=== PATIENT | male | born 1945 | race Caucasian/White ===

== ENCOUNTER → 2024-01-18 08:36 | Outpatient (REF) | payer OTHER, SELFPAY ==
[2024-01-18 09:13] LABS: % Immature Granulocytes 0.4 % (0-0.5); % Lymphocytes 36.2 % (20.5-51.1); % Neutrophils 43.4 % (42.2-75.2); Absolute Lymphocytes 1.6 10^3/uL (1.2-3.4); Absolute Monocytes 0.9 10^3/uL (0.1-0.6); Absolute Neutrophils 1.9 10^3/uL (1.4-6.5); Hematocrit 37.5 % (39.0-52.0); Hemoglobin 12.6 g/dL (13.0-18.0); Mean Corp Hgb Conc. 33.6 g/dL (33.0-37.0); Mean Corpuscular Hgb 32.1 pg (27.0-31.0); Mean Corpuscular Volume 95.7 fL (80.0-94.0); Mean Platelet Volume 8.3 fL (7.4-10.4); Nucleated Red Blood Cells % 0 % (-); Platelet Count 214 10^3/uL (130-400); Red Blood Cell Count 3.92 10^6/uL (4.70-6.10); Red Cell Dist. Width 13.4 % (11.5-14.5); White Blood Cell Count 4.5 10^3/uL (4.8-10.8)
[2024-01-18 10:50] LABS: ALT (SGPT) 17 U/L (0-50); AST (SGOT) 23 U/L (17-59); Albumin 4.3 g/dl (3.5-5.0); Alkaline Phosphatase 85 U/L (38-126); Blood Urea Nitrogen 30 mg/dl (9-20); Calcium 8.9 mg/dl (8.4-10.2); Carbon Dioxide 28 mmol/L (22-30); Chloride 102 mmol/L (98-107); Glucose 97 mg/dl (70-99); HDL Cholesterol 42 mg/dl; LDL Cholesterol, Calculated 56 mg/dl; Phosphorus 3.4 mg/dl (2.5-4.5); Potassium 5.1 mmol/L (3.5-5.1); Sodium 135 mmol/L (135-145); Total Bilirubin 0.6 mg/dl (0.2-1.3); Total Cholesterol 135 mg/dl (50-199); Total Protein 7.1 g/dl (6.3-8.2); Triglyceride 187 mg/dl (10-149); Very Low Density Lipoprotein 37 mg/dl (0-30); eGFR 44.38
== END ==
LOC: REG 08:36
PROVIDERS: ATTENDING PHYSICIAN Internal Medicine; REFERRING PHYSICIAN Specialist
DX: I35.0 Nonrheumatic aortic (valve) stenosis (principal); J44.9 Chronic obstructive pulmonary disease, unspecified; I25.10 Atherosclerotic heart disease of native coronary artery without angina pectoris; Z95.5 Presence of coronary angioplasty implant and graft; C64.2 Malignant neoplasm of left kidney, except renal pelvis; N28.9 Disorder of kidney and ureter, unspecified; E78.2 Mixed hyperlipidemia
CPT/HCPCS: 36415; 80053; 80061; 84100; 85025

== ENCOUNTER → 2024-01-23 14:46 | Outpatient (REF) | payer OTHER, SELFPAY | LOC: RAD 14:46 | PROVIDERS: ATTENDING PHYSICIAN Specialist; FAMILY PHYSICIAN Internal Medicine | DX: C64.2 Malignant neoplasm of left kidney, except renal pelvis (principal) | CPT/HCPCS: 74160; Q9967 ==

== ENCOUNTER → 2024-06-29 10:40 | Outpatient (REF) | payer OTHER, SELFPAY ==
[2024-06-29 11:27] LABS: % Immature Granulocytes 1.1 % (0-0.5); % Monocytes 19.5 % (1.7-9.3); % Neutrophils 51.4 % (42.2-75.2); Absolute Immature Granulocytes 0.1 10^3/uL (0-0.05); Absolute Lymphocytes 1.2 10^3/uL (1.2-3.4); Absolute Monocytes 0.9 10^3/uL (0.1-0.6); Absolute Neutrophils 2.2 10^3/uL (1.4-6.5); Hematocrit 39.7 % (39.0-52.0); Hemoglobin 13.5 g/dL (13.0-18.0); Mean Corpuscular Hgb 31.8 pg (27.0-31.0); Mean Corpuscular Volume 93.4 fL (80.0-94.0); Mean Platelet Volume 8.3 fL (7.4-10.4); Nucleated Red Blood Cells % 0 % (-); Platelet Count 210 10^3/uL (130-400); Red Blood Cell Count 4.25 10^6/uL (4.70-6.10); Red Cell Dist. Width 13.3 % (11.5-14.5); Reticulocyte Count 2.6 % (0.4-2.8); White Blood Cell Count 4.4 10^3/uL (4.8-10.8)
[2024-06-29 12:04] LABS: Albumin 4.5 g/dl (3.5-5.0); Blood Urea Nitrogen 26 mg/dl (9-20); Calcium 9.4 mg/dl (8.4-10.2); Carbon Dioxide 28 mmol/L (22-30); Chloride 102 mmol/L (98-107); Glucose 82 mg/dl (70-99); Iron 131 ug/dl (49-181); Phosphorus 3.2 mg/dl (2.5-4.5); Potassium 4.7 mmol/L (3.5-5.1); Sodium 139 mmol/L (135-145); eGFR 56.93
[2024-06-29 12:36] LABS: Ferritin 82.3 ng/ml (17.9-464.0)
== END ==
LOC: REG 10:40
PROVIDERS: ATTENDING PHYSICIAN Internal Medicine
DX: I25.10 Atherosclerotic heart disease of native coronary artery without angina pectoris (principal)
CPT/HCPCS: 36415; 80069; 82728; 83540; 85025; 85045

== ENCOUNTER → 2024-09-25 15:02 | Outpatient (REF) | payer OTHER, SELFPAY | LOC: RCS 15:02 | PROVIDERS: ATTENDING PHYSICIAN Nurse Practitioner; FAMILY PHYSICIAN Internal Medicine | DX: I35.0 Nonrheumatic aortic (valve) stenosis (principal) | CPT/HCPCS: 93306 ==

== ENCOUNTER → 2024-10-03 09:03 | Outpatient (REF) | payer OTHER, SELFPAY ==
[2024-10-03 10:24] LABS: Hematocrit 40.9 % (39.0-52.0); Hemoglobin 13.2 g/dL (13.0-18.0); Mean Corp Hgb Conc. 32.3 g/dL (33.0-37.0); Mean Corpuscular Hgb 31.2 pg (27.0-31.0); Mean Corpuscular Volume 96.7 fL (80.0-94.0); Mean Platelet Volume 8.5 fL (7.4-10.4); Platelet Count 205 10^3/uL (130-400); Red Blood Cell Count 4.23 10^6/uL (4.70-6.10); Red Cell Dist. Width 13.7 % (11.5-14.5); White Blood Cell Count 4.9 10^3/uL (4.8-10.8)
[2024-10-03 10:25] LABS: ALT (SGPT) 20 U/L (0-50); AST (SGOT) 30 U/L (17-59); Albumin 4.5 g/dl (3.5-5.0); Alkaline Phosphatase 79 U/L (38-126); Blood Urea Nitrogen 30 mg/dl (9-20); Calcium 8.7 mg/dl (8.4-10.2); Carbon Dioxide 27 mmol/L (22-30); Chloride 103 mmol/L (98-107); Glucose 88 mg/dl (70-99); Potassium 4.9 mmol/L (3.5-5.1); Sodium 142 mmol/L (135-145); Total Bilirubin 0.5 mg/dl (0.2-1.3); Total Protein 7.4 g/dl (6.3-8.2); eGFR 56.58
[2024-10-03 10:46] LABS: Absolute Neutrophils -Man Diff 2.6 10^3/uL (1.4-6.5); Band Neutrophils 0 % (0-3); Lymphocytes 34 % (20-51); Monocytes 11 % (2-9); Normal RBC Morphology Yes; Platelets Checked Yes; Segmented Neutrophils 55 % (42-75); Total Cells Counted 100
== END ==
LOC: REG 09:03
PROVIDERS: ATTENDING PHYSICIAN Internal Medicine; FAMILY PHYSICIAN Internal Medicine
DX: I35.0 Nonrheumatic aortic (valve) stenosis (principal)
CPT/HCPCS: 36415; 80053; 85025

== ENCOUNTER 2024-10-04 07:13 | Day surgery (SDC) | payer OTHER, SELFPAY ==
[2024-10-04] VITALS (10 sets, daily range): BP systolic 140–153; BP diastolic 66–82; BMI 35.0
[2024-10-04 10:02] LABS: ACT-LR - POC 205 Seconds (116-155)
--- NOTE | 2024-10-04 10:24 | ITS.CL.CATH ---
Tourist Information Assistant - Catheterization
Cardiac Catheterization
Procedure Report:
CARDIAC CATHETERIZATION REPORT
Date of Procedure: 10/04/2024
Referring: Cam العراقي MD
Indication: Symptomatic severe aortic stenosis
�
HEMODYNAMIC DATA
AO: 121/64
LV: Not done
�
LEFT VENTRICULOGRAPHY: Not done
�
CORONARY ANGIOGRAPHY
Dominance: Right
Left Main: Normal
LAD: 60% proximal to mid LAD stenosis with otherwise mild luminal irregularities in the LAD system
Circumflex: There is a long stented segment from the proximal circumflex extending into the large OM 2. The stented segment is patent with mild restenosis to 20-30% in the proximal stented segment. The stent placed in 2018 in OM 2 has no restenosis
RCA: The RCA has 80% mid stenosis and remains chronically occluded in the midportion. The relatively small PDA and medium size posterolateral fill via [id number] collaterals
FloWire assessment: The functional significance of the LAD disease was evaluated with FloWire. Heparin was used for anticoagulation. A 6 [place] EBU 4.0 guide was used. A [place] Omni wire was advanced into the large D3. iFR measurements were
0.91, 0.90, 0.90. These are consistent with nonflow-limiting disease.
�
Closure Device: None-the procedure was performed via the right radial artery. The Nam's test was normal prior to the procedure.
�
Radiation (mGy): 628
DAP (cm2.Gy): 45.4
Fluoroscopy time: 7.9-minute
�
CONCLUSIONS
1:�Multivessel CAD as described-the LAD disease is nonflow limiting by iFR criteria and the RCA has had YARD PERSON for many years.
2:�Known severe with moderate AI not invasively evaluated
3. Recommend CTA chest, abdomen and pelvis (TAVR protocol). Then CTS consultation. Favor TAVR if ascending aortic dilatation does not require repair
�
�
Copy to: Cam العراقي MD, Kraig Lacey MD
�
Rojelio Ortega MD, LOCATED WITHIN [facility], [facility]
--- NOTE | 2024-10-04 10:46 | CONSULT.STRU ---
Consultation
-
Date/Time Consultation Requested: 10/04/2024
Date/Time Consultation Performed: 10/04/2024
Requesting Provider: Roejlio Ortega MD
Performing Provider: KALEN Klein
Reason for Consultation: /TAVR
Patient History
Physicians
Family Physician: Nazario Lacey MD
Outpatient Cigarette Lighter Repairer: Cam العراقي MD
Primary Cigarette Lighter Repairer: Cam العراقي MD
History of Present Illness
Mr. Rutledge is a very pleasant 79 yom that presents with severe symptomatic aortic stenosis associated with BREWER, Fatigue, and intermittent chest pain. His echocardiogram from 09/25/2024 is notable for EF 55-60%, AV P/M 74/42, CALEB 1.3, DI 0.2, pk sree
4.31, mild - moderate AI, mild MR, Trace TR, PAP 37. Discussed the pathophysiology and treatment options of including SAVR and TAVR. Explained the evaluation process comprising of CT scan, CT surgical consult, dental clearance, and a heart team
discussion. TAVR booklet, contact information, prescriptions, and appointments given to patient. Allowed for and answered questions at bedside.
Past Medical History
Past Medical History: CAD (MARYLOU-Lcx (2018)), HTN, Psychiatric (depression), Valvular Disease (aortic stenosis) and Other (mixed hyperlipidemia, gout, smoker, pneumonia, kidney cancer, varicose veins, umbilical hernia)
Past Surgical History
Past Surgical History: Abdominal ((L) nephrectomy, hernia repair), Appendectomy and Orthopedic ((L) TKR, (L) hand laproscopic)
Dental History
Dr. Sravan Quintero DDS
Family History
Mother: at Age (87)
Father: at Age (87)
Social History
Alcohol: Daily (3-4 whiskeys/ day)
Drug: None
Tobacco: Former Smoker
Personal:
Living: Alone
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
Allergies
Allergy/AdvReac Type Severity Reaction Status Date / Time
No Known Allergies Allergy Verified 10/04/24 07:33
Home Medications
�Medication �Instructions �Recorded �Confirmed �Type
allopurinol 300 mg tablet 300 mg PO DAILY Gout 06/27/18 10/04/24 History
amlodipine 10 mg tablet 10 mg PO HS Heart disease/condition 06/27/18 10/04/24 History
atorvastatin 20 mg tablet 20 mg PO HS High cholesterol 06/27/18 10/04/24 History
fluoxetine 20 mg capsule 20 mg PO HS Mental Health/Anxiety 06/27/18 10/04/24 History
lisinopril 40 mg tablet 40 mg PO DAILY #30 tabs 06/29/18 10/04/24 Rx
Aspirin 81 mg PO DAILY Blood clot 10/05/21 10/04/24 History
prevention/tx
Zatteehkdw-Nxkmfjzsjpd-PIF Tab 1 tab PO DAILY Supplement 10/05/21 10/04/24 History
fenofibrate 54 mg tablet 54 mg PO DAILY High cholesterol 10/05/21 10/04/24 History
acetaminophen 650 mg 650 mg PO Q6HPRN PRN pain ##1 10/06/21 10/04/24 Rx
tablet,extended release (Tylenol
Arthritis)
clopidogrel 75 mg tablet 75 mg PO DAILY Blood clot 10/07/21 10/04/24 History
prevention/tx
STS%
STS %: 2.35
Review of Systems
-
History Source: Patient
General: Reports Fatigue
HEENT: Reports No Symptoms
Respiratory: Reports BREWER
Cardiac: Reports Chest Pain
Abdomen/GI: Reports No Symptoms
: Reports No Symptoms
Musculoskeletal: Reports No Symptoms
Skin: Reports No Symptoms
Neurological: Reports No Symptoms
Vascular: Reports No Symptoms
Physical Exam
Vital Signs
Temp 97.3 F 10/04/24 07:15
Temp route: Oral 10/04/24 07:15
Pulse 58 11/21/24 10:22
Resp Rate 24 10/04/24 10:22
Blood pressure 148/68 10/04/24 10:22
Blood pressure extremity used: Left upper arm 10/04/24 10:19
Position: Sitting 10/04/24 10:19
MAP (cuff-Frankie Monitor) 91 10/04/24 10:22
SaO2 96 10/04/24 10:22
Oxygen Mode of Delivery Room air 10/04/24 10:19
Can the patient verbally communicate their pain? Yes 10/04/24 10:19
Actual Weight 110.5 kg 10/04/24 07:36
Body Mass Index (BMI) 35.0 10/04/24 07:36
Labs
10/03/2024:
HH: 13.2/40.9
plt: 205K
BUN/Creatinine: 30/1.3
GFR: 56.58
Diagnostic Studies
PFT 09/15/2024:
Spirometry pre bronchodilator:
FVC was 2.56L or 59% predicted.
FEV1 was 1.57L or 50% predicted.
Ratio 61
Spirometry post bronchodilator:
FVC was 3.04L or 70% predicted, 19% change.
FEV1 was 1.94L or 62% predicted, 24% change.
Ratio 64
Lung Volumes:
TLC was 6.06L or 83% predicted.
Diffusion was 17.18 or 64% predicted, when adjusted for hemoglobin is unchanged.
Patient effort: Good.
Bronchodilator used was Albuterol.
Impression:
Moderate obstruction. There was significant bronchodilator response in both the FVC and FEV1. Lung volumes demonstrate normal lung volumes. There is a mild diffusion impairment.
ECHOCARDIOGRAM 09/25/2024:
CONCLUSIONS
Normal left ventricular size and systolic function. Basal
inferoseptal/inferior hypokinesis. LVEF 55-60%.
Normal RV size and function.
Moderate to severe aortic stenosis (peak/mean 74/42 mmHg, CALEB 1.3 cm2, DVI
0.2).
Mild to moderate aortic regurgitation.
Mildly dilated aortic root (4.2 cm) and ascending aorta (4.4 cm).
Mildly elevated PASP (37 mmHg).
Compared to prior echocardiogram on 06/09/2023, aortic stenosis has progressed
slightly and is now in the moderate to severe range. Mean gradient has
increased from 38 mmHg to 42 mmHg. CALEB is stable. Aortic root and ascending
aorta are stable in size.
CARDIAC CATHETERIZATION 10/04/2024:
CONCLUSIONS
1:�Multivessel CAD as described-the LAD disease is nonflow limiting by iFR criteria and the RCA has had PRODUCT MARKETING SPECIALIST for many years.
2:�Known severe with moderate AI not invasively evaluated
3. Recommend CTA chest, abdomen and pelvis (TAVR protocol). Then CTS consultation. Favor TAVR if ascending aortic dilatation does not require repair
Exam
General: Well Developed, Well Nourished, No Apparent Distress and Comfortable
HEENT: Normocephalic
Neck: Trachea Midline
Respiratory: Clear (anteriorly)
Cardiac: Murmur (II/ LOGAN)
GI: Soft, Non Tender and Non Distended
Rectal: Deferred by Provider
Skin: Warm and Dry
Neuro: Awake, Alert, Oriented and AO x 3
Extremities: Lower Level Edema (Trace)
Psych: Calm
Assessment / Plan
-
Aortic stenosis:
Continue TAVR evaluation
Trend creatinine after contrast (Rx given)
TAVR CT scan (10/19)
CT surgical consult (MPT 10/23)
Frailty testing and KCCQ 12 at consult
Continue aspirin and plavix
Dental clearance
Heart team discussion
Data Reviewed
-
Asset Protection Assistant: Report Reviewed by me and Discussed with Physician
Echo: Report Reviewed by me and Discussed with Physician
Medical Tests (Nuc Med, etc): Other (PFT)
Labs: Labs Reviewed by me
Old Records: Reviewed (Joanne Alcantar's office note)
Total Time Spent with Patient (in minutes): 45
== END 2024-10-04 13:06 | disposition home or self-care (01) ==
LOC: CATH 07:13
PROVIDERS: ATTENDING PHYSICIAN Internal Medicine Cardiovascular Disease; FAMILY PHYSICIAN Internal Medicine; OTHER PHYSICIAN Internal Medicine
DX: I35.0 Nonrheumatic aortic (valve) stenosis (principal); I25.10 Atherosclerotic heart disease of native coronary artery without angina pectoris; R07.89 Other chest pain; I25.82 Chronic total occlusion of coronary artery; I10 Essential (primary) hypertension; E78.5 Hyperlipidemia, unspecified; Z85.528 Personal history of other malignant neoplasm of kidney; Z87.891 Personal history of nicotine dependence; Z79.82 Long term (current) use of aspirin; Z79.02 Long term (current) use of antithrombotics/antiplatelets
CPT/HCPCS: 93799; C1894; C1769; C1887; 85347; 93454; 93571; Q9967

== ENCOUNTER → 2024-10-10 08:46 | Outpatient (REF) | payer OTHER, SELFPAY ==
[2024-10-10 11:28] LABS: Blood Urea Nitrogen 27 mg/dl (9-20); Calcium 9.2 mg/dl (8.4-10.2); Carbon Dioxide 28 mmol/L (22-30); Chloride 101 mmol/L (98-107); Glucose 88 mg/dl (70-99); Potassium 4.8 mmol/L (3.5-5.1); Sodium 142 mmol/L (135-145); eGFR 56.58
== END ==
LOC: REG 08:46
PROVIDERS: ATTENDING PHYSICIAN Nurse Practitioner Acute Care; FAMILY PHYSICIAN Internal Medicine; REFERRING PHYSICIAN Internal Medicine
DX: I35.0 Nonrheumatic aortic (valve) stenosis (principal)
CPT/HCPCS: 36415; 80048

== ENCOUNTER → 2024-10-19 09:23 | Outpatient (REF) | payer OTHER, SELFPAY | LOC: RAD 09:23 | PROVIDERS: ATTENDING PHYSICIAN Nurse Practitioner Acute Care | DX: I35.0 Nonrheumatic aortic (valve) stenosis (principal) | CPT/HCPCS: 74174; 75572; Q9967 ==

== ENCOUNTER 2024-11-26 05:20 | Inpatient (IN) | payer OTHER, SELFPAY ==
[2024-11-19 08:49] VITALS: BMI 34.0
[2024-11-19 09:45] LABS: INR 1.05
[2024-11-19 09:46] LABS: APTT 37.8 Sec (23.4-35.0)
[2024-11-19 09:55] LABS: Hematocrit 39.9 % (39.0-52.0); Mean Corp Hgb Conc. 32.6 g/dL (33.0-37.0); Mean Platelet Volume 8.7 fL (7.4-10.4); Platelet Count 189 10^3/uL (130-400); Red Cell Dist. Width 13.4 % (11.5-14.5); White Blood Cell Count 4.7 10^3/uL (4.8-10.8)
--- NOTE | 2024-11-19 10:24 | CM ---
Met with Mr. Rutledge in [facility]. He states prior to admission he resides alone in a two story home with three steps to enter. He states he has a first floor set-up. He states prior to admission he was independent with ambulation and adls. He states
he mauricio not have any DME in the home. He states he has a prescription plan and uses [facility]. He states he will go home alone but has family and friends that he can call if he needs any assistance. The discharge plan is to return home
alone with family and friend support and a home visit by the Transitional Care Nurse when medically stable.
We reviewed pre-op and post-op routines. We reviewed the shower instructions. He has the soap, written instructions and the Cardiothoracic Surgery Educational Booklet. We also reviewed restrictions including sternal precautions and driving
restrictions. We also discussed a home visit by the Transitional Care Nurse. He is agreeable to a home visit. The plan is for AVR/CABG on Tuesday.
[2024-11-19 10:33] LABS: ALT (SGPT) 19 U/L (0-50); AST (SGOT) 27 U/L (17-59); Albumin 4.6 g/dl (3.5-5.0); Alkaline Phosphatase 78 U/L (38-126); Blood Urea Nitrogen 19 mg/dl (9-20); Calcium 9.1 mg/dl (8.4-10.2); Carbon Dioxide 31 mmol/L (22-30); Chloride 99 mmol/L (98-107); Estimated Creatinine Clearance 64 ml/min; Glucose 82 mg/dl (70-99); Potassium 4.8 mmol/L (3.5-5.1); Sodium 138 mmol/L (135-145); Total Bilirubin 0.8 mg/dl (0.2-1.3); Total Protein 7.6 g/dl (6.3-8.2); eGFR > 60.00
[2024-11-19 10:41] LABS: Urine Albumin 1+ (Neg - Trace); Urine Bilirubin Negative (Negative); Urine Character Clear (Clear); Urine Color Yellow; Urine Glucose Negative (Negative); Urine Ketone Negative (Negative); Urine Leukocyte Trace (Negative); Urine Nitrite Negative (Negative); Urine Occult Blood 2+ (Negative); Urine Urobilinogen Negative (Neg - 1+)
[2024-11-19 11:03] LABS: Glycohemoglobin (HgbA1c) 5.3 % (4.0-5.6)
[2024-11-19 12:14] LABS: Absolute Neutrophils -Man Diff 2.8 10^3/uL (1.4-6.5); Band Neutrophils 3 % (0-3); Lymphocytes 16 % (20-51); Monocytes 22 % (2-9); Myelocytes 1 % (-); Normal RBC Morphology Yes; Platelets Checked Yes; Segmented Neutrophils 58 % (42-75); Total Cells Counted 100
[2024-11-19 12:19] LABS: Urine Amorphous Seen
[2024-11-19 12:21] LABS: Urine Hyaline Cast 0-2 /LPF (0-2)
[2024-11-19 12:22] LABS: Urine White Cell 0-2 /HPF (0-5)
[2024-11-19 12:23] LABS: Urine Bacteria Few (Negative)
[2024-11-26] VITALS (17 sets, daily range): BP systolic 77–130; BP diastolic 57–79; BMI 33.4
[2024-11-26] MEDS: BACTROBAN 2% OINTMENT 1 APPLIC NASAL ×2 (06:06→20:13)
[2024-11-26] MEDS: PROTONIX 40 MG PO (06:06)
[2024-11-26] MEDS: LOPRESSOR 25 MG PO (06:06)
[2024-11-26] MEDS: MAGNESIUM OXIDE 500 MG PO (06:06)
--- NOTE | 2024-11-26 06:20 | PTCARENOTE ---
Patient arrived to room 2267 with security services manager. Patient A+A+Ox3. No neurological deficits noted. Patient with no c/o pain or discomfort. Patient confirmed NPO status after midnight. Patient confirmed taking 4% Chlorhexidine shower last
night and this morning. Patient clipped and prepped per protocol. G wipes. Admission questions completed. Medication reconciliation completed. Patient confirmed stopping Plavix 5 days ago. Pre-op medication administered. I.S. 1500 ml.
Heart pillow use and purpose explained - Patient demonstrated use. Dr. Hill arrived and spoke with patient. best worker to [facility].
[2024-11-26 08:07] LABS: ACT+ - POC 101 Seconds (82-134)
[2024-11-26 08:18] LABS: Urine Albumin Trace (Neg - Trace); Urine Bilirubin Negative (Negative); Urine Character Clear (Clear); Urine Color Yellow; Urine Glucose Negative (Negative); Urine Ketone Negative (Negative); Urine Leukocyte Negative (Negative); Urine Nitrite Negative (Negative); Urine Occult Blood Trace (Negative); Urine Urobilinogen Negative (Neg - 1+)
--- NOTE | 2024-11-26 08:35 | CM ---
Reviewed chart. Mr. Rutledge is in the operating room today. Prior to admission he resides alone in a two story home with three steps to enter. He has a first floor set-up. Prior to admission he was independent with ambulation and adls. He does not
have any DME in the home. He has a prescription plan and uses [facility]. He states he has friends and family that he can call if he needs assistance. Medical work-up in progress. The discharge plan is to return home with family and friend
assistance and a home visit by the Transitional Care Nurse when medically stable.
[2024-11-26 09:09] LABS: Urine Mucus Few
[2024-11-26 09:10] LABS: Urine Squamous Cell 0-2 /LPF (Few)
[2024-11-26 09:13] LABS: Urine Amorphous Seen
[2024-11-26 09:14] LABS: Urine Hyaline Cast 0-2 /LPF (0-2); Urine White Cell 0-2 /HPF (0-5)
[2024-11-26 09:54] LABS: B.E. - POC 1.8 mmol/L; Glucose - POC 107 mg/dl (70-99); HCO3 - POC 28 mmol/L (21-28); Hematocrit - POC 34 % PCV (42-52); Hemodilution- POC No; Hemoglobin Calculated - POC 11.7; Ionized Calcium - POC 1.26 mmol/L (1.15-1.33); PCO2 - POC 52 mmHg (35-48); PO2 - POC 502 mmHg (83-108); POC Comment PRE; Potassium - POC 4.4 mmol/L (3.5-5.1); Sodium - POC 139 mmol/L (136-145); Specimen Type - POC Arterial; pH - POC 7.34 (7.35-7.45)
[2024-11-26 10:29] LABS: ACT+ - POC 976 Seconds (82-134)
[2024-11-26 10:56] LABS: ACT+ - POC 789 Seconds (82-134)
[2024-11-26 11:13] LABS: B.E. - POC 3.7 mmol/L; Glucose - POC 136 mg/dl (70-99); HCO3 - POC 29 mmol/L (21-28); Hematocrit - POC 28 % PCV (42-52); Hemodilution- POC Yes; Hemoglobin Calculated - POC 9.4; Ionized Calcium - POC 1.08 mmol/L (1.15-1.33); PCO2 - POC 49 mmHg (35-48); PO2 - POC 398 mmHg (83-108); POC Comment CPB; Potassium - POC 5.7 mmol/L (3.5-5.1); Sodium - POC 138 mmol/L (136-145); Specimen Type - POC Arterial; pH - POC 7.38 (7.35-7.45)
[2024-11-26 11:28] LABS: ACT+ - POC 799 Seconds (82-134)
[2024-11-26 11:48] LABS: B.E. - POC 1.7 mmol/L; Glucose - POC 125 mg/dl (70-99); HCO3 - POC 26 mmol/L (21-28); Hematocrit - POC 28 % PCV (42-52); Hemodilution- POC Yes; Hemoglobin Calculated - POC 9.4; Ionized Calcium - POC 1.04 mmol/L (1.15-1.33); PCO2 - POC 38 mmHg (35-48); PO2 - POC 447 mmHg (83-108); POC Comment CPB; Potassium - POC 5.6 mmol/L (3.5-5.1); Sodium - POC 137 mmol/L (136-145); Specimen Type - POC Arterial; pH - POC 7.44 (7.35-7.45)
[2024-11-26 11:59] LABS: ACT+ - POC 608 Seconds (82-134)
[2024-11-26 12:15] LABS: B.E. - POC -0.5 mmol/L; Glucose - POC 106 mg/dl (70-99); HCO3 - POC 24 mmol/L (21-28); Hematocrit - POC 26 % PCV (42-52); Hemodilution- POC Yes; Ionized Calcium - POC 1.02 mmol/L (1.15-1.33); O2 Saturation %Calculated-POC 99.9 % (94-98); PCO2 - POC 37 mmHg (35-48); PO2 - POC 318 mmHg (83-108); POC Comment CPB; Potassium - POC 5.6 mmol/L (3.5-5.1); Sodium - POC 139 mmol/L (136-145); Specimen Type - POC Arterial; pH - POC 7.42 (7.35-7.45)
--- NOTE | 2024-11-26 12:20 | CON.INTV ---
Consultation
Consultation Request
Date/Time Consultation Requested: 11/26/2024-1:30 PM
Date/Time Consultation Performed: 11/26/2024-2 PM
Requesting Provider: Cardiovascular surgery
Performing Provider: Dr. Maldonado
Reason for Consultation: Postoperative ventilator/critical care management
Medical History
-
Chief Complaint: Aortic stenosis
History of Present Illness:
79-year-old former smoking and drinking male with a history of hypertension, COPD, CAD/stent, obesity and kidney cancer noted to have severe aortic stenosis and underwent aortic valve replacement and CABG-linux systems administrator consulted for postoperative
ventilator/critical care management 11/26/2024. Patient is seen postoperatively on the ventilator and he is sedated and review of systems was unobtainable. Operative records reviewed, pressors, chest tube output, etc. were reviewed.
Past Medical History
Past Medical History: None (Hypertension. COPD. CAD/stent. Cigarette smoker. Left renal mass. Depression. Gout. Alcohol use disorder. Left knee replacement. Appendectomy. Hernia repair. Left nephrectomy 2020.)
Social History
Tobacco: Former Smoker
Alcohol: Daily
Drug: None
Personal: Single
Occupational Exposures: No known asbestos exposure
Environmental Exposures: No known tuberculosis exposure
Family History
Family History: Other (Father-aortic stenosis. Sister-Alzheimer's.)
Allergies / Home Medications
Allergies
Allergy/AdvReac Type Severity Reaction Status Date / Time
No Known Allergies Allergy Verified 11/19/24 15:47
Home Medications
�Medication �Instructions �Recorded �Confirmed �Last Taken �Type
allopurinol 300 mg tablet 300 mg PO DAILY Gout 06/27/18 11/26/24 11/25/24 10:00 History
300 mg
amlodipine 10 mg tablet 10 mg PO HS Heart disease/condition 06/27/18 11/26/24 11/24/24 21:00 History
10 mg
atorvastatin 20 mg tablet 20 mg PO HS High cholesterol 06/27/18 11/26/24 11/24/24 21:00 History
20 mg
fluoxetine 20 mg capsule 20 mg PO HS Mental Health/Anxiety 06/27/18 11/26/24 11/25/24 21:00 History
20 mg
lisinopril 40 mg tablet 40 mg PO DAILY #30 tabs 06/29/18 11/26/24 11/24/24 10:00 Rx
40 mg
Sokuuwnbqn-Imsuxhpfzox-CGK Tab 1 tab PO BID Supplement 10/05/21 11/26/24 11/19/24 21:00 History
1 Tab
clopidogrel 75 mg tablet 75 mg PO DAILY Blood clot 10/07/21 11/26/24 11/21/24 10:00 History
prevention/tx 75 mg
aspirin 81 mg tablet,delayed 81 mg PO DAILY 11/19/24 11/26/24 11/25/24 10:00 History
release 81 mg
furosemide 40 mg tablet 40 mg PO DAILY 11/19/24 11/26/24 11/25/24 10:00 History
40 mg
Review of Systems
-
Unable to Obtain full review of systems at this time due to: Other (Per HPI)
Vitals / Labs / Diagnostic Testing
Vital Signs
Temp Pulse Resp BP Pulse Ox
97.4 F 73 16 130/79 97
11/26/24 05:53 11/26/24 06:06 11/26/24 05:53 11/26/24 06:06 11/26/24 05:53
Lab Data
11/19/24 09:00
11/19/24 09:00
Diagnostic Testing:
Physical Exam
-
Exam:
Well-nourished and well-developed in no apparent distress
HEENT-atraumatic, normocephalic, oral tracheal intubation
Heart-regular rate and rhythm-no murmurs, rubs or gallops
Chest-clear to auscultation, no wheezes, crackles, median sternotomy bandage is not removed
Abdomen soft nondistended
Extremities-no cyanosis, clubbing, edema and good peripheral pulses
Integument-intact, no rashes, lesions or ecchymosis
Neurologically not alert, not oriented, not moving any of his extremities sedated on a ventilator
Assessment
-
9-year-old former smoking and drinking male with a history of hypertension, COPD, CAD/stent, obesity and kidney cancer noted to have severe aortic stenosis and underwent aortic valve replacement and CABG-linux systems administrator consulted for postoperative
ventilator/critical care management 11/26/2024.
Severe aortic stenosis and CAD-status post ascending aortic wrap with Hemashield graft/CABG x 1-lead to to LAD-Dr. Hill 11/26/2024
Mild leukopenia
Conditions present prior to admission:
Hypertension.
COPD.
Pulmonary nodule-4 mm right lower lobe stable 08/2021 through 10/2024
CAD/stent.
Cigarette smoker.
Left renal mass-renal cell carcinoma stage IIa, grade 3, 7.6 cm-incidentally noted on screening CT chest
Right renal mass-suspected cyst-follows urology
Depression.
Gout.
Alcohol use disorder.
Obesity-BMI 33
Left knee replacement. Appendectomy. Hernia repair. Left nephrectomy 2020.
Plan
Ventilator settings reviewed
FiO2 will be weaned
Minute ventilation will be adjusted
Arterial blood gases will be monitored
Spontaneous breathing trial will be attempted with hopeful extubation after anesthesia/sedation wear off
Pulmonary artery catheter parameters will be followed
Pressors/antihypertensive/inotropes/diuretics will be provided as needed
Monitor chest tube output
Monitor hemoglobin
Monitor platelet count and coags
Transfuse blood product if needed
CT surgery following chest tubes
Monitor blood sugar
Insulin drip per protocol
Follow MSAS
Alcohol withdrawal treatment protocol if needed
Consider thiamine, folate and multivitamins-will try to obtain detailed alcohol intake information
Aspiration precautions
VAP prevention protocol
DVT prophylaxis
Early nutrition
Early mobilization
Consider outpatient pulmonary/sleep disorders evaluation-BMI 33, thick neck, snore, etc.
Critical care statement: A total of 55 minutes of critical care time was provided for this patient today. This includes management of ventilator, spontaneous breathing trial, arterial blood gases, pressors, of unstable vital signs, evaluation of the
patient at bedside, reviewing the patient's pertinent medical records including radiographs, microbiology, laboratory evaluations, and discussion with primary team and critical care nursing.
Diagnostic data:
CT chest low-dose 08/20/21-7.5 cm low-density mass left kidney, no evidence for pulmonary malignancy
CT chest 4R 10/19/2024-no suspicious pulmonary nodules, stable 4 mm nodule lateral right lower lobe
Cardiac catheterization 10/04/2024-multivessel CAD, severe aortic stenosis with moderate aortic insufficiency
Echocardiogram 09/25/2024-EF 55-60%, moderate to severe aortic stenosis, CALEB 1.3 cm, moderate aortic regurgitation
PFT 09/15/2023-FEV1 1.57-50%, FVC 2.56-59%, 24% improvement postbronchodilator, TLC 83%, DLCO 64%-moderate obstruction, mild to moderate diffusing deficit
Data Reviewed
-
PFT: Report reviewed by me
EKG: Report reviewed by me
Radiology: Image personally visualized and interpreted and Report reviewed by me
CT Scan: Image personally visualized and interpreted and Report reviewed by me
Medical Tests (Nuc Med, Echo etc): Report reviewed by me
Labs: Labs reviewed by me
Old Records: Reviewed
Critical Care Time (in minutes): 55
[2024-11-26 12:26] LABS: ACT+ - POC 635 Seconds (82-134)
[2024-11-26 12:45] LABS: B.E. - POC 0.3 mmol/L; Glucose - POC 109 mg/dl (70-99); HCO3 - POC 24 mmol/L (21-28); Hematocrit - POC 30 % PCV (42-52); Hemodilution- POC Yes; Hemoglobin Calculated - POC 10.1; Ionized Calcium - POC 1.05 mmol/L (1.15-1.33); O2 Saturation %Calculated-POC 99.8 % (94-98); PCO2 - POC 36 mmHg (35-48); PO2 - POC 230 mmHg (83-108); Potassium - POC 5.5 mmol/L (3.5-5.1); Sodium - POC 139 mmol/L (136-145); Specimen Type - POC Arterial; pH - POC 7.44 (7.35-7.45)
[2024-11-26 12:58] LABS: ACT+ - POC 640 Seconds (82-134)
[2024-11-26 13:12] LABS: B.E. - POC 0.1 mmol/L; Glucose - POC 127 mg/dl (70-99); HCO3 - POC 24 mmol/L (21-28); Hematocrit - POC 28 % PCV (42-52); Hemodilution- POC Yes; Hemoglobin Calculated - POC 9.5; O2 Saturation %Calculated-POC 99.9 % (94-98); PCO2 - POC 35 mmHg (35-48); PO2 - POC 337 mmHg (83-108); POC Comment WARM; Potassium - POC 5.3 mmol/L (3.5-5.1); Sodium - POC 140 mmol/L (136-145); Specimen Type - POC Arterial; pH - POC 7.44 (7.35-7.45)
[2024-11-26 13:21] LABS: ACT+ - POC 546 Seconds (82-134)
[2024-11-26 13:43] LABS: ACT+ - POC 492 Seconds (82-134)
[2024-11-26 13:56] LABS: Glucose - POC 153 mg/dl (70-99); HCO3 - POC 23 mmol/L (21-28); Hematocrit - POC 29 % PCV (42-52); Hemodilution- POC Yes; Hemoglobin Calculated - POC 9.7; Ionized Calcium - POC 0.99 mmol/L (1.15-1.33); O2 Saturation %Calculated-POC 99.9 % (94-98); PCO2 - POC 35 mmHg (35-48); PO2 - POC 327 mmHg (83-108); POC Comment WARM; Potassium - POC 5.6 mmol/L (3.5-5.1); Sodium - POC 141 mmol/L (136-145); Specimen Type - POC Arterial; pH - POC 7.42 (7.35-7.45)
[2024-11-26 14:00] LABS: ACT+ - POC 112 Seconds (82-134)
--- NOTE | 2024-11-26 15:02 | W.CVOR.SURPR ---
CV[facility] Surgeon Immed Pre Op
-
I have examined this patient prior to performance of the scheduled procedure.
The patient's condition is unchanged from the time of the dictated/written History and
Physical and the patient is able to undergo the scheduled procedure.
--- NOTE | 2024-11-26 15:02 | W.IMMPOSTOP ---
Addendum entered and electronically signed by Noah Hill MD 11/26/24 16:12:
[id number]
Original Note:
Surgical Immed Post Op Note
-
CARDIAC SURGERY OPERATIVE NOTE:
Preoperative Dx:
CAD
Severe aortic stenosis (P/M: 74/42, CALEB 1.3, DVI 0.2)
Bcmw-il-sbfxydzz aortic insufficiency
Ascending aortic enlargement
Postoperative Dx:
Same
Procedures:
1) Median sternotomy
2) Takedown of PERLITA (pedicle)
3) Endoscopic harvest/prep of RLE GSV
4) Evaluation of RPDA/PRLB/distal RCA (not amenable to bypass)
5) CABG x 1 (PERLITA to LAD)
6) Ascending aortic wrap w/ hemashield graft
Surgeon:
Noah Hill M.D.
Assistants:
Cat Salazar P.A.-C. - endoscopic harvest/prep of RLE GSV; rn first assist
Brandi Ruiz P.A.-C. - rn first assist; closure
Nickolas Nettles P.A.-C. - gigebm-ihehdmp-zhuc closure
Anesthesia:
Alejandra SerranoNAria and Cesar Brasher M.D.
Perfusion:
May Unger, C.C.P.; CPB 180min, XC: 133min
Findings:
PERLITA was healthy conduit w/ ELD 3.25mm w/ very brisk blood flow
GSV was healthy conduit w/ ELD 3.50mm
LAD was visible at the terminal aspect of the apex, remainder of vessel was located under epicardial adipose tissue and a shallow (1-2mm of myocardium). Normal timmons at distal midpoint anastomosis w/ ELD 3.00mm
Distal RCA/RPDA/RPLB all insected and all were submillimeter vessel not amendable to surgical bypass
Ascending aorta w/ scattered atheromatous disease (epiaortic U/S assessment completed before aortic manipulation)
Ascending aorta was dilated to ~ 4.5cm at max dimention with thin timmons on aortotomy; good tissue strength
AV was functionally bicuspid w/ fusion of the LEFT and RIGHT cusps. The commissures and coronary ostia were in their typical anatomic locations. All leaflets w/ very bulky calcific disease. There was only minor annular extension of
calcifications mainly along NON-CORONARY leaflet w/ scant calcifications along LEFT/RIGHT. No subvalvular or aortomitral curtain calcifications.
Medtronic Avalus Ultra (#29) secured w/ 19 interrupted pledgetted valve sutures and CorKnots
Post-KELBY: Normal biventricular function. Well-seated AVR w/o AI/PVL, mean gradient 5mmHg
Implants:
CT x 3 (L pleural, anterior mediastinal)
Epicardial V-wires x 2 (transit pacing required before pt. regained isoelectric sinus/sinus bradycardia [baseline]
Medtronic Avalus Ultra #29mm; SN [id number]
Hemoshield Graft
Sternal wires x 8
Sternal 'X' plate w/ 8 - 12mm screws
Sternal 'Square' plate w/ 4 - 10mm screws
Complications:
None
Condition:
61 sinus w/ isoelectric STs (0.1/0.1), 97/59, 41/28, CVP 21, CO/CI: 3.9/1.7
GTTS: dobutamine 5, levophed 4, insulin 0.5, precedex 0.7
Stable/guarded to CVICU - dobutamine increase to 7 at 3:17pm
[2024-11-26 15:25] LABS: B.E. - POC -1.7 mmol/L; Glucose - POC 132 mg/dl (70-99); HCO3 - POC 23 mmol/L (21-28); Hematocrit - POC 27 % PCV (42-52); Hemodilution- POC Yes; Hemoglobin Calculated - POC 9.2; Ionized Calcium - POC 1.16 mmol/L (1.15-1.33); O2 Saturation %Calculated-POC 99.9 % (94-98); PCO2 - POC 40 mmHg (35-48); PO2 - POC 293 mmHg (83-108); POC Comment POST; Potassium - POC 4.3 mmol/L (3.5-5.1); Sodium - POC 142 mmol/L (136-145); Specimen Type - POC Arterial; pH - POC 7.38 (7.35-7.45)
--- NOTE | 2024-11-26 15:43 | W.PN.UPDATE ---
Update Note
Progress Note Update
29-year-old male was electively admitted on 11/26/2024 for aortic valve replacement and CABG due to bicuspid aortic valve with severe aortic stenosis and multivessel coronary disease
IV fluids:
Crystalloid:�
U.O.:� 500
UF:� 2500
Blood:� none
Wires:� 2 V-wires
Inotropes:� Dobutamine @ 7
Pressors:� Levophed @ 2
Sedatives:� precedex @ 0.5
�
NEURO: sedated on Precedex, pupils +2mm B/L
RESP: #8OT @24cm> 600/40%/14/. Lungs clear B/L. 2 mediastinal (10cc on arrival) and L pleural (10cc on arrival) chest tubes to -20cm suction. Sanguinous drainage
CV: RRR +S1, S2, no S3, no�rub, no murmur. Dermabond to median sternotomy. RIJ w/[place] locked @ 46cm. PA ; CVP 8; C.O 4.39/CI 1.93
ABD: round, soft, no BS
EXT: no edema, +2/4 DP pulses B/L, no femoral bruit, RLE LORY wrap and MANUEL w/sanguinous drainage intact; left radial A-line intact
: Osman with clear yellow urine
�
A/P: POD #0 s/p CABG x 1 (PERLITA-LAD), AVR #29mm Medtronic Avalus Ultra tissue valve, ascending aortic wrap w/ hemashield graft. Evaluation of RPDA/PRLB/distal RCA (not amenable to bypass)
KELBY: EF�60-65%, AV mean gradient 5 mmHg, trace MR/TR
- wean and extubate
- will need instruction regarding antibiotic prophylaxis for dental and invasive procedures
# CAD
# Hx MARYLOU-OM2 (2018)
- will require ASA, Plavix, high intensity statin, beta-godfrey
# HTN
- evaluate for need to resume home amlodipine and lisinopril
# Anxiety
- resume home Fluoxetine when toletating solids
# COPD (Moderate (FEV1 62%)
- add nebs if needed. No outpatient meds
# Hx renal cell cancer s/p left nephrectomy
# Right renal lesion 1.9cm
- trend creat
- avoid nephrotoxic drugs
- avoid NSAIDS
- will need outpatient CC surveillance for right renal lesion
�
# acute surgical blood loss anemia-expected
- trend CBC
# Gout
- resume Allopurinol when tolerating solids
�
[2024-11-26 15:44] LABS: Glucose - Point of Care 183 mg/dl (70-99)
[2024-11-26 15:52] LABS: B.E. -3.3 mmol/L; HCO3 23.1 mmol/L (21-28); Ionized Calcium 1.13 mMOL/L (1.15-1.33); O2 Saturation % 99.8 % (94-98); PCO2 47 mmHg (35-48); PO2 128 mmHg (83-108); Potassium 4.8 mMOL/L (3.5-5.1); Sodium 137 mMOL/L (136-145)
[2024-11-26 15:55] LABS: Hematocrit 27.7 % (39.0-52.0); Hemoglobin 9.2 g/dL (13.0-18.0); Platelet Count 133 10^3/uL (130-400)
[2024-11-26 15:57] LABS: Mixed Venous O2 Saturation 63.4 %
--- NOTE | 2024-11-26 16:00 | PTCARENOTE ---
Pt received from [facility] 1540; Sedated and intubatedPupils round, reactive, and equal; NS rhythm on monitor; VSS; Epicardial pacemaker present VVI with pacer settings VVI 66/20 mA; ; DP doppler and radial pulses present; Lungs diminished; ETT size 8
positioned and secured at 24? cm right lip; Ventilator settings SIMV 12/600/5 FiO2 40%; CTx3 to -20 cm wall suction draining bloody drainage - no air leak, tidaling, or crepitus noted; Hypoactive BS; Osman catheter in place draining yellow urine;
Sternal Midline Incision CDI/ R Leg or arm wrapped in Sudhir wrap - CDI;; A-line in left/ radial artery - line zeroed and level; SSwann present in right Cordis; CI 1.93 /CO 4.39; PIVx1; Levo/Dobut/insulin/precedex infusing; See nursing flowsheets for
further details.
[2024-11-26 16:02] LABS: INR 1.55; PT 18.8 Sec (11.4-14.6)
[2024-11-26 16:03] LABS: APTT 39.4 Sec (23.4-35.0)
[2024-11-26 16:04] LABS: Blood Urea Nitrogen 28 mg/dl (9-20); Estimated Creatinine Clearance 60 ml/min; Glucose 155 mg/dl (70-99)
--- NOTE | 2024-11-26 16:20 | W.PN.CD ---
Addendum entered and electronically signed by Elieser Swan MD 11/26/24 17:26:
I saw and examined the patient.
The TARIFF INSPECTOR's note was reviewed and I agree with the note.
Comment:
79 y/o male (patient of Dr. العراقي) with CAD, bicuspid AV with severe , ascending aortic dilatation now s/p CABG x 1 MELARA to LAD, Medtronic Avalus Ultra bio-AVR (#29), ascending aortic wrap with Hemashield graft with Dr. Hill 11/26/24. Patient
is intubated and sedated at the time of my assessment. He remains on norepinephrine at 4 and dobutamine 8. Lungs are clear and heart is regular rate and rhythm with no murmurs. Postoperative ECG reveals sinus rhythm with first-degree AV block.
He has temporary pacer wires in place. Continue routine postoperative care per CT surgery for now. Resume antihypertensives as tolerated. Monitor for alcohol withdrawal. We will follow along with you.
Original Note:
Today's Communication / Plan
-
Close post-op monitoring and care with weaning of drips and vent as tolerated per CT surgery/CVICU protocol
Impression / Plan
-
79 y/o male (patient of Dr. العراقي) with coronary artery disease with hx stenting (2004, 2017) as well as chronic RCA occlusion, bicuspid aortic valve with aortic stenosis, ascending aorta dilatation, mild to moderate aortic regurgitation, PVCs,
hypertension, hyperlipidemia, COPD/former smoker, obesity, ETOH abuse, and kidney cancer status-post left nephrectomy who is now s/p surgery as below.
CAD, bicuspid AV with severe , ascending aortic dilatation:
-now s/p CABG x 1 MELARA to LAD, Medtronic Avalus Ultra bio-AVR, ascending aortic wrap with Hemashield graft with Dr. Hill 11/26/24
-post-op on levo and dobutamine drips, which require intensive monitoring
-post-op EKG and telemetry SR with 1st degree AVB. Pacer wires in place. Follow telemetry.
-intra-op KELBY with normal EF, post-op CXR stable
-patient intubated and ventilated
-CT's and vázquez in place
-ASA, statin when able
HTN:
-on CCB and ACEI as OP
-monitor post-op
HLD:
-on statin as OP
ETOH abuse per chart:
-monitor for withdrawal symptoms
Physical Exam
Vital Signs/Labs
Vital Signs
Temp Pulse Resp BP Pulse Ox
97.4 F 73 16 130/79 97
11/26/24 05:53 11/26/24 06:06 11/26/24 05:53 11/26/24 06:06 11/26/24 05:53
11/25/24 11/26/24 11/27/24
06:59 06:59 06:59
Actual Weight 108.5 kg
11/26/24 15:41
PT 18.8 Sec (11.4-14.6) H 11/26/24 15:41
INR 1.55 11/26/24 15:41
APTT 39.4 Sec (23.4-35.0) H 11/26/24 15:41
Magnesium 3.0 mg/dl (1.6-2.3) H 11/26/24 15:41
Physical Exam
Constitutional: No acute distress
Cardiovascular: Rhythm & rate is regular
Respiratory: Lungs clear to auscul. and Other (intubated/ventilated)
Neuro/Psych: Other (sedated)
Other: Skin (midsternal dressing CDI)
Data Reviewed
-
Date of Service: November 26, 2024
EKG: Tracing Personally Visualized and interpreted (SR with 1st degree AVB)
Echo: Report Reviewed by me (intra-op KELBY with normal EF)
X-Ray/CT/US/MRI/NUC/PET: Report Reviewed by me (CXR as noted)
Labs: Labs Reviewed by me (creatinine 1.3)
[2024-11-26 16:42] LABS: Glucose - Point of Care 149 mg/dl (70-99)
[2024-11-26] MEDS: CALCIUM GLUCONATE 100 IV (17:15)
[2024-11-26 17:51] LABS: Glucose - Point of Care 145 mg/dl (70-99)
[2024-11-26 18:01] LABS: B.E. -5.3 mmol/L; HCO3 20.6 mmol/L (21-28); O2 Therapy Air 40; PCO2 41 mmHg (35-48); PO2 146 mmHg (83-108); pH 7.31 (7.35-7.45)
[2024-11-26] MEDS: SODIUM BICARBONATE 50 MEQ IV (18:21)
[2024-11-26 18:48] LABS: Glucose - Point of Care 151 mg/dl (70-99)
[2024-11-26 18:52] LABS: B.E. -2.1 mmol/L; HCO3 23.7 mmol/L (21-28); O2 Saturation % 99.6 % (94-98); PCO2 44 mmHg (35-48); PO2 133 mmHg (83-108); pH 7.34 (7.35-7.45)
[2024-11-26 18:57] LABS: Hematocrit 26.3 % (39.0-52.0); Hemoglobin 8.7 g/dL (13.0-18.0); Platelet Count 145 10^3/uL (130-400)
--- NOTE | 2024-11-26 19:15 | RESPNOTE ---
pr extubated per MD order, pt tolerated extubation well. suctioned down ETT and orally prior to extubation. pt able to vocalize, no stridor present. placed on 6L NC
--- NOTE | 2024-11-26 19:23 | PTCARENOTE ---
extubated @ 1910 to 6L NC, follows commands states name and
--- NOTE | 2024-11-26 20:00 | PTCARENOTE ---
Received pt from previous RN. Pt AAOx3 but drowsy, Pt NSR with 1st degree AV block HR 70s, + pulses, A/V wires set to VVI 66/20 mA, pox 99% on 6L NC, lungs diminished throughout, CTx3 to -20 cm wall suction draining bloody drainage - no air leak,
tidaling, or crepitus noted. hypoactive bs, vázquez draining clear yellow urine, all surgical sites intact, piv infusing insulin per glycemic protocol, GERMAN rollins w/ PAVEL floated to 45.
gtts
levo
dobutamine
insulin
[2024-11-26 20:01] LABS: Glucose - Point of Care 152 mg/dl (70-99)
[2024-11-26] MEDS: DILAUDID 0.25 MG IV (20:13)
[2024-11-26] MEDS: LOW STRENGTH ASPIRIN 81 MG PO (20:13)
[2024-11-26] MEDS: ANCEF 10 IV ×2 (20:22)
[2024-11-26] MEDS: TYLENOL PO (20:35)
[2024-11-26] MEDS: NEURONTIN PO (20:35)
[2024-11-26] MEDS: PACERONE PO (20:35)
[2024-11-26] MEDS: NSS 500 IV (20:36)
[2024-11-26 20:52] LABS: Hematocrit 27.2 % (39.0-52.0); Mean Corp Hgb Conc. 33.1 g/dL (33.0-37.0); Mean Corpuscular Hgb 31.7 pg (27.0-31.0); Mean Corpuscular Volume 95.8 fL (80.0-94.0); Mean Platelet Volume 8.8 fL (7.4-10.4); Platelet Count 154 10^3/uL (130-400); Red Blood Cell Count 2.84 10^6/uL (4.70-6.10); Red Cell Dist. Width 13.2 % (11.5-14.5)
--- NOTE | 2024-11-26 21:00 | PTCARENOTE ---
Dobutamine ordered reviewed with CTPA to leave at 8 mcg/min while 1 Unit of RBC is infusing
[2024-11-26] MEDS: DILAUDID 0.5 MG IV (21:20)
[2024-11-26] MEDS: SENOKOT-S PO (21:21)
[2024-11-26] MEDS: LIPITOR 40 MG PO (21:53)
[2024-11-26] MEDS: NEURONTIN 100 MG PO (21:54)
[2024-11-26] MEDS: TYLENOL 1000 MG PO (21:54)
[2024-11-26 22:06] LABS: Glucose - Point of Care 136 mg/dl (70-99)
[2024-11-26] MEDS: ROXICODONE 5 MG PO (22:24)
[2024-11-26] MEDS: ANCEF 5 IV (22:27)
[2024-11-26 23:52] LABS: Glucose - Point of Care 118 mg/dl (70-99)
[2024-11-27] VITALS (45 sets, daily range): BP systolic 57–118; BP diastolic 34–83; PULSE 69; O2SAT 91; BMI 35.0
[2024-11-27] MEDS: CALCIUM GLUCONATE 290 MG IV (00:10)
[2024-11-27] MEDS: SODIUM BICARBONATE 50 MEQ IV (00:11)
[2024-11-27] MEDS: LEVOPHED 250 IV ×2 (00:12→13:46)
[2024-11-27] MEDS: DOBUTREX 500 MG 250 IV (00:12)
[2024-11-27] MEDS: DILAUDID 0.5 MG IV (00:20)
--- NOTE | 2024-11-27 00:49 | W.PN.CT ---
Today's Communication / Plan
-
Plan:
-No major issues overnight. Hemodynamically and neurologically intact
-Pt successfully extubated yesterday 11/26/24 @ 1910
-Weaned off Levophed at 0130, back on @ 2 this AM after cxr, Dobutamine gtt weaned to 2 overnight from 9, remains on insulin gtt per protocol
-BP soft postop, holding AM dose of BB
-Last CI 2.23, MVO2 54.4%, U/O since OR 605 mL
-Monitor chest tube output: 2meds 245/350, L pleural 90/240
-D/C leg MANUEL: 04/02
-AM cxr looks clear, no ptx, mild atelectasis on my review. F/U official report
-Cont. current meds (ASA, Plavix, Lipitor, Amiodarone and BB currently on hold while on dobutamine)
-D/C swan and a-line once off dobutamine gtt
-D/C vázquez catheter later today
-Transfer to tele phase today when off insulin gtt per protocol, and off dobutamine
-Maintain cordis
-Maintain temporary PW (will cut before d/c home)
-Wean off of O2 as tolerated
-Encourage use of IS
-OOB into chair/Ambulate
Assessment / Plan
-
Assessment:
-S/P Median sternotomy/ CABG x 1 (PERLITA to LAD)/ AVR (#29 Avalus)/Ascending aortic wrap w/ hemashield graft/ Evaluation of RPDA/PRLB/distal RCA (not amenable to bypass)/Endoscopic harvest/prep of RLE GSV, by Dr. Hill, 11/26/24, POD#1
-Multivessel CAD S/P PCI with MARYLOU to OM2, 2018
-Severe /bicuspid
-Cahu-pi-pfkawooj aortic insufficiency
-Ascending aortic enlargement (4.5 cm)
-LVEF 60-65%
-HTN
-HLD
-Class 1 obesity (BMI 33.4)
-COPD
-Former tobacco abuse
-ETOH abuse
-Gout
-Depression
-Right renal mass-suspected cyst-follows urology
-Left renal mass-renal cell carcinoma stage IIa, grade 3, 7.6 cm-incidentally noted on screening CT chest
-S/P Left nephrectomy
-S/P Umbilical hernia repair
-S/P LTKR, 2020
-S/P S/P vein stripping
-S/P Appendectomy
-Acute postop blood loss/Anemia (stable without active bleed)
-Acute postop atelectasis
-Acute postop hypovolemia with subsequent hypervolemia
Discussed patient care with: Cardiology, Nursing, Respiratory Therapy, Pharmacy and Care Team
Subjective
Procedure
S/P Median sternotomy/ CABG x 1 (PERLITA to LAD)/ AVR (#29 Avalus)/Ascending aortic wrap w/ hemashield graft/ Evaluation of RPDA/PRLB/distal RCA (not amenable to bypass)/Endoscopic harvest/prep of RLE GSV, by Dr. iHll, 11/26/24, POD#1
-
Date of Service: November 27, 2024
Pt c/o incisional pain, otherwise feels well
Objective Data
-
PT 18.8 Sec (11.4-14.6) H 11/26/24 15:41
INR 1.55 11/26/24 15:41
APTT 39.4 Sec (23.4-35.0) H 11/26/24 15:41
Vital Signs
Vital Signs
Temp Pulse Resp BP Pulse Ox
99.4 F 89 15 91/67 94
11/27/24 00:00 11/27/24 00:00 11/27/24 00:00 11/27/24 00:00 11/27/24 00:00
CT Intake/Output/Weight
11/26/24 11/26/24 11/27/24
06:59 18:59 06:59
Intake Total 909.8 / 909.8
Output Total 505 / 880 375 / 880
Balance -505 / 29.8 534.8 / 29.8
SaO2: 94 (2L)
Physical Exam
-
General: Awake, Oriented and AOx3
Cardiovascular: Regular rate & rhythm, No Murmurs, No Rub and No Gallop
Respiratory: Decreased Breath Sounds (at bases, otherwise clear)
Sternum: Stable
Incision: Clean, Dry, Intact and Dressing Intact
Extremities: No Edema
Data Reviewed
-
Lab Results: Results Reviewed
Medications: Active Meds Reviewed
Chest X-Ray: Report Reviewed and Image Reviewed
ECG: Report Reviewed and Image Reviewed
[2024-11-27 01:00] LABS: Glucose - Point of Care 90 mg/dl (70-99)
[2024-11-27 02:00] LABS: Glucose - Point of Care 100 mg/dl (70-99)
[2024-11-27] MEDS: CALCIUM GLUCONATE 100 IV (02:15)
[2024-11-27] MEDS: ROXICODONE 5 MG PO ×2 (02:26→06:27)
[2024-11-27 03:03] LABS: Glucose - Point of Care 95 mg/dl (70-99)
[2024-11-27 03:52] LABS: Glucose - Point of Care 95 mg/dl (70-99)
[2024-11-27 03:53] LABS: Mixed Venous O2 Saturation 54.4 %
[2024-11-27 04:10] LABS: Hematocrit 26.6 % (39.0-52.0); Hemoglobin 8.6 g/dL (13.0-18.0); Mean Corp Hgb Conc. 32.3 g/dL (33.0-37.0); Mean Corpuscular Hgb 30.8 pg (27.0-31.0); Mean Corpuscular Volume 95.3 fL (80.0-94.0); Mean Platelet Volume 9.1 fL (7.4-10.4); Platelet Count 127 10^3/uL (130-400); Red Blood Cell Count 2.79 10^6/uL (4.70-6.10); Red Cell Dist. Width 13.9 % (11.5-14.5); White Blood Cell Count 15.5 10^3/uL (4.8-10.8)
[2024-11-27 04:34] LABS: ALT (SGPT) 18 U/L (0-50); AST (SGOT) 62 U/L (17-59); Alkaline Phosphatase 55 U/L (38-126); Blood Urea Nitrogen 33 mg/dl (9-20); Calcium 8.8 mg/dl (8.4-10.2); Carbon Dioxide 27 mmol/L (22-30); Chloride 106 mmol/L (98-107); Estimated Creatinine Clearance 46 ml/min; GGTP 33 U/L (15-73); Glucose 94 mg/dl (70-99); Magnesium 2.8 mg/dl (1.6-2.3); Potassium 5.2 mmol/L (3.5-5.1); Sodium 140 mmol/L (135-145); Total Bilirubin 0.5 mg/dl (0.2-1.3); Total Protein 5.2 g/dl (6.3-8.2); eGFR 41.01
[2024-11-27] MEDS: ANCEF 5 IV ×2 (05:19→13:46)
[2024-11-27] MEDS: TYLENOL 1000 MG PO ×3 (05:19→22:17)
[2024-11-27 06:04] LABS: Glucose - Point of Care 96 mg/dl (70-99)
--- NOTE | 2024-11-27 07:04 | W.PN.CD ---
Today's Communication / Plan
-
Check bilirubin.
Check UA.
Repeat CBC/BMP to monitor renal function and potassium.
Wean pressors/inotropes as hemodynamics will tolerate.
Maintain arterial line and [place]-Nicanor catheter for the time being.
Encourage incentive spirometry.
Maintain current volume status as more volume will only worsen the renal function and place the patient on an inefficient part of the Octaviano-Starling curve.
There may be a role for low dose furosemide to optimize cardiac function (even though he is on pressors/inotropes).
Impression / Plan
-
Impression/Plan: 79 y/o male (patient of Dr. العراقي) with coronary artery disease with hx stenting (2004, 2017) as well as chronic RCA occlusion, bicuspid aortic valve with aortic stenosis, ascending aorta dilatation, mild to moderate aortic
regurgitation, PVCs, hypertension, hyperlipidemia, COPD/former smoker, obesity, ETOH abuse, and kidney cancer status-post left nephrectomy admitted for elective AVR/CAB/Ao Wrap.
#Severe with bicuspid
-Chronic, progressive.
-S/P bioprosthetic SAVR (#29 Medtronic Avalus Ultra, SN [id number]) with Dr. Hill, 11/26/2024.
-Expectant post op management.
-Hypotension noted on NIBP, but arterial line appears more stable.
-CI = 2.23 L/min/m2; SVR 883 dynes*s*cm^-5.
-Current gtts:
Dobutamine 2 mcg/kg/min.
Norepinephrine 4 mcg/kg/min.
-Wean pressors/inotropes as hemodynamics will permit. Maintain arterial line for another day given the inaccuracy of the NIBP.
-Encourage incentive spirometry.
-Monitor H/H to evaluate for persistent blood loss.
#CAD
-Chronic, progressive.
-s/p CABG x 1 MELARA to LAD with Dr. Hill, 11/26/2024.
-Post operative management as above.
-Continue aspirin and atorvastatin.
-Hold metoprolol while still requiring pressors/inotropes.
#Ascending aortic dilation
-Chronic, progressive.
-S/P Hemashield graft with Dr. Hill, 11/26/2023.
-Post operative management as above.
-The patient will benefit from beta godfrey/ACEI when hemodynamically appropriate.
#VITOR/Hyperkalemia
-Acute.
-Creatinine 1.7.
-Given anemia, check bilirubin (hemodilution vs. hemolysis).
-Weight is up. This is not hypovolemia. Maintain current volume status as more volume will only worsen the renal function and place the patient on an inefficient part of the Octaviano-Starling curve.
-Check UA. Repeat BMP.
-There may be a role for low dose furosemide to optimize cardiac function (even though he is on pressors/inotropes).
#Anemia
-Acute.
-S/P 1 unit PRBCs.
-Monitor H/H. Check bilirubin as above.
-Monitor for hemolysis.
#HTN
-Chronic, currently hypotensive, requiring pressors.
-Wean pressors as tolerated.
-Home anti-hypertensives when BP will permit.
#HLD
-Chronic, stable.
-Continue atorvastatin.
-Goal LDL < 55.
#ETOH abuse per chart
-Monitor for withdrawal symptoms.
Critical Care Time = 45 minutes.
Subjective/Interval History:
SAVR/CAB/Ao Wrap yesterday.
Extubated yesterday evening @ 19:10.
Transfused 1 unit of PRBC.
Weight is up 5.2 kg.
Hypotension on NIBP, fluctuating since 05:00. BP per arterial line is much more stable.
PAD is trending down, but remains > 15 mmHg.
CI 2.23 L/min/m2.
SVR 591 - 833.
SaO2 93% on 1LNC.
Hbg 8.6 <-- 9.0.
K+ 5.2.
Cr 1.3 --> 1.7.
DATA:
Cardiac Catheterization, 10/04/2024:
CORONARY ANGIOGRAPHY
Dominance: Right
Left Main: Normal
LAD: 60% proximal to mid LAD stenosis with otherwise mild luminal irregularities in the LAD system
Circumflex: There is a long stented segment from the proximal circumflex extending into the large OM 2. The stented segment is patent with mild restenosis to 20-30% in the proximal stented segment. The stent placed in 2018 in OM 2 has no restenosis
RCA: The RCA has 80% mid stenosis and remains chronically occluded in the midportion. The relatively small PDA and medium size posterolateral fill via [id number] collaterals
Intraoperative KELBY, 11/26/2024:
CONCLUSIONS
Severe aortic stenosis, mild aortic regurgitation. Bicuspid valve. Valve
annulus 29 mm.
Normal left ventricular size and function, mild LVH, stage I diastolic
dysfunction.
Dilated ascending aorta, maximum diameter 4.5 cm. The aorta has atheroma less
than 5 mm and mild to moderate calcifications.
Trace MR. Trace TR.
Dilated coronary sinus.
POST OPERATIVE FINDINGS
Status post aortic valve replacement with 29 mm bioprosthetic aortic valve.
The valve is well-seated, no perivalvular leak, leaflets are functioning well.
Mean gradient 5 mmHg.
Status post CABG x 1. Left ventricular function is normal, EF 60 to 65%. No
regional wall motion abnormalities seen.
Normal right ventricular size and function.
Trace MR. Trace TR.
The rest of the study is unchanged.
Physical Exam
Vital Signs/Labs
Vital Signs
Temp Pulse Resp BP Pulse Ox
37.2 C 67 16 83/63 92
11/27/24 06:00 11/27/24 06:00 11/27/24 06:00 11/27/24 06:00 11/27/24 06:00
11/25/24 11/26/24 11/27/24
11:59 11:59 11:59
Actual Weight 108.5 kg 113.7 kg
11/27/24 03:47
11/27/24 03:47
PT 18.8 Sec (11.4-14.6) H 11/26/24 15:41
INR 1.55 11/26/24 15:41
APTT 39.4 Sec (23.4-35.0) H 11/26/24 15:41
Magnesium 2.8 mg/dl (1.6-2.3) H 11/27/24 03:47
Physical Exam
Constitutional: No acute distress and Comfortable
EENT: Anicteric and Moist mucous membranes
Cardiovascular: Rhythm & rate is regular, Pedal edema present, S1S2 is normal and Murmur/rub/gallop absent
Respiratory: Other (Decreased throughout.)
GI: Soft, Distention absent, Flat, Non tender and Normal bowel sounds
Neuro/Psych: AO x 3
Data Reviewed
-
Date of Service: November 27, 2024
Medical Decision Making: Reviewed Test Results, Independent Historian Assessment and Test Interpretation
EKG: Tracing Personally Visualized and interpreted and Report Reviewed by me
Echo: Report Reviewed by me
X-Ray/CT/US/MRI/NUC/PET: Image Personally Visualized and interpreted and Report Reviewed by me
Medical Tests (PFT, Pathology etc): Report Reviewed by me
Labs: Labs Reviewed by me and Labs Ordered by me
Old Records: Reviewed
--- NOTE | 2024-11-27 07:37 | W.PN.ANS.POP ---
Anesthesia Post Operative
- Anesthesia Post Op Note
Vital Signs Stable-See Nursing Note: Yes
Airway Patent: Yes
Adequate Pain Control: Yes
Change in Mental Status: No
Current Postoperative Nausea & Vomiting: No
Anesthesia Complications: No
General Anesthetic Recall: No
Unplanned Admission: No
Post Op Hydration Adequate: Yes
--- NOTE | 2024-11-27 07:42 | W.PN.INTV ---
Today's Communication / Plan
Recommendations
adelita ext
inc activity
monitor ct output
Assessment
-
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
ventilator/critical care management 11/26/2024.
Severe aortic stenosis and CAD-status post ascending aortic wrap with Hemashield graft/CABG x 1-lead to to LAD-Dr. Hill 11/26/2024
Mild leukopenia
Conditions present prior to admission:
Hypertension.
COPD.
Pulmonary nodule-4 mm right lower lobe stable 08/2021 through 10/2024
CAD/stent.
Cigarette smoker.
Left renal mass-renal cell carcinoma stage IIa, grade 3, 7.6 cm-incidentally noted on screening CT chest
Right renal mass-suspected cyst-follows urology
Depression.
Gout.
Alcohol use disorder.
Obesity-BMI 33
Left knee replacement. Appendectomy. Hernia repair. Left nephrectomy 2020.
Plan
Remains critically ill on pressors with pulmonary artery catheter still in place
Tolerated extubation
Supplemental oxygen as needed
ABGs reviewed
Nebulizers if needed-currently not bronchospastic
Pulmonary artery catheter parameters will be followed
Pressors/antihypertensive/inotropes/diuretics will be provided as needed
Continue to follow chest tube output
Monitor hemoglobin
Monitor platelet count and coags
Transfuse blood product if needed
CT surgery following chest tubes
Monitor blood sugar
Insulin drip per protocol-convert off drip
Follow MSAS
Alcohol withdrawal treatment protocol if needed
Consider thiamine, folate and multivitamins-will try to obtain detailed alcohol intake information
Aspiration precautions
VAP prevention protocol
DVT prophylaxis
Early nutrition
Early mobilization
If able to be weaned off pressors and pulmonary artery catheter/arterial line removed the patient could be transferred to telemetry
Consider outpatient pulmonary/sleep disorders evaluation-BMI 33, thick neck, snore, etc.-reviewed importance with patient
Critical care statement: A total of 35 minutes of critical care time was provided for this patient today. This includes management of ventilator, spontaneous breathing trial, arterial blood gases, pressors, of unstable vital signs, evaluation of the
patient at bedside, reviewing the patient's pertinent medical records including radiographs, microbiology, laboratory evaluations, and discussion with primary team and critical care nursing.
Diagnostic data:
CT chest low-dose 08/20/21-7.5 cm low-density mass left kidney, no evidence for pulmonary malignancy
CT chest 4R 10/19/2024-no suspicious pulmonary nodules, stable 4 mm nodule lateral right lower lobe
Cardiac catheterization 10/04/2024-multivessel CAD, severe aortic stenosis with moderate aortic insufficiency
Echocardiogram 09/25/2024-EF 55-60%, moderate to severe aortic stenosis, CALEB 1.3 cm, moderate aortic regurgitation
PFT 09/15/2023-FEV1 1.57-50%, FVC 2.56-59%, 24% improvement postbronchodilator, TLC 83%, DLCO 64%-moderate obstruction, mild to moderate diffusing deficit
Subjective Dataa
Subjective Data
Date of Service:
Date of Service: November 27, 2024
Chief Complaint: Bankruptcy Manager Follow Up, Pulmonary Follow Up and Vent Management Follow Up
Subjective:
Tolerated extubation, no complaints of shortness of breath, pain controlled,
Review of Systems
General: Other (Per HPI)
Objective Data
Data Reviewed
Vital Signs / I&O / Oxygen:
Vital Signs
Temp Pulse Resp BP Pulse Ox
99.0 F 67 16 83/63 92
11/27/24 06:00 11/27/24 06:00 11/27/24 06:00 11/27/24 06:00 11/27/24 06:00
Intake and Output
11/26/24 11/27/24 11/28/24
06:59 06:59 06:59
Intake Total 1213.3 / 1213.3
Output Total 1215 / 1215
Balance -1.7 / -1.7
SaO2 92
Nasal Cannula flow liters per 1
minute
Physical Exam
General: Respiratory Distress (n) and Comfortable
HEENT: Normocephalic, Anicteric and Moist Mucous Membranes
Cardiovascular: Regular Rhythm
Respiratory: Wheeze (n), Crackles, Rhonchi (n), Non-Labored Respirations, Accessory Resp Muscle Use (n) and Stridor (n)
GI: Soft, Non Distended and Non Tender
Neurology: Awake, Alert and No Motor Deficits
Skin: Warm, Good Color and Cyanosis
Labs/Micro/Reports
Lab Data
11/27/24 03:47
Laboratory Results
11/26/24 11/26/24 11/26/24
15:41 17:50 18:45
PT 18.8 H
INR 1.55
APTT 39.4 H
pH 7.30 L 7.31 L 7.34 L
pCO2 47 41 44
pO2 128 H 146 H 133 H
HCO3 23.1 20.6 L 23.7
O2 Delivery Level Air 40
[2024-11-27 08:20] LABS: Glucose - Point of Care 98 mg/dl (70-99)
[2024-11-27] MEDS: BACTROBAN 2% OINTMENT 1 APPLIC NASAL ×2 (08:32→19:39)
[2024-11-27] MEDS: PROTONIX 40 MG PO (08:33)
[2024-11-27] MEDS: NEURONTIN 100 MG PO ×3 (08:33→22:17)
[2024-11-27] MEDS: LIDOCAINE 4% PATCH 1 PATCH TOPICAL (08:33)
[2024-11-27] MEDS: PLAVIX 75 MG PO (08:33)
[2024-11-27] MEDS: LOW STRENGTH ASPIRIN 81 MG PO (08:33)
[2024-11-27] MEDS: FEOSOL 325 MG PO (08:33)
[2024-11-27] MEDS: SENOKOT-S 1 TABLET PO ×2 (08:34→19:38)
[2024-11-27] MEDS: VITAMIN C 500 MG PO (08:34)
--- NOTE | 2024-11-27 09:18 | PTCARENOTE ---
Assumed care of patient at 0700. Pt is awake, alert, and oriented. No complaints of pain at this time. Pt remains SR with first degree AV block, HR 60's-70's. BP 108/52 MAP 69. PA 45/26, CVP 12. CO 5.47, CI 2.40, SVR 804. Pulse oximetry 92% on 2L
nasal cannula. Mediastinal chest tubes x2 and left pleural chest tube in place no sign of air leak or crepitus, drainage serosanguineous. Pt tolerating PO diet. Osman catheter in place, Osman care completed. Midsternal incision with post-op dressing
in place, small amount of old drainage noted. Right leg incision with trinidad wrap in place. Right leg MANUEL drain in place, draining red drainage. Right IJ cordis with [place]-Nicanor catheter in place at 45cm. Left radial Fowler intact. Remains on Dobutamine
2mcg/kg/min and Levo 4mcg/brook[place]. Insulin per glycemic protocol.
[2024-11-27 10:10] LABS: Glucose - Point of Care 99 mg/dl (70-99)
[2024-11-27] MEDS: ProAmatine 5 MG PO ×3 (11:27→17:26)
[2024-11-27 11:34] LABS: Glucose - Point of Care 105 mg/dl (70-99)
--- NOTE | 2024-11-27 11:47 | CM ---
Reviewed chart. Met with Mr. Rutledge to review discharge plans. He states he is feeling okay. Will need to see his current functional status to see if he will have any skilled care needs. Prior to admission he resides alone in a two story home
with three steps to enter. He has a first floor set-up. Medical work-up in progress. The discharge plan is to return home with family and friends checking on ho=im verses SNF/Rehab. when medically stable.
--- NOTE | 2024-11-27 12:00 | PTCARENOTE ---
0856 CO 5.47, CI 2.40, SVR 804. Discussed with CT SWITCHMAN, Sherry. Dobutamine off as of 1000. Repeat at 1149 CO 4.82, CI 2.11, SVR 647. Levo 5mcg/min. Remains SR with HR 60's. BP 94/51 MAP 64, PA 45/26, CVP 19.
[2024-11-27 13:21] LABS: Glucose - Point of Care 97 mg/dl (70-99)
[2024-11-27] MEDS: FLEXERIL 5 MG PO (13:45)
[2024-11-27] MEDS: NSS IV (13:46)
[2024-11-27 13:51] LABS: Blood Urea Nitrogen 41 mg/dl (9-20); Calcium 8.7 mg/dl (8.4-10.2); Carbon Dioxide 24 mmol/L (22-30); Chloride 103 mmol/L (98-107); Estimated Creatinine Clearance 36 ml/min; Glucose 99 mg/dl (70-99); Potassium 5.3 mmol/L (3.5-5.1); Sodium 132 mmol/L (135-145); eGFR 30.09
[2024-11-27 14:17] LABS: Glucose - Point of Care 93 mg/dl (70-99)
[2024-11-27] MEDS: LR 500 IV (14:39)
[2024-11-27] MEDS: NOVOLIN R INSULIN INFUSION 100 IV (14:44)
[2024-11-27] MEDS: ZOFRAN 4 MG IV (14:50)
--- NOTE | 2024-11-27 15:15 | PTCARENOTE ---
Attempted to get pt OOB, pt became dizzy and nauseous. Assisted pt back to bed to lay down. Pt turned in bed to change linens, pt because bradycardic with HR 30's. Susan BP 56/38 MAP 45. Momentarily became unresponsive. Epicardial V wire plugged in,
pt paced at HR 66. Pt became responsive. Returned to SR with HR 60's. BP 115/74 MAP 85. Pt remains on Levo 5mcg/min.
[2024-11-27 15:23] LABS: Glucose - Point of Care 131 mg/dl (70-99)
--- NOTE | 2024-11-27 15:30 | PTCARENOTE ---
Right leg MANUEL drain removed by CT Cat BARR. Dressing in place, intact.
[2024-11-27] MEDS: LASIX 20 MG IV (17:25)
[2024-11-27 17:40] LABS: Glucose - Point of Care 105 mg/dl (70-99)
--- NOTE | 2024-11-27 17:41 | PTCARENOTE ---
Pt remains SR with first degree AV block, HR 64. BP 109/53 MAP 70. PA 39/22, CVP 19, CO 4.81, CI 2.11, SVR 931. Pulse oximetry 93% on 4L nasal cannula. Pt remains on Levo 5mcg/min. Insulin per glycemic protocol. 20mg IV Lasix administered per order.
Pt with no complaints of pain at this time.
[2024-11-27 19:22] LABS: Glucose - Point of Care 85 mg/dl (70-99)
--- NOTE | 2024-11-27 20:00 | PTCARENOTE ---
Assumed care of patient at 1900. Patient found resting in bed at time of assessment. Patient is AOx4, follows commands appropriately, moves all extremities. Lung sounds are diminished in the bases, saO2 94% on 4L via NC, there are CTx3: 2xmeds to
one atrium and L pleural to one atrium draining red sanguineous. Heart sounds are audible, patient is SR with first deg AV block and PVCs, patient has normal palpable radial pulses, and weak but palpable dorsalis pedis pulses. Patient has trace
generalized anasarca throughout. Patient has v wires with VVI settings of 40/4/2.5. Threshold testing performed. Patient has hypoactive BS throughout all four quadrants and vázquez draining pink tinged urine. Patient has poor appetite ate little of
meals today. There is a sternal incision with aquacell dressing that is CDI, ABD dressing over CT wounds that is CDI, R groin puncture approx with surg adhesive SKIN LIFTER BACON, and RLE incision approx with surg adhesive and 4x4 gauze dressing present that is
CDI. Patient has a R IJ cordis with swan @45, R radial marilu, and R wrist PIV. Patient is receiving Levo@5, insulin@0.4 and Cordis/VIP KVO. VSS. Call avery within reach.
[2024-11-27 21:01] LABS: Glucose - Point of Care 98 mg/dl (70-99)
[2024-11-27] MEDS: LIPITOR 40 MG PO (22:17)
[2024-11-27 23:09] LABS: Glucose - Point of Care 106 mg/dl (70-99)
[2024-11-27] MEDS: FLEXBUMIN 50 IV (23:14)
[2024-11-28] VITALS (32 sets, daily range): BP systolic 88–152; BP diastolic 49–92; PULSE 2–80; O2SAT 94; BMI 35.3
[2024-11-28 01:04] LABS: Glucose - Point of Care 108 mg/dl (70-99)
[2024-11-28 02:04] LABS: Glucose - Point of Care 90 mg/dl (70-99)
[2024-11-28] MEDS: LEVOPHED 250 IV (02:06)
--- NOTE | 2024-11-28 02:55 | PTCARENOTE ---
At 0241 patient's HR dropped to <40 and began v pacing. Patient with hypotension MAP<65. Patient asymptomatic. CT PA at bedside adjusted temporary pacemaker settings to rate of 66. BP improved MAP>70. Per CT PA maintain temporary PM settings for
now.
[2024-11-28 03:04] LABS: Glucose - Point of Care 98 mg/dl (70-99)
[2024-11-28] MEDS: ROXICODONE 5 MG PO (03:23)
[2024-11-28 03:27] LABS: Hematocrit 24.6 % (39.0-52.0); Mean Corp Hgb Conc. 32.5 g/dL (33.0-37.0); Mean Corpuscular Hgb 31.4 pg (27.0-31.0); Mean Corpuscular Volume 96.5 fL (80.0-94.0); Mean Platelet Volume 9.3 fL (7.4-10.4); Platelet Count 138 10^3/uL (130-400); Red Blood Cell Count 2.55 10^6/uL (4.70-6.10); Red Cell Dist. Width 14.3 % (11.5-14.5); White Blood Cell Count 21.5 10^3/uL (4.8-10.8)
[2024-11-28 03:43] LABS: Blood Urea Nitrogen 51 mg/dl (9-20); Calcium 8.4 mg/dl (8.4-10.2); Carbon Dioxide 21 mmol/L (22-30); Chloride 103 mmol/L (98-107); Estimated Creatinine Clearance 31 ml/min; Glucose 95 mg/dl (70-99); Magnesium 2.8 mg/dl (1.6-2.3); Potassium 5.4 mmol/L (3.5-5.1); Sodium 135 mmol/L (135-145); eGFR 24.63
[2024-11-28 04:02] LABS: Glucose - Point of Care 85 mg/dl (70-99)
[2024-11-28 04:12] LABS: B.E. -4.5 mmol/L; HCO3 22.1 mmol/L (21-28); Ionized Calcium 1.24 mMOL/L (1.15-1.33); O2 Saturation % 94.6 % (94-98); PCO2 47 mmHg (35-48); PO2 68 mmHg (83-108); Potassium 5.3 mMOL/L (3.5-5.1); pH 7.28 (7.35-7.45)
[2024-11-28] MEDS: SODIUM BICARBONATE 100 MEQ IV (04:34)
[2024-11-28] MEDS: MUCINEX PO ×2 (04:35→06:35)
[2024-11-28 04:59] LABS: Glucose - Point of Care 98 mg/dl (70-99)
--- NOTE | 2024-11-28 05:06 | W.PN.CT ---
Today's Communication / Plan
-
-pod #2
-pOx 92% on 6L, Intermittent hypoxia noted, PO2 68- started 55% ventimask with 6L NC
-became bradycardic and V-paced @40 bpm, BP dropped to 80s- currently v-pacing @ 80 bpm with improved BP
-? underlying slow a-fib rhythm
-BB, Amio, and Mg have been on hold postop
-low UO 15-30 per hr overnight. No significant response to iv Lasix on 11/27. Started 25% Albumin x3.
-Cr trended up - 2.6 today (2.2-1.7 on 11/27 and 1.2-1.3 preop).
-intermittent hypoxia noted with low bicarb - ABG revealed 7.28//47/68/22.1/-4.5/94.6 and K 5.4 - gave 2 bicarbs. Re-check ABG improved. Started Lokelma 10 tid
-discussed with Dr. Hill - gave 1 mg iv Bumex this am with 2 pRBCs ordered (hg 8.0)
-Will leave NPO for possible pacer today per Dr. Hill - will ask EP to eval
-Will ask Nephrology and EP to follow
-ordered labs for noon
Assessment / Plan
-
Assessment:
-S/P Median sternotomy/ CABG x 1 (PERLITA to LAD)/ AVR (#29 Avalus)/Ascending aortic wrap w/ hemashield graft/ Evaluation of RPDA/PRLB/distal RCA (not amenable to bypass)/Endoscopic harvest/prep of RLE GSV, by Dr. Hill, 11/26/24, POD#2
-Multivessel CAD S/P PCI with MARYLOU to OM2 2018
-Severe /bicuspid
-Mauk-iu-ymngurhi aortic insufficiency
-Ascending aortic enlargement (4.5 cm)
-LVEF 60-65%
-HTN
-HLD
-Class 1 obesity (BMI 33.4)
-COPD
-Former tobacco abuse
-ETOH abuse
-Gout
-Depression
-Right renal mass-suspected cyst-follows urology
-Left renal mass-renal cell carcinoma stage IIa, grade 3, 7.6 cm-incidentally noted on screening CT chest
-S/P Left nephrectomy
-S/P Umbilical hernia repair
-S/P LTKR, 2020
-S/P S/P vein stripping
-S/P Appendectomy
-Acute postop blood loss/Anemia (stable without active bleed)
-Acute postop atelectasis
-Acute postop hypovolemia with subsequent hypervolemia
-Acute postop metabolic acidosis
-VITOR
-Acute postop hyperkalemia in setting of VITOR
Discussed patient care with: Nursing and Care Team
Subjective
Procedure
S/P Median sternotomy/ CABG x 1 (PERLITA to LAD)/ AVR (#29 Avalus)/Ascending aortic wrap w/ hemashield graft/ Evaluation of RPDA/PRLB/distal RCA (not amenable to bypass)/Endoscopic harvest/prep of RLE GSV, by Dr. Hill, 11/26/24, POD#1
-
Date of Service: November 28, 2024
Objective Data
-
Lab Results
11/28/24 03:07
11/28/24 03:07
PT 18.8 Sec (11.4-14.6) H 11/26/24 15:41
INR 1.55 11/26/24 15:41
APTT 39.4 Sec (23.4-35.0) H 11/26/24 15:41
Vital Signs
Vital Signs
Temp Pulse Resp BP Pulse Ox
99.6 F 66 18 130/64 97
11/28/24 05:00 11/28/24 05:00 11/28/24 05:00 11/28/24 05:00 11/28/24 05:00
CT Intake/Output/Weight
11/27/24 11/27/24 11/28/24
06:59 18:59 06:59
Intake Total 1213.3 / 1251.7 977.9 / 1393.7 415.8 / 1393.7
Output Total 710 / 1235 420 / 782 362 / 782
Balance 503.3 / 16.7 557.9 / 611.7 53.8 / 611.7
SaO2: 97
Physical Exam
-
General: Awake and AOx3
Cardiovascular: Regular rate & rhythm (+ JVD), No Murmurs and No Rub
Respiratory: Decreased Breath Sounds
Sternum: Stable
Incision: Clean, Dry and Intact
Extremities: Edema +1
Abdomen: soft, +decreased bowel sounds
Data Reviewed
-
Lab Results: Results Reviewed
Medications: Active Meds Reviewed
Chest X-Ray: Report Reviewed and Image Reviewed
ECG: Report Reviewed and Image Reviewed
[2024-11-28 05:34] LABS: Osmolality Urine 501 mOsm/kg (300-900)
[2024-11-28 05:37] LABS: B.E. -1.5 mmol/L; HCO3 24.7 mmol/L (21-28); O2 Saturation % 96.7 % (94-98); PCO2 48 mmHg (35-48); PO2 73 mmHg (83-108); Potassium 5.2 mMOL/L (3.5-5.1); pH 7.32 (7.35-7.45)
--- NOTE | 2024-11-28 05:54 | PTCARENOTE ---
Patient desatting at approx 0345 unable to obtain consistent pulse ox, but sat appeared to be in the mid 80s. O2 increased to 6L. CT PA notified. Obtained orders for ABG. Patient noted to be acidotic. Placed on 55% Venti mask in addition to 6L via
NC by RT. 2xSodium bicarbs administered. Lokelma administered. Repeat ABG showed improvement in acidosis. Remains 100% Vpaced on the monitor. CT PA at bedside to assess intrinsic underlying rhythm appears bradycardic potentially afib according to
PA.
[2024-11-28 06:06] LABS: Urine Sodium 38 mmol/L (30-90)
[2024-11-28] MEDS: FLEXBUMIN 50 IV ×2 (06:13→15:17)
[2024-11-28] MEDS: LOKELMA 10 GRAM PO ×2 (06:13→13:49)
[2024-11-28] MEDS: TYLENOL PO (06:14)
[2024-11-28 06:15] LABS: Glucose - Point of Care 93 mg/dl (70-99)
[2024-11-28] MEDS: BUMEX 1 MG IV ×2 (06:26→16:15)
--- NOTE | 2024-11-28 07:34 | W.PN.INTV ---
Today's Communication / Plan
Recommendations
Increase supplemental oxygen
Attempt gentle diuresis
Nephrology evaluation ongoing
Possible pacer
Assessment
-
9-year-old former smoking and drinking male with a history of hypertension, COPD, CAD/stent, obesity and kidney cancer noted to have severe aortic stenosis and underwent aortic valve replacement and CABG-spring winder consulted for postoperative
ventilator/critical care management 11/26/2024.
Severe aortic stenosis and CAD-status post ascending aortic wrap with Hemashield graft/CABG x 1-lead to to LAD-Dr. Hill 11/26/2024
Mild leukopenia
Conditions present prior to admission:
Hypertension.
COPD.
Pulmonary nodule-4 mm right lower lobe stable 08/2021 through 10/2024
CAD/stent.
Cigarette smoker.
Left renal mass-renal cell carcinoma stage IIa, grade 3, 7.6 cm-incidentally noted on screening CT chest
Right renal mass-suspected cyst-follows urology
Depression.
Gout.
Alcohol use disorder.
Obesity-BMI 33
Left knee replacement. Appendectomy. Hernia repair. Left nephrectomy 2020.
Plan
Continues to be critically ill on pressors with pulmonary artery catheter still in place, pressors
Tolerated extubation
Supplemental oxygen as needed-needs partial nonrebreather, intermittent hypoxemia
ABGs reviewed
Nebulizers if needed-currently not bronchospastic
Incentive spirometry
Pulmonary artery catheter parameters will be followed
Pressors/antihypertensive/inotropes/diuretics will be provided as needed
Monitor for arrhythmias-has had bradycardia and V paced at 40 with hypotension
Possible pacer
Diuresis as tolerated
Monitor renal function, electrolytes, intake/output, lower extremity edema and weight
Replace electrolytes as needed
Continue to follow chest tube output
Monitor hemoglobin
Monitor platelet count and coags
Transfuse blood product if needed
CT surgery following chest tubes
Monitor renal function-creatinine trending up
Nephrology consultation-VITOR likely prerenal with postoperative hypotension and bradycardia
Hold LORY inhibitor
Lokelma and possibly Kayexalate
Bicarb administration as needed
Monitor blood sugar
Insulin drip per protocol-convert off drip
Follow MSAS
Alcohol withdrawal treatment protocol if needed
Consider thiamine, folate and multivitamins-will try to obtain detailed alcohol intake information
Aspiration precautions
VAP prevention protocol
DVT prophylaxis
Early nutrition
Early mobilization
If able to be weaned off pressors and pulmonary artery catheter/arterial line removed the patient could be transferred to telemetry
Consider outpatient pulmonary/sleep disorders evaluation-BMI 33, thick neck, snore, etc.-reviewed importance with patient
Critical care statement: A total of 40 minutes of critical care time was provided for this patient today. This includes management of ventilator, spontaneous breathing trial, arterial blood gases, pressors, of unstable vital signs, evaluation of the
patient at bedside, reviewing the patient's pertinent medical records including radiographs, microbiology, laboratory evaluations, and discussion with primary team and critical care nursing.
Diagnostic data:
CT chest low-dose 08/20/21-7.5 cm low-density mass left kidney, no evidence for pulmonary malignancy
CT chest 4R 10/19/2024-no suspicious pulmonary nodules, stable 4 mm nodule lateral right lower lobe
Cardiac catheterization 10/04/2024-multivessel CAD, severe aortic stenosis with moderate aortic insufficiency
Echocardiogram 09/25/2024-EF 55-60%, moderate to severe aortic stenosis, CALEB 1.3 cm, moderate aortic regurgitation
PFT 09/15/2023-FEV1 1.57-50%, FVC 2.56-59%, 24% improvement postbronchodilator, TLC 83%, DLCO 64%-moderate obstruction, mild to moderate diffusing deficit
Subjective Dataa
Subjective Data
Date of Service:
Date of Service: November 28, 2024
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
Subjective:
Arousable, oriented, follows commands, no complaints of shortness of breath at rest, chest congestion, or abdominal pain
Review of Systems
General: Other (Per HPI)
Objective Data
Data Reviewed
Vital Signs / I&O / Oxygen:
Vital Signs
Temp Pulse Resp BP Pulse Ox
99.2 F 80 21 127/61 94
11/28/24 07:03 11/28/24 07:03 11/28/24 07:03 11/28/24 07:03 11/28/24 07:00
Intake and Output
11/27/24 11/28/24 11/29/24
06:59 06:59 06:59
Intake Total 1213.3 / 1251.7 1433.0 / 1472.2 39.2 / 39.2
Output Total 1215 / 1235 842 / 942 100 / 100
Balance -1.7 / 16.7 591.0 / 530.2 -60.8 / -60.8
SaO2 94
Nasal Cannula flow liters per 6
minute
Physical Exam
General: Respiratory Distress (n) and Comfortable
HEENT: Normocephalic, Anicteric and Moist Mucous Membranes
Cardiovascular: Regular Rhythm
Respiratory: Wheeze (n), Crackles, Rhonchi (n), Non-Labored Respirations, Accessory Resp Muscle Use (n), Stridor (n) and Chest Tube
GI: Soft, Non Distended and Non Tender
Neurology: Awake, Alert and No Motor Deficits
Skin: Warm, Good Color and Cyanosis
Labs/Micro/Reports
Laboratory Results
11/28/24 11/28/24 11/28/24
04:05 05:02 05:28
pH 7.28 L Cancelled 7.32 L
pCO2 47 Cancelled 48
pO2 68 L Cancelled 73 L
HCO3 22.1 Cancelled 24.7
O2 Delivery Level Cancelled Unk
[2024-11-28 08:01] LABS: Glucose - Point of Care 113 mg/dl (70-99)
[2024-11-28] MEDS: BACTROBAN 2% OINTMENT 1 APPLIC NASAL ×2 (08:58→20:21)
--- NOTE | 2024-11-28 09:02 | W.CON.NEPH ---
Consultation
-
Date/Time Consultation Requested: 11/28/2024 8:00 AM
Date/Time Consultation Performed: 11/28/2024 8:45 AM
Requesting Provider: Dr. Hill
Performing Provider: Dr. Tinsley
Reason for Consultation: Acute kidney injury
Medical History
-
Chief Complaint: Acute kidney injury
History of Present Illness:
The patient is a 79-year-old male with a past medical history of kidney cancer undergoing left nephrectomy in 2020, hypertension maintained on lisinopril and amlodipine, coronary artery disease with previous stenting procedure, who presented to the [facility] in the setting of severe aortic stenosis and underwent aortic valve replacement and CABG on 11/26/2024. Postoperatively his creatinine has risen from 1.3 on admission to 2.6 with decreasing urine output and hyperkalemia. The patient has
remained intubated postoperatively and in need of both pressor and inotropic support in the setting of hemodynamic instability. Nephrology was consulted for his acute kidney injury and hyperkalemia.
Past Medical History
Hypertension
COPD
Coronary artery disease with stenting 2004 and 2017
Baseline creatinine of 1.3
History of left renal mass with resection and nephrectomy in 2020
Depression
Gout
Aortic stenosis
Alcohol abuse
Left knee replaced
Appendectomy
Social History
Tobacco: Former Smoker
Alcohol: Chronic Alcoholic
Family History
No chronic kidney
Allergies / Home Medications
Allergy/AdvReac Type Severity Reaction Status Date / Time
No Known Allergies Allergy Verified 11/19/24 15:47
�Medication �Instructions �Recorded �Confirmed �Type
allopurinol 300 mg tablet 300 mg PO DAILY Gout 06/27/18 11/26/24 History
amlodipine 10 mg tablet 10 mg PO HS Heart disease/condition 06/27/18 11/26/24 History
atorvastatin 20 mg tablet 20 mg PO HS High cholesterol 06/27/18 11/26/24 History
fluoxetine 20 mg capsule 20 mg PO HS Mental Health/Anxiety 06/27/18 11/26/24 History
lisinopril 40 mg tablet 40 mg PO DAILY #30 tabs 06/29/18 11/26/24 Rx
Xingfxmzqg-[place]um[place]vty-XDI Tab 1 tab PO BID Supplement 10/05/21 11/26/24 History
clopidogrel 75 mg tablet 75 mg PO DAILY Blood clot 10/07/21 11/26/24 History
prevention/tx
aspirin 81 mg tablet,delayed 81 mg PO DAILY 11/19/24 11/26/24 History
release
furosemide 40 mg tablet 40 mg PO DAILY 11/19/24 11/26/24 History
Review of Systems
-
All other systems: Negative unless noted
Constitutional: Fatigue
Respiratory: Trouble Breathing
Cardiac: Other (Postoperative chest pain)
: Other (Osman catheter)
Physical Exam
Vital Signs
Vital Signs
Temp Pulse Resp BP Pulse Ox
99.3 F 80 20 132/68 95
11/28/24 08:36 11/28/24 08:36 11/28/24 08:36 11/28/24 08:36 11/28/24 08:36
Lab Results
WBC 21.5 10^3/uL (4.8-10.8) H 11/28/24 03:07
RBC 2.55 10^6/uL (4.70-6.10) L 11/28/24 03:07
Plt Count 138 10^3/uL (130-400) 11/28/24 03:07
eGFR 24.63 11/28/24 03:07
Albumin 3.0 g/dl (3.5-5.0) L 11/27/24 03:47
Physical Exam
General: AOx3, Nontoxic , on nonrebreather
HEENT: PERRL, EOMI, Anicteric, Conjunctivae Clear, Ear/Nose Intact, Hearing Normal, Oropharynx Clear/Moist, Dentition Intact, Facial Symmetry, Neck Supple, Neck: Trachea Midline, No JVD and No Thyromegaly, no Bruits
Respiratory: Clear to auscultation bilaterally with normal lung excursion
Cardiac: S1/S2 and Regular Rate/Rhythm tachycardic
CHEST: 3 subxiphoid chest tubes
Breast: Deferred by me
Abdomen: Soft, Nontender, Nondistended, No Hepatosplenomegaly, decreased bowel sound
Rectal: Deferred by Provider
Genito-urinary: No Costovertebral Tenderness, Osman
Extremities: No Clubbing, No Cyanosis and No Edema
Skin: No Rash or open lesions
Neuro: Nonfocal/Grossly Intact, CN II-XII (Intact) and Strength (Musculoskeletal exam 5 out of 5 both upper and lower extremities)
Hematologic/Lymphatic: No Cervical Lymphadenopathy, No Submandibular Lymphadenopathy and No Supraclavicular Lymphadenopathy
Psych: Mood/afflect pleasant, Insight/judgement good and Appropriate
Vascular: plus 1 pedal and radial pulses
Data Reviewed
-
Radiology: Image Personally Visualized and interpreted (Chest x-ray personally reviewed notable for sternal wires no overt congestive heart failure, some cardiomegaly)
Medical Tests (Nuc Med, Echo etc): Other (EKG report reviewed from 11/27/2024 sinus rhythm with sinus arrhythmia and first-degree AV block left axis deviation inferior infarct pattern at 70 beats per)
Labs: Labs Reviewed by me (BMP CBC)
Old Records: Reviewed (Old records reviewed from date 11/19/2024 creatinine 1.2)
Assessment/Plan
-
Impression:
VITOR
Hyperkalemia
Status post CABG X 1 and AVR 11/26/2024
Left nephrectomy 2020 for renal cell carcinoma
Alcohol abuse
Coronary artery
Ascending aortic dilation
Anemia
History of HTN
Valvular heart disease
Gout
Depression
LVEF 60 to 65%
History of hypertension
Respiratory and metabolic acidosis with resultant acidemia
Plan:
VITOR:
-Likely prerenally mediated with postoperative hypotension and bradycardia noted
-Support blood pressure to keep MAP 65 or greater, pressors to be weaned as tolerated.blood products given
-Blood being transfused for worsening anemia
-Maintain Osman catheter
-Lokelma for hyperkalemia times three doses, if this fails will utilize kayexolate
-Withholding LORY inhibitor
-Weights up but chest x-ray without congestive heart failure findings
-provide one amp HCO3 for acidemia with subsequent hyperkalemia
-Recheck BMP later this afternoon
-Patient critically ill postoperatively with worsening acute kidney injury hyperkalemia , anemia, respiratory distress and acidemia
Total Time Spent with Patient (in minutes): Critical care time 45 minutes
[2024-11-28] MEDS: LIDOCAINE 4% PATCH TOPICAL (09:20)
[2024-11-28] MEDS: MUCINEX 600 MG PO ×2 (09:50→20:22)
[2024-11-28] MEDS: PROTONIX 40 MG PO (09:50)
[2024-11-28] MEDS: LOW STRENGTH ASPIRIN 81 MG PO (09:50)
[2024-11-28] MEDS: VITAMIN C 500 MG PO (09:51)
[2024-11-28] MEDS: SENOKOT-S 1 TABLET PO ×2 (09:51→20:22)
[2024-11-28] MEDS: FEOSOL 325 MG PO (09:51)
[2024-11-28] MEDS: PLAVIX 75 MG PO (09:51)
[2024-11-28] MEDS: NEURONTIN 100 MG PO ×3 (09:51→22:04)
[2024-11-28] MEDS: ProAmatine PO ×3 (09:54→18:08)
--- NOTE | 2024-11-28 09:55 | PTCARENOTE ---
Patient received from overnight babysitter resting in bed, sleepy but arousable, AAO x 3. V-paced via cm, SaO2 @ 95% on ventimask 55%, 6LNC. RIJ [place]icanor catheter, L radial arterial lines present - leveled, flushed, and calibrated w/good waveforms
returned. Epicardial V-wire to pulse generator set to 80bpm, actively pacing. Mediastinal chest tubes x 2, Y-connected, L pleural chest tube (to separate pleurevac), both to -20cm suction w/no air leaks noted. Chest tubes d/c'd as ordered. Osman
catheter to gravity. All procedural sites stable. Patient updated to plan of care for the day, in agreement. See work list for full assessment, interventions performed, and intravenous infusions and titrations.
[2024-11-28] MEDS: SODIUM BICARBONATE 50 MEQ IV (10:09)
[2024-11-28] MEDS: FLEXERIL 5 MG PO (10:35)
--- NOTE | 2024-11-28 10:49 | W.PN.CD ---
Today's Communication / Plan
-
- Suggest continue pacing support
- Check 12 lead EKG with temp pacer at slow rate (30-40 bpm) to assess atrial rhythm and AV conduction
- Hold Amio/BB
- Monitor for need of permanent pacemaker
Impression / Plan
-
Background: 79 y/o male (patient of Dr. العراقي) with CAD with hx stenting (2004, 2017), chronic RCA occlusion, bicuspid aortic valve with aortic stenosis, ascending aorta dilatation, mild to moderate aortic regurgitation, PVCs, hypertension,
hyperlipidemia, COPD/former smoker, obesity, ETOH abuse, and kidney cancer status-post left nephrectomy admitted for elective AVR/CAB/Ao Wrap.
Post-op bradycardia
- Looking at tele it is possible he went from NSR to slow AFib needing pacing although P waves are small
- Suggest continue pacing support
- Check 12 lead EKG with temp pacer at slow rate (30-40 bpm) to assess atrial rhythm and AV conduction
- Hold Amio/BB
- Monitor for need of permanent pacemaker
CAD/Severe , bicuspid /AscAo dilatation
- POD 2 from Biologic SAVR/CABGx1 MELARA to LAD/Ascending aortic wrap w/ Hemashield graft
Post-op VITOR/Hyperkalemia
Acute post op blood loss anemia,
- hemolysis is not suspected, but will consider if appropriate
HTN
HLD, goal LDL < 55. Continue Statin
Hx ETOH
Subjective/Interval History:
Feels well
DATA:
Cardiac Catheterization, 10/04/2024:
CORONARY ANGIOGRAPHY
Dominance: Right
Left Main: Normal
LAD: 60% proximal to mid LAD stenosis with otherwise mild luminal irregularities in the LAD system
Circumflex: There is a long stented segment from the proximal circumflex extending into the large OM 2. The stented segment is patent with mild restenosis to 20-30% in the proximal stented segment. The stent placed in 2017 in OM 2 has no restenosis
RCA: The RCA has 80% mid stenosis and remains chronically occluded in the midportion. The relatively small PDA and medium size posterolateral fill via [id number] collaterals
Intraoperative KELBY, 11/26/2024:
CONCLUSIONS
Severe aortic stenosis, mild aortic regurgitation. Bicuspid valve. Valve
annulus 29 mm.
Normal left ventricular size and function, mild LVH, stage I diastolic
dysfunction.
Dilated ascending aorta, maximum diameter 4.5 cm. The aorta has atheroma less
than 5 mm and mild to moderate calcifications.
Trace MR. Trace TR.
Dilated coronary sinus.
POST OPERATIVE FINDINGS
Status post aortic valve replacement with 29 mm bioprosthetic aortic valve.
The valve is well-seated, no perivalvular leak, leaflets are functioning well.
Mean gradient 5 mmHg.
Status post CABG x 1. Left ventricular function is normal, EF 60 to 65%. No
regional wall motion abnormalities seen.
Normal right ventricular size and function.
Trace MR. Trace TR.
The rest of the study is unchanged.
Physical Exam
Vital Signs/Labs
Vital Signs
Temp Pulse Resp BP Pulse Ox
99.9 F 80 24 139/83 93
11/28/24 10:00 11/28/24 10:00 11/28/24 10:00 11/28/24 09:00 11/28/24 10:00
11/27/24 11/28/24 11/29/24
06:59 06:59 06:59
Actual Weight 113.7 kg 114.7 kg
PT 18.8 Sec (11.4-14.6) H 11/26/24 15:41
INR 1.55 11/26/24 15:41
APTT 39.4 Sec (23.4-35.0) H 11/26/24 15:41
Magnesium 2.8 mg/dl (1.6-2.3) H 11/28/24 03:07
Physical Exam
Constitutional: No acute distress
EENT: Anicteric
Cardiovascular: Rhythm & rate is regular and Pedal edema is absent
Respiratory: Respiratory effort normal and Lungs clear to auscul. (decrease at left base)
GI: Soft and Distention absent
Neuro/Psych: AO x 3
Data Reviewed
-
Date of Service: November 28, 2024
[2024-11-28] MEDS: ROXICODONE 2.5 MG PO (11:31)
--- NOTE | 2024-11-28 12:07 | PTCARENOTE ---
VS obtained, assessment stable. Patient resting comfortably, recently medicated for sternal pain, states some improvement. Labs obtained.
[2024-11-28 12:08] LABS: Hemoglobin 9.4 g/dL (13.0-18.0)
[2024-11-28 12:09] LABS: B.E. -0.4 mmol/L; HCO3 25.8 mmol/L (21-28); Ionized Calcium 1.19 mMOL/L (1.15-1.33); O2 Saturation % 98.9 % (94-98); PCO2 49 mmHg (35-48); PO2 97 mmHg (83-108); Potassium 5.1 mMOL/L (3.5-5.1); pH 7.33 (7.35-7.45)
[2024-11-28 12:41] LABS: Blood Urea Nitrogen 55 mg/dl (9-20); Calcium 8.2 mg/dl (8.4-10.2); Carbon Dioxide 24 mmol/L (22-30); Chloride 101 mmol/L (98-107); Estimated Creatinine Clearance 36 ml/min; Glucose 116 mg/dl (70-99); Magnesium 2.7 mg/dl (1.6-2.3); Potassium 5.1 mmol/L (3.5-5.1); Sodium 135 mmol/L (135-145); eGFR 30.09
--- NOTE | 2024-11-28 13:14 | PN.CDI ---
CDI
- -
CDI:
Physician Documentation Request
Admit Date: 11/26/24 05:20
Dear Doctor Sergio/DOMENICO,
Please review the following and provide your response in the progress notes.
Clinical Indicators:
Pt admitted with CAD now s/p CABG 11/26
Progress note 11/27, ' -Pt successfully extubated yesterday 11/26/24 @ 1910...'
CT surgery note 11/28, ' pOx 92% on 6L, Intermittent hypoxia noted, PO2 68- started 55% ventimask with 6L NC...-intermittent hypoxia noted with low bicarb - ABG revealed 7.28//47/68/22.1/-4.5/94.6 and K 5.4 - gave 2 bicarbs....'
Pt care note 11/28 @ 0554, 'Patient desatting at approx 0345 unable to obtain consistent pulse ox, but sat appeared to be in the mid 80s. O2 increased to 6L. CT PA notified. Obtained orders for ABG. Patient noted to be acidotic. Placed on 55% Venti
mask in addition to 6L via NC by RT....'
Pt care note 11/28 @ 0955, 'SaO2 @ 95% on ventimask 55%, 6LNC....'
Pt remains on 6 Lpm 55 % Ventimask
Respirations as high as 30, 78% oxygen sat on 11/27
11/26/24 11/28/24 11/28/24
15:41 04:05 11:57
pH 7.30 L 7.28 L 7.33 L
Clarify which of the following accurately represents the patient's respiratory status following surgery:
Acute Hypoxic Respiratory failure
Acute pulmonary insufficiency (following surgery)
Hypoxia only
Other ( please specify)
Additional information for Pulmonary Insufficiency:
Consider when patients require assisted oxygen therapy postoperatively
Weaned off oxygen initially then requiring supplemental oxygen
No other definitive diagnosis to support the need for oxygen (COPD exac, CHF etc.)
Unable to wean from vent
When criteria for respiratory failure not present
May extend stay or require additional resources; may need home O2
Additional information for Respiratory Failure:
Recognized criteria for Respiratory Failure (Source: [employer] Hospitalist Aug/Sep 2013)
ABGs: (1 or more) Symptoms Indicate:
1. p)2 <60 or RA SPO2 <91% on RA 1. Tachypnea, SOB, dyspnea 1. Type as:
2. pCO2 50 and pH <7.35 2. Use of accessory muscles a. Hypoxic
3. pO2 decrease of pCO2 increase by 3. Pallor or cyanosis b. Hypercapnic
10 mmHg from baseline if known 4. Anxiety or restlessness 2. If due to procedure or due to another cause
5. Unable to speak in full sentences
Supplemental O2 of > 40% Intubation is not required
Use of terms such as suspected, likely, concern for, or probable (associated with a specific diagnosis that is being evaluated, monitored, or treated as if it exists) are acceptable and can be coded in the inpatient setting, when documented at the
time of discharge.
Thank you,
Jennie Irving RN
CDI Specialist
[place] [facility]
Please use your independent medical judgment in providing your response.
--- NOTE | 2024-11-28 13:27 | PN.CDI ---
CDI
- -
CDI:
Physician Documentation Request
Admit Date: 11/26/24 05:20
Dear Doctor Sergio/ DOMENICO
Please review the following and provide your response in the progress notes.
Current documentation includes a diagnosis of hypotension.
Clinical Indicators:
Pt admitted with CAD now s/p CABG 11/26
CT surgery progress note 11/27, 'Weaned off Levophed at 0130, back on @ 2 this AM...'
Pt care note 11/27 @ 1200, ' 0856 CO 5.47, CI 2.40.. Levo 5mcg/min.....'
Progress note 11/27 @ 1515, ' [place] BP 56/38 MAP 45....Pt remains on Levo 5mcg/min. ....'
Nephrology consult , ' VITOR:Likely prerenally mediated with postoperative hypotension and bradycardia noted Support blood pressure to keep MAP 65 or greater, pressors to be weaned as tolerated.blood products given...'
11/27/24
11:49 11/27/24
12:00 11/27/24
14:56
Blood pressure 74/47 89/57 88/51
11/27/24
15:16 11/27/24
20:00 11/27/24
21:00
Blood pressure 82/58
MAP (P-Rtev-Larnlum Monitor) 42 50
11/27/24
22:00 11/27/24
23:00 11/28/24
00:00
MAP (S-Kgbl-Bdyuetl Monitor) 52 49 34
11/28/24
02:42 11/28/24
07:00 11/28/24
08:00
Blood pressure 88/49
MAP (Z-Lrsr-Fzztgnm Monitor) 52 57
11/28/24
09:00 11/28/24
10:00
MAP (F-Cqcb-Nyhesoj Monitor) 58 62
Please clarify which of the following is the most likely etiology of the above symptoms and treatment rendered:
Cardiogenic shock
Hypovolemic shock
Hypotension only
Other ( please specify)
Use of terms such as suspected, likely, concern for, or probable (associated with a specific diagnosis that is being evaluated, monitored, or treated as if it exists) are acceptable and can be coded in the inpatient setting, when documented at the
time of discharge.
Thank you,
Jennie Irving RN
CDI Specialist
[place] [facility]
Please use your independent medical judgment in providing your response.
[2024-11-28] MEDS: TYLENOL 1000 MG PO ×2 (13:49→22:04)
[2024-11-28 14:46] LABS: B.E. 0 mmol/L; HCO3 25.9 mmol/L (21-28); O2 Saturation % 97.4 % (94-98); PCO2 47 mmHg (35-48); PO2 74 mmHg (83-108); pH 7.35 (7.35-7.45)
[2024-11-28] MEDS: NSS 500 IV (15:17)
--- NOTE | 2024-11-28 16:08 | CM ---
Reviewed chart Mr Rutledge spent most of the day sleeping. Will need to see his current functional level to see if he will have any skilled care needs. Prior to admission he resides alone in two story home with three steps to enter. He has a first
floor set-up, Prior to admission he was independent with ambulation and adls. He has a prescription plan and uses [facility]. The discharge plan is SNF/Rehab. verses home with family and friend support with a home visit by the Transitional
Care Nurse,
--- NOTE | 2024-11-28 17:45 | PTCARENOTE ---
Dinner completed. Patient assisted back to bed, bipap applied. Patient resting comfortably, tolerating bipap w/out issue.
[2024-11-28 18:14] LABS: Blood Urea Nitrogen 56 mg/dl (9-20); Calcium 7.8 mg/dl (8.4-10.2); Carbon Dioxide 27 mmol/L (22-30); Chloride 101 mmol/L (98-107); Estimated Creatinine Clearance 31 ml/min; Glucose 147 mg/dl (70-99); Potassium 4.6 mmol/L (3.5-5.1); Sodium 137 mmol/L (135-145); eGFR 24.63
[2024-11-28] MEDS: LOKELMA PO (18:23)
--- NOTE | 2024-11-28 21:12 | PTCARENOTE ---
Assumed care of pt from dayshift. Pt is AAOx4. 100 % v-paced on monitor 80-4-2. HR 80, B/P 132/81. Pulses palpable. tace edema throughout. Temp 100.6. Lungs clear, diminished in bases. Pt on Bi-pap 12/6@10L. POX 97%. Hypoactive BS. abdomen soft,
round. non-tender to touch. Sternal Aquacel C/D/I. all procedural sites stable. R IJ intact to KVO. no redness or edema noted. Will continue to monitor pt needs.
[2024-11-28] MEDS: LIPITOR 40 MG PO (22:05)
--- NOTE | 2024-11-28 23:00 | PTCARENOTE ---
VSS. Pt 100% v-paced 80/4/2 HR 80, B/P 137/84. Pt on Bipap /6@10 L POX 95%. Evening care provided. Will continue to monitor pt needs.
[2024-11-29] VITALS (42 sets, daily range): BP systolic 103–155; BP diastolic 53–93; PULSE 2–76; BMI 35.5
--- NOTE | 2024-11-29 03:21 | PTCARENOTE ---
VSS. V-paced on monitor. HR 80, B/P 138/78. Bipap trial removal. Pt placed on 6L O2 NC. POX 92%. Pt instructed to leave pulse ox on finger. Will continue to monitor pt needs.
--- NOTE | 2024-11-29 03:50 | PTCARENOTE ---
VSS. Pt v paced. CTPA Tslina at bedside. ECG obtained with pacer paused. Underlying rhythm 50-60's. Pacer adjusted to 40-40-2. HR 58, B/P 133/62
Pt placed on 15L midflow NC. POX 95% Will continue to monitor pt needs.
[2024-11-29 04:07] LABS: Hematocrit 27.2 % (39.0-52.0); Mean Corp Hgb Conc. 33.1 g/dL (33.0-37.0); Mean Corpuscular Hgb 30.9 pg (27.0-31.0); Mean Corpuscular Volume 93.5 fL (80.0-94.0); Mean Platelet Volume 9.8 fL (7.4-10.4); Platelet Count 103 10^3/uL (130-400); Red Blood Cell Count 2.91 10^6/uL (4.70-6.10); White Blood Cell Count 12.5 10^3/uL (4.8-10.8)
[2024-11-29 04:15] LABS: Blood Urea Nitrogen 58 mg/dl (9-20); Calcium 8.3 mg/dl (8.4-10.2); Carbon Dioxide 30 mmol/L (22-30); Chloride 102 mmol/L (98-107); Estimated Creatinine Clearance 38 ml/min; Glucose 111 mg/dl (70-99); Magnesium 2.9 mg/dl (1.6-2.3); Potassium 4.8 mmol/L (3.5-5.1); Sodium 138 mmol/L (135-145); eGFR 31.82
[2024-11-29] MEDS: TYLENOL 1000 MG PO ×3 (05:54→22:12)
--- NOTE | 2024-11-29 07:46 | W.PN.INTV ---
Today's Communication / Plan
Recommendations
Wean oxygen
Incentive spirometry
Monitor chest tube output
Permanent pacemaker
Insulin supplementation as needed
Assessment
-
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
ventilator/critical care management 11/26/2024.
Severe aortic stenosis and CAD-status post ascending aortic wrap with Hemashield graft/CABG x 1-lead to to LAD-Dr. Hill 11/26/2024
Mild leukopenia
Conditions present prior to admission:
Hypertension.
COPD.
Pulmonary nodule-4 mm right lower lobe stable 08/2021 through 10/2024
CAD/stent.
Cigarette smoker.
Left renal mass-renal cell carcinoma stage IIa, grade 3, 7.6 cm-incidentally noted on screening CT chest
Right renal mass-suspected cyst-follows urology
Depression.
Gout.
Alcohol use disorder.
Obesity-BMI 33
Left knee replacement. Appendectomy. Hernia repair. Left nephrectomy 2020.
Plan
Continues to be critically ill on pressors
Tolerated extubation
Supplemental oxygen as needed--continue to wean
ABGs reviewed
Nebulizers if needed-currently not bronchospastic
Incentive spirometry
BiPAP if needed
Pulmonary artery catheter will be discontinued
Pressors/antihypertensive/inotropes/diuretics will be provided as needed
Monitor for arrhythmias-has had bradycardia and V paced at 40 with hypotension
Permanent pacemaker 11/29/2024
Cardiology following-correspondence reviewed
Gentle diuresis as tolerated
Monitor renal function, electrolytes, intake/output, lower extremity edema and weight
Replace electrolytes as needed
Continue to follow chest tube output
Monitor hemoglobin
Monitor platelet count and coags
Transfuse blood product if needed
CT surgery following chest tubes
Monitor renal function-creatinine trending up
Nephrology consultation-VITOR likely prerenal with postoperative hypotension and bradycardia
Hold LORY inhibitor
Lokelma and possibly Kayexalate
Bicarb administration as needed
Monitor blood sugar
Insulin drip per protocol-convert off drip
Follow MSAS
Alcohol withdrawal treatment protocol if needed
Consider thiamine, folate and multivitamins-will try to obtain detailed alcohol intake information
Aspiration precautions
VAP prevention protocol
DVT prophylaxis
Early nutrition
Early mobilization
If able to be weaned off pressors and pulmonary artery catheter/arterial line removed the patient could be transferred to telemetry-at that point tier lift operator will sign off
Consider outpatient pulmonary/sleep disorders evaluation-BMI 33, thick neck, snore, etc.-reviewed importance with patient
Critical care statement: A total of 40 minutes of critical care time was provided for this patient today. This includes management of ventilator, spontaneous breathing trial, arterial blood gases, pressors, of unstable vital signs, evaluation of the
patient at bedside, reviewing the patient's pertinent medical records including radiographs, microbiology, laboratory evaluations, and discussion with primary team and critical care nursing.
Diagnostic data:
CT chest low-dose 08/20/21-7.5 cm low-density mass left kidney, no evidence for pulmonary malignancy
CT chest 4R 10/19/2024-no suspicious pulmonary nodules, stable 4 mm nodule lateral right lower lobe
Cardiac catheterization 10/04/2024-multivessel CAD, severe aortic stenosis with moderate aortic insufficiency
Echocardiogram 09/25/2024-EF 55-60%, moderate to severe aortic stenosis, CALEB 1.3 cm, moderate aortic regurgitation
PFT 09/15/2023-FEV1 1.57-50%, FVC 2.56-59%, 24% improvement postbronchodilator, TLC 83%, DLCO 64%-moderate obstruction, mild to moderate diffusing deficit
Subjective Dataa
Subjective Data
Date of Service:
Date of Service: November 29, 2024
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
Subjective:
Complains of some mild shortness of breath, minimal cough, pain controlled, no abdominal pain
Review of Systems
General: Other (Per HPI)
Objective Data
Data Reviewed
Vital Signs / I&O / Oxygen:
Vital Signs
Temp Pulse Resp BP Pulse Ox
99.6 F 60 18 117/73 95
11/29/24 07:00 11/29/24 07:00 11/29/24 07:00 11/29/24 07:00 11/29/24 07:00
Intake and Output
11/28/24 11/29/24 11/30/24
06:59 06:59 06:59
Intake Total 1433.0 / 1472.2 1301.7 / 1311.7
Output Total 842 / 942 1740 / 1795 55 / 55
Balance 591.0 / 530.2 -438.3 / -483.3 -45 / -45
SaO2 95
Nasal Cannula flow liters per 15
minute
Physical Exam
General: Respiratory Distress (n) and Comfortable
HEENT: Normocephalic, Anicteric and Moist Mucous Membranes
Cardiovascular: Regular Rhythm
Respiratory: Wheeze (n), Crackles, Rhonchi (n), Non-Labored Respirations, Accessory Resp Muscle Use (n), Stridor (n) and Chest Tube
GI: Soft, Non Distended and Non Tender
Neurology: Awake, Alert and No Motor Deficits
Skin: Warm, Good Color and Cyanosis
Labs/Micro/Reports
Lab Data
11/29/24 03:31
11/29/24 03:31
Laboratory Results
11/28/24 11/28/24
11:57 14:36
pH 7.33 L 7.35
pCO2 49 H 47
pO2 97 74 L
HCO3 25.8 25.9
O2 Delivery Level
--- NOTE | 2024-11-29 08:00 | PTCARENOTE ---
Assumed care of the patient at 0700. Patient in bed, sleeping between care. Arose to voice, AOx3, anxious. V-paced to afib w/ PVCs on the monitor, rates 50's; epicardial wire present settings 40/4/2; pressures stable, trace generalized edema. 20 mg
IV lasix given in AM. Patient on 15L midflow NC satting 94%, lungs diminished at the bases. Patient kept NPO pending PPM placement; abdomen SNT, hypoactive bowel sounds. Osman catheter present draining clear betty urine. MS urias present with old
drainage; R groin site intact, RSVG site intact & ecchymotic, CT sites with dressing in place; skin dry and flaky throughout. PIVx1 in R hand and RIJ cordis present infusing KVO. Attempted to get the patient OOB to the commode and c/o severe
dizziness. Placed back in bed and used a bed meek to have a BM. Assessment of needs ongoing, call avery within reach.
--- NOTE | 2024-11-29 08:13 | W.PN.CT ---
Today's Communication / Plan
-
-pod #3
-diuresed well with iv Bumex 11/28 (UO 860/1725 in 12/24 hrs)
-no drips
-Cr is trending down - 2.1 today (peak 2.6 and 1.2-1.3 preop). Appreciate Nephrology input
-was v-paced @ 80 overnight to maintain map >70. Remains bradycardic, in a-fib. pw programmed VVI @ 40 with occasional paced beats. EP following
-diurese
-encourage IS, OOB
-appreciate everyone's input
Assessment / Plan
-
Assessment:
-S/P Median sternotomy/ CABG x 1 (PERLITA to LAD)/ AVR (#29 Avalus)/Ascending aortic wrap w/ hemashield graft/ Evaluation of RPDA/PRLB/distal RCA (not amenable to bypass)/Endoscopic harvest/prep of RLE GSV, by Dr. Hill, 11/26/24, POD#3
-Multivessel CAD S/P PCI with MARYLOU to OM2017
-Severe /bicuspid
-Wabq-ku-fzyzarjo aortic insufficiency
-Ascending aortic enlargement (4.5 cm)
-LVEF 60-65%
-HTN
-HLD
-Class 1 obesity (BMI 33.4)
-COPD
-Former tobacco abuse
-ETOH abuse
-Gout
-Depression
-Right renal mass-suspected cyst-follows urology
-Left renal mass-renal cell carcinoma stage IIa, grade 3, 7.6 cm-incidentally noted on screening CT chest
-S/P Left nephrectomy
-S/P Umbilical hernia repair
-S/P LTKR, 2020
-S/P S/P vein stripping
-S/P Appendectomy
-Acute postop blood loss/Anemia (stable without active bleed)
-Acute postop atelectasis
-Acute postop hypovolemia with subsequent hypervolemia
-Acute postop metabolic acidosis
-VITOR
-Acute postop hyperkalemia in setting of VITOR
Discussed patient care with: Nursing and Pharmacy
Subjective
Procedure
S/P Median sternotomy/ CABG x 1 (PERLITA to LAD)/ AVR (#29 Avalus)/Ascending aortic wrap w/ hemashield graft/ Evaluation of RPDA/PRLB/distal RCA (not amenable to bypass)/Endoscopic harvest/prep of RLE GSV, by Dr. Hill, 11/26/24, POD#1
-
Date of Service: November 29, 2024
Objective Data
-
Lab Results
11/29/24 03:31
11/29/24 03:31
PT 18.8 Sec (11.4-14.6) H 11/26/24 15:41
INR 1.55 11/26/24 15:41
APTT 39.4 Sec (23.4-35.0) H 11/26/24 15:41
Vital Signs
Vital Signs
Temp Pulse Resp BP Pulse Ox
99.6 F 60 18 117/73 95
11/29/24 07:00 11/29/24 07:00 11/29/24 07:00 11/29/24 07:00 11/29/24 07:00
CT Intake/Output/Weight
11/28/24 11/29/24 11/29/24
18:59 06:59 18:59
Intake Total 1191.7 / 1311.7 110 / 1311.7
Output Total 880 / 1795 860 / 1795 55 / 55
Balance 311.7 / -483.3 -750 / -483.3 -45 / -45
SaO2: 95
Physical Exam
-
Cardiovascular: No Murmurs
General: Awake and AOx3
Cardiovascular: Regular rate & rhythm (+ JVD), No Murmurs and No Rub
Respiratory: Decreased Breath Sounds
Sternum: Stable
Incision: Clean, Dry and Intact
Extremities: Edema +1
Abdomen: soft, +decreased bowel sounds
Data Reviewed
-
Lab Results: Results Reviewed
Medications: Active Meds Reviewed
Chest X-Ray: Report Reviewed and Image Reviewed
ECG: Report Reviewed and Image Reviewed
[2024-11-29] MEDS: BACTROBAN 2% OINTMENT 1 APPLIC NASAL ×2 (08:55→20:42)
[2024-11-29] MEDS: LASIX 40 MG IV (08:55)
[2024-11-29] MEDS: PROTONIX 40 MG PO (09:19)
[2024-11-29] MEDS: SENOKOT-S 1 TABLET PO ×2 (09:19→20:42)
[2024-11-29] MEDS: FEOSOL 325 MG PO (09:19)
[2024-11-29] MEDS: PLAVIX 75 MG PO (09:19)
[2024-11-29] MEDS: MUCINEX 600 MG PO ×2 (09:19→20:42)
[2024-11-29] MEDS: LIDOCAINE 4% PATCH TOPICAL (09:19)
[2024-11-29] MEDS: NEURONTIN 100 MG PO ×3 (09:20→22:13)
[2024-11-29] MEDS: VITAMIN C 500 MG PO (09:20)
[2024-11-29] MEDS: LOW STRENGTH ASPIRIN 81 MG PO (09:20)
--- NOTE | 2024-11-29 09:32 | W.PN.NEPH.PH ---
Today's Communication / Plan
-
Follow BMP
Holding lisinopril
Assessment/Plan
-
Impression:
VITOR
Hyperkalemia
Status post CABG X 1 and AVR 11/26/2024
Left nephrectomy 2020 for renal cell carcinoma (1.3 baseline)
Alcohol abuse
Coronary artery
Ascending aortic dilation
Anemia
History of HTN
Valvular heart disease
Gout
Depression
LVEF 60 to 65%
History of hypertension
Respiratory and metabolic acidosis with resultant acidemia
Plan:
VITOR:
-Improved
-Likely prerenally mediated with postoperative hypotension and bradycardia noted
-Hyperkalemia resolved and creatinine down to 2.1, nonoliguric with urine output around 1.5 L
-Hemodynamically stable but notable for bradycardia which persist
-Blood was transfused for worsening anemia on 11/28/2024
-Maintain Osman catheter
-Withholding LORY inhibitor until blood pressure rebounds and kidney injury resolved
-Primary service has been diuresing patient
-Patient is for pacemaker placement this morning
-Weights up but chest x-ray without congestive heart failure findings (personally reviewed this am)
-
-
Date of Service: November 29, 2024
CC / HPI / ROS
-
Chief Complaint:
Acute kidney injury
History of Present Illness:
Creatinine down to 2.1
Hemodynamically stable but bradycardic
Hyperkalemia resolved
Review of Systems:
Nonoliguric
Osman cath
On nasal cannula oxygen but no overt shortness of breath
Weights up
Labs
-
Labs:
WBC 12.5 10^3/uL (4.8-10.8) H 11/29/24 03:31
RBC 2.91 10^6/uL (4.70-6.10) L 11/29/24 03:31
Hgb 9.0 g/dL (13.0-18.0) L 11/29/24 03:31
Hct 27.2 % (39.0-52.0) L 11/29/24 03:31
Plt Count 103 10^3/uL (130-400) L D 11/29/24 03:31
Sodium 138 mmol/L (135-145) 11/29/24 03:31
Potassium 4.8 mmol/L (3.5-5.1) 11/29/24 03:31
Chloride 102 mmol/L (98-107) 11/29/24 03:31
Carbon Dioxide 30 mmol/L (22-30) 11/29/24 03:31
BUN 58 mg/dl (9-20) H 11/29/24 03:31
Creatinine 2.1 mg/dL (0.7-1.3) H 11/29/24 03:31
eGFR 31.82 11/29/24 03:31
Glucose 111 mg/dl (70-99) H 11/29/24 03:31
Calcium 8.3 mg/dl (8.4-10.2) L 11/29/24 03:31
Albumin 3.0 g/dl (3.5-5.0) L 11/27/24 03:47
Physical Exam
-
Vital Signs:
Vital Signs
Temp Pulse Resp BP Pulse Ox
99.4 F 60 20 128/71 94
11/29/24 09:00 11/29/24 09:00 11/29/24 09:00 11/29/24 08:55 11/29/24 09:00
Cardiovascular:: Regular rate and rhythm (Bradycardia)
Respiratory:: Bilateral: Coarse
Lung Excursion:: Normal
Abdomen:: Nontender and Soft
Bowel Sounds:: Normal
Extremity Edema:: None: Bilateral:
Osman Catheter: Yes
--- NOTE | 2024-11-29 10:00 | PTCARENOTE ---
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 Unable to obtain, R hand PIVx1 present as well as RIJ Cordis. supervisor laboratory RNs at bedside for transport.
--- NOTE | 2024-11-29 10:01 | W.PN.CD ---
Today's Communication / Plan
-
- PPM today
Impression / Plan
-
Background: 79 y/o male (patient of Dr. العراقي) with CAD with hx stenting (2004, 2017), chronic RCA occlusion, bicuspid aortic valve with aortic stenosis, ascending aorta dilatation, mild to moderate aortic regurgitation, PVCs, hypertension,
hyperlipidemia, COPD/former smoker, obesity, ETOH abuse, and kidney cancer status-post left nephrectomy admitted for elective AVR/CAB/Ao Wrap.
Post-op bradycardia
- Looking at tele it is possible he went from NSR to slow AFib needing pacing although P waves are small
- Suggest continue pacing support
- Temp pacing wires were decreased to 35 bpm VVI and still needed pacing intermittently.
- With need for pacing, BB and and rate control for the AF and plan for rhythm control, would recommend dual chamberr PPM
- The QRS is narrow and would prefer to have atrial pacing and atrial pacing if possible.
- Resume Amio/BB post PPM
- permanent pacemaker today
CAD/Severe , bicuspid /AscAo dilatation
- POD 2 from Biologic SAVR/CABGx1 MELARA to LAD/Ascending aortic wrap w/ Hemashield graft
Post-op VITOR/Hyperkalemia
Acute post op blood loss anemia,
- hemolysis is not suspected, but will consider if appropriate
HTN
HLD, goal LDL < 55. Continue Statin
Hx ETOH
Subjective/Interval History:
Feels well. wants to have the PPM
DATA:
Cardiac Catheterization, 10/04/2024:
CORONARY ANGIOGRAPHY
Dominance: Right
Left Main: Normal
LAD: 60% proximal to mid LAD stenosis with otherwise mild luminal irregularities in the LAD system
Circumflex: There is a long stented segment from the proximal circumflex extending into the large OM 2. The stented segment is patent with mild restenosis to 20-30% in the proximal stented segment. The stent placed in 2017 in OM 2 has no restenosis
RCA: The RCA has 80% mid stenosis and remains chronically occluded in the midportion. The relatively small PDA and medium size posterolateral fill via [id number] collaterals
Intraoperative KELBY, 11/26/2024:
CONCLUSIONS
Severe aortic stenosis, mild aortic regurgitation. Bicuspid valve. Valve
annulus 29 mm.
Normal left ventricular size and function, mild LVH, stage I diastolic
dysfunction.
Dilated ascending aorta, maximum diameter 4.5 cm. The aorta has atheroma less
than 5 mm and mild to moderate calcifications.
Trace MR. Trace TR.
Dilated coronary sinus.
POST OPERATIVE FINDINGS
Status post aortic valve replacement with 29 mm bioprosthetic aortic valve.
The valve is well-seated, no perivalvular leak, leaflets are functioning well.
Mean gradient 5 mmHg.
Status post CABG x 1. Left ventricular function is normal, EF 60 to 65%. No
regional wall motion abnormalities seen.
Normal right ventricular size and function.
Trace MR. Trace TR.
The rest of the study is unchanged.
Physical Exam
Vital Signs/Labs
Vital Signs
Temp Pulse Resp BP Pulse Ox
99.4 F 60 20 128/71 94
11/29/24 09:00 11/29/24 09:00 11/29/24 09:00 11/29/24 08:55 11/29/24 09:00
11/28/24 11/29/24 11/30/24
06:59 06:59 06:59
Actual Weight 114.7 kg 115.4 kg
11/29/24 03:31
11/29/24 03:31
PT 18.8 Sec (11.4-14.6) H 11/26/24 15:41
INR 1.55 11/26/24 15:41
APTT 39.4 Sec (23.4-35.0) H 11/26/24 15:41
Magnesium 2.9 mg/dl (1.6-2.3) H 11/29/24 03:31
Physical Exam
Constitutional: No acute distress and Comfortable
EENT: Anicteric and Moist mucous membranes
Cardiovascular: Rhythm/rate is irregular, Pedal edema present, JVD present and Systolic murmur present
Respiratory: Respiratory effort normal, Wheeze Absent, Crackles Absent and Rhonchi Absent
GI: Soft, Distention absent, Non tender and Normal bowel sounds
Neuro/Psych: Alert, Oriented and AO x 3
Data Reviewed
-
Date of Service: November 29, 2024
Medical Decision Making: Reviewed Test Results, Test Interpretation and Review of Case with other Provider
EKG: Tracing Personally Visualized and interpreted
Echo: Report Reviewed by me
Medical Tests (PFT, Pathology etc): Discussed with Nurse and Discussed with Patient
Labs: Labs Reviewed by me
Old Records: Reviewed
Critical Care Time (in minutes): 35
--- NOTE | 2024-11-29 12:22 | ITS.CL.PACE ---
[employer] - Pacemaker Implant
Pacemaker Implant
Procedure Report:
Conduction system pacing Permanent Pacemaker Placement:
79 yrs old man with CAD with hx stenting (2004, 2017), chronic RCA occlusion, bicuspid aortic valve with aortic stenosis, ascending aorta dilatation, mild to moderate aortic regurgitation, PVCs, hypertension, hyperlipidemia, COPD/former smoker,
obesity, ETOH abuse, and kidney cancer status-post left nephrectomy s/p Biologic SAVR/CABGx1 MELARA to LAD/Ascending aortic wrap w/ Hemashield graft 11/27/24 is noted to have severe bradycardia and went into atrial fibrillation with slow ventricular
response requiring epicardial pacing and is recommended to get a permanent pacemaker.
Indications:
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
Date of the Procedure:
11/29/24
Pre-Operative Diagnosis: Tachy marjan syndrome.
Post-Operative Diagnosis: Tachy marjan syndrome.
Procedure Performed: Conduction system pacing permanent pacemaker
Performing Physician:
Lisette Castro MD
Anesthesia:
See anesthesia report.
Detailed Description of the Procedure:
The patient was identified using hospital identification and informed consent obtained for the procedure. The risks were explained to the patient and the family including, but not limited to: Bleeding, infection, arrhythmia, stroke,
vascular/cardiac/lung puncture, surgery, pacemaker dependency/device malfunction. All questions were answered.
A surgical pause was performed in accordance with hospital regulations. Anesthesia service provided sedation as reported separately. Antibiotics administered IV for risk of bacterial colonization. After obtaining informed and written consent, the
patient was brought to the electrophysiology laboratory.
The initial rhythm was atrial fibrillation with intermittent ventricular pacing via epicardial leads. �
The procedure site was meticulously prepared with surgical scrub and allowed to dry with no pooling. Sterile draping was applied to cover the procedure site. The image intensifier was draped with sterile bag and positioned over the patient.
A surgical pause and time out was performed immediately prior to the procedure with review of her medical history, recent labs, allergies and medications with site of procedure identified and consent noted in the chart. Antibiotics (Ancef) were pre
operatively given. All team members concurred.
The left infraclavicular region was prepped and draped in the usual sterile fashion. Local anesthesia was administered subcutaneously using 1% lidocaine / Bupivacaine. The left cephalic vein cutdown was performed with an incision at the
delto-pectoral groove, and vascular sheath was introduced for lead access.
A subcutaneous pocket was created with blunt dissection and use of electrocautery. Hemostasis was excellent.
The guide wire was advanced to the RA and was advanced to the RV. The preformed curved long hemostatic peel away HIS sheath was advanced into the RV cavity. A left bundle pacing wire was advanced into the sheath to the tip with ventricular signals
noted with unipolar manner. The cardiac anatomy was significant rotated.
The HIS location was identified under guidance of the fluoroscopy and the pacing wire signals. The sheath with the pacing lead was moved deeper into the RV cavity on the septum at a more inferior and distal to the HIS signals.
Once adequate signals were noted on the electrograms of the pacing lead in the sheath with W pattern signals on the RV septum, the lead was advanced and clockwise turns were done under fluoroscopic guidance. The septum was engaged and the lead was
paced intermittently after every 2-3 turns. The Impedance of the lead was measured that remained stable around 900 Ohm. The ventricular capture was monitored throughout and the captures gradually changed from RV pacing to non-selective LBB pacing
with R wave on V1 /[id number]. �
The long guiding sheath was cut and removed from the RV without change in lead position, impedance, sensing, or capture. The lead was sutured to the underlying pectoralis fascia with 2-0 Ethibond stitches.
Then the attention was given to atrial lead. Atrial active lead was placed in the RA and into the RAA. There were excellent impedance and thresholds.
The leads were attached to the pulse generator in standard configuration with acceptable sensing and threshold parameters. The pocket was irrigated with antibiotic solution; the pocket was inspected with no active bleeding noted. The device and the
leads were placed in the pocket.
A Tyrx pouch was installed around the generator and the leads.
Deep subcutaneous tissues were closed with three layers of 2-0 V loc sutures; and the dermis was reopposed using a running 4-0 VLoc subcuticular suture.
A pressure dressing was applied. Sponge counts / sharp counts were appropriate.
Procedure End:
The procedure was tolerated well. Aquacel bandaged was applied.
Estimated Blood loss:
5 cc
Specimens Removed:
No cultures and no specimens were obtained. No intraoperative pathology was identified.
Urine output:
None
Packs / Drains/ Tubes:
None
Instrument / Sponge Count Correct:
Yes
Flouro time:
3.2min / 21.4mGy
Complications of the Procedure:
None
Condition of Patient at Time of Transfer:
Hemodynamically stable with no neurological or vascular compromise.
Device information:�
Generator: [employer]; Model: W1DR01; Serial # [id number]�
����������� RA pacing lead: [employer]; Model: 5076-52; Serial # [id number]
����������� Measured data on the RV lead was sensing of 0.2 mV of AF waves, impedance of 400 ohms and threshold not tested due to AF. �
����������� RV LBB pacing lead: Medtronic; Model: 3830-69; Serial # [id number]
����������� Measured data on the RV lead was sensing of 14mV, impedance of 870 ohms and threshold of 0.75V at 0.4ms�
PROGRAMMING PARAMETERS:�
Marjan parameter settings were VVIR 60 �
����������� Paced AV interval: 180ms
����������� Sensed AV interval: 150 ms.
����������� Rate Adaptive A-V Interval: off
Mode switch ON
�
Summary:
Successful implantation of MRI compatible dual chamber conduction system pacing permanent pacemaker.
Results/Recommendations:
-Please follow up CXR�
1. Please provide patient with adequate pain control�
Instructions to be given to patient:�
- Please follow up with [facility] at [address] [place] [address] ([phone]) to get your wound checked in 2 weeks of your discharge. Then follow with
- Do not wet incision site until after it is evaluated at cardiology clinic. No baths or showers until then. Sponge baths / showers are OK but dab dry the dressing after it is wet.�
- Allow 'steri strips' to fall off on their own�
- Do not lift left elbow above shoulder, particularly with sudden jerking movements, for 1 month�
- Do not lift anything weighing more than 5 pounds with the left arm for 1 month�
- If you notice any fevers, shortness of breath, lightheadedness, chest pain, or worsening swelling in the wound site, please contact the arrhythmia clinic, contact your professor of legal studies, or present to the hospital for evaluation.�
Lisette Castro MD
Electrophysiology
--- NOTE | 2024-11-29 13:32 | PTCARENOTE ---
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 No acute complaints of pain or discomfort. Sling applied to L arm, patient educated on shoulder precautions and teaching regarding not lifting his arm reinforced. Patient desatting to 87-88% on 15L midflow.
CVNP made aware, order for high flow O2 placed, RT to bedside for application. Assessment of needs ongoing.
[2024-11-29] MEDS: NSS IV (14:09)
--- NOTE | 2024-11-29 16:08 | CM ---
Reviewed chart. Met with Mr. Rutledge to review discharge plans. He states ihe is feeling okay. Prior to admission he resides alone on a two story home with three steps to enter. He has a first floor set-up . Prior to admission he was independent
with ambulation and adls. Will need to see his current functional level to see if he will have any skilled care needs. Physical and occupational therapy evaluations pending. He does not have any DME in the home. He has a prescription plan.
Medical work-up in progress. If he needs acute or SNF/Rehab. will need to pre-cert with his insurance.Medical work-up in progress. The discharge plan is to return home alone with family and friend support verses some level of rehab. if indicated
and approved by insurance when medically stable.
[2024-11-29] MEDS: ANCEF 5 IV (17:01)
[2024-11-29] MEDS: LASIX 60 MG IV (17:01)
[2024-11-29 17:39] LABS: Blood Urea Nitrogen 54 mg/dl (9-20); Calcium 7.8 mg/dl (8.4-10.2); Carbon Dioxide 29 mmol/L (22-30); Chloride 100 mmol/L (98-107); Estimated Creatinine Clearance 44 ml/min; Glucose 163 mg/dl (70-99); Potassium 4.8 mmol/L (3.5-5.1); Sodium 138 mmol/L (135-145); eGFR 38.29
--- NOTE | 2024-11-29 21:00 | PTCARENOTE ---
Assumed care of pt from natacha RN. Pt w/ occasional V-pacing. PPM procedure today. HR 60s. Temporary epicardial v-wire intact and connected to box. BPs stable. Weak DP pulses. +1 generalized edema. Pt 96% on high flow NC 60L/60%. Lung sounds
diminished. Deep breathing and IS encouraged. Abdomen soft. +BS. Osman catheter C/D/I and draining yellow urine. All surgical sites stable. Left upper chest Aquacel intact. Left arm immobilized in sling. CT dressing C/D/I. Right IJ cordis intact. Pt
repositioned in bed. See worklist for full nursing assessment and interventions. Call avery within reach and pt ringing appropriately.
[2024-11-29] MEDS: LIPITOR 40 MG PO (22:13)
[2024-11-30] VITALS (21 sets, daily range): BP systolic 120–160; BP diastolic 54–115; PULSE 62; BMI 35.4
--- NOTE | 2024-11-30 01:00 | PTCARENOTE ---
assumed care of pt from previous rn around 2300. Pt w/ occasional V-pacing. PPM set to VVI 60-130. HR 60s. Temporary epicardial v-wire intact and connected to box 35//2. BPs stable. Weak DP pulses. +1 generalized edema. Pt 98% on high flow NC
60L/60%. Lung sounds diminished. Abdomen soft. +BS. Osman catheter C/D/I and draining betty urine. All surgical sites stable. Left upper chest Aquacel intact. Left arm immobilized in sling. CT dressing C/D/I. Right IJ cordis intact. plan of care
discussed questions encouraged.
[2024-11-30] MEDS: ANCEF 5 IV (01:37)
--- NOTE | 2024-11-30 03:23 | PTCARENOTE ---
VSS, routine labs sent, assessment remains unchanged
[2024-11-30 03:26] LABS: Hematocrit 27.7 % (39.0-52.0); Hemoglobin 8.9 g/dL (13.0-18.0); Mean Corp Hgb Conc. 32.1 g/dL (33.0-37.0); Mean Corpuscular Hgb 30.4 pg (27.0-31.0); Mean Corpuscular Volume 94.5 fL (80.0-94.0); Mean Platelet Volume 9.7 fL (7.4-10.4); Platelet Count 122 10^3/uL (130-400); Red Blood Cell Count 2.93 10^6/uL (4.70-6.10); Red Cell Dist. Width 15.4 % (11.5-14.5); White Blood Cell Count 7.2 10^3/uL (4.8-10.8)
[2024-11-30 03:50] LABS: Blood Urea Nitrogen 54 mg/dl (9-20); Calcium 8.2 mg/dl (8.4-10.2); Carbon Dioxide 32 mmol/L (22-30); Chloride 100 mmol/L (98-107); Estimated Creatinine Clearance 50 ml/min; Glucose 138 mg/dl (70-99); Magnesium 2.8 mg/dl (1.6-2.3); Potassium 4.7 mmol/L (3.5-5.1); Sodium 139 mmol/L (135-145)
--- NOTE | 2024-11-30 05:01 | W.PN.CT ---
Documented by User: Tosin Mir PA-C 11/30/24 05:10
Today's Communication / Plan
-
-pod#4
-no issues overnight
-remains in a-fib with v-pacing
-s/p pacer implant on 11/29
-wean off high flow NC as tolerated - currently, on 60% 50L
-diuresed well with bid Lasix 11/29 (UO 1110/2965 in 12/24 hrs)-continue
-Cr is trending down - 1.6 today (peak 2.6 and 1.3 preop)
-encourage IS, OOB
Assessment / Plan
-
Assessment:
-S/P Median sternotomy/ CABG x 1 (PERLITA to LAD)/ AVR (#29 Avalus)/Ascending aortic wrap w/ hemashield graft/ Evaluation of RPDA/PRLB/distal RCA (not amenable to bypass)/Endoscopic harvest/prep of RLE GSV, by Dr. Hill, 11/26/24, POD#4
-S/P Successful implantation of MRI compatible dual chamber conduction system pacing permanent pacemaker (Medtronic) on 11/29/[address] Castro
-Multivessel CAD S/P PCI with MARYLOU to 2017
-Severe /bicuspid
-Bkty-ib-iercdtmf aortic insufficiency
-Ascending aortic enlargement (4.5 cm)
-LVEF 60-65%
-HTN
-HLD
-Class 1 obesity (BMI 33.4)
-COPD
-Former tobacco abuse
-ETOH abuse
-Gout
-Depression
-Right renal mass-suspected cyst-follows urology
-Left renal mass-renal cell carcinoma stage IIa, grade 3, 7.6 cm-incidentally noted on screening CT chest
-S/P Left nephrectomy
-S/P Umbilical hernia repair
-S/P LTKR, 2020
-S/P S/P vein stripping
-S/P Appendectomy
-Acute postop blood loss/Anemia (stable without active bleed)
-Acute postop thrombocytopenia
-Acute postop atelectasis
-Acute postop hypovolemia with subsequent hypervolemia
-Acute postop metabolic acidosis
-VITOR
-Acute postop hyperkalemia in setting of VITOR
Discussed patient care with: Nursing and Care Team
Subjective
Procedure
S/P Median sternotomy/ CABG x 1 (PERLITA to LAD)/ AVR (#29 Avalus)/Ascending aortic wrap w/ hemashield graft/ Evaluation of RPDA/PRLB/distal RCA (not amenable to bypass)/Endoscopic harvest/prep of RLE GSV, by Dr. Hill, 11/26/24, POD#1
-
Date of Service: November 30, 2024
Objective Data
-
Lab Results
11/30/24 03:17
11/30/24 03:17
PT 18.8 Sec (11.4-14.6) H 11/26/24 15:41
INR 1.55 11/26/24 15:41
APTT 39.4 Sec (23.4-35.0) H 11/26/24 15:41
Vital Signs
Vital Signs
Temp Pulse Resp BP Pulse Ox
97.5 F 62 17 154/86 98
11/30/24 04:00 11/30/24 04:30 11/30/24 04:30 11/30/24 04:00 11/30/24 04:30
CT Intake/Output/Weight
11/29/24 11/29/24 11/30/24
06:59 18:59 06:59
Intake Total 110 / 1311.7 1580 / 1670 90 / 1670
Output Total 860 / 1795 1855 / 3065 1210 / 3065
Balance -750 / -483.3 -275 / -1395 -1120 / -1395
SaO2: 98
Physical Exam
-
General: Awake and AOx3
Cardiovascular: Irregular rate & rhythm
Respiratory: Decreased Breath Sounds
Sternum: Stable
Incision: Clean, Dry and Intact
Extremities: Edema +1
Data Reviewed
-
Lab Results: Results Reviewed
Medications: Active Meds Reviewed
Chest X-Ray: Report Reviewed and Image Reviewed
ECG: Report Reviewed and Image Reviewed

Documented by User: Brandi Ruiz PA-C 11/30/24 07:51
Assessment / Plan
-
Assessment:
-S/P Median sternotomy/ CABG x 1 (PERLITA to LAD)/ AVR (#29 Avalus)/Ascending aortic wrap w/ hemashield graft/ Evaluation of RPDA/PRLB/distal RCA (not amenable to bypass)/Endoscopic harvest/prep of RLE GSV, by Dr. Hill, 11/26/24, POD#4
-S/P Successful implantation of MRI compatible dual chamber conduction system pacing permanent pacemaker (Medtronic) on 11/29/[address] Castro
-Multivessel CAD S/P PCI with MARYLOU to OM2017
-Severe /bicuspid
-Cwxg-df-fmoytujb aortic insufficiency
-Ascending aortic enlargement (4.5 cm)
-LVEF 60-65%
-HTN
-HLD
-Class 1 obesity (BMI 33.4)
-COPD
-Former tobacco abuse
-ETOH abuse
-Gout
-Depression
-Right renal mass-suspected cyst-follows urology
-Left renal mass-renal cell carcinoma stage IIa, grade 3, 7.6 cm-incidentally noted on screening CT chest
-S/P Left nephrectomy
-S/P Umbilical hernia repair
-S/P LTKR, 2020
-S/P S/P vein stripping
-S/P Appendectomy
-Acute postop blood loss/Anemia (stable without active bleed)
-Acute postop thrombocytopenia
-Acute postop atelectasis
-Acute postop hypovolemia with subsequent hypervolemia
-Acute postop metabolic acidosis
-VITOR
-Acute postop hyperkalemia in setting of VITOR
-Acute pulmonary insufficiency (following surgery)
-postop hypotension only, resolved
[2024-11-30] MEDS: TYLENOL 1000 MG PO ×3 (05:02→22:00)
--- NOTE | 2024-11-30 07:41 | W.PN.INTV ---
Today's Communication / Plan
Recommendations
Diuresis
Status post pacemaker
Wean FiO2
Outpatient sleep apnea follow-up
If transferred to telemetry then counter waitress/waiter will sign off-call pulmonary if respiratory issues arise
Assessment
-
9-year-old former smoking and drinking male with a history of hypertension, COPD, CAD/stent, obesity and kidney cancer noted to have severe aortic stenosis and underwent aortic valve replacement and CABG-counter waitress/waiter consulted for postoperative
ventilator/critical care management 11/26/2024.
Severe aortic stenosis and CAD-status post ascending aortic wrap with Hemashield graft/CABG x 1-lead to to LAD-Dr. Hill 11/26/2024
Status post permanent pacemaker 11/29/2024
Mild leukopenia
Conditions present prior to admission:
Hypertension.
COPD.
Pulmonary nodule-4 mm right lower lobe stable 08/2021 through 10/2024
CAD/stent.
Cigarette smoker.
Left renal mass-renal cell carcinoma stage IIa, grade 3, 7.6 cm-incidentally noted on screening CT chest
Right renal mass-suspected cyst-follows urology
Depression.
Gout.
Alcohol use disorder.
Obesity-BMI 33
Left knee replacement. Appendectomy. Hernia repair. Left nephrectomy 2020.
Plan
Hemodynamics and pulmonary status slowly improving
Tolerated extubation
Supplemental oxygen as needed--continue to wean-currently on high flow-attempting to wean to nasal cannula
ABGs reviewed
Nebulizers if needed-currently not bronchospastic
Incentive spirometry
BiPAP if needed
Pulmonary artery catheter will be discontinued
Pressors/antihypertensive/inotropes/diuretics will be provided as needed
Monitor for arrhythmias-has had bradycardia and V paced at 40 with hypotension
Permanent pacemaker placed 11/29/2024
Cardiology following-correspondence reviewed
Gentle diuresis as tolerated
Monitor renal function, electrolytes, intake/output, lower extremity edema and weight
Replace electrolytes as needed
Continue to follow chest tube output
Monitor hemoglobin
Monitor platelet count and coags
Transfuse blood product if needed
CT surgery following chest tubes
Monitor renal function-creatinine trending up
Nephrology consultation-VITOR likely prerenal with postoperative hypotension and bradycardia
Hold LORY inhibitor
Lokelma and possibly Kayexalate
Bicarb administration as needed
Monitor blood sugar
Insulin drip per protocol-convert off drip
Follow MSAS
Alcohol withdrawal treatment protocol if needed-no signs of withdrawal
Aspiration precautions
VAP prevention protocol
DVT prophylaxis
Nutrition
Increase activity/out of bed
If able to be weaned off pressors and pulmonary artery catheter/arterial line, off insulin drip and FiO2 weaned removed the patient could be transferred to telemetry-at that point counter waitress/waiter will sign off
Consider outpatient pulmonary/sleep disorders evaluation-BMI 33, thick neck, snore, etc.-reviewed importance with patient
Critical care statement: A total of 40 minutes of critical care time was provided for this patient today. This includes management of ventilator, spontaneous breathing trial, arterial blood gases, pressors, of unstable vital signs, evaluation of the
patient at bedside, reviewing the patient's pertinent medical records including radiographs, microbiology, laboratory evaluations, and discussion with primary team and critical care nursing.
Diagnostic data:
CT chest low-dose 08/20/21-7.5 cm low-density mass left kidney, no evidence for pulmonary malignancy
CT chest 4R 10/19/2024-no suspicious pulmonary nodules, stable 4 mm nodule lateral right lower lobe
Cardiac catheterization 10/04/2024-multivessel CAD, severe aortic stenosis with moderate aortic insufficiency
Echocardiogram 09/25/2024-EF 55-60%, moderate to severe aortic stenosis, CALEB 1.3 cm, moderate aortic regurgitation
PFT 09/15/2023-FEV1 1.57-50%, FVC 2.56-59%, 24% improvement postbronchodilator, TLC 83%, DLCO 64%-moderate obstruction, mild to moderate diffusing deficit
Subjective Dataa
Subjective Data
Date of Service:
Date of Service: November 30, 2024
Chief Complaint: Shop Service Technician Follow Up, Pulmonary Follow Up and Vent Management Follow Up
Subjective:
Still on high flow oxygen, no increased shortness of breath, chest pain or abdominal pain
Review of Systems
General: Other (Per HPI)
Objective Data
Data Reviewed
Vital Signs / I&O / Oxygen:
Vital Signs
Temp Pulse Resp BP Pulse Ox
98.3 F 62 17 144/100 97
11/30/24 07:00 11/30/24 07:15 11/30/24 07:15 11/30/24 07:00 11/30/24 07:15
Intake and Output
11/29/24 11/30/24 12/01/24
06:59 06:59 06:59
Intake Total 1301.7 / 1311.7 1690 / 1700 10 / 10
Output Total 1740 / 1795 3240 / 3300 60 / 60
Balance -438.3 / -483.3 -1550 / -1600 -50 / -50
SaO2 97
Nasal Cannula flow liters per 50
minute
Physical Exam
General: Respiratory Distress (n) and Comfortable
HEENT: Normocephalic, Anicteric and Moist Mucous Membranes
Cardiovascular: Regular Rhythm
Respiratory: Wheeze (n), Crackles, Rhonchi (n), Non-Labored Respirations, Accessory Resp Muscle Use (n), Stridor (n) and Chest Tube
GI: Soft, Non Distended and Non Tender
Neurology: Awake, Alert and No Motor Deficits
Skin: Warm, Good Color and Cyanosis
Labs/Micro/Reports
Lab Data
11/30/24 03:17
11/30/24 03:17
--- NOTE | 2024-11-30 08:30 | PTCARENOTE ---
Patient received from pie icer machine RN; AAOx3, responds spontaneously RN and follows commands; VSS; Afib with V-pacing on monitor; Left PPM VVIR 60-130; Epicardial V-wire with temporary pacemaker 35/4/0.8; Trace generalized edema; +1 DP and +2 radial
pulses; Lungs diminished throughout; SpO2 96-99% on HFNC 50L at 50%; Tender upper abdomen quadrants; Osman draining clear, yellow urine; Surgical sites intact; LUE immobilized in sling; RIJ Cordis with KVO infusing; PIV x2 #18 right hand and #20
LAC; EKG completed; IV Lasix 40 mg ordered, PO Metoprolol and PO Amiodarone resumed; See nursing documentation for further details.
[2024-11-30] MEDS: VITAMIN C 500 MG PO (08:54)
[2024-11-30] MEDS: MUCINEX 600 MG PO ×2 (08:54→20:16)
[2024-11-30] MEDS: SENOKOT-S 1 TABLET PO ×2 (08:54→20:16)
[2024-11-30] MEDS: BACTROBAN 2% OINTMENT 1 APPLIC NASAL (08:54)
[2024-11-30] MEDS: LIDOCAINE 4% PATCH 1 PATCH TOPICAL (08:54)
[2024-11-30] MEDS: PLAVIX 75 MG PO (08:54)
[2024-11-30] MEDS: FEOSOL 325 MG PO (08:54)
[2024-11-30] MEDS: LOW STRENGTH ASPIRIN 81 MG PO (08:54)
[2024-11-30] MEDS: LOPRESSOR 12.5 MG PO ×2 (08:54→20:16)
[2024-11-30] MEDS: PACERONE 200 MG PO ×3 (08:54→22:00)
[2024-11-30] MEDS: PROTONIX 40 MG PO (08:54)
[2024-11-30] MEDS: NEURONTIN 100 MG PO ×3 (08:54→22:01)
[2024-11-30] MEDS: LASIX 40 MG IV ×2 (08:55→16:49)
--- NOTE | 2024-11-30 09:01 | PN.CDI ---
Addendum entered and electronically signed by Luis Salazar PA-C 11/30/24 10:50:
Pt with acute diastolic CHF. additional diurectic given
Original Note:
CDI
- -
CDI:
Physician Documentation Request
Admit Date: 11/26/24 05:20
Dear Doctor Sergio/ DOMENICO,
Please review the following and provide your response in the progress notes.
Clinical Indicators:
Pt admitted with CAD now s/p CABG 11/26/ Now s/p Pacemaker due to tacybrady syndrome
CT surgery note 11/29, 'diuresed well with iv Bumex 11/28 (UO 860/1725 in 12/24 hrs)... (+ JVD)..Extremities: Edema +1....+decreased bowel sounds....'
CT surgery note 11/30, ' -diuresed well with bid Lasix 11/29 (UO 1110/2965 in 12/24 hrs)-continue... subsequent hypervolemia...-LVEF 60-65%...Cardiovascular: Irregular rate & rhythm Respiratory: Decreased Breath Sounds...Extremities: Edema +1....'
Please provide a diagnosis for the above diuresis:
Acute Diastolic CHF
Hypervolemia only
Other ( please specify)
Use of terms such as suspected, likely, concern for, or probable (associated with a specific diagnosis that is being evaluated, monitored, or treated as if it exists) are acceptable and can be coded in the inpatient setting, when documented at the
time of discharge.
Thank you,
Jennie Irving RN
CDI Specialist
[place] [facility]
Please use your independent medical judgment in providing your response.
--- NOTE | 2024-11-30 10:13 | W.PN.CD ---
Today's Communication / Plan
-
pacemaker site is fine
remains on high flow but requirements decreasing. Continue to wean.
Impression / Plan
-
Background: 79 y/o male (patient of Dr. العراقي) with CAD with hx stenting (2004, 2017), chronic RCA occlusion, bicuspid aortic valve with aortic stenosis, ascending aorta dilatation, mild to moderate aortic regurgitation, PVCs, hypertension,
hyperlipidemia, COPD/former smoker, obesity, ETOH abuse, and kidney cancer status-post left nephrectomy admitted for elective AVR/CAB/Ao Wrap.
Post-Pacemaker 11/29/24 - site isw fine
- patient had issues with bradycardia and slow afib post op
- now paced with underlying afib . site is fine
- Resume Amio/BB post PPM
CAD/Severe , bicuspid /AscAo dilatation
- s/p Biologic SAVR/CABGx1 MELARA to LAD/Ascending aortic wrap w/ Hemashield graft
resp insuff - remainson high flow but is being wened. Contineu to wena O2 as tolerated
Post-op VITOR/Hyperkalemia - improving . creatinine 2.6 now down to 1.6
Acute post op blood loss anemia, monitor
HTN
HLD, goal LDL < 55. Continue Statin
Hx ETOH
Subjective/Interval History:
Feels well. wants to have the PPM
DATA:
Cardiac Catheterization, 10/04/2024:
CORONARY ANGIOGRAPHY
Dominance: Right
Left Main: Normal
LAD: 60% proximal to mid LAD stenosis with otherwise mild luminal irregularities in the LAD system
Circumflex: There is a long stented segment from the proximal circumflex extending into the large OM 2. The stented segment is patent with mild restenosis to 20-30% in the proximal stented segment. The stent placed in 2018 in OM 2 has no restenosis
RCA: The RCA has 80% mid stenosis and remains chronically occluded in the midportion. The relatively small PDA and medium size posterolateral fill via [id number] collaterals
Intraoperative KELBY, 11/26/2024:
CONCLUSIONS
Severe aortic stenosis, mild aortic regurgitation. Bicuspid valve. Valve
annulus 29 mm.
Normal left ventricular size and function, mild LVH, stage I diastolic
dysfunction.
Dilated ascending aorta, maximum diameter 4.5 cm. The aorta has atheroma less
than 5 mm and mild to moderate calcifications.
Trace MR. Trace TR.
Dilated coronary sinus.
POST OPERATIVE FINDINGS
Status post aortic valve replacement with 29 mm bioprosthetic aortic valve.
The valve is well-seated, no perivalvular leak, leaflets are functioning well.
Mean gradient 5 mmHg.
Status post CABG x 1. Left ventricular function is normal, EF 60 to 65%. No
regional wall motion abnormalities seen.
Normal right ventricular size and function.
Trace MR. Trace TR.
The rest of the study is unchanged.
Physical Exam
Vital Signs/Labs
Vital Signs
Temp Pulse Resp BP Pulse Ox
98.5 F 65 16 160/81 93
11/30/24 10:00 11/30/24 10:00 11/30/24 10:00 11/30/24 10:00 11/30/24 10:00
11/29/24 11/30/24 12/01/24
06:59 06:59 06:59
Actual Weight 115.4 kg 115.2 kg
11/30/24 03:17
11/30/24 03:17
PT 18.8 Sec (11.4-14.6) H 11/26/24 15:41
INR 1.55 11/26/24 15:41
APTT 39.4 Sec (23.4-35.0) H 11/26/24 15:41
Magnesium 2.8 mg/dl (1.6-2.3) H 11/30/24 03:17
Physical Exam
Constitutional: No acute distress
Cardiovascular: Rhythm & rate is regular and Other (left sided pacer bandage fine)
Respiratory: Other (high flow O2. decreased BS as bases )
GI: Soft and Distention present
Neuro/Psych: Alert
Data Reviewed
-
Date of Service: November 30, 2024
Medical Decision Making: Reviewed Test Results
Medical Tests (PFT, Pathology etc): Report Reviewed by me
Labs: Labs Reviewed by me
[2024-11-30] MEDS: NORVASC 5 MG PO ×2 (10:24→22:01)
--- NOTE | 2024-11-30 12:02 | W.PN.NEPH.PH ---
Today's Communication / Plan
-
Continue diuretics
Assessment/Plan
-
Impression:
VITOR
Hyperkalemia
Status post CABG X 1 and AVR 11/26/2024
Left nephrectomy 2020 for renal cell carcinoma (1.3 baseline)
Alcohol abuse
Coronary artery
Ascending aortic dilation
Anemia
History of HTN
Valvular heart disease
Gout
Depression
LVEF 60 to 65%
History of hypertension
Respiratory and metabolic acidosis with resultant acidemia
Plan:
VITOR:
-Improved
-Likely prerenally mediated with postoperative hypotension and bradycardia noted
-Hyperkalemia resolved and creatinine down to 2.1>1.6 , nonoliguric with urine output around 1.5 L
-Hemodynamically stable but notable for bradycardia which persist= status post PPM
-
-Maintain Osman catheter
-Withholding LORY inhibitor until blood pressure rebounds and kidney injury resolved
-Patient is for pacemaker placement this morning
-Weights up but chest x-ray without congestive heart failure findings (personally reviewed this am)
Creatinine improving
Negative fluid balance today with IV diuresis
-
-
Date of Service: November 30, 2024
CC / HPI / ROS
-
Chief Complaint:
Acute kidney injury
History of Present Illness:
Creatinine down
Hemodynamically stable
Hyperkalemia resolved
Review of Systems:
Nonoliguric
Osman cath
On nasal cannula oxygen but no overt shortness of breath
Weights up
Labs
-
Labs:
WBC 7.2 10^3/uL (4.8-10.8) 11/30/24 03:17
RBC 2.93 10^6/uL (4.70-6.10) L 11/30/24 03:17
Hgb 8.9 g/dL (13.0-18.0) L 11/30/24 03:17
Hct 27.7 % (39.0-52.0) L 11/30/24 03:17
Plt Count 122 10^3/uL (130-400) L 11/30/24 03:17
Sodium 139 mmol/L (135-145) 11/30/24 03:17
Potassium 4.7 mmol/L (3.5-5.1) 11/30/24 03:17
Chloride 100 mmol/L (98-107) 11/30/24 03:17
Carbon Dioxide 32 mmol/L (22-30) H 11/30/24 03:17
BUN 54 mg/dl (9-20) H 11/30/24 03:17
Creatinine 1.6 mg/dL (0.7-1.3) H 11/30/24 03:17
eGFR 44.10 11/30/24 03:17
Glucose 138 mg/dl (70-99) H 11/30/24 03:17
Calcium 8.2 mg/dl (8.4-10.2) L 11/30/24 03:17
Albumin 3.0 g/dl (3.5-5.0) L 11/27/24 03:47
Physical Exam
-
Vital Signs:
Vital Signs
Temp Pulse Resp BP Pulse Ox
99.0 F 63 23 158/79 98
11/30/24 11:00 11/30/24 11:30 11/30/24 11:30 11/30/24 10:17 11/30/24 11:30
Cardiovascular:: Regular rate and rhythm (Bradycardia)
Respiratory:: Bilateral: Coarse
Lung Excursion:: Normal
Abdomen:: Nontender and Soft
Bowel Sounds:: Normal
Extremity Edema:: None: Bilateral:
Osman Catheter: Yes
--- NOTE | 2024-11-30 12:30 | PTCARENOTE ---
PO Amlodipine resumed; V-wire cut by CVNP Maria Esther C.; Osman discontinued and patient due to void; Patient ambulated with assist x2 with PT/OT to chair
--- NOTE | 2024-11-30 13:50 | CM ---
Addendum entered by Valerie Gaston 11/30/24 15:22:
[facility]. Sent referral. Sent referral to [facility] ([place]) to review for SNF/Rehab.
Original Note:
Reviewed chart. Met with Aamir and his sister to review discharge plans. We reviewed the different options for discharge. We reviewed Acute Rehab., SNF/Rehab. and home with the transitional care nurse. We reviewed therapy recommendations. We
reviewed the role insurance plays in discharge planning. He was agreeable to having a referral made to [facility] at [place] and [facility] ([place]). He will need to pre-cert for acute rehab or SNF. He would prefer to go to [facility] at
[place] if bed available. Medical work-up in progress. The discharge plan is to go to [facility] at [place] if bed available and approved by insurance when medically stable.
[2024-11-30] MEDS: NSS IV (13:55)
[2024-11-30 16:23] LABS: Blood Urea Nitrogen 51 mg/dl (9-20); Calcium 8.4 mg/dl (8.4-10.2); Carbon Dioxide 32 mmol/L (22-30); Chloride 98 mmol/L (98-107); Estimated Creatinine Clearance 50 ml/min; Glucose 105 mg/dl (70-99); Potassium 4.5 mmol/L (3.5-5.1); Sodium 137 mmol/L (135-145)
--- NOTE | 2024-11-30 17:00 | PTCARENOTE ---
Cordis discontinued; Patient bladder scanned after vázquez removal for 146 ml - CVNP Maria Esther C. notified due to significant decrease in urine output; Labs ordered - IV Lasix 40 mg given as scheduled after reviewing kidney labs
--- NOTE | 2024-11-30 20:30 | PTCARENOTE ---
Received pt from [facility]. Walking rounds completed. Pt assessment performed in bed. Pt is AAOx4. No neuro deficits noted. V-paced with underlying Afib on monitor. bi-laterally UE pulses palpable +2, bi-lateral LE pulses +1. Generalized trace edema.
Lungs diminished throughout. POX 91-93% 8L midflow. NBS. Abdomen soft, round, obese. slightly tender to touch. Pt voiding clear yellow urine. Sternal incision Aquacel, scant drainage, L Upper chest Aquacel C/D/I. R 18G PVA intact, flushes. Discussed
plan of care with pt. Pt agrees to plan. Will continue to monitor pt status.
[2024-11-30] MEDS: PROZAC 20 MG PO (22:00)
[2024-11-30] MEDS: LIPITOR 40 MG PO (22:01)
--- NOTE | 2024-11-30 23:15 | PTCARENOTE ---
VSS. Pt V-paced with underlying AFIB on monitor.HR 62 B/P:121/88. POX95%. Evening care provided. Pt resting in bed. Will continue to monitor pt needs.
[2024-12-01] VITALS (16 sets, daily range): BP systolic 103–145; BP diastolic 63–87; PULSE 62; O2SAT 94; BMI 34.5
[2024-12-01] MEDS: MELATONIN 5 MG PO ×2 (00:50→21:56)
--- NOTE | 2024-12-01 00:58 | PTCARENOTE ---
VSS. Pt unable to sleep. CTPA Ed notified. Melatonin ordered and provided. (See MAR). Will continue to monitor pt needs.
--- NOTE | 2024-12-01 04:45 | W.PN.CT ---
Today's Communication / Plan
-
Plan:
-No major issues overnight. Hemodynamically and neurologically intact
-Currently V-paced @ 62 bpm following placement of PPM on 11/29/24
-O2 dependent, currently on 6L NC, O2sats 91-92%
-VITOR is improving, 1.5 today, was 1.6 yesterday, peaked to 2.6; 1.2-1.3 preop
-Cont. diuresis and replete K. Will add Diamox (co2 33)
-Wean off O2
-Encourage use of IS
-Has 2-view ordered for tomorrow
-OOB into chair/Ambulate
-PT/OT recommends Acute rehab/SNF placement
Assessment / Plan
-
Assessment:
-S/P Median sternotomy/ CABG x 1 (PERLITA to LAD)/ AVR (#29 Avalus)/Ascending aortic wrap w/ hemashield graft/ Evaluation of RPDA/PRLB/distal RCA (not amenable to bypass)/Endoscopic harvest/prep of RLE GSV, by Dr. Hill, 11/26/24, POD#5
-S/P Successful implantation of MRI compatible dual chamber conduction system pacing permanent pacemaker (Medtronic) on 11/29/[address] Castro
-Multivessel CAD S/P PCI with MARYLOU to 2017
-Severe /bicuspid
-Zxii-wz-wtlwlquj aortic insufficiency
-Ascending aortic enlargement (4.5 cm)
-LVEF 60-65%
-HTN
-HLD
-Class 1 obesity (BMI 33.4)
-COPD
-Former tobacco abuse
-ETOH abuse
-Gout
-Depression
-Right renal mass-suspected cyst-follows urology
-Left renal mass-renal cell carcinoma stage IIa, grade 3, 7.6 cm-incidentally noted on screening CT chest
-S/P Left nephrectomy
-S/P Umbilical hernia repair
-S/P LTKR, 2020
-S/P S/P vein stripping
-S/P Appendectomy
-Acute postop blood loss/Anemia (stable without active bleed)
-Acute postop thrombocytopenia
-Acute postop atelectasis
-Acute postop hypovolemia with subsequent hypervolemia
-Acute postop metabolic acidosis
-VITOR
-Acute postop hyperkalemia in setting of VITOR
-Acute pulmonary insufficiency (following surgery)
-postop hypotension only, resolved
Discussed patient care with: Cardiology, Nursing, Respiratory Therapy, Pharmacy and Care Team
Subjective
Procedure
S/P Median sternotomy/ CABG x 1 (PERLITA to LAD)/ AVR (#29 Avalus)/Ascending aortic wrap w/ hemashield graft/ Evaluation of RPDA/PRLB/distal RCA (not amenable to bypass)/Endoscopic harvest/prep of RLE GSV, by Dr. Hill, 11/26/24, POD#1
-
Date of Service: December 01, 2024
Pt c/o mild incisional pain, otherwise feels well
Objective Data
-
PT 18.8 Sec (11.4-14.6) H 11/26/24 15:41
INR 1.55 11/26/24 15:41
APTT 39.4 Sec (23.4-35.0) H 11/26/24 15:41
Vital Signs
Vital Signs
Temp Pulse Resp BP Pulse Ox
98.5 F 60 18 132/79 96
12/01/24 00:05 12/01/24 04:00 12/01/24 00:05 12/01/24 04:00 12/01/24 04:00
CT Intake/Output/Weight
11/30/24 11/30/24 12/01/24
06:59 18:59 06:59
Intake Total 110 / 1700 580 / 1000 420 / 1000
Output Total 1385 / 3300 1820 / 2320 500 / 2320
Balance -1275 / -1600 -1240 / -1320 -80 / -1320
SaO2: 92 (6L NC)
Physical Exam
-
General: Awake, Oriented and AOx3
Cardiovascular: Regular rate & rhythm, No Murmurs, No Rub and No Gallop
Respiratory: Decreased Breath Sounds
Sternum: Stable
Incision: Clean, Dry, Intact and Dressing Intact
Extremities: Other (+trace edema)
Data Reviewed
-
Lab Results: Results Reviewed
Medications: Active Meds Reviewed
Chest X-Ray: Report Reviewed and Image Reviewed
ECG: Report Reviewed and Image Reviewed
--- NOTE | 2024-12-01 05:00 | PTCARENOTE ---
VSS. Pt V-paced on monitor with underlying AFIB. HR 60, B/P 132/79. Morning care provided. Labs obtained and sent. Will continue to monitor pt needs.
[2024-12-01 05:24] LABS: B.E. 5.7 mmol/L; HCO3 31.1 mmol/L (21-28); Ionized Calcium 1.25 mMOL/L (1.15-1.33); O2 Saturation % 96.7 % (94-98); PCO2 49 mmHg (35-48); PO2 74 mmHg (83-108); Potassium 4.6 mMOL/L (3.5-5.1); pH 7.41 (7.35-7.45)
[2024-12-01 05:35] LABS: O2 Therapy 6L NC
[2024-12-01 05:44] LABS: Hematocrit 27.2 % (39.0-52.0); Hemoglobin 8.8 g/dL (13.0-18.0); Mean Corp Hgb Conc. 32.4 g/dL (33.0-37.0); Mean Corpuscular Hgb 30.3 pg (27.0-31.0); Mean Corpuscular Volume 93.8 fL (80.0-94.0); Mean Platelet Volume 9.9 fL (7.4-10.4); Platelet Count 168 10^3/uL (130-400); Red Cell Dist. Width 14.8 % (11.5-14.5); White Blood Cell Count 9.9 10^3/uL (4.8-10.8)
[2024-12-01] MEDS: TYLENOL 1000 MG PO ×3 (06:04→21:58)
[2024-12-01 06:05] LABS: Blood Urea Nitrogen 51 mg/dl (9-20); Calcium 8.1 mg/dl (8.4-10.2); Carbon Dioxide 33 mmol/L (22-30); Chloride 100 mmol/L (98-107); Estimated Creatinine Clearance 53 ml/min; Glucose 108 mg/dl (70-99); Magnesium 2.5 mg/dl (1.6-2.3); Potassium 4.4 mmol/L (3.5-5.1); Sodium 139 mmol/L (135-145); eGFR 47.65
--- NOTE | 2024-12-01 07:31 | PTCARENOTE ---
Received patient for 7a-7p shift. Pt AAOx3, without complaints. Pt 100% Vpaced on senior mechanical technician, VSS. OOB in chair, denies pain at this time. Instructed patient to call for assistance prior to ambulation. Patient verbalized understanding. Call
avery in reach. Will continue to monitor.
--- NOTE | 2024-12-01 08:50 | W.PN.CD ---
Today's Communication / Plan
-
Continue diuresis.
Ambulated.
Incentive spirometry.
Monitor renal function.
Impression / Plan
-
Background: 79 y/o male (patient of Dr. العراقي) with CAD with hx of PCI (2004, 2017), chronic RCA occlusion, bicuspid aortic valve with aortic stenosis, ascending aorta dilatation, mild to moderate aortic regurgitation, PVCs, hypertension,
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
#Slow atrial fibrillation/post operative bradycardia (Tachy-Benito Syndrome)
-S/Post PPM (Generator = ELERTStronic; Model: W1DR01; Serial # [id number], RA Lead = Medtronic; Model: 5076-52; Serial # [id number], RV Lead = Medtronic; Model: 3830-69; Serial # [id number]), 11/29/24.
-Continue post operative amiodarone.
#Severe with bicuspid
-Chronic, progressive.
-S/P bioprosthetic SAVR (#29 Medtronic Avalus Ultra, SN [id number]) with Dr. Hill, 11/26/2024.
-Expectant post op management.
-Encourage incentive spirometry.
-Monitor H/H to evaluate for persistent blood loss.
#Hypoxic respiratory failure/HFpEF
-Acute, post op, due to obligatory volume.
-Continue diuresis with furosemide 40 mg IV daily.
-Wean oxygen.
-GDMT as hemodynamics/renal function will permit.
-Decompensated HF limits use of beta godfrey. Would not increase metoprolol beyond 12.5 mg today.
-VITOR limits use of ANRi/SGLT2i.
#Post-op VITOR/Hyperkalemia
-Acute, improving.
-Creatinine peaked at 2.6, now down to 1.5.
-Cardiorenal syndrome. This will continue to improve with diuretics.
#HLD
-Chronic.
-Lipids from 01/18/2024: Total cholesterol = 135, LDL = 56, HDL = 42, Triglycerides = 187.
-Continue atorvastatin. Goal LDL < 55, Triglycerides < 150.
#Acute post op blood loss anemia
#HTN
#HLD, goal LDL < 55. Continue Statin
#Hx ETOH
Critical Care Time = 40 minutes.
Subjective/Interval History:
PPM placed on 11/29/2024.
Diuresed well with a combination of bumetanide and furosemide.
Weight is down 3 kg from yesterday (112.2 <-- 115.2). Baseline weight around 108.5 kg.
Still requiring 6L Mid-Flow. ABG = 7.41/49/74.
Hbg stable.
Creatinine down to 1.5.
DATA:
Cardiac Catheterization, 10/04/2024:
CORONARY ANGIOGRAPHY
Dominance: Right
Left Main: Normal
LAD: 60% proximal to mid LAD stenosis with otherwise mild luminal irregularities in the LAD system
Circumflex: There is a long stented segment from the proximal circumflex extending into the large OM 2. The stented segment is patent with mild restenosis to 20-30% in the proximal stented segment. The stent placed in 2018 in OM 2 has no restenosis
RCA: The RCA has 80% mid stenosis and remains chronically occluded in the midportion. The relatively small PDA and medium size posterolateral fill via [id number]-vd-xpeix collaterals
Intraoperative KELBY, 11/26/2024:
CONCLUSIONS
Severe aortic stenosis, mild aortic regurgitation. Bicuspid valve. Valve
annulus 29 mm.
Normal left ventricular size and function, mild LVH, stage I diastolic
dysfunction.
Dilated ascending aorta, maximum diameter 4.5 cm. The aorta has atheroma less
than 5 mm and mild to moderate calcifications.
Trace MR. Trace TR.
Dilated coronary sinus.
POST OPERATIVE FINDINGS
Status post aortic valve replacement with 29 mm bioprosthetic aortic valve.
The valve is well-seated, no perivalvular leak, leaflets are functioning well.
Mean gradient 5 mmHg.
Status post CABG x 1. Left ventricular function is normal, EF 60 to 65%. No
regional wall motion abnormalities seen.
Normal right ventricular size and function.
Trace MR. Trace TR.
The rest of the study is unchanged.
Physical Exam
Vital Signs/Labs
Vital Signs
Temp Pulse Resp BP Pulse Ox
36.4 C 64 20 118/74 98
12/01/24 07:21 12/01/24 08:00 12/01/24 08:00 12/01/24 08:00 12/01/24 08:00
11/29/24 11/30/24 12/01/24
11:59 11:59 11:59
Actual Weight 115.4 kg 115.2 kg 112.2 kg
12/01/24 05:15
12/01/24 05:15
PT 18.8 Sec (11.4-14.6) H 11/26/24 15:41
INR 1.55 11/26/24 15:41
APTT 39.4 Sec (23.4-35.0) H 11/26/24 15:41
Magnesium 2.5 mg/dl (1.6-2.3) H 12/01/24 05:15
Physical Exam
Constitutional: No acute distress and Comfortable
EENT: Anicteric and Moist mucous membranes
Cardiovascular: Rhythm & rate is regular, Pedal edema present, S1S2 is normal and Murmur/rub/gallop absent
Respiratory: Respiratory effort normal, Crackles Present and Other (Decreased at the bilateral bases.)
GI: Soft, Distention absent, Flat, Non tender and Normal bowel sounds
Neuro/Psych: AO x 3
Data Reviewed
-
Date of Service: December 01, 2024
Medical Decision Making: Reviewed Test Results, Independent Historian Assessment and Test Interpretation
EKG: Tracing Personally Visualized and interpreted and Report Reviewed by me
Echo: Report Reviewed by me
X-Ray/CT/US/MRI/NUC/PET: Image Personally Visualized and interpreted and Report Reviewed by me
Medical Tests (PFT, Pathology etc): Report Reviewed by me
Labs: Labs Reviewed by me
Old Records: Reviewed
[2024-12-01] MEDS: MUCINEX 600 MG PO ×2 (09:34→20:04)
[2024-12-01] MEDS: NEURONTIN 100 MG PO ×3 (09:34→21:58)
[2024-12-01] MEDS: SENOKOT-S 1 TABLET PO ×2 (09:34→20:04)
[2024-12-01] MEDS: FEOSOL 325 MG PO (09:34)
[2024-12-01] MEDS: LOW STRENGTH ASPIRIN 81 MG PO (09:34)
[2024-12-01] MEDS: LOPRESSOR 12.5 MG PO ×2 (09:34→20:04)
[2024-12-01] MEDS: PACERONE 200 MG PO ×3 (09:34→21:59)
[2024-12-01] MEDS: LASIX 40 MG IV ×2 (09:35→16:04)
[2024-12-01] MEDS: PROTONIX 40 MG PO (09:35)
[2024-12-01] MEDS: LIDOCAINE 4% PATCH 1 PATCH TOPICAL (09:35)
[2024-12-01] MEDS: PLAVIX 75 MG PO (09:35)
[2024-12-01] MEDS: VITAMIN C 500 MG PO (09:35)
--- NOTE | 2024-12-01 12:00 | PTCARENOTE ---
Patient reassessed, assessment unchanged from previous. VSS, 3L midflow nc, pox 95%. Medications administered as ordered. Pt oob to chair, ambulatory in room with 1 person assist and rolling walker. Patient denies pain at this time. Will continue to
monitor.
[2024-12-01] MEDS: DIAMOX 250 MG PO (12:31)
[2024-12-01] MEDS: NSS IV (16:04)
--- NOTE | 2024-12-01 16:13 | PTCARENOTE ---
Patient reassessed, assessment unchanged from previous. VSS, Vpaced on director of cardiac rehabilitation. Patient denies pain at this time. Pt ambulated in justice with PT/OT on 4L o2 with rolling walker. Pt returned to chair, tolerated. Medications administered as
ordered. Will continue to monitor.
[2024-12-01 19:09] LABS: Blood Urea Nitrogen 51 mg/dl (9-20); Calcium 8.3 mg/dl (8.4-10.2); Carbon Dioxide 32 mmol/L (22-30); Chloride 98 mmol/L (98-107); Estimated Creatinine Clearance 46 ml/min; Glucose 120 mg/dl (70-99); Magnesium 2.5 mg/dl (1.6-2.3); Potassium 3.9 mmol/L (3.5-5.1); Sodium 140 mmol/L (135-145); eGFR 41.01
--- NOTE | 2024-12-01 20:15 | PTCARENOTE ---
Received pt from [facility]. Walking rounds completed. Pt assessment performed in bed. Pt is AAOx4. No neuro deficits noted. V-paced with underlying Afib on monitor HR 60, B/P 140/77. Bi-laterally UE pulses palpable +2, bi-lateral LE pulses +1.
Generalized trace edema. Lungs diminished throughout,+ Rhonchi heard bilateral bases. POX 96% on 4L NC. I/S encourage along with Acapella 10X/hr. NBS. Abdomen soft, round, obese. slightly tender to touch. Pt voiding clear dark yellow urine. Sternal
incision Aquacel, scant drainage, L Upper chest Aquacel C/D/I. C/T incisions RACHEL. No redness or edema noted. R 18G PVA intact, flushes. Discussed plan of care with pt. Pt agrees to plan. Will continue to monitor pt status.
[2024-12-01] MEDS: LIPITOR 40 MG PO (21:56)
[2024-12-01] MEDS: NORVASC 10 MG PO (21:57)
[2024-12-01] MEDS: PROZAC 20 MG PO (21:57)
[2024-12-01] MEDS: DUONEB 3 ML INH (22:39)
--- NOTE | 2024-12-01 23:00 | PTCARENOTE ---
VSS. Pt V-paced on monitor. HR 60, B/P 105/73. POX 94% on 4L midflow. Evening care provided. Pt resting in bed. Will continue to monitor pt needs.
[2024-12-02] VITALS (12 sets, daily range): BP systolic 99–135; BP diastolic 60–79; PULSE 60–67; O2SAT 95; BMI 34.2
--- NOTE | 2024-12-02 02:53 | PTCARENOTE ---
VSS, Pt V-paced on monitor with underlying AFIB. HR 61, B/P 105/73. POX 93% on 4L NC. Pt resting in bed. Will continue to monitor pt needs.
[2024-12-02 05:48] LABS: Blood Urea Nitrogen 48 mg/dl (9-20); Carbon Dioxide 32 mmol/L (22-30); Chloride 100 mmol/L (98-107); Estimated Creatinine Clearance 49 ml/min; Glucose 110 mg/dl (70-99); Magnesium 2.4 mg/dl (1.6-2.3); Sodium 139 mmol/L (135-145)
[2024-12-02] MEDS: TYLENOL 1000 MG PO ×3 (06:01→22:17)
--- NOTE | 2024-12-02 08:07 | PTCARENOTE ---
Patient received from wire steward resting oob in chair, AAO X 3, states pain controlled at this time. V-paced via cm, SaO2 @ 99% on 4Lmidflow. All procedural sites stable. Patient updated to plan of care for the day, in agreement. See work list for
full assessment and interventions performed.
--- NOTE | 2024-12-02 08:11 | W.PN.CT ---
Today's Communication / Plan
-
Plan:
-No major issues overnight. Hemodynamically and neurologically intact
-Currently V-paced @ 62 bpm following placement of PPM on 11/29/24
-O2 dependent, currently on 4L NC, O2sats 96- 98 %
-VITOR is improving
-Cont. diuresis and replete K. Will add Diamox (co2 33)
-Wean off O2
-Encourage use of IS
-F/U 2-view
-OOB into chair/Ambulate
-PT/OT recommends Acute rehab/SNF placement
Assessment / Plan
-
Assessment:
-S/P Median sternotomy/ CABG x 1 (PERLITA to LAD)/ AVR (#29 Avalus)/Ascending aortic wrap w/ hemashield graft/ Evaluation of RPDA/PRLB/distal RCA (not amenable to bypass)/Endoscopic harvest/prep of RLE GSV, by Dr. Hill, 11/26/24, POD#5
-S/P Successful implantation of MRI compatible dual chamber conduction system pacing permanent pacemaker (Medtronic) on 11/29/[address] Castro
-Multivessel CAD S/P PCI with MARYLOU to 2017
-Severe /bicuspid
-Skjm-nw-qypvjirk aortic insufficiency
-Ascending aortic enlargement (4.5 cm)
-LVEF 60-65%
-HTN
-HLD
-Class 1 obesity (BMI 33.4)
-COPD
-Former tobacco abuse
-ETOH abuse
-Gout
-Depression
-Right renal mass-suspected cyst-follows urology
-Left renal mass-renal cell carcinoma stage IIa, grade 3, 7.6 cm-incidentally noted on screening CT chest
-S/P Left nephrectomy
-S/P Umbilical hernia repair
-S/P LTKR, 2020
-S/P S/P vein stripping
-S/P Appendectomy
-Acute postop blood loss/Anemia (stable without active bleed)
-Acute postop thrombocytopenia
-Acute postop atelectasis
-Acute postop hypovolemia with subsequent hypervolemia
-Acute postop metabolic acidosis
-VITOR
-Acute postop hyperkalemia in setting of VITOR
-Acute pulmonary insufficiency (following surgery)
-postop hypotension only, resolved
Discussed patient care with: Cardiology, Nursing, Respiratory Therapy, Pharmacy and Care Team
Subjective
Procedure
S/P Median sternotomy/ CABG x 1 (PERLITA to LAD)/ AVR (#29 Avalus)/Ascending aortic wrap w/ hemashield graft/ Evaluation of RPDA/PRLB/distal RCA (not amenable to bypass)/Endoscopic harvest/prep of RLE GSV, by Dr. Hill, 11/26/24
-
Date of Service: December 02, 2024
Pt c/o mild incisional pain, otherwise feels well
Objective Data
-
Lab Results
12/01/24 05:15
12/02/24 05:00
PT 18.8 Sec (11.4-14.6) H 11/26/24 15:41
INR 1.55 11/26/24 15:41
APTT 39.4 Sec (23.4-35.0) H 11/26/24 15:41
Vital Signs
Vital Signs
Temp Pulse Resp BP Pulse Ox
98.3 F 60 19 113/74 100
12/02/24 07:34 12/02/24 08:05 12/02/24 07:34 12/02/24 07:31 12/02/24 08:00
CT Intake/Output/Weight
12/01/24 12/02/24 12/02/24
18:59 06:59 18:59
Intake Total 240 / 480 240 / 480 250 / 250
Output Total 1100 / 1100
Balance 240 / -620 -860 / -620 250 / 250
SaO2: 100 (4L)
Physical Exam
-
General: Awake, Oriented and AOx3
Cardiovascular: Regular rate & rhythm, No Rub and No Gallop
Respiratory: Decreased Breath Sounds (at bases, otherwise clear)
Sternum: Stable
Incision: Clean, Dry, Intact and Dressing Intact
Extremities: Other (+trace)
Data Reviewed
-
Lab Results: Results Reviewed
Medications: Active Meds Reviewed
Chest X-Ray: Report Reviewed and Image Reviewed
ECG: Report Reviewed and Image Reviewed
[2024-12-02] MEDS: LOPRESSOR 12.5 MG PO ×2 (08:40→19:29)
[2024-12-02] MEDS: MUCINEX 600 MG PO ×2 (08:41→19:29)
[2024-12-02] MEDS: LOW STRENGTH ASPIRIN 81 MG PO (08:41)
[2024-12-02] MEDS: SENOKOT-S 1 TABLET PO ×2 (08:41→19:29)
[2024-12-02] MEDS: PROTONIX 40 MG PO (08:41)
[2024-12-02] MEDS: PLAVIX 75 MG PO (08:41)
[2024-12-02] MEDS: VITAMIN C 500 MG PO (08:41)
[2024-12-02] MEDS: LASIX 40 MG IV ×2 (08:41→16:27)
[2024-12-02] MEDS: PACERONE 200 MG PO ×3 (08:41→22:16)
[2024-12-02] MEDS: NEURONTIN 100 MG PO ×3 (08:41→22:16)
[2024-12-02] MEDS: DIAMOX 250 MG PO (08:41)
[2024-12-02] MEDS: FEOSOL 325 MG PO (08:41)
[2024-12-02] MEDS: LIDOCAINE 4% PATCH TOPICAL (08:42)
[2024-12-02] MEDS: DUONEB 3 ML INH ×4 (09:20→20:25)
[2024-12-02] MEDS: NSS IV (10:56)
--- NOTE | 2024-12-02 11:25 | PTCARENOTE ---
VS obtained, assessment stable. Patient assisted back to bed for brief rest. SaO2 94% on 2lnc, patient denies SOB.
--- NOTE | 2024-12-02 13:16 | W.PN.CD ---
Today's Communication / Plan
-
paced but appear to have underlying afib.
continue to monitor renal function with diuretic
anticoagulation when safe from a post op standpoint. Would change from ASA and Plavix to ASA and Elquis
Impression / Plan
-
Background: 79 y/o male (patient of Dr. العراقي) with CAD with hx of PCI (2004, 2017), chronic RCA occlusion, bicuspid aortic valve with aortic stenosis, ascending aorta dilatation, mild to moderate aortic regurgitation, PVCs, hypertension,
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
#Slow atrial fibrillation/post operative bradycardia (Tachy-Marjan Syndrome)
-S/Post PPM (Generator = Medtronic; Model: W1DR01; Serial # [id number], RA Lead = Medtronic; Model: 5076-52; Serial # [id number], RV Lead = Medtronic; Model: 3830-69; Serial # [id number]), 11/29/24.
-site / dressing fine
- will need dressing removed at 7day afer implant. EP can assess possible removal prior to discharge
- would change from ASA and Plavix to ASA and Elqiusi
.
#Severe with bicuspid
-S/P bioprosthetic SAVR (#29 Medtronic Avalus Ultra, SN [id number]) with Dr. Hill, 11/26/2024.
-post op care per Ct surgery
#Hypoxic respiratory failure/HFpEF
-contining diuretic
-GDMT as hemodynamics/renal function will permit.
-VITOR limits use of ANRi/SGLT2i.
#Post-op VITOR
- improving
-Creatinine peaked at 2.6, now down to 1.6.
#HLD statin
#Acute post op blood loss anemia
#HTN
#HLD, goal LDL < 55. Continue Statin
#Hx ETOH
Critical Care Time = 40 minutes.
Subjective/Interval History:
PPM placed on 11/29/2024.
Diuresed well with a combination of bumetanide and furosemide.
Weight is down 3 kg from yesterday (112.2 <-- 115.2). Baseline weight around 108.5 kg.
Still requiring 6L Mid-Flow. ABG = 7.41/49/74.
Hbg stable.
Creatinine down to 1.5.
DATA:
Cardiac Catheterization, 10/04/2024:
CORONARY ANGIOGRAPHY
Dominance: Right
Left Main: Normal
LAD: 60% proximal to mid LAD stenosis with otherwise mild luminal irregularities in the LAD system
Circumflex: There is a long stented segment from the proximal circumflex extending into the large OM 2. The stented segment is patent with mild restenosis to 20-30% in the proximal stented segment. The stent placed in 2018 in OM 2 has no restenosis
RCA: The RCA has 80% mid stenosis and remains chronically occluded in the midportion. The relatively small PDA and medium size posterolateral fill via nabw-mm-gwjfv collaterals
Intraoperative KELBY, 11/26/2024:
CONCLUSIONS
Severe aortic stenosis, mild aortic regurgitation. Bicuspid valve. Valve
annulus 29 mm.
Normal left ventricular size and function, mild LVH, stage I diastolic
dysfunction.
Dilated ascending aorta, maximum diameter 4.5 cm. The aorta has atheroma less
than 5 mm and mild to moderate calcifications.
Trace MR. Trace TR.
Dilated coronary sinus.
POST OPERATIVE FINDINGS
Status post aortic valve replacement with 29 mm bioprosthetic aortic valve.
The valve is well-seated, no perivalvular leak, leaflets are functioning well.
Mean gradient 5 mmHg.
Status post CABG x 1. Left ventricular function is normal, EF 60 to 65%. No
regional wall motion abnormalities seen.
Normal right ventricular size and function.
Trace MR. Trace TR.
The rest of the study is unchanged.
Physical Exam
Vital Signs/Labs
Vital Signs
Temp Pulse Resp BP Pulse Ox
98.8 F 60 18 101/78 96
12/02/24 11:10 12/02/24 12:15 12/02/24 12:15 12/02/24 11:05 12/02/24 12:15
12/01/24 12/02/24 12/03/24
06:59 06:59 06:59
Actual Weight 112.2 kg 111.2 kg
12/01/24 05:15
12/02/24 05:00
PT 18.8 Sec (11.4-14.6) H 11/26/24 15:41
INR 1.55 11/26/24 15:41
APTT 39.4 Sec (23.4-35.0) H 11/26/24 15:41
Magnesium 2.4 mg/dl (1.6-2.3) H 12/02/24 05:00
Physical Exam
Constitutional: Comfortable
Cardiovascular: Rhythm & rate is regular
Respiratory: Wheeze Absent and Rhonchi Absent
GI: Soft
Neuro/Psych: Alert
Data Reviewed
-
Date of Service: December 02, 2024
Medical Decision Making: Reviewed Test Results
X-Ray/CT/US/MRI/NUC/PET: Report Reviewed by me
Medical Tests (PFT, Pathology etc): Report Reviewed by me
Labs: Labs Reviewed by me
--- NOTE | 2024-12-02 15:08 | W.PN.NEPH.PH ---
Today's Communication / Plan
-
continue IV diuretics
Assessment/Plan
-
Impression:
VITOR
Hyperkalemia
Status post CABG X 1 and AVR 11/26/2024
Left nephrectomy 2020 for renal cell carcinoma (1.3 baseline)
Alcohol abuse
Coronary artery
Ascending aortic dilation
Anemia
History of HTN
Valvular heart disease
Gout
Depression
LVEF 60 to 65%
History of hypertension
Respiratory and metabolic acidosis with resultant acidemia
Plan:
VITOR:
-Improved
-Likely prerenally mediated with postoperative hypotension and bradycardia noted
-Hyperkalemia resolved and creatinine down to 2.1>1.6 , nonoliguric
-Hemodynamically stable but notable for bradycardia = status post PPM
-
-Withholding LORY inhibitor until blood pressure rebounds and kidney injury resolved
-Patient is for pacemaker placement this morning
Creatinine improving
continue of furosemide 40 mg IV twice a day.
His weights have been coming down all of the last 24 hours is only mild negative
-
-
Date of Service: December 02, 2024
CC / HPI / ROS
-
Chief Complaint:
Acute kidney injury
History of Present Illness:
Creatinine down
Hemodynamically stable
Hyperkalemia resolved
Review of Systems:
Nonoliguric
Osman cath
On nasal cannula oxygen but no overt shortness of breath
Weights up
Labs
-
Labs:
WBC 9.9 10^3/uL (4.8-10.8) 12/01/24 05:15
RBC 2.90 10^6/uL (4.70-6.10) L 12/01/24 05:15
Hgb 8.8 g/dL (13.0-18.0) L 12/01/24 05:15
Hct 27.2 % (39.0-52.0) L 12/01/24 05:15
Plt Count 168 10^3/uL (130-400) D 12/01/24 05:15
Sodium 139 mmol/L (135-145) 12/02/24 05:00
Potassium 4.0 mmol/L (3.5-5.1) 12/02/24 05:00
Chloride 100 mmol/L (98-107) 12/02/24 05:00
Carbon Dioxide 32 mmol/L (22-30) H 12/02/24 05:00
BUN 48 mg/dl (9-20) H 12/02/24 05:00
Creatinine 1.6 mg/dL (0.7-1.3) H 12/02/24 05:00
eGFR 44.10 12/02/24 05:00
Glucose 110 mg/dl (70-99) H 12/02/24 05:00
Calcium 8.0 mg/dl (8.4-10.2) L 12/02/24 05:00
Albumin 3.0 g/dl (3.5-5.0) L 11/27/24 03:47
Physical Exam
-
Vital Signs:
Vital Signs
Temp Pulse Resp BP Pulse Ox
98.8 F 64 18 101/78 96
12/02/24 11:10 12/02/24 13:15 12/02/24 12:15 12/02/24 11:05 12/02/24 12:15
Cardiovascular:: Regular rate and rhythm (Bradycardia)
Respiratory:: Bilateral: Coarse
Lung Excursion:: Normal
Abdomen:: Nontender and Soft
Bowel Sounds:: Normal
Extremity Edema:: None: Bilateral:
Osman Catheter: Yes
--- NOTE | 2024-12-02 16:30 | PTCARENOTE ---
VS obtained, assessment stable. Patient assisted oob to bathroom, voided, settled to chair. Resting comfortably, states pain controlled.
[2024-12-02] MEDS: NORVASC 10 MG PO (22:16)
[2024-12-02] MEDS: LIPITOR 40 MG PO (22:16)
[2024-12-02] MEDS: PROZAC 20 MG PO (22:17)
[2024-12-02] MEDS: MELATONIN 5 MG PO (22:46)
--- NOTE | 2024-12-02 23:00 | PTCARENOTE ---
Rec'd pt. OOB sitting in chair at beginning of shift, VSS, V-paced in the 60's on the monitor. Able to walk into BR using RW with minimal assist, gait steady. Sternal wound dressing CDI, pt. states discomfort well controlled. Remains on RA, pulse
ox low 90's. Pt. hoping for discharge tomorrow. Currently sleeping.
[2024-12-03] VITALS (14 sets, daily range): BP systolic 99–140; BP diastolic 50–106; PULSE 60–114; O2SAT 100; BMI 34.2
--- NOTE | 2024-12-03 04:29 | W.PN.CT ---
Today's Communication / Plan
-
Plan:
-No major issues overnight. Hemodynamically and neurologically intact
-Currently V-paced @ 62 bpm following placement of PPM on 11/29/24
-Cardiology believes he has underlying a-fib and is recommending initiation of Eliquis (ASA and Eliquis; d/c plavix)
-Weaned off O2, Sats 92-95% on RA
-Thrombocytopenia has resolved, 103->122->168K
-VITOR is improving, cr 1.6 was 1.3 preop
-Cont. diuresis and replete K
-Encourage use of IS
-OOB into chair/Ambulate
-PT/OT recommends Acute rehab/SNF placement
-Acute rehab placement today vs tomorrow
Assessment / Plan
-
Assessment:
-S/P Median sternotomy/ CABG x 1 (PERLITA to LAD)/ AVR (#29 Avalus)/Ascending aortic wrap w/ hemashield graft/ Evaluation of RPDA/PRLB/distal RCA (not amenable to bypass)/Endoscopic harvest/prep of RLE GSV, by Dr. Hill, 11/26/24, POD#7
-S/P Successful implantation of MRI compatible dual chamber conduction system pacing permanent pacemaker (Medtronic) on 11/29/[address] Castro
-Multivessel CAD S/P PCI with MARYLOU to 2017
-Severe /bicuspid
-Xikn-il-daeloltv aortic insufficiency
-Ascending aortic enlargement (4.5 cm)
-LVEF 60-65%
-HTN
-HLD
-Class 1 obesity (BMI 33.4)
-COPD
-Former tobacco abuse
-ETOH abuse
-Gout
-Depression
-Right renal mass-suspected cyst-follows urology
-Left renal mass-renal cell carcinoma stage IIa, grade 3, 7.6 cm-incidentally noted on screening CT chest
-S/P Left nephrectomy
-S/P Umbilical hernia repair
-S/P LTKR, 2020
-S/P S/P vein stripping
-S/P Appendectomy
-Acute postop blood loss/Anemia (stable without active bleed)
-Acute postop thrombocytopenia
-Acute postop atelectasis
-Acute postop hypovolemia with subsequent hypervolemia
-Acute postop metabolic acidosis
-VITOR
-Acute postop hyperkalemia in setting of VITOR
-Acute pulmonary insufficiency (following surgery)
-postop hypotension only, resolved
Discussed patient care with: Cardiology, Nursing, Respiratory Therapy, Pharmacy and Care Team
Subjective
Procedure
S/P Median sternotomy/ CABG x 1 (PERLITA to LAD)/ AVR (#29 Avalus)/Ascending aortic wrap w/ hemashield graft/ Evaluation of RPDA/PRLB/distal RCA (not amenable to bypass)/Endoscopic harvest/prep of RLE GSV, by Dr. Hill, 11/26/24
-
Date of Service: December 03, 2024
Pt c/o mild incisional pain, otherwise feels well
Objective Data
-
Lab Results
12/01/24 05:15
PT 18.8 Sec (11.4-14.6) H 11/26/24 15:41
INR 1.55 11/26/24 15:41
APTT 39.4 Sec (23.4-35.0) H 11/26/24 15:41
Vital Signs
Vital Signs
Temp Pulse Resp BP Pulse Ox
97.3 F 60 20 107/61 97
12/03/24 02:12 12/03/24 04:00 12/03/24 02:12 12/03/24 02:12 12/03/24 04:00
CT Intake/Output/Weight
12/02/24 12/02/24 12/03/24
06:59 18:59 06:59
Intake Total 240 / 480 500 / 980 480 / 980
Output Total 1100 / 1100
Balance -860 / -620 500 / 980 480 / 980
SaO2: 95 (RA)
Physical Exam
-
General: Awake, Oriented and AOx3
Cardiovascular: Regular rate & rhythm (v-paced @ 68 bpm)
Respiratory: Decreased Breath Sounds (at bases, otherwise clear)
Sternum: Stable
Incision: Clean, Dry, Intact and Dressing Intact
Extremities: Other (+trace edema)
Data Reviewed
-
Lab Results: Results Reviewed
Medications: Active Meds Reviewed
Chest X-Ray: Report Reviewed and Image Reviewed
ECG: Report Reviewed and Image Reviewed
[2024-12-03 05:20] LABS: Blood Urea Nitrogen 39 mg/dl (9-20); Carbon Dioxide 29 mmol/L (22-30); Chloride 101 mmol/L (98-107); Estimated Creatinine Clearance 49 ml/min; Glucose 120 mg/dl (70-99); Magnesium 2.2 mg/dl (1.6-2.3); Potassium 3.9 mmol/L (3.5-5.1); Sodium 139 mmol/L (135-145)
[2024-12-03] MEDS: TYLENOL 1000 MG PO ×3 (05:58→22:18)
[2024-12-03] MEDS: CALCIUM GLUCONATE 120 MG IV (06:40)
[2024-12-03] MEDS: KCL 40 MEQ PO (06:40)
[2024-12-03] MEDS: LIDOCAINE 4% PATCH TOPICAL (08:37)
[2024-12-03] MEDS: PACERONE 200 MG PO ×3 (08:44→22:25)
[2024-12-03] MEDS: LOW STRENGTH ASPIRIN 81 MG PO (08:44)
[2024-12-03] MEDS: PROTONIX 40 MG PO (08:44)
[2024-12-03] MEDS: PLAVIX 75 MG PO (08:44)
[2024-12-03] MEDS: TOPROL XL 25 MG PO (08:44)
[2024-12-03] MEDS: VITAMIN C 500 MG PO (08:44)
[2024-12-03] MEDS: NEURONTIN 100 MG PO ×3 (08:44→22:18)
[2024-12-03] MEDS: FEOSOL 325 MG PO (08:44)
[2024-12-03] MEDS: MUCINEX 600 MG PO ×2 (08:45→20:02)
[2024-12-03] MEDS: SENOKOT-S 1 TABLET PO ×2 (08:45→20:02)
[2024-12-03] MEDS: LASIX 40 MG IV (08:45)
--- NOTE | 2024-12-03 08:45 | PTCARENOTE ---
Patient received from overnight houseperson RN; AAOx3, responds spontaneously RN and follows commands; Flat affect; VSS; 100% V-paced on monitor; Left PPM VVIR 60-130; Trace B/L LE edema; +1 DP and +2 radial pulses; Lungs diminished throughout; SpO2 92-94% on
RA; IS 1250 ml; Urinating in bathroom; Surgical sites intact; PIV x1 #18 right hand; See nursing documentation for further details.
[2024-12-03] MEDS: DUONEB 3 ML INH ×4 (09:13→19:21)
--- NOTE | 2024-12-03 10:06 | W.PN.CD ---
Addendum entered and electronically signed by Robert Howell MD 12/03/24 12:21:
79 yo male with CAD, bicuspid aortic valve, dilated ascending aorta, A fib s/p CABG, bio-AVR and then PPM. Sitting chair today without cardiac complaint. Exam with irregular rhythm, no murmurs, trace edema. Cr 1.6. Tele: A fib, V paced.
Discussed with team. Plan will be ASA/eliquis.
Original Note:
Today's Communication / Plan
-
Transition to anticoagulation, apixaban 5 mg twice daily, when stable from a postoperative standpoint.
Impression / Plan
-
Background: 79 y/o male (patient of Dr. العراقي) with CAD with hx of PCI (2004, 2017), chronic RCA occlusion, bicuspid aortic valve with aortic stenosis, ascending aorta dilatation, mild to moderate aortic regurgitation, PVCs, hypertension,
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
#Slow atrial fibrillation/post operative bradycardia (Tachy-Benito Syndrome)
-S/Post PPM (Medtronic, 11/29/2024)
-Model: W1DR01; Serial # [id number], RA Lead = Medtronic; Model: 5076-52; Serial # [id number], RV Lead = Medtronic; Model: 3830-69; Serial # [id number]), 11/29/24.
-Site stable without hematoma. No pocket fullness.
-Transition to apixaban 5mg BID/ASA 81mg
CAD S/P CABG x 1 (PERLITA to LAD)
Severe with bicuspid
-PERLITA-LAD
-S/P Hemashield graft & bioprosthetic SAVR (#29 Medtronic Avalus Ultra, SN [id number]) with Dr. Hill, 11/26/2024.
-Post-KELBY: Normal biventricular function. Well-seated AVR w/o AI/PVL, mean gradient 5mmHg.
-Post op care per CT surgery
#Hypoxic respiratory failure/HFpEF
-Diuresis per nephrology
-GDMT as hemodynamics/renal function will permit.
-VITOR limits use of ANRi/SGLT2i.
#Post-op VITOR
-Improving
-Creatinine peaked at 2.6, now down to 1.6 (preop 1.3)
#HLD, on atorvastatin
#Acute post op blood loss anemia
#HTN
#HLD, goal LDL < 55. Continue Statin
#Hx ETOH
Subjective/Interval History:
Feeling well without chest pain and shortness of breath
DATA:
Cardiac Catheterization, 10/04/2024:
CORONARY ANGIOGRAPHY
Dominance: Right
Left Main: Normal
LAD: 60% proximal to mid LAD stenosis with otherwise mild luminal irregularities in the LAD system
Circumflex: There is a long stented segment from the proximal circumflex extending into the large OM 2. The stented segment is patent with mild restenosis to 20-30% in the proximal stented segment. The stent placed in 2017 in OM 2 has no restenosis
RCA: The RCA has 80% mid stenosis and remains chronically occluded in the midportion. The relatively small PDA and medium size posterolateral fill via [id number] collaterals
Intraoperative KELBY, 11/26/2024:
CONCLUSIONS
Severe aortic stenosis, mild aortic regurgitation. Bicuspid valve. Valve
annulus 29 mm.
Normal left ventricular size and function, mild LVH, stage I diastolic
dysfunction.
Dilated ascending aorta, maximum diameter 4.5 cm. The aorta has atheroma less
than 5 mm and mild to moderate calcifications.
Trace MR. Trace TR.
Dilated coronary sinus.
POST OPERATIVE FINDINGS
Status post aortic valve replacement with 29 mm bioprosthetic aortic valve.
The valve is well-seated, no perivalvular leak, leaflets are functioning well.
Mean gradient 5 mmHg.
Status post CABG x 1. Left ventricular function is normal, EF 60 to 65%. No
regional wall motion abnormalities seen.
Normal right ventricular size and function.
Trace MR. Trace TR.
The rest of the study is unchanged.
Physical Exam
Vital Signs/Labs
Vital Signs
Temp Pulse Resp BP Pulse Ox
97.4 F 62 18 112/66 93
12/03/24 07:54 12/03/24 09:15 12/03/24 09:15 12/03/24 07:54 12/03/24 09:15
12/02/24 12/03/24 12/04/24
06:59 06:59 06:59
Actual Weight 111.2 kg 111.1 kg
12/01/24 05:15
12/03/24 04:38
PT 18.8 Sec (11.4-14.6) H 11/26/24 15:41
INR 1.55 11/26/24 15:41
APTT 39.4 Sec (23.4-35.0) H 11/26/24 15:41
Magnesium 2.2 mg/dl (1.6-2.3) 12/03/24 04:38
Physical Exam
Constitutional: No acute distress and Comfortable
EENT: Anicteric and Moist mucous membranes
Cardiovascular: Rhythm & rate is regular, Pedal edema is absent and S1S2 is normal
Respiratory: Respiratory effort normal and Lungs clear to auscul.
GI: Soft, Distention absent, Flat, Non tender and Normal bowel sounds
Neuro/Psych: AO x 3
Other: Skin (Warm and dry) and Cardiac Device Site (Stable without hematoma/pocket fullness)
Data Reviewed
-
Date of Service: December 03, 2024
--- NOTE | 2024-12-03 11:55 | W.PN.NEPH.PH ---
Today's Communication / Plan
-
convert to po lasix
Assessment/Plan
-
Impression:
VITOR
Hyperkalemia
Status post CABG X 1 and AVR 11/26/2024
Left nephrectomy 2020 for renal cell carcinoma (1.3 baseline)
Alcohol abuse
Coronary artery
Ascending aortic dilation
Anemia
History of HTN
Valvular heart disease
Gout
Depression
LVEF 60 to 65%
History of hypertension
Respiratory and metabolic acidosis with resultant acidemia
Plan:
Follow BMP
Convert to oral Lasix 80 mg twice daily this may be reduced in the future
No LORY inhibitor for now given solitary kidney and creatinine above baseline
Rehab planning
-
-
Date of Service: December 03, 2024
CC / HPI / ROS
-
Chief Complaint:
Acute kidney injury
History of Present Illness:
Creatinine down stable 1.6
Hemodynamically stable
Hyperkalemia resolved
weights stable on IV lasix
Review of Systems:
Nonoliguric
Osman cath out
no SOB
Labs
-
Labs:
WBC 9.9 10^3/uL (4.8-10.8) 12/01/24 05:15
RBC 2.90 10^6/uL (4.70-6.10) L 12/01/24 05:15
Hgb 8.8 g/dL (13.0-18.0) L 12/01/24 05:15
Hct 27.2 % (39.0-52.0) L 12/01/24 05:15
Plt Count 168 10^3/uL (130-400) D 12/01/24 05:15
Sodium 139 mmol/L (135-145) 12/03/24 04:38
Potassium 3.9 mmol/L (3.5-5.1) 12/03/24 04:38
Chloride 101 mmol/L (98-107) 12/03/24 04:38
Carbon Dioxide 29 mmol/L (22-30) 12/03/24 04:38
BUN 39 mg/dl (9-20) H 12/03/24 04:38
Creatinine 1.6 mg/dL (0.7-1.3) H 12/03/24 04:38
eGFR 44.10 12/03/24 04:38
Glucose 120 mg/dl (70-99) H 12/03/24 04:38
Calcium 8.0 mg/dl (8.4-10.2) L 12/03/24 04:38
Albumin 3.0 g/dl (3.5-5.0) L 11/27/24 03:47
Physical Exam
-
Vital Signs:
Vital Signs
Temp Pulse Resp BP Pulse Ox
97.7 F 61 18 99/61 100
12/03/24 11:23 12/03/24 11:25 12/03/24 11:23 12/03/24 11:25 12/03/24 11:23
Cardiovascular:: Regular rate and rhythm
Respiratory:: Bilateral: Coarse
Lung Excursion:: Normal
Abdomen:: Nontender and Soft
Bowel Sounds:: Normal
Extremity Edema:: +1: Bilateral:
[2024-12-03] MEDS: OCEAN, SALINE MIST 2 SPRAYS NASAL (12:28)
--- NOTE | 2024-12-03 12:30 | PTCARENOTE ---
Patient ambulating in hallways with RN; Slightly BREWER but able to tolerate ambulation without dizziness, lightheadedness, or chest pain; VSS throughout; Patient resting comfortably in chair
--- NOTE | 2024-12-03 12:53 | CM ---
Addendum entered by Ellie Sotelo RN 12/03/24 14:29:
Patient is agreeable
Original Note:
Pricing on Eliquis through the patient's [employer] Prescription Plan is $347 for the first month. Patient has a $300 deductible and then it will be $47 for a 30 day supply. I will place a free 30 day coupon in the patient's red discharge folder.
[2024-12-03] MEDS: NSS IV (13:37)
--- NOTE | 2024-12-03 14:29 | CM ---
Chart reviewed. Patient is independent of ADLS, lives alone in a 2 STH, 3 ANA, 1st floor set up, 0 DME. Initial PT evaluation recommending Acute Rehab. Patient is doing much better and PT now recommending Home. Patient is going to ask his
sister to stay with him for a couple of days after discharge. Patient will need a RW, he does not have one at home. Our PT department does not take [facility]. Referral sent to [facility] for a RW. Plan is for the patient to return home
with his sister and CT Transitional RN. CM to follow
[2024-12-03] MEDS: LASIX 80 MG PO (15:31)
--- NOTE | 2024-12-03 16:30 | PTCARENOTE ---
Patient ambulating with PT/OT; VSS; Patient OOB in chair
--- NOTE | 2024-12-03 19:30 | PTCARENOTE ---
Received pt from [facility]. Walking rounds completed. Pt assessment completed in chair. Pt is AAOX4. No neuro deficits noted. V-paced on monitor with underlying AFIB. HR 62, B/P 105/63. Bi-laterally UE pulses palpable +2, bi-lateral LE pulses +1.
Generalized trace edema. Lungs diminished throughout; SpO2 92-94% on RA; IS 1250 ml; Urinating in bathroom; Surgical sites intact; PIV x1 #18 right hand; See nursing documentation for further details.
[2024-12-03] MEDS: PROZAC 20 MG PO (22:18)
[2024-12-03] MEDS: LIPITOR 40 MG PO (22:22)
[2024-12-03] MEDS: NORVASC 10 MG PO (22:22)
[2024-12-03] MEDS: MELATONIN 5 MG PO (22:25)
[2024-12-04 00:18] VITALS: BP 97/62
--- NOTE | 2024-12-04 00:26 | PTCARENOTE ---
VSS. Pt V paced on monitor. HR 62, B/P 97/62. Evening care provided. pt resting in bed. will continue to assess pt needs.
[2024-12-04 03:33] VITALS: BMI 33.8
--- NOTE | 2024-12-04 04:09 | PTCARENOTE ---
VSS. V-paced on monitor. HR 64, B/P 117/78. Morning labs obtained and sent. Wt obtained and entered. pt resting in bed. Will continue to monitor pt needs.
[2024-12-04 04:11] VITALS: BP 117/78
[2024-12-04 05:01] LABS: Blood Urea Nitrogen 33 mg/dl (9-20); Calcium 8.1 mg/dl (8.4-10.2); Carbon Dioxide 29 mmol/L (22-30); Chloride 101 mmol/L (98-107); Estimated Creatinine Clearance 49 ml/min; Glucose 119 mg/dl (70-99); Sodium 139 mmol/L (135-145)
--- NOTE | 2024-12-04 06:22 | W.PN.CT ---
Today's Communication / Plan
-
Plan:
-No major issues overnight. Hemodynamically and neurologically intact
-Currently V-paced @ 62 bpm following placement of PPM on 11/29/24
-Cardiology believes he has underlying a-fib and is recommending initiation of Eliquis (ASA and Eliquis; d/c plavix)
-Weaned off O2, Sats 92-95% on RA
-Thrombocytopenia has resolved, 103->122->168K
-VITOR is improving, cr 1.6 was 1.3 preop
-Cont. diuresis and replete K
-Encourage use of IS
-OOB into chair/Ambulate
-PT/OT recommends Acute rehab/SNF placement. Pt states he's moving around well on his own and wants to go home
-Home today
Assessment / Plan
-
Assessment:
-S/P Median sternotomy/ CABG x 1 (PERLITA to LAD)/ AVR (#29 Avalus)/Ascending aortic wrap w/ hemashield graft/ Evaluation of RPDA/PRLB/distal RCA (not amenable to bypass)/Endoscopic harvest/prep of RLE GSV, by Dr. Hill, 11/26/24, POD#8
-S/P Successful implantation of MRI compatible dual chamber conduction system pacing permanent pacemaker (Medtronic) on 11/29/[address] Castro
-Multivessel CAD S/P PCI with MARYLOU to 2017
-Severe /bicuspid
-Dcww-jk-zocbwmbo aortic insufficiency
-Ascending aortic enlargement (4.5 cm)
-LVEF 60-65%
-HTN
-HLD
-Class 1 obesity (BMI 33.4)
-COPD
-Former tobacco abuse
-ETOH abuse
-Gout
-Depression
-Right renal mass-suspected cyst-follows urology
-Left renal mass-renal cell carcinoma stage IIa, grade 3, 7.6 cm-incidentally noted on screening CT chest
-S/P Left nephrectomy
-S/P Umbilical hernia repair
-S/P LTKR, 2020
-S/P S/P vein stripping
-S/P Appendectomy
-Acute postop blood loss/Anemia (stable without active bleed)
-Acute postop thrombocytopenia
-Acute postop atelectasis
-Acute postop hypovolemia with subsequent hypervolemia
-Acute postop metabolic acidosis
-VITOR
-Acute postop hyperkalemia in setting of VITOR
-Acute pulmonary insufficiency (following surgery)
-postop hypotension only, resolved
Discussed patient care with: Cardiology, Nursing, Respiratory Therapy, Pharmacy and Care Team
Subjective
Procedure
S/P Median sternotomy/ CABG x 1 (PERLITA to LAD)/ AVR (#29 Avalus)/Ascending aortic wrap w/ hemashield graft/ Evaluation of RPDA/PRLB/distal RCA (not amenable to bypass)/Endoscopic harvest/prep of RLE GSV, by Dr. Hill, 11/26/24
-
Date of Service: December 04, 2024
Pt c/o mild incisional pain, otherwise feel well. Wants to go home instead of acute rehab
Objective Data
-
Lab Results
12/01/24 05:15
12/04/24 04:03
PT 18.8 Sec (11.4-14.6) H 11/26/24 15:41
INR 1.55 11/26/24 15:41
APTT 39.4 Sec (23.4-35.0) H 11/26/24 15:41
Vital Signs
Vital Signs
Temp Pulse Resp BP Pulse Ox
98.5 F 61 22 117/78 94
12/04/24 03:44 12/04/24 05:00 12/04/24 03:44 12/04/24 04:11 12/04/24 04:11
CT Intake/Output/Weight
12/03/24 12/03/24 12/04/24
06:59 18:59 06:59
Intake Total 480 / 980 340 / 340
Output Total 625 / 625
Balance 480 / 980 -285 / -285
SaO2: 92 (RA)
Physical Exam
-
General: Awake, Oriented and AOx3
Cardiovascular: Regular rate & rhythm, No Murmurs, No Rub and No Gallop
Respiratory: Decreased Breath Sounds
Sternum: Stable
Incision: Clean, Dry, Intact and Dressing Intact
Data Reviewed
-
Lab Results: Results Reviewed
Medications: Active Meds Reviewed
Chest X-Ray: Report Reviewed and Image Reviewed
ECG: Report Reviewed and Image Reviewed
[2024-12-04] MEDS: DUONEB 3 ML INH ×2 (06:58→11:35)
--- NOTE | 2024-12-04 08:45 | W.DCSUMMARY ---
Discharge Summary
Discharge Data
Date of Admission: 11/26/24
Date of Discharge: 12/04/24
-
Pending Results: No
Hospital Course
Primary care physician: Nazario Lacey
Outpatient wood and wood products labourer: Cam العراقي
Inpatient consultants: [facility] Cardiology, nephrology
Procedures:
1. Aortic valve replacement and CABG
2. Medtronic dual-chamber pacemaker insertion (11/29/24)
Primary Diagnosis:
1. Bicuspid aortic valve with severe nonrheumatic aortic stenosis
Secondary Diagnoses:
1. Triple-vessel coronary disease with patent left circumflex to OM stent
2. Ascending aortic aneurysm (4.5 cm)
3. HTN
4. HLD
5. Class 1 obesity (BMI 33.4)
6. COPD
7. Former tobacco abuse
8. ETOH abuse
9. Gout
10. Depression
11. Right renal mass-suspected cyst-follows urology
12. Left renal cell carcinoma stage IIa, grade 3, 7.6 cm-incidentally noted on screening CT chest
13. S/P Left nephrectomy (2020)
14. S/P Umbilical hernia repair
15. S/P LTKR, 2020
16. S/P S/P vein stripping
17. S/P Appendectomy
18. post-op atrial fibrillation with slow ventricular response
19. Postoperative VITOR (creatinine 2.2 from baseline 1.3)
20. Postoperative blood loss anemia requiring transfusion
21. Hyperkalemia
HPI: 79-year-old male was electively admitted on 11/26/2024 for aortic valve replacement and CABG
Hospital course: Patient underwent an AVR #29mm Medtronic Avalus Ultra tissue valve, CABG x 1 with MELARA to LAD, and ascending wrap with Hemashield graft by Dr. Noah Hill. Endo vein harvest was completed of right lower extremity which was not
used due to small right sided coronary targets. A MANUEL drain was inserted into the right leg to assist with drainage. Postprocedure KELBY reported an EF of 60-65% with aortic valve mean gradient of 5 mmHg and trace MR/TR. Patient received no
intraoperative blood products and returned to CVICU on dobutamine, Levophed, insulin, and Precedex. Postoperative day #1, dobutamine was weaned off and midodrine added in an effort to wean Levophed. Patient received lactated Ringer's 500 cc bolus
due to VITOR with creatinine increasing from baseline of 1.3-2.2. MANUEL drain was removed from the right leg. Patient received 1 unit of packed red blood cells due to hemoglobin of 8. Patient developed slow atrial fibrillation requiring epicardial
ventricular pacing. Patient was evaluated by cardiology and patient taken for Medtronic dual-chamber pacer on 11/29/24. Nephrology was consulted for a new VITOR in setting of right solitary kidney. Lokelma was given for K of 5.4. Patient was placed
on BiPAP for hypercarbia which quickly resolved. On postoperative day #4, temporary pacing wires were clipped to skin level. Osman and right IJ cordis were discontinued. Patient was diuresed and weight was down to preoperative baseline level.
Patient was assessed by PT/OT and recommended rehab. However patient adamantly refused. Dr. Leary strongly advised rehab for discharge and again patient adamantly refused stating that his sister will be able to check on him at home. Patient will
begin Eliquis on 12/04/24 and continue amiodarone 200 mg twice daily for underlying atrial fibrillation. Lasix 40 mg twice daily will continue on discharge for lower extremity edema. Patient will have a BMP in 1 week to assess creatinine and as
creatinine not to baseline level. Patient was also instructed not to consume alcohol while taking Eliquis and aspirin blood thinners.
Home medication changes:
Plavix changed to Eliquis due to atrial fibrillation
Lipitor dose increased from 20 to 40 mg daily
New:
Amiodarone 200 mg twice daily for atrial fibrillation
Lasix 40 mg BID for fluid retention
Metoprolol daily for atrial fibrillation
Protonix for GI prophylaxis due to Eliquis anticoagulant
Gabapentin for postoperative nerve pain
Lisinopril discontinued as creatinine not at baseline level
Discharge Plan
-
Patient Disposition: Home (Routine Discharge)
Discharge Diagnosis/Procedures: AVR, Asc Ao wrap/ CABG x 1, 11/29 Pacemaker implant
Condition: Good
Diet: 2 Gram Sodium
Activity: No strenuous activity
Driving Restrictions: Not until seen by your Dr
Bathing Restrictions: OK to Shower
Blood Work: BMP in 1 week
Other Services: Cardiac Rehab
Wound Care: Soap and water daily to incisions. Pat dry. No cream or lotion over incisions x 1 month
Specialty Instructions: Weigh Daily- Call MD for wt gain/loss 3 lbs overnight/5 lbs in 1 week
Activity Restrictions/Additional Instructions:
ACTIVITY:
-No strenuous activity: no heavy lifting, pushing, pulling anything over 15 pounds for one month
-continue to use stairs as tolerated
DRIVING RESTRICTIONS:
-No driving for one month or until approved by your surgeon
WOUND CARE:
-Shower daily. Use soap & water.
-No lotions, creams or powders on incision area x 1 month.
DIET:
-continue a low fat/low cholesterol diet.
-IF you are diabetic, continue carb controlled diet.
CARDIAC REHAB:
-Please make appointment to start in 5-6 weeks with your local hospital program. (See Cardiac Rehabilitation Discharge Booklet).
SPECIALTY INSTRUCTIONS:
-Weigh yourself daily. Call your physician for any weight gain/loss of 3 lbs overnight or 5 lbs in one week.
-REPORT any clicking noise or uneven appearance of your sternum to your surgeon immediately.
-If you smoke, you are instructed to quit. The [place] smoking hotline phone number is [phone]
Stand Alone Forms: DC Inst - Implanted Device
Referrals:
CT Transitional Care Nurse [Outside]
[facility] [Outside] - 01/03/25 9:30 am
(Cardiac Rehab Orientation appointment is on , 01/03/2025@ 0930am.
The Cardiac Rehab gym is located on the first floor of the [facility].)
Cam العراقي MD [Active] - 01/21/25 10:40 am
Nazario Lacey MD [Family Provider] - in four to six weeks (Please make an appointment in four to six weeks. )
Noah Hill MD [Active] - 01/01/25 2:30 pm
Prescriptions:
New
amiodarone 200 mg Tablet
200 mg PO BID Qty: 60 0RF
Rx Instructions:
please take for 14 days twice a day and then 200mg daily
atorvastatin 40 mg Tablet
40 mg PO HS Qty: 30 1RF
acetaminophen 325 mg Tablet
650 mg PO Q4HPRN PRN (Reason: mild pain,headache,temp >101F ) Qty: 0 0RF
pantoprazole 40 mg Tablet,Delayed Release (Dr/Ec)
40 mg PO DAILY Qty: 30 0RF
metoprolol succinate 25 mg Tablet Extended Release 24 Hr
25 mg PO DAILY Qty: 30 1RF
gabapentin 100 mg Capsule
100 mg PO TID Qty: 30 0RF
Eliquis 5 mg tablet
5 mg PO BID Qty: 60 1RF
furosemide [Lasix] 40 mg tablet
40 mg PO BID Qty: 60 1RF
Continued
amlodipine 10 MG tablet
10 mg PO HS
allopurinol 300 MG tablet
300 mg PO DAILY
fluoxetine 20 MG capsule
20 mg PO HS
aspirin 81 mg Tablet,Delayed Release (Dr/Ec)
81 mg PO DAILY
Discontinued
atorvastatin 20 MG tablet
20 mg PO HS
lisinopril 40 MG tablet
40 mg PO DAILY Qty: 30 1RF
Szcfwsgwgc-Nzqybmdjbnj-GEC Tab
1 tab PO BID
clopidogrel 75 MG tablet
75 mg PO DAILY
furosemide 40 mg Tablet
40 mg PO DAILY
Discharge Orders:
Discharge Patient (As Directed); Ordered 12/04/24
Ordered By: Sherry Joseph
Care Plan Goals
Care Plan Goals:
Problem: Readiness for enhanced knowledge related to diagnosis and treatment plan
Goal: Understand your diagnosis and treatment plan needs, including medications if applicable.
Instructions: Know your diagnosis, underlying causes and treatment plan options, including medications if applicable. Consult with your health care team to learn about your diagnosis and treatment plan, including medications if applicable.
Discharge Date and Time
Print Language: JAPANESE
[2024-12-04 09:05] VITALS: BP 107/57
[2024-12-04] MEDS: LASIX 80 MG PO (09:06)
[2024-12-04] MEDS: PACERONE 200 MG PO (09:07)
[2024-12-04] MEDS: VITAMIN C 500 MG PO (09:07)
[2024-12-04] MEDS: NEURONTIN 100 MG PO (09:07)
[2024-12-04] MEDS: SENOKOT-S 1 TABLET PO (09:07)
[2024-12-04] MEDS: TOPROL XL 25 MG PO (09:07)
[2024-12-04] MEDS: TYLENOL PO (09:07)
[2024-12-04] MEDS: MUCINEX 600 MG PO (09:07)
[2024-12-04] MEDS: PROTONIX 40 MG PO (09:07)
[2024-12-04] MEDS: ELIQUIS 5 MG PO (09:07)
[2024-12-04] MEDS: LOW STRENGTH ASPIRIN 81 MG PO (09:07)
[2024-12-04] MEDS: FEOSOL 325 MG PO (09:07)
[2024-12-04] MEDS: LIDOCAINE 4% PATCH TOPICAL (09:08)
--- NOTE | 2024-12-04 09:15 | PTCARENOTE ---
Assumed care of patient at 0700. Pt is awake, alert, and oriented. No complaints of pain at this time. Pt remains V-paced, HR 60's. BP 107/57 MAP 73. Pulse oximetry 95% on room air. Pt tolerating PO diet. Voiding without difficulty in bathroom.
Midsternal incision dressing intact. Right leg incision approximated and REMARKETING REP. Pt currently OOB in chair with call avery within reach.
--- NOTE | 2024-12-04 09:41 | W.PN.NEPH.PH ---
Today's Communication / Plan
-
dc
Assessment/Plan
-
Impression:
VITOR
Hyperkalemia
Status post CABG X 1 and AVR 11/26/2024
Left nephrectomy 2020 for renal cell carcinoma (1.3 baseline)
Alcohol abuse
Coronary artery
Ascending aortic dilation
Anemia
History of HTN
Valvular heart disease
Gout
Depression
LVEF 60 to 65%
History of hypertension
Respiratory and metabolic acidosis with resultant acidemia
Plan:
for dc
No LORY inhibitor for now given solitary kidney and creatinine above baseline
-
-
Date of Service: December 04, 2024
CC / HPI / ROS
-
Chief Complaint:
Acute kidney injury
History of Present Illness:
Creatinine down stable 1.6
Hemodynamically stable
K normal
weights stable on po lasix
Review of Systems:
Nonoliguric
Osman cath out
no SOB
Labs
-
Labs:
WBC 9.9 10^3/uL (4.8-10.8) 12/01/24 05:15
RBC 2.90 10^6/uL (4.70-6.10) L 12/01/24 05:15
Hgb 8.8 g/dL (13.0-18.0) L 12/01/24 05:15
Hct 27.2 % (39.0-52.0) L 12/01/24 05:15
Plt Count 168 10^3/uL (130-400) D 12/01/24 05:15
Sodium 139 mmol/L (135-145) 12/04/24 04:03
Potassium 4.0 mmol/L (3.5-5.1) 12/04/24 04:03
Chloride 101 mmol/L (98-107) 12/04/24 04:03
Carbon Dioxide 29 mmol/L (22-30) 12/04/24 04:03
BUN 33 mg/dl (9-20) H 12/04/24 04:03
Creatinine 1.6 mg/dL (0.7-1.3) H 12/04/24 04:03
eGFR 44.10 12/04/24 04:03
Glucose 119 mg/dl (70-99) H 12/04/24 04:03
Calcium 8.1 mg/dl (8.4-10.2) L 12/04/24 04:03
Albumin 3.0 g/dl (3.5-5.0) L 11/27/24 03:47
Physical Exam
-
Vital Signs:
Vital Signs
Temp Pulse Resp BP Pulse Ox
97.7 F 64 18 107/57 95
12/04/24 09:15 12/04/24 09:15 12/04/24 09:15 12/04/24 09:05 12/04/24 09:15
Cardiovascular:: Regular rate and rhythm
Respiratory:: Bilateral: Coarse
Lung Excursion:: Normal
Abdomen:: Nontender and Soft
Bowel Sounds:: Normal
Extremity Edema:: +1: Bilateral:
--- NOTE | 2024-12-04 11:20 | W.PN.UPDATE ---
Update Note
Progress Note Update
Dressing removed from pacemaker site. Steri-Strips clean/dry/intact.
No drainage. No hematoma. No pocket fullness.
Activity restrictions reviewed with the patient at the bedside. Signs and symptoms of infection reviewed with the patient at the bedside.
--- NOTE | 2024-12-04 11:38 | PTCARENOTE ---
Pt with discharge order. Midsternal incision dressing removed. Cardiology [employer] contacted, left upper chest dressing removed by [employer]. Pt showered without issue.
[2024-12-04 12:16] VITALS: BP 111/64
--- NOTE | 2024-12-04 12:36 | CM ---
Chart reviewed. Patient refusing to go to Rehab. Patient is independent of ADLS, lives alone in a 2 STH, 3 ANA, 1st floor set up, 0 DME. Patient said his stepson will pick him up and his sister will be at his house. Reinforced with the patient
the importance of having someone with him at home. Patient stated he understood. [email or web address] confirmed delievery of walker for tomorrow 12/05/24. Patient spoke with the delivery company as well and confirmed delivery is set up. Plan is
for the patient to go home with his sister and RW, along with CT Transitional RN.
--- NOTE | 2024-12-04 12:37 | PTCARENOTE ---
Peripheral IV and tele monitor removed. Reviewed discharge instructions with patient. Questions addressed. Vital obtained. Pt stable at discharge.
== END 2024-12-04 13:29 | disposition home or self-care (01) | DRG 219 ==
LOC: CVICU 05:20
PROVIDERS: Anesthesiology; Clinical Nurse Specialist Acute Care; Internal Medicine Cardiovascular Disease; Nurse Practitioner; Physician Assistant Medical; ADMITTING PHYSICIAN Thoracic Surgery (Cardiothoracic Vascular Surgery); CONSULT PHYSICIAN Internal Medicine Critical Care Medicine; CONSULT PHYSICIAN Specialist; FAMILY PHYSICIAN Internal Medicine
PROC: 02100ZC Bypass Coronary Artery, One Artery from Thoracic Artery, Open Approach (ICD-10-PCS; 2024-11-26)
PROC: 5A1221Z Performance of Cardiac Output, Continuous (ICD-10-PCS; 2024-11-26)
PROC: B24BZZ4 Ultrasonography of Heart with Aorta, Transesophageal (ICD-10-PCS; 2024-11-26)
PROC: 30233N1 Transfusion of Nonautologous Red Blood Cells into Peripheral Vein, Percutaneous Approach (ICD-10-PCS; 2024-11-26)
PROC: 02RF08Z Replacement of Aortic Valve with Zooplastic Tissue, Open Approach (ICD-10-PCS; 2024-11-26)
PROC: 06BP4ZZ Excision of Right Saphenous Vein, Percutaneous Endoscopic Approach (ICD-10-PCS; 2024-11-26)
PROC: 02UX0JZ Supplement Thoracic Aorta, Ascending/Arch with Synthetic Substitute, Open Approach (ICD-10-PCS; 2024-11-26)
PROC: 5A09357 Assistance with Respiratory Ventilation, Less than 24 Consecutive Hours, Continuous Positive Airway Pressure (ICD-10-PCS; 2024-11-28)
PROC: 0JH606Z Insertion of Pacemaker, Dual Chamber into Chest Subcutaneous Tissue and Fascia, Open Approach (ICD-10-PCS; 2024-11-29)
PROC: 02H63JZ Insertion of Pacemaker Lead into Right Atrium, Percutaneous Approach (ICD-10-PCS; 2024-11-29)
PROC: 02HK3JZ Insertion of Pacemaker Lead into Right Ventricle, Percutaneous Approach (ICD-10-PCS; 2024-11-29)
DX: I25.10 Atherosclerotic heart disease of native coronary artery without angina pectoris (principal); I50.31 Acute diastolic (congestive) heart failure; J95.1 Acute pulmonary insufficiency following thoracic surgery; D62 Acute posthemorrhagic anemia; N17.9 Acute kidney failure, unspecified; E87.4 Mixed disorder of acid-base balance; I44.2 Atrioventricular block, complete; J98.11 Atelectasis; Q23.81 Bicuspid aortic valve; I25.82 Chronic total occlusion of coronary artery; I10 Essential (primary) hypertension; E87.5 Hyperkalemia; I49.5 Sick sinus syndrome; I48.91 Unspecified atrial fibrillation; J44.9 Chronic obstructive pulmonary disease, unspecified; I77.810 Thoracic aortic ectasia; E86.1 Hypovolemia; Y83.2 Surgical operation with anastomosis, bypass or graft as the cause of abnormal reaction of the patient, or of later complication, without mention of misadventure at the time of the procedure; E66.811 Obesity, class 1; I35.0 Nonrheumatic aortic (valve) stenosis; M10.9 Gout, unspecified; R91.1 Solitary pulmonary nodule; F10.10 Alcohol abuse, uncomplicated; E78.00 Pure hypercholesterolemia, unspecified; I95.81 Postprocedural hypotension; F32.A Depression, unspecified; F41.9 Anxiety disorder, unspecified; Z68.33 Body mass index [BMI] 33.0-33.9, adult; Z79.02 Long term (current) use of antithrombotics/antiplatelets; Z79.82 Long term (current) use of aspirin; Z79.899 Other long term (current) drug therapy; Z82.49 Family history of ischemic heart disease and other diseases of the circulatory system; Z85.528 Personal history of other malignant neoplasm of kidney; Z90.5 Acquired absence of kidney; Z87.891 Personal history of nicotine dependence; Z90.49 Acquired absence of other specified parts of digestive tract; Z95.5 Presence of coronary angioplasty implant and graft
CPT/HCPCS: 88305; 88311; 33208; 36415; 36600; 71045; 71046; 80048; 80053; 81003; 81015; 82248; 82330; 82565; 82805; 82810; 82947; 82962; 82977; 83036; 83735; 83935; 84132; 84300; 84302; 84520; 85014; 85018; 85025; 85027; 85049; 85610; 85730; 86850; 86900; 86901; 86920; 87070; 93005; 93312; 93320; 93325; 93970; 94002; 94640; 94660; 97116; 97163; 97167; 97530; 97535; C1713; C1768; C1769; C1785; C1887; C1892; C1898; P9016; P9045; P9047

== ENCOUNTER 2024-12-07 07:39 | Inpatient (IN) | payer OTHER, SELFPAY ==
[2024-12-06] VITALS (14 sets, daily range): BP systolic 113–157; BP diastolic 65–98; BMI 33.8; BMI 33.7
--- NOTE | 2024-12-06 09:02 | ED.GENMED ---
History of Present Illness
<Melvina Bowen PA-C - Last Filed: 12/06/24 13:30>
General
Chief Complaint: Breathing Problem
Source: patient and records
Exam Limitations: none
Time Seen by Provider: 12/06/24 08:51
History of Present Illness
History of Present Illness:
79yoM with a history of coronary artery disease s/p CABG, aortic stenosis s/p AVR, atrial fibrillation, COPD, hypertension, hyperlipidemia, RCC s/p L nephrectomy presenting with his sister for evaluation of shortness of breath. Patient was recently
hospitalized and underwent CABGx1 and aortic valve replacement on 11/26/[address] Hill. He developed slow atrial fibrillation postoperatively and a pacemaker was placed on 11/29/24. Patient was initiated on Eliquis for his A-fib during the
hospitalization. He was discharged 2 days ago to home as he refused rehab placement. He has developed significant shortness of breath since being discharged. His sister states he is unable to walk 20 steps from his bedroom to the living room
without being out of breath. He also reports fatigued. He states it feels like he has the flu. He reports chills but denies fevers. He has mild chest discomfort which he has had since the operation but he denies any new or worsening chest
discomfort.
Past History
<Melvina Bowen PA-C - Last Filed: 12/06/24 13:30>
Past History
ED Past Medical History: CAD, HTN and Hypercholesterolemia; Negative IDDM
ED Past Surgical History: Appendectomy and Orthopedic
Social History
Tobacco: Former smoker
Alcohol: Daily
Drug: None
Personal:
Living: with family
Employment: Retired
Family History
Family History: Hypertension
Phy Exam
<Melvina Bowen PA-C - Last Filed: 12/06/24 13:30>
General Physical Exam
General Presentation: mild distress
General Skin: warm and dry
General Habitus: normal
General Mental: alert
ENT Exam
ENT Exam: normocephalic
Cardiovascular Exam
Cardiovascular Exam: irregularly irregular and other (Nonpitting edema noted to the bilateral lower extremities)
Pulmonary Exam
Pulmonary Exam: no crackles, no wheezing, decreased breath sounds and other (Tachypnea noted. Breath sounds decreased bilaterally.)
Neurological Exam
Neurological Exam: alert
Russ Coma Scale
Eye Opening: Spontaneous
Verbal Response: Oriented
Motor Response: Obeys Commands
GCS Total Score: 15
Skin Exam
Skin Exam: normal color and warm/dry
Psychiatric Exam
Psychiatric Exam: normal mood/affect
Scores
<Melvina Bowen PA-C - Last Filed: 12/06/24 13:30>
Heart Failure Risk
Heart Failure Risk Score: Not Applicable
Course
<Melvina Bowen PA-C - Last Filed: 12/06/24 13:30>
Orders/Labs/Results
Orders:
Orders
12/06/24 08:42
Electrocardiogram (*1) Urgent
Reason for Study: Shortness of Breath
EKG- Treatment ONCE
12/06/24 09:01
Cardiac Monitoring- Treatment ONCE
12/06/24 09:02
Interrogate Pacemaker- Treatment ONCE
CR Chest - 2 Views Urgent
Comment:
Reason For Exam: SOB
12/06/24 09:11
COVID-19 Antigen Urgent
Source: Nasal Swab
Complete Blood Count/With Diff Urgent
Comprehensive Metabolic Panel Urgent
Manual Differential Urgent
NT-proBNP Urgent
PTT Urgent
Prothrombin Time Urgent
Troponin I Urgent
Comment: ADD
Influenza A+B Rapid Molecular Urgent
STEVEN Source: Nasal Swab
Specimen Description:
12/06/24 10:08
Add On- LAB Urgent
Tests Added?: troponin
12/06/24 10:17
Furosemide [Lasix] 60 mg IV NOW STA
12/06/24 10:19
Echo 2D MMode Color/Doppler Urgent
Reason for Study: sob avr
12/06/24 10:21
O2 Therapy [RESP] Urgent
Nasal Cannula Liter Flow: 2 LPM
Titrate/Wean O2 to maintain O2 sat greater than (%): 96
12/06/24 11:15
Troponin I Urgent
12/06/24 12:59
Admit/Transfer Patient As Directed
Co-Sign Provider:
Level of Care: Inpatient admission
Assign to:: IVU
Physician / Group: Marcia
Diagnosis: Acute CHF
Reason for Hospitalization: IV Lasix, cardiology consult, echocardiogram
Expected length of stay greater than two midnights?: Yes
ELOS- Estimated Length of Stay in days: 3
I certify the patient meets the requirements for IP care: Yes
PRN Pain Medication Management As Directed
May give lesser potent ordered pain med per pt: Yes
preference::
Protocol:: Medication orders for pain may be administered in a
manner that supports deferring to patient preference
when the pt is:
- Requesting an ordered lesser potent pain medication.
Least to most potent pain medications are defined
as: acetaminophen < NSAID < tramadol < opioids
(morphine, oxycodone, hydromorphone).
- Requesting a lesser dose of the same medication IF
ORDERED.
- Requesting a less intrusive route of administration
if both routes are prescribed by the provider (PO <
IV).
12/06/24 13:03
Code Status As Directed
Resuscitation Status: Full Code
Abnormal Lab Results
12/06/24 12/06/24
09:11 11:15
RBC 3.17 L 10^6/uL
(4.70-6.10)
Hgb 9.5 L g/dL
(13.0-18.0)
Hct 30.9 L %
(39.0-52.0)
MCV 97.5 H fL
(80.0-94.0)
MCHC 30.7 L g/dL
(33.0-37.0)
RDW 15.9 H %
(11.5-14.5)
Lymphocytes (Manual) 14 L %
(20-51)
Monocytes (Manual) 21 H %
(2-9)
PT 19.1 H Sec
(11.4-14.6)
APTT 51.8 H Sec
(23.4-35.0)
BUN 30 H mg/dl
(9-20)
Creatinine 1.8 H mg/dL
(0.7-1.3)
Glucose 112 H mg/dl
(70-99)
Calcium 8.2 L mg/dl
(8.4-10.2)
Troponin I 0.729 H* ng/ml 0.678 H* ng/ml
Total Protein 6.2 L g/dl
(6.3-8.2)
12/06/24 09:11
12/06/24 09:11
Vital Signs
Initial and Last Documented VS:
Initial Vital Signs
Temp Pulse Resp BP Pulse Ox
98.4 F 80 18 135/79 95
12/06/24 08:38 12/06/24 08:38 12/06/24 08:38 12/06/24 08:38 12/06/24 08:38
Last Documented Vital Signs
Temp Pulse Resp BP Pulse Ox
98.4 F 71 22 132/77 93
12/06/24 08:38 12/06/24 12:30 12/06/24 12:30 12/06/24 12:00 12/06/24 12:30
<Chung Andrea, DO - Last Filed: 12/06/24 10:29>
Orders/Labs/Results
Orders:
Orders
12/06/24 08:42
Electrocardiogram (*1) Urgent
Reason for Study: Shortness of Breath
EKG- Treatment ONCE
12/06/24 09:01
Cardiac Monitoring- Treatment ONCE
12/06/24 09:02
Interrogate Pacemaker- Treatment ONCE
CR Chest - 2 Views Urgent
Comment:
Reason For Exam: SOB
12/06/24 09:11
COVID-19 Antigen Urgent
Source: Nasal Swab
Complete Blood Count/With Diff Urgent
Comprehensive Metabolic Panel Urgent
Manual Differential Urgent
NT-proBNP Urgent
PTT Urgent
Prothrombin Time Urgent
Troponin I Urgent
Comment: ADD
Influenza A+B Rapid Molecular Urgent
STEVEN Source: Nasal Swab
Specimen Description:
12/06/24 10:08
Add On- LAB Urgent
Tests Added?: troponin
12/06/24 10:17
Furosemide [Lasix] 60 mg IV NOW STA
12/06/24 10:19
Echo 2D MMode Color/Doppler Urgent
Reason for Study: sob avr
12/06/24 10:21
O2 Therapy [RESP] Urgent
Nasal Cannula Liter Flow: 2 LPM
Titrate/Wean O2 to maintain O2 sat greater than (%): 96
12/06/24 11:15
Troponin I Urgent
12/06/24 12:59
Admit/Transfer Patient As Directed
Co-Sign Provider:
Level of Care: Inpatient admission
Assign to:: IVU
Physician / Group: Marcia
Diagnosis: Acute CHF
Reason for Hospitalization: IV Lasix, cardiology consult, echocardiogram
Expected length of stay greater than two midnights?: Yes
ELOS- Estimated Length of Stay in days: 3
I certify the patient meets the requirements for IP care: Yes
PRN Pain Medication Management As Directed
May give lesser potent ordered pain med per pt: Yes
preference::
Protocol:: Medication orders for pain may be administered in a
manner that supports deferring to patient preference
when the pt is:
- Requesting an ordered lesser potent pain medication.
Least to most potent pain medications are defined
as: acetaminophen < NSAID < tramadol < opioids
(morphine, oxycodone, hydromorphone).
- Requesting a lesser dose of the same medication IF
ORDERED.
- Requesting a less intrusive route of administration
if both routes are prescribed by the provider (PO <
IV).
12/06/24 13:03
Code Status As Directed
Resuscitation Status: Full Code
Abnormal Lab Results
12/06/24 12/06/24
09:11 11:15
RBC 3.17 L 10^6/uL
(4.70-6.10)
Hgb 9.5 L g/dL
(13.0-18.0)
Hct 30.9 L %
(39.0-52.0)
MCV 97.5 H fL
(80.0-94.0)
MCHC 30.7 L g/dL
(33.0-37.0)
RDW 15.9 H %
(11.5-14.5)
Lymphocytes (Manual) 14 L %
(20-51)
Monocytes (Manual) 21 H %
(2-9)
PT 19.1 H Sec
(11.4-14.6)
APTT 51.8 H Sec
(23.4-35.0)
BUN 30 H mg/dl
(9-20)
Creatinine 1.8 H mg/dL
(0.7-1.3)
Glucose 112 H mg/dl
(70-99)
Calcium 8.2 L mg/dl
(8.4-10.2)
Troponin I 0.729 H* ng/ml 0.678 H* ng/ml
Total Protein 6.2 L g/dl
(6.3-8.2)
12/06/24 09:11
12/06/24 09:11
Vital Signs
Initial and Last Documented VS:
Initial Vital Signs
Temp Pulse Resp BP Pulse Ox
98.4 F 80 18 135/79 95
12/06/24 08:38 12/06/24 08:38 12/06/24 08:38 12/06/24 08:38 12/06/24 08:38
Last Documented Vital Signs
Temp Pulse Resp BP Pulse Ox
98.4 F 71 22 132/77 93
12/06/24 08:38 12/06/24 12:30 12/06/24 12:30 12/06/24 12:00 12/06/24 12:30
<Melvina Bowen PA-C - Last Filed: 12/06/24 13:30>
MDM/Problems Addressed
Differential Diagnosis Includes:
79yoM here with SOB. Underwent CABG and AVR 10 days ago. Discharged 2 days ago. C/o dyspnea on exertion and fatigue. Triage vitals are normal. He is tachypneic on initial exam. Breath sounds decreased. Surgical incisions c/d/i. Differential
diagnosis includes but is not limited to: pulmonary edema, pneumonia, atelectasis, pericardial effusion, viral illness, COPD exacerbation, symptomatic anemia, renal failure
Initial ED plan: Check cardiac labs, EKG, COVID/flu swab, CXR, and interrogate pacemaker.
<Melvina Bowen PA-C - Last Filed: 12/06/24 13:30>
*EKG
Interpreted by ED Provider?: Yes
EKG Intrepretation Date: 12/06/24
Heart Rate: 70
Rate: normal
Rhythm: a-fib, PVC's and ventricular paced
Downs: normal axis
Ischemia: no ischemia
*Critical Care Note
Total Time (30-74mins, 75-104mins- exclusive of procedures): Not Applicable
<Melvina Bowen PA-C - Last Filed: 12/06/24 13:30>
Update Note
Update Note:
Hemoglobin 9.5 which is increasing since discharge. Creatinine 1.8 (1.6 at discharge 2 days ago). Troponin 0.72. No ischemic changes on EKG and there were no events on pacemaker interrogation. BNP elevated at 4000 although there is no pulmonary
edema on chest x-ray. He clinically appears volume overloaded. 60 mg IV Lasix ordered and patient admitted for further management.
ED Attending Note
<Melvina Bowen PA-C - Last Filed: 12/06/24 13:30>
-
Portions of this chart may have been created with voice recognition software.� Occasional wrong word or��sound alike� substitutions may have occurred due to the inherent limitations of voice recognition software.
<Chung Andrea DO - Last Filed: 12/06/24 10:29>
ED Attending Note
Patient seen and examined by attending physician: Yes
I performed the substantive portion of visit, reviewed & personally made and approve the management plan that is documented in note by myself or CECIL.: Yes
ED Attending Note:
Seen with MOMO examined independently 79-year-old male status post bypass surgery and valve repair [address] Jose Hill postprocedurally has been feeling some fatigue worsening shortness of breath has leg edema is on diuretic, here he looks
tachypneic, relying oxygenation, legs are swollen, apparently declined rehab post postdischarge, labs no chest x-ray noted will order echocardiogram give dose of diuretic cardiology and CT surgery been notified
Discharge Plan
Departure
Patient Disposition: Admit
Date of Disposition: 12/06/24
Time of Disposition: 11:02
Presentation/result/management discussed w/ accepting MD/DO: Hospitalist
Discharge Problem:
Shortness of breath
Prescriptions:
No Action
amlodipine 10 MG tablet
10 mg PO HS
allopurinol 300 MG tablet
300 mg PO DAILY
fluoxetine 20 MG capsule
20 mg PO HS
aspirin 81 mg Tablet,Delayed Release (Dr/Ec)
81 mg PO DAILY
amiodarone 200 mg Tablet
200 mg PO BID Qty: 60 0RF
Rx Instructions:
please take for 14 days twice a day and then 200mg daily
atorvastatin 40 mg Tablet
40 mg PO HS Qty: 30 1RF
pantoprazole 40 mg Tablet,Delayed Release (Dr/Ec)
40 mg PO DAILY Qty: 30 0RF
metoprolol succinate 25 mg Tablet Extended Release 24 Hr
25 mg PO DAILY Qty: 30 1RF
gabapentin 100 mg Capsule
100 mg PO TID Qty: 30 0RF
Eliquis 5 mg tablet
5 mg PO BID Qty: 60 1RF
furosemide [Lasix] 40 mg tablet
40 mg PO BID Qty: 60 1RF
Referrals:
Nazario Lacey MD [Family Provider] -
Interventions
Interventions:
*Risk Screen - Suicide Last Done: 12/06/24 08:38
*General Assessment Last Done: 12/06/24 08:38
*Neglect/Abuse Screening Last Done: 12/06/24 08:38
ED- Fall Risk Assessment Last Done: 12/06/24 11:35
*ED COVID-19 Vaccine History Last Done: 12/06/24 09:02
ED- Cardiac Assessment Last Done: 12/06/24 11:35
ED- Pulmonary Assessment Last Done: 12/06/24 11:35
Discharge Date and Time
Print Language: P[place]
[2024-12-06 09:35] LABS: Hematocrit 30.9 % (39.0-52.0); Hemoglobin 9.5 g/dL (13.0-18.0); Mean Corp Hgb Conc. 30.7 g/dL (33.0-37.0); Mean Corpuscular Volume 97.5 fL (80.0-94.0); Mean Platelet Volume 8.9 fL (7.4-10.4); Platelet Count 247 10^3/uL (130-400); Red Blood Cell Count 3.17 10^6/uL (4.70-6.10); Red Cell Dist. Width 15.9 % (11.5-14.5); White Blood Cell Count 9.8 10^3/uL (4.8-10.8)
[2024-12-06 09:36] LABS: INR 1.58; PT 19.1 Sec (11.4-14.6)
[2024-12-06 09:37] LABS: APTT 51.8 Sec (23.4-35.0)
[2024-12-06 09:49] LABS: NT-proBNP 4270 pg/ml
[2024-12-06 09:52] LABS: ALT (SGPT) 25 U/L (0-50); AST (SGOT) 28 U/L (17-59); Albumin 3.6 g/dl (3.5-5.0); Alkaline Phosphatase 77 U/L (38-126); Blood Urea Nitrogen 30 mg/dl (9-20); Calcium 8.2 mg/dl (8.4-10.2); Carbon Dioxide 27 mmol/L (22-30); Chloride 101 mmol/L (98-107); Estimated Creatinine Clearance 43 ml/min; Glucose 112 mg/dl (70-99); Sodium 138 mmol/L (135-145); Total Protein 6.2 g/dl (6.3-8.2); eGFR 38.29
[2024-12-06 09:59] LABS: COVID-19 Antigen Negative (Negative)
[2024-12-06 10:34] LABS: Absolute Neutrophils -Man Diff 6.3 10^3/uL (1.4-6.5); Band Neutrophils 3 % (0-3); Lymphocytes 14 % (20-51); Monocytes 21 % (2-9); Normal RBC Morphology Yes; Platelets Checked Yes; Segmented Neutrophils 62 % (42-75); Total Cells Counted 100
--- NOTE | 2024-12-06 10:48 | PHANOTE ---
med rec note- patient confused on what medication he suppose to be on and what he took yesterday, patient does have home health nurse
[2024-12-06 10:58] LABS: Troponin I 0.729 ng/ml
[2024-12-06] MEDS: LASIX 60 MG IV (11:14)
--- NOTE | 2024-12-06 11:15 | CONSULT.CT ---
Consultation
-
Date/Time Consultation Requested: 12/06/24
Date/Time Consultation Performed: 12/06/24 11:15
Requesting Provider: Dr. Chung Andrea MD.
Performing Provider: Gloria Bassett PA-C
Reason for Consultation: SOB/BREWER s/p AVR, CABG x1, Medtronic PPM
Patient History
Physicians
Family Physician: Dr. Nazario Lacey MD.
Outpatient Doctor Of Pharmacy: Dr. Cam العراقي MD
Inpatient Doctor Of Pharmacy: [facility] Cardiology
History of Present Illness
Patient is an extremely pleasant 79-year-old male well-known to the cardiothoracic surgery service having previously undergone an AVR number 29 mm Medtronic Avalus ultra tissue valve plus CABG x 1 with MELARA to the LAD, and ascending aortic wrap with
Hemashield graft by Dr. Noah Hill MD. on 11/26/24.
Patient's postoperative course was notable for postoperative atrial fibrillation which progressed into intermittent high degree heart block with tachybradycardia syndrome necessitating placement of Medtronic dual-chamber pacemaker insertion on
11/29/[address] Matthew MD. Patient was also noted to have postoperative VITOR on CKD (right solitary kidney). Nephrology was consulted and assisted throughout the patient's postoperative course.
Patient was seen by PT OT and cardiac rehab and was recommended rehab upon discharge. However, the patient adamantly refused and he was discharged to home on 12/04/2024. Prior to being discharged home he was started on Eliquis at 5 mg twice daily
for underlying atrial fibrillation.
On 12/06/2024 the patient arrived to [facility]'s emergency department with difficulty breathing, SOB, and BREWER. Patient states that symptoms started around Tuesday and progressively have gotten worse. He denies any other symptoms
including chest pain, and diaphoresis. Patient states that his last dose of Eliquis was on the evening of 12/05/24. Of note, the patient was discharged with Lasix 40 mg twice daily, however, after talking with the patient he states he was only
taking it once daily. His chest x-ray which was performed on admission to the emergency department reveals no surgical concerns and no obvious pneumothorax or pleural effusions. Patient's blood work is stable with a hemoglobin of 9.5, WBC of 9.8,
platelets of 247, and a creatinine of 1.8 which appears to be around his baseline of 1.3.
Past Medical History
Past Medical History: Other
Bicuspid aortic valve with severe nonrheumatic aortic stenosis status post aortic valve replacement, CABG x 1, and ascending aortic graft with Hemashield graft
Triple-vessel coronary artery disease with patent left circumflex to OM stent
Ascending aortic aneurysm (4.5 cm)
HTN/HLD
Class I obesity (BMI 33.8)
COPD
Former tobacco abuse
EtOH abuse
Gout
Depression
Right renal mass, suspected cyst, follows with urology
Left renal cell carcinoma stage IIa, grade 3, 7.6 cm incidentally noted on screening CT of the chest
Status post left nephrectomy (2020)
Status post umbilical hernia repair
Status post LTKR (2020) follow-up within the
Status post vein stripping
Status post appendectomy
History of postoperative atrial fibrillation with slow ventricular response requiring permanent pacemaker implantation
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
Postoperative VITOR (creatinine of 2.2 from baseline of 1.3)
Postoperative acute blood loss anemia requiring transfusion
Postoperative hyperkalemia requiring treatment with diuresis and Lokelma
Past Surgical History
Past Surgical History: Other
AVR #29 mm Medtronic Avalus ultra tissue valve plus CABG x 1 with MELARA to the LAD, and ascending aortic wrap with Hemashield graft by Dr. Noah Hill MD. on 11/26/24
Status post left nephrectomy (2020)
Status post umbilical hernia repair
Status post LTKR (2020) follow-up within the
Status post vein stripping
Status post appendectomy
Dental History
Noncontributory
Family History
Mother: at Age (87) and Cause of (Unknown)
Father: at Age (87) and Cause of (Unknown, however underwent heart valve replacement)
Family Medical History: Other (Positive family history for valvular heart disease)
Social History
Alcohol: Daily
Drug: None
Tobacco: Former Smoker (Quit 7 years ago)
Personal: Single
Living: Alone
Employment: Retired
Allergies
Allergy/AdvReac Type Severity Reaction Status Date / Time
No Known Allergies Allergy Verified 12/06/24 08:38
Home Medications
�Medication �Instructions �Recorded �Confirmed �Type
allopurinol 300 mg tablet 300 mg PO DAILY Gout 06/27/18 12/06/24 History
amlodipine 10 mg tablet 10 mg PO HS Heart disease/condition 06/27/18 12/06/24 History
fluoxetine 20 mg capsule 20 mg PO HS Mental Health/Anxiety 06/27/18 12/06/24 History
aspirin 81 mg tablet,delayed 81 mg PO DAILY 11/19/24 12/06/24 History
release
amiodarone 200 mg tablet 200 mg PO BID Arrhythmia #60 tabs 12/03/24 12/06/24 Rx
apixaban 5 mg tablet (Eliquis) 5 mg PO BID Blood clot 12/03/24 12/06/24 Rx
prevention/tx #60 tabs
atorvastatin 40 mg tablet 40 mg PO HS High cholesterol #30 12/03/24 12/06/24 Rx
tabs
gabapentin 100 mg capsule 100 mg PO TID nerve pain #30 caps 12/03/24 12/06/24 Rx
metoprolol succinate 25 mg 25 mg PO DAILY Blood pressure #30 12/03/24 12/06/24 Rx
tablet,extended release 24 hr tabs
pantoprazole 40 mg tablet,delayed 40 mg PO DAILY Gi prophylaxis 12/03/24 12/06/24 Rx
release while on plavix #30 tabs
furosemide 40 mg tablet (Lasix) 40 mg PO BID Fluid 12/04/24 12/06/24 Rx
retention/Swelling #60 tabs
Review of Systems
-
General: Denies Fever, Weight Gain, Weight Loss, Fatigue or Night Sweats
HEENT: Denies Visual Changes, Dysphagia, Hoarseness or Sore Throat
Respiratory: Reports SOB and BREWER; Denies Cough, Asthma or PND
Cardiac: Reports CAD, Known Vascular Disease and Edema; Denies Chest Pain, Palpitations, Nausea, Vomiting or Diaphoresis
Abdomen/GI: Denies Abdominal Pain, Reflux, Indigestion, Nausea, Vomiting, Diarrhea, Constipation or BRBPR
: Denies Dysuria, Incontinence, Urgency, Frequency or Hematuria
Musculoskeletal: Reports Edema; Denies Myalgias, Arthralgias or Joint Pain
Skin: Denies Itching or Rash
Neurological: Denies CVA, TIA, Headaches, Syncope, Dizzy, Weakness, Numbness or Seizures
Vascular: Reports PVD; Denies Claudication
Physical Exam
Vital Signs
Temp 98.4 F 12/06/24 08:38
Temp route: Oral 12/06/24 08:38
Pulse 65 12/06/24 10:04
Resp Rate 24 12/06/24 10:04
Blood pressure 140/77 12/06/24 10:04
MAP (cuff-Frankie Monitor) 96 12/06/24 10:04
SaO2 93 12/06/24 10:04
Oxygen Mode of Delivery Room air 12/06/24 08:38
Acceptable pain level during hospitalization? 0 12/06/24 08:38
Actual Weight 242 lb 8.136 oz 12/06/24 09:01
Body Mass Index (BMI) 33.8 12/06/24 09:01
Labs
12/06/24 09:11
12/06/24 09:11
PT 19.1 Sec (11.4-14.6) H 12/06/24 09:11
APTT 51.8 Sec (23.4-35.0) H 12/06/24 09:11
Troponin I 0.729 ng/ml H* 12/06/24 09:11
Yva-U-Tgcdoiozxck Pept 4270 pg/ml 12/06/24 09:11
Exam
General: Well Developed, Well Nourished and No Apparent Distress
HEENT: Normocephalic, Moist Mucous Membranes, Atraumatic, PERRLA and EOMI
Neck: Trachea Midline; Negative Carotid Bruit or Mass
Respiratory: Clear and Other (Mildly diminished breath sounds at the bases bilaterally); Negative Wheezes, Crackles, Rhonchi or Accessory Muscle Use
Cardiac: S1/S2 and Other (Paced rhythm via Medtronic dual-chamber PPM); Negative Murmur, Rub or Gallop
GI: Soft, Non Tender, Non Distended and Normal Bowel Sounds
Rectal: Deferred by Provider
Skin: Warm and Dry; Negative Rash
Neuro: AO x 3, No Motor Deficits and CN X-XII Intact
Extremities: Lower Level Edema (+ 1 R > L, generalized edema due to body habitus ); Negative Upper Level Edema
Psych: Calm
Assessment / Plan
-
Assessment:
79-year-old male with PMH of:
Bicuspid aortic valve with severe nonrheumatic aortic stenosis status post aortic valve replacement, CABG x 1, and ascending aortic graft with Hemashield graft
Triple-vessel coronary artery disease with patent left circumflex to OM stent
Ascending aortic aneurysm (4.5 cm)
HTN/HLD
Class I obesity (BMI 33.8)
COPD
Former tobacco abuse
EtOH abuse
Gout
Depression
Right renal mass, suspected cyst, follows with urology
Left renal cell carcinoma stage IIa, grade 3, 7.6 cm incidentally noted on screening CT of the chest
Status post left nephrectomy (2020)
Status post umbilical hernia repair
Status post LTKR (2020) follow-up within the
Status post vein stripping
Status post appendectomy
History of postoperative atrial fibrillation with slow ventricular response requiring permanent pacemaker implantation
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
Postoperative VITOR (creatinine of 2.2 from baseline of 1.3)
Postoperative acute blood loss anemia requiring transfusion
Postoperative hyperkalemia requiring treatment with diuresis and Lokelma
Now with new post operative SOB/BREWER
Plan:
Patient's case will be discussed with attending physician.
As stated above the patient's chest x-ray reveals no significant surgical concerns, pneumothorax, or pleural effusions.
His surgical incisions are healing well.
Echocardiogram to rule out pericardial effusion is pending. Patient's last dose of Eliquis was on the evening of 12/05/2024.
He was given 60 mg of IV Lasix upon arrival to the emergency department.
Also stated above the patient was only taking his p.o. Lasix daily upon discharge which was originally prescribed as twice daily.
Patient will be admitted under the hospitalist/medicine service.
Cardiology consult recommended.
[2024-12-06 12:03] LABS: Troponin I 0.678 ng/ml
--- NOTE | 2024-12-06 12:14 | W.PN.CD ---
Addendum entered and electronically signed by Robert Howell MD 12/06/24 15:39:
79 yo male with CAD with hx of PCI (2004, 2017), chronic RCA occlusion, bicuspid aortic valve with aortic stenosis, ascending aorta dilatation, mild to moderate aortic regurgitation, PVCs, hypertension, hyperlipidemia, COPD/former smoker, obesity,
ETOH abuse, and kidney cancer status-post left nephrectomy who is s/p AVR/CAB/Ao Wrap 11/26/[address] Hill. Post op, he underwent PPM due to tachy/benito. He was discharged and returned to ED with SOB. Exam with irregular rhythm, no murmurs, no
edema. Cr 1.8.
Echo shows LVEF 55-60%, well seated bio-AVR, normal function, small focal pericardial effusion adjacent to RV.
SOB. Acute on chronic HFPEF. IV lasix.
Small focal pericardial effusion. Discussed with CT surgery. Will hold eliquis, and continue ASA 81mg daily.
Original Note:
Today's Communication / Plan
-
Echo today to r/o pericardial effusion (with recent procedures and on Eliquis)
Depending on echo results, plan for IV diuresis, which requires intensive monitoring
Impression / Plan
-
79 y/o male (patient of Dr. العراقي) with CAD with hx of PCI (2004, 2017), chronic RCA occlusion, bicuspid aortic valve with aortic stenosis, ascending aorta dilatation, mild to moderate aortic regurgitation, PVCs, hypertension, hyperlipidemia,
COPD/former smoker, obesity, ETOH abuse, and kidney cancer status-post left nephrectomy who is s/p AVR/CAB/Ao Wrap 11/26/[address] Hill. 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
consult). He was sent home 12/04/23. Rehab was advised, but he declined. Since d/c, he felt good for a few hours, but then developed BREWER. He was advised by surgery staff to be evaluated. He thinks he has been taking his meds as instructed, but it is
not clear to me, and per CT surgery he was taking daily lasix, rather than BID lasix. He is on O2 by MN, but is in no acute distress at the time of my assessment. He will be admitted for further evaluation and management.
BREWER:
-checking echo today to r/o effusion
-also given IV lasix in ER for bkbip-ic-ifpogvm HFpEF- if no effusion, agree with IV lasix, which requires intensive monitoring
-CXR suggestive COPD
CAD S/P CABG x 1 (PERLITA to LAD)
Severe with bicuspid
-PERLITA-LAD
-S/P Hemashield graft & bioprosthetic SAVR (#29 Medtronic Avalus Ultra, SN [id number]) with Dr. Hill, 11/26/2024.
-Post-KELBY: Normal biventricular function. Well-seated AVR w/o AI/PVL, mean gradient 5mmHg.
-CT surgery is on consult
-ASA, statin, BB
Tachy-Benito Syndrome:
-S/Post PPM (Medtronic, 11/29/2024)
-site appears well healing without hematoma, redness, drainage, or swelling
AFIB: persistent
-on amiodarone and Eliquis. Rate -ontrolled.
-follow telemetry
Post-op VITOR:
-has solitary kidney
-Creatinine peaked at 2.6 (preop 1.3). 1.8 today, which is up from 1.6 at recent d/c. Nephrology was involved on recent admission.
HTN:
-stable, monitor
Physical Exam
Vital Signs/Labs
Vital Signs
Temp Pulse Resp BP Pulse Ox
98.4 F 63 22 132/77 95
12/06/24 08:38 12/06/24 12:00 12/06/24 12:00 12/06/24 12:00 12/06/24 12:00
12/05/24 12/06/24 12/07/24
06:59 06:59 06:59
Actual Weight 110 kg
12/06/24 09:11
12/06/24 09:11
PT 19.1 Sec (11.4-14.6) H 12/06/24 09:11
INR 1.58 12/06/24 09:11
APTT 51.8 Sec (23.4-35.0) H 12/06/24 09:11
12/06/24
09:11
Pvy-C-Szpttkprcwk Pept 4270
LAB Results
12/06/24 12/06/24
09:11 11:15
Troponin I 0.729 H* 0.678 H*
Physical Exam
Constitutional: No acute distress
EENT: Anicteric
Cardiovascular: Rhythm & rate is regular (paced)
Respiratory: Other (on O2 by NC, lungs diminished to bases)
Neuro/Psych: AO x 3
Other: Skin (mid-sternal incision well-approximated, left pectoral site no hematoma, redness, drainage, or swelling)
Data Reviewed
-
Date of Service: December 06, 2024
EKG: Tracing Personally Visualized and interpreted (Paced, underlying AFIB)
Echo: Other (pending)
X-Ray/CT/US/MRI/NUC/PET: Report Reviewed by me (CXR: COPD with no superimposed acute abnormalities. Cardiomegaly without associated pulmonary edema Stable postoperative changes)
Labs: Labs Reviewed by me
--- NOTE | 2024-12-06 13:05 | HPS.HSE ---
Family Physician
-
Family Physician: Nazario Lacey
Chief Complaint
-
Dyspnea on exertion
History of Present Illness
79-year-old male just discharged from the hospital December 04 after CABG and aortic valve replacement, pacemaker, returns with complaints of dyspnea on exertion. Had chills last night but denies any fevers. Denies significant cough. Denies sore
throat or body aches.
Unclear if his body weight has changed. Complaining of bilateral lower extremity edema.
Medical History
Past Medical History
Past Medical History: Reports Other
Additional Past Medical History:
CAD
Left renal cell carcinoma
Ascending aortic aneurysm
Essential hypertension
Gout
Depression
Obesity
Hyperlipidemia
Alcohol use disorder
Aortic stenosis
Postoperative atrial fibrillation
COPD
Past Surgical History: Reports Appendectomy, Orthopedic and Other
Additional Past Surgical History:
CABG x 1 vessel -11/26/2024
Bioprosthetic AVR
Permanent pacemaker
Social History
Tobacco: Former Smoker
Alcohol: Daily
Drug: None
Personal:
Living: With Family
Family History
Family History: Not pertinent
Allergies / Home Medications
Allergies reflects when Allergies were last updated in [facility].
Home Medications with original date entered in [facility]
Allergy/Medication List:
Allergies
Allergy/AdvReac Type Severity Reaction Status Date / Time
No Known Allergies Allergy Verified 12/06/24 08:38
Home Medications
allopurinol 300 mg tablet 300 mg PO DAILY Gout 06/27/18
amlodipine 10 mg tablet 10 mg PO HS Heart disease/condition 06/27/18
fluoxetine 20 mg capsule 20 mg PO HS Mental Health/Anxiety 06/27/18
aspirin 81 mg tablet,delayed release 81 mg PO DAILY 11/19/24
amiodarone 200 mg tablet 200 mg PO BID Arrhythmia #60 tabs 12/03/24
apixaban 5 mg tablet (Eliquis) 5 mg PO BID Blood clot prevention/tx #60 tabs 12/03/24
atorvastatin 40 mg tablet 40 mg PO HS High cholesterol #30 tabs 12/03/24
gabapentin 100 mg capsule 100 mg PO TID nerve pain #30 caps 12/03/24
metoprolol succinate 25 mg tablet,extended release 24 hr 25 mg PO DAILY Blood pressure #30 tabs 12/03/24
pantoprazole 40 mg tablet,delayed release 40 mg PO DAILY Gi prophylaxis while on plavix #30 tabs 12/03/24
furosemide 40 mg tablet (Lasix) 40 mg PO BID Fluid retention/Swelling #60 tabs 12/04/24
Review of Systems
-
History Source: Patient
A 12 point ROS was completed and negative except as noted: Yes
Physical Exam
Vital Signs
Vital Signs
Temp Pulse Resp BP Pulse Ox
98.4 F 71 22 132/77 93
12/06/24 08:38 12/06/24 12:30 12/06/24 12:30 12/06/24 12:00 12/06/24 12:30
Physical Exam
General: Well Developed, Well Nourished, No Apparent Distress and Comfortable
HEENT: NormoCephalic, Anicteric and Moist mucous membranes
Respiratory: Clear
Cardiac: S1/S2 and Regular Rhythm
GI: Soft, Non Tender and Non Distended
Genito-urinary: Deferred by me
Musculoskeletal: No Clubbing, No Cyanosis, Edema, Left Lower Extremity and Edema, Right Lower Extremity
Skin: Warm and Dry
Neuro: AO x 3
Hematologic/Lymphatic: No Lymphadenopathy
Psych: Calm
Laboratory Results
-
12/06/24 09:11
12/06/24 09:11
Laboratory Results
PT 19.1 Sec (11.4-14.6) H 12/06/24 09:11
INR 1.58 12/06/24 09:11
APTT 51.8 Sec (23.4-35.0) H 12/06/24 09:11
Total Bilirubin 1.0 mg/dl (0.2-1.3) 12/06/24 09:11
AST 28 U/L (17-59) 12/06/24 09:11
ALT 25 U/L (0-50) 12/06/24 09:11
Alkaline Phosphatase 77 U/L (38-126) 12/06/24 09:11
Troponin I 0.678 ng/ml H* 12/06/24 11:15
Impression/Plan
-
Acute hypoxic respiratory insufficiency -differential diagnosis includes acute heart failure exacerbation versus symptomatic pericardial effusion versus other. Doubt COPD exacerbation. No wheezing on exam. Looks volume overloaded on exam. Chest
x-ray shows COPD without acute abnormalities. Cardiomegaly without pulmonary edema.
Admit to IVU. Check echocardiogram today, rule out postoperative pericardial effusion. He had a KELBY on 11/26/2024 which showed normal LV size and function, mild LVH, stage I diastolic dysfunction.
Empiric IV Lasix. BNP noted to be 4270. Weight appears to be unchanged.
Discussed with cardiology, Dr. Howell.
Troponin elevation -suspect acute nonischemic myocardial injury, etiology unclear.
CAD/CABG -one-vessel bypass, 11/26/2024.
Aortic stenosis -with recent bioprosthetic AVR.
Ascending aortic aneurysm -underwent recent ascending aortic graft with Hemashield.
Postoperative anemia, acute -hemoglobin stable, 9.5. Discharge hemoglobin was 8.8. He was transfused 3 units of blood during recent hospitalization.
CKD 3B -baseline creatinine appears to be 1.2-1.3 as noted in early November. Discharge creatinine 1.6, 1.8 today. Monitor closely on diuresis.
COPD without exacerbation
Postoperative atrial fibrillation -resume Eliquis if no effusion on echocardiogram. Continue amiodarone.
Essential hypertension -stable.
Hyperlipidemia -atorvastatin.
Alcohol use disorder -watch for any withdrawal symptoms.
Depression -fluoxetine.
Gout -resume allopurinol at renal dose of 50 mg once daily.
History of renal cell carcinoma -s/p left nephrectomy 2020.
Obesity due to excess calories
Full code
--- NOTE | 2024-12-06 14:11 | CARDSERVDEF ---
Echocardiogram with Def[facility] completed after protocol screening completed. Allergies verified.
Patent IV site: LAC (existing)
IV site flushed with 0.9% NaCl pre and post administration.
Diluted bolus method utilized to enhance visualization of ventricular timmons.
Total volume given: 2.5 mL. IV flushed after use; good blood return noted.
Patient tolerated all procedures well without complications.
--- NOTE | 2024-12-06 14:43 | W.PN.UPDATE ---
Update Note
Progress Note Update
patient's images were reviewed with Dr. Hill and cardiology. After discussion, his eliquis will be held and then eventually decreased to 2.5mg BID per Dr. Hill.
[2024-12-06] MEDS: LASIX 40 MG IV (16:45)
[2024-12-06] MEDS: NEURONTIN 100 MG PO ×2 (16:45→22:56)
[2024-12-06] MEDS: PACERONE 200 MG PO (19:41)
--- NOTE | 2024-12-06 19:44 | PTCARENOTE ---
Pt admitted from ED, c/o visible BREWER and at rest. Resp rate 24, O2 sat. 98% on 2L. Pt diuresing after 2 doses of lasix. Telemetry shows V paced rhythm. Pt identified as at risk to fall, he is oriented and calls for assistance.
--- NOTE | 2024-12-06 21:58 | PTCARENOTE ---
Patient received at change of shift resting in the bed. Patient reported generalized discomfort, repositioned in the bed. Denies chest pain. Patient reports dyspnea on exertion. Appears tachypneic at times and dyspneic at rest. Patient provided with
incentive spirometer, use encouraged. Oxygen saturation 95-96% on 2L NC. Patient brought thirteen home medications with him in addition to two pill boxes, all of this was sent down to pharmacy to be kept while the patient is admitted to the
hospital. Patient informed that these medications will be returned to him upon discharge. Plan of care discussed with patient. Call avery within reach. Bed in lowest position, wheels locked. Care ongoing.
[2024-12-06] MEDS: LIPITOR 40 MG PO (22:56)
[2024-12-06] MEDS: NORVASC 10 MG PO (22:56)
[2024-12-06] MEDS: PROZAC 20 MG PO (22:56)
[2024-12-06] MEDS: TYLENOL 650 MG PO (23:53)
[2024-12-07] VITALS (10 sets, daily range): BP systolic 95–136; BP diastolic 48–85; PULSE 69–74; O2SAT 98–99; BMI 32.9
[2024-12-07 02:52] LABS: Hematocrit 26.4 % (39.0-52.0); Hemoglobin 8.5 g/dL (13.0-18.0); Mean Corp Hgb Conc. 32.2 g/dL (33.0-37.0); Mean Corpuscular Hgb 30.4 pg (27.0-31.0); Mean Corpuscular Volume 94.3 fL (80.0-94.0); Mean Platelet Volume 8.8 fL (7.4-10.4); Platelet Count 227 10^3/uL (130-400); Red Cell Dist. Width 15.7 % (11.5-14.5); White Blood Cell Count 7.5 10^3/uL (4.8-10.8)
[2024-12-07 03:02] LABS: Blood Urea Nitrogen 29 mg/dl (9-20); Calcium 8.1 mg/dl (8.4-10.2); Carbon Dioxide 27 mmol/L (22-30); Chloride 102 mmol/L (98-107); Estimated Creatinine Clearance 45 ml/min; Glucose 93 mg/dl (70-99); Potassium 3.7 mmol/L (3.5-5.1); Sodium 137 mmol/L (135-145); eGFR 41.01
--- NOTE | 2024-12-07 06:08 | W.PN.CT ---
Today's Communication / Plan
-
-pod #11 after CABG x 1 (PERLITA to LAD)/ AVR (#29 Avalus)/Ascending aortic wrap w/ hemashield graft
-Echo 12/06 with nl EF, nl functioning #29 mm bioprosthetic aortic valve replacement with peak and mean and gradients of 12 and 6 mmHg, respectively. No significant pericardial effusion. PASP 57 mmHg
-diuresing well with 40 iv bid Lasix (UO 400/1215)
-follow Cr 1.7 today from 1.8, K is 3.7 - gave 40 po KCL this am (has solitary kidney, Cr preop was 1.3)
-some of SOB is likely also contributed by COPD with long-standing smoking hx and pulmonary hypertension. Pt states that he has never been evaluated by Pulmonary.
-consider re-starting Eliquis 2.5 bid for a-fib
Assessment / Plan
-
-S/P Median sternotomy/ CABG x 1 (PERLITA to LAD)/ AVR (#29 Avalus)/Ascending aortic wrap w/ hemashield graft/ Evaluation of RPDA/PRLB/distal RCA (not amenable to bypass)/Endoscopic harvest/prep of RLE GSV, by Dr. Hill on 11/26/24, POD#11
-S/P Successful implantation of MRI compatible dual chamber conduction system pacing permanent pacemaker (Medtronic) on 11/29/[address] Castro
-CKD with VITOR post CABG (peak Cr 2.6)
-R solitary kidney
-Persistent atrial fibrillation post CABG - started on Eliquis
-Multivessel CAD S/P PCI with MARYLOU to 2017
-Severe /bicuspid
-Imap-ok-sngyrtjg aortic insufficiency
-Ascending aortic enlargement (4.5 cm)
-LVEF 60-65%
-HTN
-HLD
-Class 1 obesity (BMI 33.4)
-COPD (smoked since 11 yo, quit 6 yrs ago)
-Former tobacco abuse
-ETOH abuse
-Gout
-Depression
-Right renal mass-suspected cyst-follows urology
-Left renal mass-renal cell carcinoma stage IIa, grade 3, 7.6 cm-incidentally noted on screening CT chest -S/P Left nephrectomy
-S/P Umbilical hernia repair
-S/P LTKR, 2020
-S/P S/P vein stripping
-S/P Appendectomy
-Pt was discharged on 12/04/24. On 12/06/2024 he arrived to [facility] emergency department with difficulty breathing, SOB, and RBEWER. Patient states that symptoms started around Monday 12/04 and progressively have gotten worse. He denies
any other symptoms including chest pain, and diaphoresis. Patient states that his last dose of Eliquis was on the evening of 12/05/24. Of note, the patient was discharged with Lasix 40 mg twice daily, however, after talking with the patient he
states he was only taking it once daily. His chest x-ray which was performed on admission to the emergency department reveals no surgical concerns and no obvious pneumothorax or pleural effusions. Patient's blood work is stable with a hemoglobin
of 9.5, WBC of 9.8, platelets of 247, and a creatinine of 1.8 which appears to be around his baseline of 1.3.
-Echo 12/06/24:
Normal biventricular size and systolic function without regional wall motion abnormality. Estimated LVEF 55-60%.
Abnormal (paradoxical) septal motion consistent with RV pacemaker and post-operative state.
Well-seated #29 mm bioprosthetic aortic valve replacement with peak and mean and gradients of 12 and 6 mmHg, respectively.
No aortic regurgitation is seen.
Mild MR
Mild tricuspid regurgitation. Estimated pulmonary artery pressure of 57 mmHg., assuming a right atrial pressure of 15 mmHg. Severely elevated PASP.
Small focal pericardial effusion adjacent to RV apex.
Compared to intra-op KELBY 11/26/24: LVEF remains normal. A small focal pericardial effusion adjacent to RV apex is visualized.
Discussed patient care with: Nursing and Care Team
Subjective
-
Date of Service: December 06, 2024
Objective Data
-
Lab Results
12/06/24 09:11
12/06/24 09:11
PT 19.1 Sec (11.4-14.6) H 12/06/24 09:11
INR 1.58 12/06/24 09:11
APTT 51.8 Sec (23.4-35.0) H 12/06/24 09:11
Vital Signs
Vital Signs
Temp Pulse Resp BP Pulse Ox
99.4 F 67 20 125/74 95
12/06/24 22:23 12/06/24 23:00 12/06/24 22:23 12/06/24 22:57 12/06/24 22:23
CT Intake/Output/Weight
12/06/24 12/06/24 12/07/24
06:59 18:59 06:59
Output Total 815 / 1065 250 / 1065
Balance -815 / -1065 -250 / -1065
SaO2: 95
Physical Exam
-
General: Awake (pleasant) and AOx3
Cardiovascular: Irregular rate & rhythm, No Murmurs and No Rub
Respiratory: Decreased Breath Sounds
Sternum: Stable
Incision: Clean, Dry, Intact and Other (L chest pacer incision is cdi)
Extremities: Edema +1
Data Reviewed
-
Lab Results: Results Reviewed
Medications: Active Meds Reviewed
Chest X-Ray: Report Reviewed and Image Reviewed
ECG: Report Reviewed and Image Reviewed
[2024-12-07] MEDS: KCL 40 MEQ PO (06:36)
[2024-12-07 08:01] LABS: Absolute Neutrophils -Man Diff 4.7 10^3/uL (1.4-6.5); Anisocytosis 1+; Band Neutrophils 0 % (0-3); Hypochromasia 1+; Lymphocytes 18 % (20-51); Metamyelocytes 4 % (-); Monocytes 15 % (2-9); Normal RBC Morphology No; Platelets Checked Yes; Polychromasia 1+; Segmented Neutrophils 63 % (42-75)
[2024-12-07 08:02] LABS: Total Cells Counted 100
--- NOTE | 2024-12-07 08:31 | W.PN.CD ---
Today's Communication / Plan
-
-Echocardiogram yesterday with LVEF of 55-60%; and stable cardiac/valvular function and a small focal pericardial effusion adjacent to the RV apex.
-Continue Lasix 40 mg IV BID.
-Eliquis being held as per CT Surgery recommendations due to small pericardial effusion.
-Resume Eliquis when deemed safe as per CT Surgery; consider repeat echocardiogram short-term prior to reinitiation of Eliquis.
Impression / Plan
-
79 y/o male (patient of Dr. العراقي) with CAD with hx of PCI (2004, 2017), chronic RCA occlusion, bicuspid aortic valve with aortic stenosis, ascending aorta dilatation, mild to moderate aortic regurgitation, PVCs, hypertension, hyperlipidemia,
COPD/former smoker, obesity, ETOH abuse, and kidney cancer status-post left nephrectomy who is s/p AVR/CAB/Ao Wrap 11/26/[address] Hill. 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
consult). He was sent home 12/04/23. Rehab was advised, but he declined. Since d/c, he felt good for a few hours, but then developed BREWER. He was advised by surgery staff to be evaluated. He thinks he has been taking his meds as instructed, but it is
not clear to me, and per CT surgery he was taking daily lasix, rather than BID lasix. He is on O2 by FL, but is in no acute distress at the time of my assessment. He will be admitted for further evaluation and management.
SOB/Acute HFpEF:
-Echocardiogram yesterday with LVEF of 55-60%; and stable cardiac/valvular function and a small focal pericardial effusion adjacent to the RV apex.
-CXR suggestive COPD
-Continue Lasix 40 mg IV BID.
CAD S/P CABG x 1 (PERLITA to LAD)
Severe with bicuspid
-PERLITA-LAD
-S/P Hemashield graft & bioprosthetic SAVR (#29 Medtronic Avalus Ultra, SN [id number]) with Dr. Hill, 11/26/2024.
-Post-KELBY: Normal biventricular function. Well-seated AVR w/o AI/PVL, mean gradient 5mmHg.
-CT surgery is on consult
-ASA, statin, BB
-Appears to be stable in this regard.
Tachy-Benito Syndrome:
-S/Post PPM (Medtronic, 11/29/2024)
-site appears well healing without hematoma, redness, drainage, or swelling
-Appears to be stable in this regard.
AFIB:
-Eliquis being held as per CT Surgery recommendations due to small pericardial effusion.
-Resume Eliquis when deemed safe as per CT Surgery; consider repeat echocardiogram short-term prior to reinitiation of Eliquis.
Post-op VITOR:
-has solitary kidney
-Creatinine peaked at 2.6 (preop 1.3). 1.8 today, which is up from 1.6 at recent d/c. Nephrology was involved on recent admission.
-Creatinine currently appears to be relatively stable at baseline; continue to monitor.
HTN:
-stable, monitor
Transthoracic Echocardiogram (12/06/2024):
Normal biventricular size and systolic function without regional wall motion
abnormality. Estimated LVEF 55-60%.
Abnormal (paradoxical) septal motion consistent with RV pacemaker and post-
operative state.
Well-seated #29 mm bioprosthetic aortic valve replacement with peak and mean
and gradients of 12 and 6 mmHg, respectively.
No aortic regurgitation is seen.
Small focal pericardial effusion adjacent to RV apex.
Compared to intra-op KELBY 11/26/24: LVEF remains normal. A small focal
pericardial effusion adjacent to RV apex is visualized.
Physical Exam
Vital Signs/Labs
Vital Signs
Temp Pulse Resp BP Pulse Ox
97.5 F 64 20 136/69 97
12/07/24 06:42 12/07/24 07:00 12/07/24 06:42 12/07/24 06:39 12/07/24 07:57
12/06/24 12/07/24 12/08/24
06:59 06:59 06:59
Actual Weight 106.8 kg
12/07/24 02:28
12/07/24 02:28
PT 19.1 Sec (11.4-14.6) H 12/06/24 09:11
INR 1.58 12/06/24 09:11
APTT 51.8 Sec (23.4-35.0) H 12/06/24 09:11
12/06/24
09:11
Eiu-W-Hoctjwnqrjr Pept 4270
LAB Results
12/06/24 12/06/24
09:11 11:15
Troponin I 0.729 H* 0.678 H*
Physical Exam
Constitutional: No acute distress and Comfortable
EENT: Anicteric
Cardiovascular: Rhythm & rate is regular, Systolic murmur absent, Pedal edema present (Trace) and S1S2 is normal
Respiratory: Respiratory effort normal and Rhonchi Present (Mild bibasilar)
GI: Soft
Neuro/Psych: AO x 3
Other: Skin (Warm, dry)
Data Reviewed
-
Date of Service: December 07, 2024
EKG: Report Reviewed by me (Telemetry: V-paced)
Echo: Report Reviewed by me (LVEF 55-60%, small focal pericardial effusion)
Labs: Labs Reviewed by me
[2024-12-07] MEDS: LASIX 40 MG IV ×2 (09:08→16:51)
[2024-12-07] MEDS: ASPIR LOW (ENTERIC COATED) 81 MG PO (09:08)
[2024-12-07] MEDS: PROTONIX 40 MG PO (09:08)
[2024-12-07] MEDS: TYLENOL 650 MG PO (09:08)
[2024-12-07] MEDS: PACERONE 200 MG PO ×2 (09:09→19:54)
[2024-12-07] MEDS: NEURONTIN 100 MG PO ×3 (09:09→22:11)
[2024-12-07] MEDS: ZYLOPRIM 50 MG PO (09:10)
[2024-12-07] MEDS: TOPROL XL 25 MG PO (09:11)
--- NOTE | 2024-12-07 11:12 | W.PN.HOSP.TC ---
Today's Communication/Plan
-
Continue current care
Assessment / Plan
Assessment / Plan
Gen-AAOx3, NAD
HEENT-NC, AT, anicteric, clear oral mm
Neck-supple
CV-reg, no M, +S1/S2
Lungs-clear B/L
Abd-soft, NT, ND
Ext-improving bilateral lower extremity edema
Musculoskeletal-no cyanosis, clubbing
Skin-warm and dry
Neuro-grossly non-focal
Psych-calm, cooperative
Acute hypoxic respiratory insufficiency -suspect due to acute heart failure exacerbation. Doubt COPD exacerbation. No wheezing on exam. Looks volume overloaded on exam. Chest x-ray shows COPD without acute abnormalities. Cardiomegaly without
pulmonary edema.
Currently on 2 L nasal cannula, wean down as able.
Acute heart failure with preserved EF -continue IV Lasix. Weight coming down. Feeling better. Echocardiogram shows LVEF 55 to 60% with abnormal paradoxical septal motion, small focal pericardial effusion adjacent to RV apex. No regional wall
motion abnormality.
Troponin elevation -suspect acute nonischemic myocardial injury, due to CHF. Troponin trending down.
CAD/CABG -one-vessel bypass, 11/26/2024.
Aortic stenosis -with recent bioprosthetic AVR.
Ascending aortic aneurysm -underwent recent ascending aortic graft with Hemashield.
Postoperative anemia, acute -hemoglobin stable, 8.5. Discharge hemoglobin was 8.8. He was transfused 3 units of blood during recent hospitalization.
CKD 3B -baseline creatinine appears to be 1.2-1.3 as noted in early November. Creatinine stable at 1.7, monitor on diuretics.
COPD without exacerbation
Postoperative atrial fibrillation -Eliquis on hold due to small pericardial effusion. Resume when okay with CT surgery, cardiology.
Essential hypertension -stable.
Hyperlipidemia -atorvastatin.
Alcohol use disorder -watch for any withdrawal symptoms.
Depression -fluoxetine.
Gout -resume allopurinol at renal dose of 50 mg once daily.
History of renal cell carcinoma -s/p left nephrectomy 2020.
Obesity due to excess calories
Full code
Anticipated Discharge: > 48 hours
Subjective/Interval History
-
Date of Service: December 07, 2024
Patient seen and examined. No complaints.
Objective Data
-
Labs:
Laboratory Results
12/07/24
02:28
WBC 7.5
Hgb 8.5 L
Hct 26.4 L
Plt Count 227
Sodium 137
Potassium 3.7
Chloride 102
Carbon Dioxide 27
BUN 29 H
Creatinine 1.7 H
Glucose 93
Calcium 8.1 L
Vital Signs:
Vital Signs
Temp Pulse Resp BP Pulse Ox
97.5 F 64 20 136/69 97
12/07/24 06:42 12/07/24 07:00 12/07/24 06:42 12/07/24 06:39 12/07/24 07:57
I&O
12/06/24 12/07/24 12/08/24
06:59 06:59 06:59
Output Total 1215 / 1215
Balance -1215 / -1215
Review of Systems
-
History Source: Patient
All other systems: Reviewed and negative
--- NOTE | 2024-12-07 13:22 | CM ---
Addendum entered by OLGA Duran 12/07/24 13:39:
Reviewed OT, PT notes.
OT without inpatient needs.
PT recommending SNF.
SNF appears more appropriate.
Referral sent to [facility].
Original Note:
CM following for DC planning needs.
Met w/ patient at bedside to complete initial assessment.
Pt. was recently at for CT Surg and DCed to home, 12/04 [address]/ [address] Transitional Care RN.
Pt. was recommended for rehab at this time and he declined.
Pt. is new to a RW at home, delivered by [employer].
At baseline, patient resides in a private, 2 story home w/ 3 ANA. At baseline, patient is indep. w/ ADLs, mobility (but new to a RW post CT Surg).
Pt. has RX plan and uses [facility] for prescription needs.
Pt. was working with PT during my visit. We all discussed the need for rehabilitation at time of rehab. We discussed acute rehab v SNF. Pt. open to any.
Will initiate referrals in anticipation of transfer to rehab on Tuesday, pending insurance authorization.
Will follow.
--- NOTE | 2024-12-07 19:17 | PTCARENOTE ---
Pt OOB to the chair with encouragement, using IS every 2 hours. Some diuresis after lasix, weight down 4lbs but he still is BREWER and needs 2L oxygen.
Pt states he is 'hoping to improve enough over the weekend that he will not need rehab'. Telemetry shows V paced rhythm with occasional PVC's.
--- NOTE | 2024-12-07 21:40 | PTCARENOTE ---
Rec'd pt at change of shift. Pt AAO*3, in v-paced rhythm on TELE monitor, and VSS. Pt denies any active pain or discomfort. Pt ambulating with staff assistance and rolling walker. Pt given extensive heart failure education and booklet. Pt
verbalizes understanding and agreed to read booklet before discharge. Pt resting with call avery in reach. Plan of care ongoing.
[2024-12-07] MEDS: LIPITOR 40 MG PO (22:11)
[2024-12-07] MEDS: NORVASC 10 MG PO (22:11)
[2024-12-07] MEDS: PROZAC 20 MG PO (22:12)
[2024-12-08] MEDS: TYLENOL 650 MG PO (00:16)
[2024-12-08 04:47] VITALS: BP 112/66
[2024-12-08 04:57] VITALS: BMI 32.9
[2024-12-08 06:00] VITALS: BMI 32.9
[2024-12-08 06:05] LABS: Blood Urea Nitrogen 28 mg/dl (9-20); Calcium 8.2 mg/dl (8.4-10.2); Carbon Dioxide 28 mmol/L (22-30); Chloride 100 mmol/L (98-107); Estimated Creatinine Clearance 48 ml/min; Glucose 88 mg/dl (70-99); Potassium 4.1 mmol/L (3.5-5.1); Sodium 137 mmol/L (135-145)
[2024-12-08 07:57] VITALS: BP 107/68
[2024-12-08] MEDS: PROTONIX 40 MG PO (07:59)
[2024-12-08] MEDS: ASPIR LOW (ENTERIC COATED) 81 MG PO (07:59)
[2024-12-08] MEDS: TOPROL XL 25 MG PO (07:59)
[2024-12-08] MEDS: NEURONTIN 100 MG PO ×3 (08:00→22:38)
[2024-12-08] MEDS: ZYLOPRIM 50 MG PO (08:00)
[2024-12-08] MEDS: LASIX 40 MG IV ×2 (08:01→08:42)
[2024-12-08] MEDS: PACERONE 200 MG PO ×2 (08:03→20:18)
--- NOTE | 2024-12-08 08:12 | W.PN.CD ---
Today's Communication / Plan
-
increase lasix to 80mg IV bid
Impression / Plan
-
79 y/o male (patient of Dr. العراقي) with CAD with hx of PCI (2004, 2017), chronic RCA occlusion, bicuspid aortic valve with aortic stenosis, ascending aorta dilatation, mild to moderate aortic regurgitation, PVCs, hypertension, hyperlipidemia,
COPD/former smoker, obesity, ETOH abuse, and kidney cancer status-post left nephrectomy who is s/p AVR/CAB/Ao Wrap 11/26/[address] Hill. 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
consult). He was sent home 12/04/23. Rehab was advised, but he declined. Since d/c, he felt good for a few hours, but then developed BREWER. He was advised by surgery staff to be evaluated. He thinks he has been taking his meds as instructed, but it is
not clear to me, and per CT surgery he was taking daily lasix, rather than BID lasix.
SOB/Acute HFpEF:
-Echocardiogram 12/06/24 with LVEF of 55-60%; and stable cardiac/valvular function and a small focal pericardial effusion adjacent to the RV apex.
-CXR suggestive COPD
-increase lasix to 80mg IV bid with close monitoring of labs, tele, weight
CAD S/P CABG x 1 (PERLITA to LAD)
Severe with bicuspid
-PERLITA-LAD
-S/P Hemashield graft & bioprosthetic SAVR (#29 Medtronic Avalus Ultra, SN [id number]) with Dr. Hill, 11/26/2024.
-Post-KELBY: Normal biventricular function. Well-seated AVR w/o AI/PVL, mean gradient 5mmHg.
-CT surgery is on consult
-ASA, statin, BB
-stable
CKD3b
-monitor with diuresis
Tachy-Benito Syndrome:
-s/p PPM (Medtronic, 11/29/2024)
-stable
persistent AFIB: post op
-Eliquis being held as per CT Surgery recommendations due to small pericardial effusion.
-likely repeat echo Tuesday, and decide on when to resume
-to discuss rhythm control in future once back on eliquis and stable, perhaps as outpatient
Post-op VITOR:
-has solitary kidney
-Creatinine peaked at 2.6 (preop 1.3). 1.8 today, which is up from 1.6 at recent d/c. Nephrology was involved on recent admission.
-Creatinine currently appears to be relatively stable at baseline; continue to monitor.
HTN:
-stable, monitor
Transthoracic Echocardiogram (12/06/2024):
Normal biventricular size and systolic function without regional wall motion
abnormality. Estimated LVEF 55-60%.
Abnormal (paradoxical) septal motion consistent with RV pacemaker and post-
operative state.
Well-seated #29 mm bioprosthetic aortic valve replacement with peak and mean
and gradients of 12 and 6 mmHg, respectively.
No aortic regurgitation is seen.
Small focal pericardial effusion adjacent to RV apex.
Compared to intra-op KELBY 11/26/24: LVEF remains normal. A small focal
pericardial effusion adjacent to RV apex is visualized.
Physical Exam
Vital Signs/Labs
Vital Signs
Temp Pulse Resp BP Pulse Ox
98.9 F 76 20 112/66 94
12/08/24 04:46 12/08/24 05:00 12/08/24 04:46 12/08/24 04:47 12/08/24 04:46
12/07/24 12/08/24 12/09/24
06:59 06:59 06:59
Actual Weight 106.8 kg 107 kg
12/07/24 02:28
12/08/24 04:54
PT 19.1 Sec (11.4-14.6) H 12/06/24 09:11
INR 1.58 12/06/24 09:11
APTT 51.8 Sec (23.4-35.0) H 12/06/24 09:11
12/06/24
09:11
Pve-S-Fffuzfbfuwc Pept 4270
LAB Results
12/06/24 12/06/24
09:11 11:15
Troponin I 0.729 H* 0.678 H*
Physical Exam
Constitutional: No acute distress
EENT: Moist mucous membranes
Cardiovascular: Rhythm & rate is regular, Systolic murmur absent, Pedal edema present and JVD present
Respiratory: Respiratory effort normal and Lungs clear to auscul.
Neuro/Psych: AO x 3
Data Reviewed
-
Date of Service: December 08, 2024
EKG: Other (Afib, Vpaced)
Labs: Labs Reviewed by me
--- NOTE | 2024-12-08 08:43 | W.PN.HOSP.TC ---
Today's Communication/Plan
-
Continue current care
Assessment / Plan
Assessment / Plan
Gen-AAOx3, NAD
HEENT-NC, AT, anicteric, clear oral mm
Neck-supple
CV-reg, no M, +S1/S2
Lungs-clear B/L
Abd-soft, NT, ND
Ext-improving bilateral lower extremity edema
Musculoskeletal-no cyanosis, clubbing
Skin-warm and dry
Neuro-grossly non-focal
Psych-calm, cooperative
Acute hypoxic respiratory insufficiency -suspect due to acute heart failure exacerbation. Doubt COPD exacerbation. No wheezing on exam. Looks volume overloaded on exam. Chest x-ray shows COPD without acute abnormalities. Cardiomegaly without
pulmonary edema.
Currently on 2 L nasal cannula, wean down as able.
Acute heart failure with preserved EF -continue IV Lasix, dose increased to 80 mg twice daily. Weight increased 1 kg overnight. Feeling better overall. Echocardiogram shows LVEF 55 to 60% with abnormal paradoxical septal motion, small focal
pericardial effusion adjacent to RV apex. No regional wall motion abnormality.
For repeat echo on Tuesday.
Troponin elevation -suspect acute nonischemic myocardial injury, due to CHF. Troponin trending down.
CAD/CABG -one-vessel bypass, 11/26/2024.
Aortic stenosis -with recent bioprosthetic AVR.
Ascending aortic aneurysm -underwent recent ascending aortic graft with Hemashield.
Postoperative anemia, acute -hemoglobin stable, 8.5. Discharge hemoglobin was 8.8. He was transfused 3 units of blood during recent hospitalization. Check CBC in the morning.
CKD 3B -baseline creatinine appears to be 1.2-1.3 as noted in early November. Creatinine stable at 1.7, monitor on diuretics.
COPD without exacerbation
Postoperative atrial fibrillation -Eliquis on hold due to small pericardial effusion. Resume when okay with CT surgery, cardiology.
Essential hypertension -stable.
Hyperlipidemia -atorvastatin.
Alcohol use disorder -watch for any withdrawal symptoms.
Depression -fluoxetine.
Gout -resume allopurinol at renal dose of 50 mg once daily.
History of renal cell carcinoma -s/p left nephrectomy 2020.
Obesity due to excess calories
Full code
Anticipated Discharge: > 48 hours
Subjective/Interval History
-
Date of Service: December 08, 2024
Patient seen and examined. Denies shortness of breath. Did not sleep well.
Objective Data
-
Labs:
Laboratory Results
12/08/24
04:54
Sodium 137
Potassium 4.1
Chloride 100
Carbon Dioxide 28
BUN 28 H
Creatinine 1.6 H
Glucose 88
Calcium 8.2 L
Vital Signs:
Vital Signs
Temp Pulse Resp BP Pulse Ox
98.9 F 76 20 112/66 94
12/08/24 04:46 12/08/24 05:00 12/08/24 04:46 12/08/24 04:47 12/08/24 04:46
I&O
12/07/24 12/08/24 12/09/24
06:59 06:59 06:59
Intake Total 960 / 960
Output Total 1215 / 1215 600 / 600
Balance -1215 / -1215 360 / 360
Review of Systems
-
History Source: Patient
All other systems: Reviewed and negative
--- NOTE | 2024-12-08 09:20 | PTCARENOTE ---
Assumed care of pt from night RN. Pt received awake and alert, Ox3. VSS, CM shows NSR with V/P, POX 96% on RA. An additional 40 mg Lasix given IV this am as ordered. Fluid restriction reviewed. Pt offers no C/o pain or discomfort at this time.
[2024-12-08 12:19] VITALS: BP 111/69
[2024-12-08 15:32] VITALS: BP 90/58
[2024-12-08] MEDS: LASIX 80 MG IV (16:29)
[2024-12-08 19:38] VITALS: BP 121/75
--- NOTE | 2024-12-08 22:20 | PTCARENOTE ---
Rec'd pt at change of shift. Pt AAO*3, VSS, and pt Vpaced on TELE monitor. Pt denies any pain or discomfort. Pt updated on plan of care and verbalizes understanding. Pt resting with call avery in reach. Plan of care ongoing.
[2024-12-08 22:35] VITALS: BP 117/76
[2024-12-08] MEDS: LIPITOR 40 MG PO (22:37)
[2024-12-08] MEDS: PROZAC 20 MG PO (22:38)
[2024-12-08] MEDS: NORVASC 10 MG PO (22:38)
[2024-12-09] MEDS: MELATONIN 5 MG PO ×2 (00:02→21:11)
[2024-12-09 04:33] VITALS: BP 112/85
[2024-12-09 04:55] VITALS: BMI 32.9
[2024-12-09 05:55] LABS: Hematocrit 28.4 % (39.0-52.0); Mean Corp Hgb Conc. 31.7 g/dL (33.0-37.0); Mean Corpuscular Hgb 30.4 pg (27.0-31.0); Mean Corpuscular Volume 95.9 fL (80.0-94.0); Mean Platelet Volume 8.7 fL (7.4-10.4); Platelet Count 267 10^3/uL (130-400); Red Blood Cell Count 2.96 10^6/uL (4.70-6.10); Red Cell Dist. Width 15.6 % (11.5-14.5); White Blood Cell Count 6.6 10^3/uL (4.8-10.8)
[2024-12-09 06:01] LABS: Blood Urea Nitrogen 26 mg/dl (9-20); Calcium 8.2 mg/dl (8.4-10.2); Carbon Dioxide 28 mmol/L (22-30); Chloride 101 mmol/L (98-107); Estimated Creatinine Clearance 48 ml/min; Glucose 99 mg/dl (70-99); Potassium 3.7 mmol/L (3.5-5.1); Sodium 138 mmol/L (135-145)
[2024-12-09 07:58] LABS: Absolute Neutrophils -Man Diff 4.3 10^3/uL (1.4-6.5); Band Neutrophils 2 % (0-3); Lymphocytes 19 % (20-51); Segmented Neutrophils 64 % (42-75)
[2024-12-09 07:59] LABS: Monocytes 15 % (2-9); Normal RBC Morphology Yes; Platelets Checked Yes; Total Cells Counted 100
[2024-12-09 08:17] VITALS: BP 125/68
--- NOTE | 2024-12-09 08:31 | W.PN.CD ---
Today's Communication / Plan
-
continue IV lasix
follow up echo Tuesday for small effusion; angel held
Impression / Plan
-
79 y/o male (patient of Dr. العراقي) with CAD with hx of PCI (2004, 2017), chronic RCA occlusion, bicuspid aortic valve with aortic stenosis, ascending aorta dilatation, mild to moderate aortic regurgitation, PVCs, hypertension, hyperlipidemia,
COPD/former smoker, obesity, ETOH abuse, and kidney cancer status-post left nephrectomy who is s/p AVR/CAB/Ao Wrap 11/26/[address] Hill. 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
consult). He was sent home 12/04/23. Rehab was advised, but he declined. Since d/c, he felt good for a few hours, but then developed BREWER. He was advised by surgery staff to be evaluated. He thinks he has been taking his meds as instructed, but it is
not clear to me, and per CT surgery he was taking daily lasix, rather than BID lasix.
SOB/Acute HFpEF:
-Echocardiogram 12/06/24 with LVEF of 55-60%; and stable cardiac/valvular function and a small focal pericardial effusion adjacent to the RV apex.
-CXR suggestive COPD
-continue lasix 80mg IV bid with close monitoring of labs, tele, weight
CAD S/P CABG x 1 (PERLITA to LAD)
Severe with bicuspid
-PERLITA-LAD
-S/P Hemashield graft & bioprosthetic SAVR (#29 Medtronic Avalus Ultra, SN [id number]) with Dr. Hill, 11/26/2024.
-Post-KELBY: Normal biventricular function. Well-seated AVR w/o AI/PVL, mean gradient 5mmHg.
-CT surgery is on consult
-ASA, statin, BB
-stable
CKD3b
-monitor with diuresis
Tachy-Benito Syndrome:
-s/p PPM (Medtronic, 11/29/2024)
-stable
persistent AFIB: post op
-Eliquis being held as per CT Surgery recommendations due to small pericardial effusion.
-repeat echo Tuesday, and decide on when to resume
-to discuss rhythm control in future once back on eliquis and stable, perhaps as outpatient
Post-op VITOR:
-has solitary kidney
-Creatinine peaked at 2.6 (preop 1.3). 1.8 today, which is up from 1.6 at recent d/c. Nephrology was involved on recent admission.
-Creatinine currently appears to be relatively stable at baseline; continue to monitor.
HTN:
-stable, monitor
Transthoracic Echocardiogram (12/06/2024):
Normal biventricular size and systolic function without regional wall motion
abnormality. Estimated LVEF 55-60%.
Abnormal (paradoxical) septal motion consistent with RV pacemaker and post-
operative state.
Well-seated #29 mm bioprosthetic aortic valve replacement with peak and mean
and gradients of 12 and 6 mmHg, respectively.
No aortic regurgitation is seen.
Small focal pericardial effusion adjacent to RV apex.
Compared to intra-op KELBY 11/26/24: LVEF remains normal. A small focal
pericardial effusion adjacent to RV apex is visualized.
Physical Exam
Vital Signs/Labs
Vital Signs
Temp Pulse Resp BP Pulse Ox
98.3 F 65 18 112/85 92
12/09/24 03:54 12/09/24 06:00 12/09/24 03:54 12/09/24 04:33 12/09/24 03:54
12/08/24 12/09/24 12/10/24
06:59 06:59 06:59
Actual Weight 107 kg 107 kg
12/09/24 05:23
12/09/24 05:23
PT 19.1 Sec (11.4-14.6) H 12/06/24 09:11
INR 1.58 12/06/24 09:11
APTT 51.8 Sec (23.4-35.0) H 12/06/24 09:11
12/06/24
09:11
Gmx-S-Xzorpxbhlvb Pept 4270
LAB Results
12/06/24 12/06/24
09:11 11:15
Troponin I 0.729 H* 0.678 H*
Physical Exam
Constitutional: No acute distress and Comfortable
EENT: Moist mucous membranes
Cardiovascular: Rhythm & rate is regular, Systolic murmur absent, Pedal edema present and JVD present
Respiratory: Respiratory effort normal and Lungs clear to auscul.
Neuro/Psych: AO x 3
Data Reviewed
-
Date of Service: December 09, 2024
EKG: Other (Tele: A fib, Vpaced)
Labs: Labs Reviewed by me
--- NOTE | 2024-12-09 08:37 | W.PN.HOSP.TC ---
Today's Communication/Plan
-
Add melatonin at bedtime
Continue IV Lasix
Echocardiogram tomorrow
Assessment / Plan
Assessment / Plan
Gen-AAOx3, NAD
HEENT-NC, AT, anicteric, clear oral mm
Neck-supple
CV-reg, no M, +S1/S2
Lungs-clear B/L
Abd-soft, NT, ND
Ext-improving bilateral lower extremity edema
Musculoskeletal-no cyanosis, clubbing
Skin-warm and dry
Neuro-grossly non-focal
Psych-calm, cooperative
Acute hypoxic respiratory insufficiency -suspect due to acute heart failure exacerbation. Doubt COPD exacerbation. No wheezing on exam. Looks volume overloaded on exam. Chest x-ray shows COPD without acute abnormalities. Cardiomegaly without
pulmonary edema.
Currently on 2 L nasal cannula, wean down as able.
Acute heart failure with preserved EF -continue IV Lasix, dose increased to 80 mg twice daily. Weight stable at 107 kg. Feeling better overall. Echocardiogram shows LVEF 55 to 60% with abnormal paradoxical septal motion, small focal pericardial
effusion adjacent to RV apex. No regional wall motion abnormality.
For repeat echo on Tuesday to assess pericardial effusion.
Troponin elevation -suspect acute nonischemic myocardial injury, due to CHF. Troponin trending down.
CAD/CABG -one-vessel bypass, 11/26/2024.
Aortic stenosis -with recent bioprosthetic AVR.
Ascending aortic aneurysm -underwent recent ascending aortic graft with Hemashield.
Postoperative anemia, acute -hemoglobin stable, 9.0. Discharge hemoglobin was 8.8. He was transfused 3 units of blood during recent hospitalization. Check CBC in the morning.
CKD 3B -baseline creatinine appears to be 1.2-1.3 as noted in early November. Creatinine stable at 1.6, monitor on diuretics.
COPD without exacerbation
Postoperative atrial fibrillation -Eliquis on hold due to small pericardial effusion. Resume when okay with CT surgery, cardiology.
Essential hypertension -stable.
Hyperlipidemia -atorvastatin.
Alcohol use disorder -watch for any withdrawal symptoms.
Depression -fluoxetine.
Gout -resume allopurinol at renal dose of 50 mg once daily.
History of renal cell carcinoma -s/p left nephrectomy 2020.
Obesity due to excess calories
Full code
Dispo -Home versus SNF. PT is recommending SNF for now.
Anticipated Discharge: 24 - 48 hours
Subjective/Interval History
-
Date of Service: December 09, 2024
Patient seen and examined. Slept well with melatonin. Very mild shortness of breath.
Objective Data
-
Labs:
Laboratory Results
12/09/24
05:23
WBC 6.6
Hgb 9.0 L
Hct 28.4 L
Plt Count 267
Sodium 138
Potassium 3.7
Chloride 101
Carbon Dioxide 28
BUN 26 H
Creatinine 1.6 H
Glucose 99
Calcium 8.2 L
Vital Signs:
Vital Signs
Temp Pulse Resp BP Pulse Ox
98.7 F 114 16 125/68 95
12/09/24 08:31 12/09/24 08:31 12/09/24 08:31 12/09/24 08:17 12/09/24 08:31
I&O
12/08/24 12/09/24 12/10/24
06:59 06:59 06:59
Intake Total 960 / 960 1090 / 1090
Output Total 600 / 600 300 / 300
Balance 360 / 360 790 / 790
Review of Systems
-
History Source: Patient
All other systems: Reviewed and negative
[2024-12-09] MEDS: LASIX 80 MG IV ×2 (09:35→15:46)
[2024-12-09] MEDS: TOPROL XL 25 MG PO (09:35)
[2024-12-09] MEDS: ASPIR LOW (ENTERIC COATED) 81 MG PO (09:35)
[2024-12-09] MEDS: ZYLOPRIM 50 MG PO (09:36)
[2024-12-09] MEDS: PROTONIX 40 MG PO (09:36)
[2024-12-09] MEDS: NEURONTIN 100 MG PO ×3 (09:37→21:10)
[2024-12-09] MEDS: PACERONE 200 MG PO ×2 (09:37→21:10)
--- NOTE | 2024-12-09 10:30 | PTCARENOTE ---
Assumed care of pt from night RN. Pt received asleep, but wakens easily to verbal. 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 He denies any pain or discomfort at this time. Ambulating safely to BR with walker.
[2024-12-09 12:09] VITALS: BP 123/74
[2024-12-09 15:43] VITALS: BP 112/76
[2024-12-09 19:41] VITALS: BP 112/77
[2024-12-09] MEDS: NORVASC 10 MG PO (21:11)
[2024-12-09] MEDS: LIPITOR 40 MG PO (21:11)
[2024-12-09] MEDS: PROZAC 20 MG PO (21:11)
[2024-12-09 22:56] VITALS: BP 141/128
[2024-12-10] VITALS (9 sets, daily range): BP systolic 104–121; BP diastolic 57–74; PULSE 65–91; O2SAT 97; BMI 32.6
[2024-12-10] MEDS: TYLENOL 650 MG PO ×2 (03:27→23:54)
[2024-12-10 04:05] LABS: Hematocrit 29.1 % (39.0-52.0); Hemoglobin 9.1 g/dL (13.0-18.0); Mean Corp Hgb Conc. 31.3 g/dL (33.0-37.0); Mean Corpuscular Hgb 29.7 pg (27.0-31.0); Mean Corpuscular Volume 95.1 fL (80.0-94.0); Mean Platelet Volume 8.6 fL (7.4-10.4); Platelet Count 266 10^3/uL (130-400); Red Blood Cell Count 3.06 10^6/uL (4.70-6.10); Red Cell Dist. Width 15.6 % (11.5-14.5); White Blood Cell Count 6.2 10^3/uL (4.8-10.8)
[2024-12-10 04:20] LABS: Blood Urea Nitrogen 24 mg/dl (9-20); Calcium 8.3 mg/dl (8.4-10.2); Carbon Dioxide 29 mmol/L (22-30); Chloride 99 mmol/L (98-107); Estimated Creatinine Clearance 48 ml/min; Glucose 109 mg/dl (70-99); Potassium 3.6 mmol/L (3.5-5.1); Sodium 136 mmol/L (135-145)
--- NOTE | 2024-12-10 05:38 | PTCARENOTE ---
Pt Vpaced on monitor. VSS C/o generalized discomfort. Tylenol PRN given and effective. Pt independent with RW in the room
[2024-12-10] MEDS: NEURONTIN 100 MG PO ×3 (07:50→23:39)
[2024-12-10] MEDS: TOPROL XL 25 MG PO (07:50)
[2024-12-10] MEDS: ASPIR LOW (ENTERIC COATED) 81 MG PO (07:50)
[2024-12-10] MEDS: PROTONIX 40 MG PO (07:50)
[2024-12-10] MEDS: ZYLOPRIM 50 MG PO (07:50)
[2024-12-10] MEDS: PACERONE 200 MG PO ×2 (07:51→20:14)
[2024-12-10] MEDS: LASIX 80 MG IV ×2 (07:56→16:15)
[2024-12-10 08:07] LABS: Anisocytosis 1+; Atypical Lymphocytes 2 %; Band Neutrophils 3 % (0-3); Hypochromasia 1+; Lymphocytes 17 % (20-51); Monocytes 15 % (2-9); Myelocytes 1 % (-); Normal RBC Morphology No; Platelets Checked Yes; Polychromasia 1+; Segmented Neutrophils 62 % (42-75)
[2024-12-10 08:08] LABS: Acanthocytes 1+; Ovalocytes 1+; Total Cells Counted 100
--- NOTE | 2024-12-10 08:57 | W.PN.CD ---
Addendum entered and electronically signed by KALEN Johnson 12/10/24 15:03:
Jardiance is affordable for the patient. It is not on formulary at this facility. It will be started at discharge.
Original Note:
Today's Communication / Plan
-
cont. IV diuresis once again today, switch to 80 PO BID tomorrow
check SGLT2i for cost
restart Eliquis 2.5 BID, plan to eventually increase to full dosing 5 BID
Impression / Plan
-
79 y/o male (patient of Dr. العراقي) with CAD with hx of PCI (2004, 2017), chronic RCA occlusion, bicuspid aortic valve with aortic stenosis, ascending aorta dilatation, mild to moderate aortic regurgitation, PVCs, hypertension, hyperlipidemia,
COPD/former smoker, obesity, ETOH abuse, and kidney cancer status-post left nephrectomy who is s/p AVR/CAB/Ao Wrap 11/26/[address] Hill. 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
consult). He was sent home 12/04/23. Rehab was advised, but he declined. Since d/c, he felt good for a few hours, but then developed BREWER. He was advised by surgery staff to be evaluated. He thinks he has been taking his meds as instructed, but it is
not clear to me, and per CT surgery he was taking daily lasix, rather than BID lasix.
SOB/Acute HFpEF:
-Echocardiogram 12/06/24 with LVEF of 55-60%; and stable cardiac/valvular function and a small focal pericardial effusion adjacent to the RV apex.
-Echocardiogram 12/10/24 with stable to improve effusion
-CXR suggestive COPD
-continue lasix 80mg IV bid with close monitoring of labs, tele, weight
-TTE with elevated E/E' suggestive of elevated LV filling pressures
-will transition to 80 PO BID tomorrow morning; if adequate UOP and discharge on this regimen
-will check SGLT2i for cost (this may help prevent diastolic CHF)
CAD S/P CABG x 1 (PERLITA to LAD)
Severe with bicuspid
-PERLITA-LAD
-S/P Hemashield graft & bioprosthetic SAVR (#29 Medtronic Avalus Ultra, SN [id number]) with Dr. Hill, 11/26/2024.
-Post-KELBY: Normal biventricular function. Well-seated AVR w/o AI/PVL, mean gradient 5mmHg.
-CT surgery is on consult
-ASA, statin, BB
-stable
CKD3b
-monitor with diuresis
Tachy-Benito Syndrome:
-s/p PPM (Medtronic, 11/29/2024)
-stable
persistent AFIB: post op
-Eliquis to be restarted at 2.5 BID per surgery given concern for elevated post-operative bleeding rise; will need to eventually increase to full dose (5 BID) once felt by surgery to be safe from a bleeding risek standpoint
-to discuss rhythm control in future once back on eliquis and stable, perhaps as outpatient
Post-op VITOR:
-has solitary kidney
-Creatinine peaked at 2.6 (preop 1.3). 1.8 today, which is up from 1.6 at recent d/c. Nephrology was involved on recent admission.
-Creatinine currently appears to be relatively stable at baseline; continue to monitor.
HTN:
-stable, monitor
Subjective: improved BREWER
Transthoracic Echocardiogram (12/06/2024):
Normal biventricular size and systolic function without regional wall motion
abnormality. Estimated LVEF 55-60%.
Abnormal (paradoxical) septal motion consistent with RV pacemaker and post-
operative state.
Well-seated #29 mm bioprosthetic aortic valve replacement with peak and mean
and gradients of 12 and 6 mmHg, respectively.
No aortic regurgitation is seen.
Small focal pericardial effusion adjacent to RV apex.
Compared to intra-op KELBY 11/26/24: LVEF remains normal. A small focal
pericardial effusion adjacent to RV apex is visualized.
Transthoracic Echocardiogram (12/10/2024)
Normal LV size and function with no regional wall motion abnormalities.
LVEF is 55-60% by visual estimation.
No LVH. Diastolic dysfunction indeterminate.
Normal right ventricular size and function.
Well seated 29 mm bioprosthetic aortic valve replacement. Peak/mean gradients
across the aortic valve are 13/8 mmHg respectively. No aortic regurgitation is
seen.
Mild tricuspid regurgitation.
Estimated pulmonary artery pressure of 30 mmHg assuming a right atrial pressure
of 3 mmHg.
Trivial pericardial effusion.
Compared to prior from December 06, 2024, on [id number] comparison pericardial
effusion appears less significant and trivial, previously small.
Physical Exam
Vital Signs/Labs
Vital Signs
Temp Pulse Resp BP Pulse Ox
36.4 C 62 16 108/74 94
12/10/24 07:55 12/10/24 08:00 12/10/24 07:55 12/10/24 07:50 12/10/24 08:00
12/09/24 12/10/24 12/11/24
06:59 06:59 06:59
Actual Weight 107 kg 105.9 kg
12/10/24 03:22
12/10/24 03:22
PT 19.1 Sec (11.4-14.6) H 12/06/24 09:11
INR 1.58 12/06/24 09:11
APTT 51.8 Sec (23.4-35.0) H 12/06/24 09:11
12/06/24
09:11
Mol-M-Vwfhhjmpxom Pept 4270
Physical Exam
Constitutional: No acute distress
Cardiovascular: Rhythm & rate is regular
Respiratory: Respiratory effort normal
Neuro/Psych: AO x 3
Data Reviewed
-
Date of Service: December 10, 2024
Medical Decision Making: Reviewed Test Results
EKG: Tracing Personally Visualized and interpreted
Echo: Tracing Personally Visualized and interpreted
X-Ray/CT/US/MRI/NUC/PET: Image Personally Visualized and interpreted
Labs: Labs Reviewed by me
--- NOTE | 2024-12-10 15:02 | CM ---
priced jardiance for pt- his first month is $347 (of that $300 is his remaining deductible), the following months his cost is $47/month. pt is agreealto this plan
--- NOTE | 2024-12-10 18:14 | W.PN.HOSP.TC ---
Today's Communication/Plan
-
Assessment / Plan
Assessment / Plan
Gen-AAOx3, NAD
HEENT-NC, AT, anicteric, clear oral mm
Neck-supple
CV-reg, no M, +S1/S2
Lungs-clear B/L
Abd-soft, NT, ND
Ext-improving bilateral lower extremity edema
Musculoskeletal-no cyanosis, clubbing
Skin-warm and dry
Neuro-grossly non-focal
Psych-calm, cooperative
Acute hypoxic respiratory insufficiency:
-Resolved
-Breathing comfortably and saturating appropriately on room air
-suspect due to acute heart failure exacerbation
Acute heart failure with preserved EF:
-continue IV Lasix, dose increased to 80 mg twice daily.
-Weight stable at 107 kg. Feeling better overall.
-Echocardiogram shows LVEF 55 to 60% with abnormal paradoxical septal motion, small focal pericardial effusion adjacent to RV apex. No regional wall motion abnormality.
-Repeat echocardiogram today 12/10 shows stable appearing pericardial effusion, restarted low-dose Eliquis
-Further recommendations per cardiology
Troponin elevation -suspect acute nonischemic myocardial injury, due to CHF. Troponin trending down.
CAD/CABG -one-vessel bypass, 11/26/2024.
Aortic stenosis -with recent bioprosthetic AVR.
Ascending aortic aneurysm -underwent recent ascending aortic graft with Hemashield.
Postoperative anemia, acute -hemoglobin stable, 9.0. Discharge hemoglobin was 8.8. He was transfused 3 units of blood during recent hospitalization. Check CBC in the morning.
CKD 3B -baseline creatinine appears to be 1.2-1.3 as noted in early November. Creatinine stable at 1.6, monitor on diuretics.
COPD without exacerbation
Postoperative atrial fibrillation -Eliquis on hold due to small pericardial effusion. Resume when okay with CT surgery, cardiology.
Essential hypertension -stable.
Hyperlipidemia -atorvastatin.
Alcohol use disorder -watch for any withdrawal symptoms.
Depression -fluoxetine.
Gout -resume allopurinol at renal dose of 50 mg once daily.
History of renal cell carcinoma -s/p left nephrectomy 2020.
Obesity due to excess calories
Full code
Dispo -Home versus SNF. PT is recommending SNF for now.
Anticipated Discharge: > 48 hours
Subjective/Interval History
-
Date of Service: December 10, 2024
Mr. Rutledge was seen and examined at bedside this morning. No complaints. Echocardiogram this morning shows stable appearing pericardial effusion. Eliquis has been restarted at reduced dose.
Objective Data
-
Vital Signs:
Vital Signs
Temp Pulse Resp BP Pulse Ox
97.6 F 64 18 116/70 96
12/10/24 15:24 12/10/24 12:00 12/10/24 15:24 12/10/24 11:33 12/10/24 15:24
I&O
12/09/24 12/10/24 12/11/24
06:59 06:59 06:59
Intake Total 1090 / 1090 250 / 250
Output Total 300 / 300 1325 / 1325
Balance 790 / 790 -1075 / -1075
Review of Systems
-
History Source: Patient
All other systems: Reviewed and negative
Physical Exam
-
General: No Apparent Distress
[2024-12-10] MEDS: ELIQUIS 2.5 MG PO (20:14)
[2024-12-10] MEDS: KCL 40 MEQ PO (20:14)
--- NOTE | 2024-12-10 22:33 | PTCARENOTE ---
Patient received at change of shift resting in the bed. Patient is without complaints, denies chest pain or shortness of breath. States his breathing has improved since admission. Patient remains v-paced on the monitor. Oxygen saturation 96% room
air. Plan of care reviewed with patient. Call avery within reach. Care ongoing.
[2024-12-10] MEDS: LIPITOR 40 MG PO (23:39)
[2024-12-10] MEDS: MELATONIN 5 MG PO (23:39)
[2024-12-10] MEDS: NORVASC 10 MG PO (23:39)
[2024-12-10] MEDS: PROZAC 20 MG PO (23:40)
[2024-12-11 03:50] VITALS: BP 108/72
[2024-12-11 04:39] VITALS: BMI 32.5
[2024-12-11 05:05] LABS: Blood Urea Nitrogen 25 mg/dl (9-20); Calcium 8.2 mg/dl (8.4-10.2); Carbon Dioxide 28 mmol/L (22-30); Chloride 100 mmol/L (98-107); Estimated Creatinine Clearance 48 ml/min; Glucose 111 mg/dl (70-99); Magnesium 2.1 mg/dl (1.6-2.3); Potassium 3.7 mmol/L (3.5-5.1); Sodium 138 mmol/L (135-145)
[2024-12-11] MEDS: KCL 40 MEQ PO (05:39)
[2024-12-11 08:24] VITALS: BP 109/75
[2024-12-11] MEDS: ZYLOPRIM 50 MG PO (08:48)
[2024-12-11] MEDS: KCL 20 MEQ PO (08:48)
[2024-12-11] MEDS: TOPROL XL 25 MG PO (08:49)
[2024-12-11] MEDS: NEURONTIN 100 MG PO ×2 (08:49→16:21)
[2024-12-11] MEDS: PROTONIX 40 MG PO (08:49)
[2024-12-11] MEDS: LASIX 80 MG PO ×2 (08:49→16:21)
[2024-12-11] MEDS: PACERONE 200 MG PO (08:50)
[2024-12-11] MEDS: ASPIR LOW (ENTERIC COATED) 81 MG PO (08:50)
[2024-12-11] MEDS: ELIQUIS 5 MG PO (09:02)
[2024-12-11] MEDS: ELIQUIS PO (09:03)
--- NOTE | 2024-12-11 09:23 | W.PN.CD ---
Today's Communication / Plan
-
-Patient has now been transition to Lasix 80 mg PO BID, which should be his home dose.
-Case discussed with CT Surgery; patient will be placed on full therapeutic dose of Eliquis 5 mg twice daily as per standard recommendations.
-Will repeat an echocardiogram in 1 week to reassess pericardial effusion.
-Patient states that he is willing to go to SNF; CT Surgery team notified.
Impression / Plan
-
79 y/o male (patient of Dr. العراقي) with CAD with hx of PCI (2004, 2017), chronic RCA occlusion, bicuspid aortic valve with aortic stenosis, ascending aorta dilatation, mild to moderate aortic regurgitation, PVCs, hypertension, hyperlipidemia,
COPD/former smoker, obesity, ETOH abuse, and kidney cancer status-post left nephrectomy who is s/p AVR/CAB/Ao Wrap 11/26/[address] Hill. 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
consult). He was sent home 12/04/23. Rehab was advised, but he declined. Since d/c, he felt good for a few hours, but then developed BREWER. He was advised by surgery staff to be evaluated. He thinks he has been taking his meds as instructed, but it is
not clear to me, and per CT surgery he was taking daily lasix, rather than BID lasix.
SOB/Acute HFpEF:
-Echocardiogram 12/06/24 with LVEF of 55-60%; and stable cardiac/valvular function and a small focal pericardial effusion adjacent to the RV apex.
-Echocardiogram 12/10/24 with stable to improved pericardial effusion.
-CXR suggestive COPD
-Patient has now been transition to Lasix 80 mg PO BID, which should be his home dose.
-SGLT2 inhibitor as outpatient.
CAD S/P CABG x 1 (PERLITA to LAD)
Severe with bicuspid
-PERLITA-LAD
-S/P Hemashield graft & bioprosthetic SAVR (#29 Medtronic Avalus Ultra, SN [id number]) with Dr. Hill, 11/26/2024.
-Post-KELBY: Normal biventricular function. Well-seated AVR w/o AI/PVL, mean gradient 5mmHg.
-Continue ASA, statin, BB.
-Remains stable.
CKD3b
-Creatinine is relatively stable at baseline of 1.6.
-Outpatient follow-up with primary Operating Room Tech.
Tachy-Benito Syndrome:
-s/p PPM (Medtronic, 11/29/2024)
-stable
persistent AFIB: post op
-Case discussed with CT Surgery; patient will be placed on full therapeutic dose of Eliquis 5 mg twice daily as per standard recommendations.
-Will repeat an echocardiogram in 1 week to reassess pericardial effusion.
Post-op VITOR:
-has solitary kidney
-Creatinine peaked at 2.6 (preop 1.3); creatinine stable at 1.6.
HTN:
-Well-controlled.
Subjective:
No major events overnight. No significant dyspnea.
Transthoracic Echocardiogram (12/06/2024):
Normal biventricular size and systolic function without regional wall motion
abnormality. Estimated LVEF 55-60%.
Abnormal (paradoxical) septal motion consistent with RV pacemaker and post-
operative state.
Well-seated #29 mm bioprosthetic aortic valve replacement with peak and mean
and gradients of 12 and 6 mmHg, respectively.
No aortic regurgitation is seen.
Small focal pericardial effusion adjacent to RV apex.
Compared to intra-op KELBY 11/26/24: LVEF remains normal. A small focal
pericardial effusion adjacent to RV apex is visualized.
Transthoracic Echocardiogram (12/10/2024)
Normal LV size and function with no regional wall motion abnormalities.
LVEF is 55-60% by visual estimation.
No LVH. Diastolic dysfunction indeterminate.
Normal right ventricular size and function.
Well seated 29 mm bioprosthetic aortic valve replacement. Peak/mean gradients
across the aortic valve are 13/8 mmHg respectively. No aortic regurgitation is
seen.
Mild tricuspid regurgitation.
Estimated pulmonary artery pressure of 30 mmHg assuming a right atrial pressure
of 3 mmHg.
Trivial pericardial effusion.
Compared to prior from December 06, 2024, on [id number] comparison pericardial
effusion appears less significant and trivial, previously small.
Physical Exam
Vital Signs/Labs
Vital Signs
Temp Pulse Resp BP Pulse Ox
97.6 F 66 18 108/72 92
12/11/24 08:25 12/11/24 04:00 12/11/24 08:25 12/11/24 03:50 12/11/24 08:25
12/10/24 12/11/24 12/12/24
06:59 06:59 06:59
Actual Weight 105.9 kg 105.7 kg
12/10/24 03:22
12/11/24 03:55
PT 19.1 Sec (11.4-14.6) H 12/06/24 09:11
INR 1.58 12/06/24 09:11
APTT 51.8 Sec (23.4-35.0) H 12/06/24 09:11
Magnesium 2.1 mg/dl (1.6-2.3) 12/11/24 03:55
12/06/24
09:11
Lqc-O-Lnytltsqbxh Pept 4270
Physical Exam
Constitutional: No acute distress and Comfortable
EENT: Anicteric
Cardiovascular: Rhythm/rate is irregular, Pedal edema present (Trace to 1+), Systolic murmur present (2-3/6) and S1S2 is normal
Respiratory: Respiratory effort normal and Lungs clear to auscul.
GI: Soft
Neuro/Psych: AO x 3
Other: Skin (Warm, dry)
Data Reviewed
-
Date of Service: December 11, 2024
EKG: Report Reviewed by me (Telemetry: A-fib, V paced)
Medical Tests (PFT, Pathology etc): Discussed with Physician, Discussed with Nurse and Discussed with Patient
Labs: Labs Reviewed by me
[2024-12-11 11:25] VITALS: BP 99/69
--- NOTE | 2024-12-11 11:29 | CM ---
pt does not want to goto a rehab, he states he is going home. he said his sister stops in daily and he has a friend to help as well. CT Transitional care nurse to do a visit as well.
--- NOTE | 2024-12-11 15:46 | W.DCSUMMARY ---
Discharge Summary
Discharge Data
Date of Admission: 12/07/24
Date of Discharge: 12/11/24
-
Pending Results: No
Hospital Course
Mr. Rutledge is a 79-year-old male with a medical history of CAD and aortic stenosis (recent CABG and aortic valve replacement, discharged 12/04/2024), ascending aortic aneurysm (status post aortic graft), CKD stage IIIb, COPD, hypertension, gout,
renal cell carcinoma (status post left nephrectomy 2020), and postoperative tachybradycardia syndrome (pacemaker placed, on Eliquis and amiodarone) who presented with significant dyspnea on exertion. Echocardiogram was obtained 12/06 which showed a
small pericardial effusion, at which time his home Eliquis was held. He was diuresed aggressively with IV Lasix twice daily with improvement of symptoms. Ultimately he was able to be transitioned to an oral Lasix regimen of 80 mg twice daily which
he will continue after discharge. A repeat echocardiogram was obtained on 12/10 which showed a stable to improved pericardial effusion, and so his Eliquis was resumed. His hemoglobin remained stable around 9.0 during this admission. He will need a
repeat echocardiogram in 1 week as an outpatient. He was able to be titrated off of supplemental oxygen and was breathing comfortably and saturating appropriately on room air. He will be discharged to home. At time of hospital discharge he was
hemodynamically stable. His renal function remained stable during this hospitalization. He will need close follow-up with his elder counselor and cardiothoracic surgical team. He will also need to follow-up closely with his PCP.
Gen-AAOx3, NAD
HEENT-NC, AT, anicteric, clear oral mm
Neck-supple
CV-reg, no M, +S1/S2
Lungs-clear B/L
Abd-soft, NT, ND
Ext-improving bilateral lower extremity edema
Musculoskeletal-no cyanosis, clubbing
Skin-warm and dry
Neuro-grossly non-focal
Psych-calm, cooperative
Discharge Plan
-
Patient Disposition: Home (Routine Discharge)
Discharge Diagnosis/Procedures: Acute hypoxic respiratory failure
Diet: Low Cholesterol
Activity: As tolerated
Others Tests: Echocardiogram 12/21/2024 at 2 PM at the [facility]. Please arrive 15 minutes early.
Other Services: PT and OT
Activity Restrictions/Additional Instructions:
Mr. Rutledge is a 79-year-old male with a medical history of CAD and aortic stenosis (recent CABG and aortic valve replacement, discharged 12/04/2024), ascending aortic aneurysm (status post aortic graft), CKD stage IIIb, COPD, hypertension, gout,
renal cell carcinoma (status post left nephrectomy 2020), and postoperative tachybradycardia syndrome (pacemaker placed, on Eliquis and amiodarone) who presented with significant dyspnea on exertion. Echocardiogram was obtained 12/06 which showed a
small pericardial effusion, at which time his home Eliquis was held. He was diuresed aggressively with IV Lasix twice daily with improvement of symptoms. Ultimately he was able to be transitioned to an oral Lasix regimen of 80 mg twice daily which
he will continue after discharge. A repeat echocardiogram was obtained on 12/10 which showed a stable to improved pericardial effusion, and so his Eliquis was resumed. His hemoglobin remained stable around 9.0 during this admission. He will need a
repeat echocardiogram in 1 week as an outpatient. He was able to be titrated off of supplemental oxygen and was breathing comfortably and saturating appropriately on room air. He will be discharged to home. At time of hospital discharge he was
hemodynamically stable. His renal function remained stable during this hospitalization. He will need close follow-up with his elder counselor and cardiothoracic surgical team. He will also need to follow-up closely with his PCP.
Instructions: *CBC Heart Failure Instructions
Referrals:
[facility]. Cardiac Rehab [Outside] - 01/07/25 1:00 pm
(Cardiac Rehab Orientation appointment is on 01/07/25 at 1:00pm (This was adjusted d/t Pacemaker placement, Prior appointment has been canceled)
Please call with any further questions
The Cardiac Rehab gym is located on the first floor of the [facility].)
Cam العراقي MD [Active] - 12/18/24 3:40 pm
Nazario Lacey MD [Family Provider] -
Prescriptions:
Continued
amlodipine 10 MG tablet
10 mg PO HS
allopurinol 300 MG tablet
300 mg PO DAILY
fluoxetine 20 MG capsule
20 mg PO HS
aspirin 81 mg Tablet,Delayed Release (Dr/Ec)
81 mg PO DAILY
amiodarone 200 mg Tablet
200 mg PO BID Qty: 60 0RF
Rx Instructions:
please take for 14 days twice a day and then 200mg daily
atorvastatin 40 mg Tablet
40 mg PO HS Qty: 30 1RF
pantoprazole 40 mg Tablet,Delayed Release (Dr/Ec)
40 mg PO DAILY Qty: 30 0RF
metoprolol succinate 25 mg Tablet Extended Release 24 Hr
25 mg PO DAILY Qty: 30 1RF
gabapentin 100 mg Capsule
100 mg PO TID Qty: 30 0RF
Eliquis 5 mg tablet
5 mg PO BID Qty: 60 1RF
Changed
furosemide [Lasix] 40 mg tablet
80 mg PO BID Qty: 120 1RF
Discharge Orders:
Discharge Patient (As Directed); Ordered 12/11/24
Ordered By: Travis Miranda
Care Plan Goals
Care Plan Goals:
Problem: Readiness for enhanced knowledge related to diagnosis and treatment plan
Goal: Understand your diagnosis and treatment plan needs, including medications if applicable.
Instructions: Know your diagnosis, underlying causes and treatment plan options, including medications if applicable. Consult with your health care team to learn about your diagnosis and treatment plan, including medications if applicable.
Discharge Date and Time
Print Language: ARABIC
[2024-12-11 16:15] VITALS: BP 102/72
--- NOTE | 2024-12-11 17:46 | SUR.OPER ---
Pt received this with no c/o of pain or sob. OOB ad dione in the room, gait steady. Room air sat 97%. Pt piced up by his stepson and discharged to home. Discharge instructions given and reviewed with good understanding and all questions answered.
== END 2024-12-11 17:16 | disposition home or self-care (01) | DRG 291 ==
LOC: IVU 07:39
PROVIDERS: Internal Medicine; Physician Assistant; ADMITTING PHYSICIAN Hospitalist; ATTENDING PHYSICIAN Internal Medicine; CONSULT PHYSICIAN Thoracic Surgery (Cardiothoracic Vascular Surgery); EMERGENCY PHYSICIAN Emergency Medicine; FAMILY PHYSICIAN Internal Medicine
DX: I13.0 Hypertensive heart and chronic kidney disease with heart failure and stage 1 through stage 4 chronic kidney disease, or unspecified chronic kidney disease (principal); I50.33 Acute on chronic diastolic (congestive) heart failure; I48.19 Other persistent atrial fibrillation; I31.39 Other pericardial effusion (noninflammatory); N18.32 Chronic kidney disease, stage 3b; I25.10 Atherosclerotic heart disease of native coronary artery without angina pectoris; E78.00 Pure hypercholesterolemia, unspecified; J44.9 Chronic obstructive pulmonary disease, unspecified; I5A Non-ischemic myocardial injury (non-traumatic); R06.89 Other abnormalities of breathing; R09.02 Hypoxemia; I49.5 Sick sinus syndrome; F32.A Depression, unspecified; D64.9 Anemia, unspecified; E66.811 Obesity, class 1; Z95.3 Presence of xenogenic heart valve; Z95.1 Presence of aortocoronary bypass graft; Z95.0 Presence of cardiac pacemaker; Z68.33 Body mass index [BMI] 33.0-33.9, adult; Z11.52 Encounter for screening for COVID-19; Z95.820 Peripheral vascular angioplasty status with implants and grafts; Z79.899 Other long term (current) drug therapy; Z85.528 Personal history of other malignant neoplasm of kidney; Z87.891 Personal history of nicotine dependence; Z90.5 Acquired absence of kidney
CPT/HCPCS: 93308; 71046; 80048; 80053; 83735; 83880; 84484; 85025; 85610; 85730; 87502; 87811; 93005; 93288; 93321; 93325; 96374; 97116; 97162; 97166; 97530; 99285; Q9957

== ENCOUNTER → 2024-12-21 14:00 | Outpatient (REF) | payer OTHER, SELFPAY | LOC: HWRCS 14:00 | PROVIDERS: ATTENDING PHYSICIAN Internal Medicine; FAMILY PHYSICIAN Internal Medicine | DX: I31.39 Other pericardial effusion (noninflammatory) (principal) | CPT/HCPCS: 93308 ==

== ENCOUNTER 2025-01-08 09:00 | Outpatient (RCR) | payer OTHER, SELFPAY | END 2025-01-08 23:59 | disposition home or self-care (01) | LOC: CRHB 09:00 | PROVIDERS: ATTENDING PHYSICIAN Internal Medicine | DX: Z95.1 Presence of aortocoronary bypass graft (principal); Z95.2 Presence of prosthetic heart valve; Z95.0 Presence of cardiac pacemaker | CPT/HCPCS: G0422; G0423 ==

== ENCOUNTER 2025-02-11 12:03 | Outpatient (RCR) | payer OTHER, SELFPAY | END 2025-02-11 23:59 | disposition home or self-care (01) | LOC: CRHB 12:03 | PROVIDERS: ATTENDING PHYSICIAN Internal Medicine | DX: I25.10 Atherosclerotic heart disease of native coronary artery without angina pectoris (principal); Z95.2 Presence of prosthetic heart valve; Z95.1 Presence of aortocoronary bypass graft | CPT/HCPCS: G0422; G0423 ==

== ENCOUNTER 2025-03-13 11:30 | Outpatient (RCR) | payer OTHER, SELFPAY | END 2025-03-13 23:59 | disposition home or self-care (01) | LOC: CRHB 11:30 | PROVIDERS: ATTENDING PHYSICIAN Internal Medicine; FAMILY PHYSICIAN Internal Medicine | DX: I25.10 Atherosclerotic heart disease of native coronary artery without angina pectoris (principal); Z95.2 Presence of prosthetic heart valve; Z95.1 Presence of aortocoronary bypass graft | CPT/HCPCS: G0422; G0423 ==

== ENCOUNTER 2025-04-01 11:11 | Outpatient (RCR) | payer OTHER, SELFPAY | END 2025-04-01 23:59 | disposition home or self-care (01) | LOC: CRHB 11:11 | PROVIDERS: ATTENDING PHYSICIAN Internal Medicine | DX: I25.10 Atherosclerotic heart disease of native coronary artery without angina pectoris (principal); Z95.2 Presence of prosthetic heart valve; Z95.1 Presence of aortocoronary bypass graft | CPT/HCPCS: G0422; G0423 ==

== ENCOUNTER 2025-05-13 11:57 | Outpatient (RCR) | payer OTHER, SELFPAY | END 2025-05-13 23:59 | disposition home or self-care (01) | LOC: CRHB 11:57 | PROVIDERS: ATTENDING PHYSICIAN Internal Medicine; FAMILY PHYSICIAN Internal Medicine | DX: I25.10 Atherosclerotic heart disease of native coronary artery without angina pectoris (principal); Z95.2 Presence of prosthetic heart valve; Z95.1 Presence of aortocoronary bypass graft; Z95.0 Presence of cardiac pacemaker | CPT/HCPCS: G0422; G0423 ==

== ENCOUNTER 2025-06-25 20:39 | Inpatient (IN) | payer OTHER, SELFPAY ==
[2025-06-25] VITALS (9 sets, daily range): BP systolic 114–172; BP diastolic 70–98; BMI 30.1; BMI 29.0
[2025-06-25] MEDS: ZOFRAN 4 MG IV (17:15)
[2025-06-25] MEDS: DILAUDID 0.5 MG IV ×3 (17:17→22:07)
--- NOTE | 2025-06-25 17:18 | ED.MUSCINJ ---
HPI-Injury
General
Chief Complaint: Fall
Source: patient
Exam Limitations: none
Time Seen by Provider: 06/25/25 16:53
Nursing documentation reviewed up to this point in time: agreed with
History of Present Illness-Injury
Is this injury a work related problem?: No
Is pt an associate of [facility]/[place]?: No
Initial Injury comments:
Patient states he lost his footing on unequal pavement while taking out the trash. Denies hitting his head. No LOC. Complains of pain to his left hip. To ED via EMS for eval
Past History
Past History
ED Past Medical History: CAD, HTN and Hypercholesterolemia; Negative IDDM
ED Past Surgical History: Appendectomy, Cardiac (valve replacement) and Orthopedic
Social History
Tobacco: Former smoker
Alcohol: Daily
Drug: None
Personal:
Living: with family
Employment: Retired
Family History
Family History: Hypertension
Review of Systems
Review of Systems
Allergies reviewed?: Yes
All Other Systems: ROS reviewed and negative except as documented in HPI and ROS
Constitutional: Reports no symptoms
EENT: Reports no symptoms
Respiratory: Reports no symptoms
Cardiac: Reports no symptoms
ABD/GI: Reports no symptoms
Musculoskeletal: Reports joint pain (pain to left hip)
Skin: Reports other (skin tear left lower leg)
Neurological: Reports no symptoms
Psychiatric: Reports no symptoms
Musculoskeletal Injury Exam
Musculoskeletal Injury Exam
Left Hip:
Pain with Movement?: Moderate
Tender to palpation?: Moderate
Soft tissue swelling?: Mild
External deformity and angulation?: Moderate
Joint effusion?: None
Contusion?: Moderate
Hematoma-local bleeding into tissue?: Mild
Strain- Sprain- Tear (Connective tissue injury)?: Moderate
Crepitus with movement?: No
Joint instability?: No
Malalignment/deformity?: No
Range of motion: Limited
Distal skin color and temperature: normal-warm & good color
Capillary Refill: normal
Normal distal neurovascular exam?: Yes
Peripheral Pulses: posterior tibial (left): 3+ and dorsalis pedis (left): 3+
Phy Exam
General Physical Exam
General Presentation: moderate distress
General age: appears stated age
General Skin: warm and dry
General Habitus: normal
General Mental: alert
General Hydration: appears well hydrated
Cardiovascular Exam
Cardiovascular Exam: regular rate/rhythm and no edema
Pulmonary Exam
Pulmonary Exam: lungs clear and no respiratory distress
Gastrointestinal Exam
Gastrointestinal Exam: non tender and soft
Neurological Exam
Neurological Exam: alert, oriented x3, CN II-XII intact, no sensory deficits and speech normal
Musculoskeletal Exam
Musculoskeletal Exam: neuro vasc intact
Skin Exam
Skin Exam: normal color, warm/dry and no rash
Psychiatric Exam
Psychiatric Exam: normal mood/affect
Injury Course
Orders/Labs/Results
Orders:
Orders
06/25/25 Breakfast
Regular
At Your Request: Limited Participation
Does patient need a safe tray?: No
Fluid Restriction: 1440 mL/day (48 oz)
06/25/25 17:13
Ondansetron Injectable [Zofran] 4 mg .ROUTE .STK-MED ONE
06/25/25 17:14
HYDROmorphone [Dilaudid] 0.5 mg .ROUTE .STK-MED ONE
Ondansetron Injectable [Zofran] 4 mg IV NOW STA
06/25/25 17:16
HYDROmorphone [Dilaudid] 0.5 mg IV NOW STA
06/25/25 17:18
Hip, Left 2-3 Views [CR Hip - LT w/wo Pel 2-3 Vw*] Urgent
Comment:
Reason For Exam: fall
Include a pelvis x-ray?: Yes
06/25/25 19:17
HYDROmorphone [Dilaudid] 0.5 mg IV NOW STA
06/25/25 19:31
Type+Screen Urgent
Complete Blood Count/With Diff Urgent
Comprehensive Metabolic Panel Urgent
Magnesium Urgent
Comment: ADD ON
Manual Differential Urgent
Phosphorus Urgent
Comment: ADD ON
06/25/25 19:32
ORTHOPEDIC CONSULT Urgent
Consulting Provider: Preston Padilla
Was physician already notified: Yes
06/25/25 20:15
EKG [Electrocardiogram (*1)] Urgent
Reason for Study: PreOp
06/25/25 20:22
Admit/Transfer Patient As Directed
Co-Sign Provider:
Level of Care: Inpatient admission
Assign to:: Telemetry
Physician / Group: Anirudh
Diagnosis: L Hip Fracture
Reason for Telemetry: Arrhythmia
Date to Stop Telemetry: 06/28/25
Time to Stop Telemetry: 11:00
Reason for Hospitalization: L Hip Fracture
Expected length of stay greater than two midnights?: Yes
ELOS- Estimated Length of Stay in days: 4
I certify the patient meets the requirements for IP care: Yes
PRN Pain Medication Management As Directed
May give lesser potent ordered pain med per pt: Yes
preference::
Protocol:: Medication orders for pain may be administered in a
manner that supports deferring to patient preference
when the pt is:
- Requesting an ordered lesser potent pain medication.
Least to most potent pain medications are defined
as: acetaminophen < NSAID < tramadol < opioids
(morphine, oxycodone, hydromorphone).
- Requesting a lesser dose of the same medication IF
ORDERED.
- Requesting a less intrusive route of administration
if both routes are prescribed by the provider (PO <
IV).
06/25/25 20:25
Code Status As Directed
Resuscitation Status: Full Code
06/25/25 21:52
FOLic ACID [Folvite] 1 mg 0.9% Sodium Chloride 50 ml [Nss] 50 ml IV DAILYPRN
HYDROmorphone [Dilaudid] 0.5 mg IV Q4HPRN PRN
Lorazepam [Ativan] 1 mg PO Q2HPRN PRN
Ondansetron Injectable [Zofran] 4 mg IV Q6HPRN PRN
Polyethylene Glycol Powder [Miralax] 17 grams PO DAILYPRN PRN
06/25/25 21:52
Case Management Consult Once
Case Management Consult: Other
Comment: Substance abuse counseling
DIETARY IP CONSULT Routine
Reason for Consult: Nutrition support, possible refeeding guidelines
Urinalysis Routine
Activity As Directed
Activity Level: Bedrest
Bladder Scan As Directed
Follow Bladder Retention/Intermittent Cath Algorithm?: Yes
PRN if no void in __ hours: 6
Frequency: Per Retention Algorithm
If Bladder Scan Result >: 400
then:: Straight cath
EKG with chest pain [ECG as needed] As Directed
ECG as needed for:: Chest Pain
I/O [Intake/ Output] As Directed
Frequency: Per unit guidelines
MSAS SCORE As Directed
MSAS Score 0-4: Repeat MSAS every 2 hours until 0-4 for three consecutive assessments, then every 4 hours x 48
hours.
MSAS Score 5-7: For MILD withdrawl symptoms. Repeat MSAS and RASS every 2 hours
MSAS Score 8-11: For MODERATE withdrawal symptoms. Repeat MSAS and RASS every 1 hour. Consider ICU or IMU
level of care.
MSAS Score > 11: For SEVERE withdrawal symptoms. Repeat MSAS and RASS every 1 hour. Notify provider, consider
ICU level of care.
MSAS Additional Instructions: If no improvement or no decrease in score from severe to moderate within 12
hours, consult psychiatry
MSAS Notify Provider: Notify provider if patient requires more than 10 mg of Lorazepam in eight hour period.
Pneumatic Compression Sleeves As Directed
Type: Knee high
Straight Cath As Directed
Frequency: Per Retention Algorithm
Additional Instructions: straight cath as needed per acute urinary retention algorithm for 24 hrs
Additional Instructions: for bladder scan greater than 400 mL
Vital Signs As Directed
Frequency: Per unit guidelines
Weight As Directed
Frequency: Daily
Oxygen Therapy [O2 Therapy] [RESP] Routine
Titrate/Wean O2 to maintain O2 sat greater than (%): 94
DX Deep Vein Thrombosis Video Routine
06/25/25 22:00
Acetaminophen [Tylenol] 1,000 mg PO TID
Amlodipine [Norvasc] 10 mg PO HS
Atorvastatin [Lipitor] 40 mg PO HS
Fluoxetine HCl [Prozac] 20 mg PO HS
Gabapentin [Neurontin] 100 mg PO TID
Sennosides [Senokot] 17.2 mg PO HS
06/25/25 22:11
PTT Urgent
Prothrombin Time Urgent
06/26/25 00:00
Thiamine Injection 200 mg IV Q8
06/26/25 06:00
Basic Metabolic Panel IN AM
Complete Blood Count/No Diff IN AM
06/26/25 08:00
Allopurinol [Zyloprim] 300 mg PO DAILY
Amiodarone [Pacerone] 200 mg PO DAILY
Aspirin Low Dose EC [Aspir Low (Enteric Coated)] 81 mg PO DAILY
FOLic ACID [Folvite] 1 mg PO DAILY
Furosemide [Lasix] 80 mg PO DAILY
Metoprolol Xl [Toprol Xl] 25 mg PO DAILY
Pantoprazole [Protonix] 40 mg PO DAILY
06/28/25 11:00
DC Protocol for Telemetry ONCE
06/29/25 08:00
Thiamine HCl [Vitamin B1] 100 mg PO BID
Abnormal Lab Results
06/25/25
19:31
RBC 3.88 L 10^6/uL
(4.70-6.10)
Hgb 11.9 L g/dL
(13.0-18.0)
Hct 36.0 L %
(39.0-52.0)
RDW 14.9 H %
(11.5-14.5)
Plt Count 118 L 10^3/uL
(130-400)
Lymphocytes (Manual) 17 L %
(20-51)
Monocytes (Manual) 15 H %
(2-9)
BUN 38 H mg/dl
(9-20)
Creatinine 1.5 H mg/dL
(0.7-1.3)
06/25/25 19:31
06/25/25 19:31
*Radiology
Radiology exam reviewed: radiology read reviewed
*Pulse Oximetry
SaO2: 93
Oxygen Mode of Delivery: Room air
Patient hypoxic: no
*Critical Care Note
Total Time (30-74mins, 75-104mins- exclusive of procedures): Not Applicable
Update Note
Update Note:
Patient to ED after falling at home. No head injury. Complains of left hip pain. Xray confirms fracture. Will admit to hospitalist. Dr. Padilla notfied via tiger text.
ED Attending Note
-
Portions of this chart may have been created with voice recognition software.� Occasional wrong word or��sound alike� substitutions may have occurred due to the inherent limitations of voice recognition software.
Discharge Plan
Departure
Patient Disposition: Admit
Date of Disposition: 06/25/25
Time of Disposition: 19:33
Presentation/result/management discussed w/ accepting MD/DO: Hospitalist
Patient with high blood pressure during this ER visit?: No
Condition: Fair
Covid-19: Not Applicable
Discharge Problem:
Closed left hip fracture
Interventions
Interventions:
*Risk Screen - Suicide Last Done: 06/25/25 16:54
*General Assessment Last Done: 06/25/25 16:54
*Neglect/Abuse Screening Last Done: 06/25/25 16:57
*ED- Fall Risk Assessment Last Done: 06/25/25 16:57
*ED COVID-19 Vaccine History Last Done: 06/25/25 16:57
*Nursing Disposition Last Done: 06/25/25 21:45
ED-Musculoskeletal Assessment Last Done: 06/25/25 16:57
ED- Neurological Assessment Last Done: 06/25/25 16:57
ED-Skin Assessment Last Done: 06/25/25 16:57
Discharge Date and Time
Discharge Date/Time: 06/25/25 21:53
[2025-06-25 19:53] LABS: Hematocrit 36.0 % (39.0-52.0); Hemoglobin 11.9 g/dL (13.0-18.0); Mean Corp Hgb Conc. 33.1 g/dL (33.0-37.0); Mean Corpuscular Volume 92.8 fL (80.0-94.0); Platelet Count 118 10^3/uL (130-400); Red Cell Dist. Width 14.9 % (11.5-14.5)
[2025-06-25 20:07] LABS: ALT (SGPT) 24 U/L (0-50); AST (SGOT) 31 U/L (17-59); Albumin 4.0 g/dl (3.5-5.0); Alkaline Phosphatase 110 U/L (38-126); Blood Urea Nitrogen 38 mg/dl (9-20); Calcium 8.4 mg/dl (8.4-10.2); Carbon Dioxide 30 mmol/L (22-30); Chloride 101 mmol/L (98-107); Estimated Creatinine Clearance 44 ml/min; Glucose 77 mg/dl (70-99); Potassium 3.6 mmol/L (3.5-5.1); Sodium 137 mmol/L (135-145); Total Protein 6.5 g/dl (6.3-8.2); eGFR 47.65
--- NOTE | 2025-06-25 20:30 | HPS.HSE ---
Family Physician
-
Family Physician: Nazario Lacey
Chief Complaint
-
Fall, L Hip Pain
History of Present Illness
Patient is a 79y M with PMH significant for ASCVD, hypertension and valvular heart disease who presents to ED complaining of L hip pain s/p fall today. Patient states that he has felt well lately. No recent illness. No chest pain, dyspnea,
palpitations, etc. Patient reports that he was taking out he trash when he caught his foot in a crack / divot in his driveway, lost his balance and fell. He denies striking his head or any LOC. He had pain in the L hip immediately upon falling.
He states that he remained on the ground for about one hour before he was noted / helped by passers-by.
Patient was brought to the ED for further evaluation. He has some superficial scrapes / abrasions on the arms / legs.
Medical History
Past Medical History
Past Medical History: Reports Other
Additional Past Medical History:
ASCVD
Left renal cell carcinoma
Ascending aortic aneurysm
Hypertension
Gout
Depression
Obesity
Alcohol use disorder
Aortic stenosis
Atrial fibrillation
COPD
Past Surgical History: Reports Other
Additional Past Surgical History:
CABG x 1 vessel -11/26/2024
Bioprosthetic AVR
Permanent pacemaker
Radical Left Nephrectomy
Bilateral Knee Arthroscopies
Left TKA
Appendectomy
Vein Stripping
Social History
Tobacco: Former Smoker (Quit smoking 10 years ago.)
Alcohol: Daily (3-4 drinks daily.)
Drug: None
Personal:
Living: With Family
Family History
Family History: Not pertinent
Allergies / Home Medications
Allergies reflects when Allergies were last updated in [facility] [employer].
Home Medications with original date entered in [employer] [employer]
Allergy/Medication List:
Allergies
Allergy/AdvReac Type Severity Reaction Status Date / Time
No Known Allergies Allergy Verified 06/25/25 16:54
Home Medications
allopurinol 300 mg tablet 300 mg PO DAILY Gout 06/27/18
amlodipine 10 mg tablet 10 mg PO HS Heart disease/condition 06/27/18
fluoxetine 20 mg capsule 20 mg PO HS Mental Health/Anxiety 06/27/18
aspirin 81 mg tablet,delayed release 81 mg PO DAILY Blood Clot Prevention/Tx 11/19/24
apixaban 5 mg tablet (Eliquis) 5 mg PO BID Blood clot prevention/tx #60 tabs 12/03/24
atorvastatin 40 mg tablet 40 mg PO HS High cholesterol #30 tabs 12/03/24
gabapentin 100 mg capsule 100 mg PO TID nerve pain #30 caps 12/03/24
metoprolol succinate 25 mg tablet,extended release 24 hr 25 mg PO DAILY Blood pressure #30 tabs 12/03/24
pantoprazole 40 mg tablet,delayed release 40 mg PO DAILY Gi prophylaxis while on plavix #30 tabs 12/03/24
furosemide 40 mg tablet (Lasix) 80 mg (2 x 40 mg) PO BID Fluid retention/Swelling #120 tabs 12/11/24
amiodarone 200 mg tablet 200 mg PO DAILY Arrhythmia 06/25/25
Review of Systems
-
History Source: Patient
A 12 point ROS was completed and negative except as noted: Yes
Constitutional: Denies Fever or Chills
Respiratory: Denies Cough or Trouble Breathing
Cardiac: Denies Chest Pain or Palpitations
Abdomen/GI: Denies Abdominal Pain, Nausea, Vomiting or Diarrhea
: Denies Dysuria or Flank Pain
Musculoskeletal: Reports Joint Pain; Denies Edema
Neurological: Denies Dizzy or Headache
Psych: Denies Depression or Anxiety
Physical Exam
Vital Signs
Vital Signs
Temp Pulse Resp BP Pulse Ox
98.0 F 60 15 160/74 99
06/25/25 17:08 06/25/25 20:00 08/12/25 20:00 06/25/25 20:00 06/25/25 20:00
Physical Exam
General: Other (79y M in mild distress due to pain.)
HEENT: Moist mucous membranes and PERRLA
Respiratory: Clear; No Wheezes, Rales or Rhonchi
Cardiac: S1/S2 and Regular Rhythm; No Murmur
GI: Soft, Non Tender, Non Distended and Normal Bowel Sounds
Musculoskeletal: No Clubbing, No Cyanosis, No Edema and Other (LLE shortened and externally rotated.)
Neuro: AO x 3
Laboratory Results
-
06/25/25 19:31
06/25/25 19:31
Laboratory Results
Total Bilirubin 1.2 mg/dl (0.2-1.3) 06/25/25 19:31
AST 31 U/L (17-59) 06/25/25 19:31
ALT 24 U/L (0-50) 06/25/25 19:31
Alkaline Phosphatase 110 U/L (38-126) 06/25/25 19:31
Impression/Plan
-
A/P: Patient is a 79y M with PMH significant for ASCVD, A-Fib and hypertension who presents to ED complaining of L hip pain s/p [id number] today.
Left Hip Fracture
Mechanical Fall
- Admit for further evaluation and treatment.
- Pain control / supportive care / limit mobility.
- Patient is on Eliquis for A-Fib - last dose was this AM. Hold / wash out period.
- Ortho consulted for eventual operative repair.
- Will ask Cardiology to evaluate for pre-op assessment.
- Post-op PT, DVT prophylaxis, pain control, etc.
ASCVD
- Stable. s/p CABG x 1 and PTCA with stent.
- Continue ASA uninterrupted. Hold Eliquis as noted above.
- Continue statin, metoprolol, etc.
- Check EKG now.
- Cardiology eval as noted above.
Paroxysmal Atrial Fibrillation
- Stable. Holding Eliquis as noted.
- Continue metoprolol with holding parameters.
Chronic HFpEF
- Last Echo (12/2024) with LVEF = 55-60% and well-seated AVR.
- Continue Lasix at once daily for now and follow I/Os, daily weights, etc.
- Adjust diuretic regimen as needed.
Benign Hypertension
- Stable. Continue outpatient regimen with holding parameters.
CKD III
Solitary Kidney s/p Left Nephrectomy (RCC)
- Stable. Renal function is at / near known baseline.
- Follow for changes. Avoid nephrotoxic agents, hypotension, etc.
Anemia of Chronic Disease
- Stable. Current Hgb appears somewhat improved from prior baseline.
- Follow cindi-operatively.
Gout
- Stable. Continue allopurinol.
Anxiety / Depression
- Stable. Continue fluoxetine.
Alcohol Use Disorder
- Patient reports 3-4 drinks daily every day.
- MSAS protocol and BZDs as needed for symptoms of withdrawal.
- Thiamine, folate, MVI replacement, etc.
DVT Prophylaxis: SCDs for now. Post-op per Ortho.
Code Status: Full
[2025-06-25 20:34] LABS: Absolute Neutrophils -Man Diff 3.5 10^3/uL (1.4-6.5)
[2025-06-25 20:35] LABS: Normal RBC Morphology Yes; Platelets Checked Yes; Total Cells Counted 100
[2025-06-25 22:26] LABS: INR 1.30; PT 16.5 Sec (11.4-14.6)
[2025-06-25 22:27] LABS: APTT 34.7 Sec (23.4-35.0)
[2025-06-25] MEDS: NEURONTIN 100 MG PO (22:30)
[2025-06-25] MEDS: NORVASC 10 MG PO (22:30)
[2025-06-25] MEDS: TYLENOL 1000 MG PO (22:30)
[2025-06-25] MEDS: LIPITOR PO ×2 (22:31→22:33)
[2025-06-25] MEDS: PROZAC 20 MG PO (22:31)
[2025-06-25] MEDS: SENOKOT PO (22:31)
[2025-06-25] MEDS: MELATONIN 5 MG PO (23:08)
[2025-06-25] MEDS: THIAMINE INJECTION 200 MG IV (23:09)
--- NOTE | 2025-06-25 23:45 | PTCARENOTE ---
Pt admit to room 413-2 via stretcher. Assisted into bed and made comfortable. Pt with significant pain L hip. Med with dilaudid. Pt requested something for sleep. house WARDROBE COORDINATOR notified and pt med with melatonin. Pt with dressing L mcfarland. Looked
underneath dsg to see abrasion. Pt did not want dressing redone at this time. Pt voided in urinal. Assessment as charted.
[2025-06-25 23:54] LABS: Magnesium 2.0 mg/dl (1.6-2.3)
[2025-06-26] MEDS: ROXICODONE 5 MG PO ×3 (01:16→11:10)
[2025-06-26] MEDS: DILAUDID 0.5 MG IV ×3 (03:21→20:09)
[2025-06-26 03:53] VITALS: BP 125/70
--- NOTE | 2025-06-26 05:51 | CON.ORTHO ---
Consultation
-
Date/Time Consultation Requested: 06/25/2025 1932
Date/Time Consultation Performed: 06/26/2025 0745
Requesting Provider: KALEN Ramirez
Performing Provider: CHELA Gonzalez
Reason for Consultation: Left hip fracture
Consultation - Orthopedics
History
79-year-old male presents to [place] emergency room after mechanical fall where he lost his footing and fell onto his left hip. He reports immediate pain and inability to bear weight. Denies any prodromal pain. Community ambulator at baseline
Allergies / Home Medications
Past Medical History
Past Medical History: Reports Other
Additional Past Medical History:
ASCVD
Left renal cell carcinoma
Ascending aortic aneurysm
Hypertension
Gout
Depression
Obesity
Alcohol use disorder
Aortic stenosis
Atrial fibrillation
COPD
Past Surgical History: Reports Other
Additional Past Surgical History:
CABG x 1 vessel -11/26/2024
Bioprosthetic AVR
Permanent pacemaker
Radical Left Nephrectomy
Bilateral Knee Arthroscopies
Left TKA
Appendectomy
Vein Stripping
Social History
Tobacco: Former Smoker (Quit smoking 10 years ago.)
Alcohol: Daily (3-4 drinks daily.)
Drug: None
Personal:
Living: With Family
Family History
Family History: Not pertinent
Allergy/AdvReac Type Severity Reaction Status Date / Time
No Known Allergies Allergy Verified 06/25/25 16:54
�Medication �Instructions �Recorded
allopurinol 300 mg tablet 300 mg PO DAILY Gout 06/27/18
amlodipine 10 mg tablet 10 mg PO HS Heart disease/condition 06/27/18
fluoxetine 20 mg capsule 20 mg PO HS Mental Health/Anxiety 06/27/18
aspirin 81 mg tablet,delayed 81 mg PO DAILY Blood Clot 11/19/24
release Prevention/Tx
apixaban 5 mg tablet (Eliquis) 5 mg PO BID Blood clot 12/03/24
prevention/tx #60 tabs
atorvastatin 40 mg tablet 40 mg PO HS High cholesterol #30 12/03/24
tabs
gabapentin 100 mg capsule 100 mg PO TID nerve pain #30 caps 12/03/24
metoprolol succinate 25 mg 25 mg PO DAILY Blood pressure #30 12/03/24
tablet,extended release 24 hr tabs
pantoprazole 40 mg tablet,delayed 40 mg PO DAILY Gi prophylaxis 12/03/24
release while on plavix #30 tabs
furosemide 40 mg tablet (Lasix) 80 mg (2 x 40 mg) PO BID Fluid 12/11/24
retention/Swelling #120 tabs
amiodarone 200 mg tablet 200 mg PO DAILY Arrhythmia 06/25/25
diphenhydramine HCl 25 mg capsule 25 mg PO HS PRN insomnia 06/25/25
(Benadryl)
Vital Signs / Lab Results
Temp Pulse Resp BP Pulse Ox
97.6 F 64 18 125/70 96
06/26/25 03:53 06/26/25 03:53 06/26/25 03:53 06/26/25 03:53 06/26/25 03:53
Physical exam: Focused examination of the left lower extremity shows skin is intact with no erythema edema or ecchymosis. Shortening externally rotated left leg. Grossly neurovascularly intact L3-S1.
Imaging: X-rays taken of the AP pelvis and left hip show no acute displaced left femoral neck fracture with minimal arthrosis of the femoral acetabular joint.
Assessment / Plan
79-year-old male community ambulator sustained mechanical fall with a left hip displaced femoral neck fracture without prodromal pain DOI 06/25/2025
- Imaging was shown and reviewed with patient/family; discussed options of operative and nonoperative treatment given his baseline status recommended for operative intervention of right hip hemiarthroplasty
- Consent obtained on file
- Type and screen on file
- Tentative for OR 27 June versus 28 June pending medical clearance/optimization
- N.p.o. at midnight
- Antibiotics and irrigation products for OR on order
- Continue hold of Eliquis at this time
[2025-06-26 06:00] VITALS: BMI 28.9
[2025-06-26 07:50] VITALS: BP 117/64
--- NOTE | 2025-06-26 08:49 | W.PN.HOSP.TC ---
Today's Communication/Plan
-
Possible OR tomorrow.
Assessment / Plan
Assessment / Plan
Impression:
Patient is a 79y M with PMH significant for ASCVD, hypertension and valvular heart disease who presents to ED complaining of L hip pain s/p fall today. Patient states that he has felt well lately. No recent illness. No chest pain, dyspnea,
palpitations, etc. Patient reports that he was taking out he trash when he caught his foot in a crack / divot in his driveway, lost his balance and fell. He denies striking his head or any LOC. He had pain in the L hip immediately upon falling.
He states that he remained on the ground for about one hour before he was noted / helped by passers-by.
Patient was brought to the ED for further evaluation. He has some superficial scrapes / abrasions on the arms / legs.
Right hip x-ray showed Acute fracture of the left femoral neck. Internal rotation and mild displacement of the distal fracture fragment.
Orthopedic consulted, cardiology consulted for preoperative clearance-Eliquis on hold.
Assessment/plan:
Left Hip Fracture
Mechanical Fall
- Admit for further evaluation and treatment.
- Pain control / supportive care / limit mobility.
- Patient is on Eliquis for A-Fib - last dose was this AM. Hold / wash out period.
- Ortho consulted for eventual operative repair.
- Will ask Cardiology to evaluate for pre-op assessment.
- Post-op PT, DVT prophylaxis, pain control, etc.
-Seen by cardiology for preoperative clearance.
- N.p.o. after midnight for potential or tomorrow versus .
ASCVD
- Stable. s/p CABG x 1 and PTCA with stent.
- Continue ASA uninterrupted. Hold Eliquis as noted above.
- Continue statin, metoprolol, etc.
- Check EKG now.
- Cardiology eval appreciated.
Paroxysmal Atrial Fibrillation
- Stable. Holding Eliquis as noted.
- Continue metoprolol with holding parameters.
Chronic HFpEF
- Last Echo (12/2024) with LVEF = 55-60% and well-seated AVR.
- Continue Lasix at once daily for now and follow I/Os, daily weights, etc.
- Adjust diuretic regimen as needed.
Benign Hypertension
- Stable. Continue outpatient regimen with holding parameters.
CKD III
Solitary Kidney s/p Left Nephrectomy (RCC)
- Stable. Renal function is at / near known baseline.
- Follow for changes. Avoid nephrotoxic agents, hypotension, etc.
Anemia of Chronic Disease
- Stable. Current Hgb appears somewhat improved from prior baseline.
- Follow cindi-operatively.
Gout
- Stable. Continue allopurinol.
Anxiety / Depression
- Stable. Continue fluoxetine.
Alcohol Use Disorder
- Patient reports 3-4 drinks daily every day.
- MSAS protocol and BZDs as needed for symptoms of withdrawal.
- Thiamine, folate, MVI replacement, etc.
DVT Prophylaxis: SCDs for now. Post-op per Ortho.
Code Status: Full
CODE STATUS: Full code
DVT prophylaxis: SCDs
Diet: cardiac diet
Disposition: Possible OR tomorrow.
Total time spent on today's encounter was 65 minutes which included time spent in counseling the patient/family regarding diagnosis and treatment plan as listed above, goals of care, and symptom management. Case was discussed with nursing staff,
specialists, and care coordinators/case management. All labs and imaging personally reviewed by me. Remainder the time spent in detailed review of previous records, lab data, imaging, and other medical provider documentation.
Anticipated Discharge: > 48 hours
Subjective/Interval History
-
Date of Service: June 26, 2025
Patient seen and examined at bedside, denies any chest pain , or shortness of breath, left hip pain.
Objective Data
-
Labs:
Laboratory Results
06/25/25 06/26/25
22:11 07:49
WBC Pending
Hgb Pending
Hct Pending
Plt Count Pending
PT 16.5 H
INR 1.30
APTT 34.7
Sodium Pending
Potassium Pending
Chloride Pending
Carbon Dioxide Pending
BUN Pending
Creatinine Pending
Glucose Pending
Calcium Pending
Vital Signs:
Vital Signs
Temp Pulse Resp BP Pulse Ox
97.6 F 64 18 125/70 96
06/26/25 03:53 06/26/25 03:53 06/26/25 03:53 06/26/25 03:53 06/26/25 03:53
I&O
06/25/25 06/26/25 06/27/25
06:59 06:59 06:59
Output Total 475 / 475
Balance -475 / -475
Physical Exam
-
General: Well Developed, Well Nourished, No Apparent Distress and Comfortable
HEENT: Normocephalic, Atraumatic, Moist Mucous Membranes, No Ptosis, PERRLA and Nose Appears Normal
Respiratory: Clear to Auscultation and Non Labored Respirations
Cardiac: Regular Rhythm and S1/S2
Breast: Deferred by me
GI: Soft, Nontender, Nondistended and Normal Bowel Sounds
Genito-urinary: No Costovertebral Tender
Musculoskeletal: No Clubbing, No Cyanosis, No Edema and Other (Left hip tender.)
Skin: Warm
Neuro: Awake, Alert, Oriented, AO x 3 and No Motor Deficits
Psych: Calm
Data Reviewed
-
Diagnostic Radiology: Image personally visualized and interpreted and Report Reviewed by me
CT Scan: Image personally visualized and interpreted and Report Reviewed by me
Ultrasound: Image personally visualized and interpreted and Report Reviewed by me
MRI: Image personally visualized and interpreted and Report Reviewed by me
Medical Tests (Nuc Med, Echo etc): Image personally visualized and interpreted and Report Reviewed by me
Labs: Labs Reviewed by me
Old Records: Reviewed
[2025-06-26 08:50] LABS: Hematocrit 35.8 % (39.0-52.0); Hemoglobin 11.7 g/dL (13.0-18.0); Mean Corp Hgb Conc. 32.7 g/dL (33.0-37.0); Mean Corpuscular Volume 95.2 fL (80.0-94.0); Platelet Count 127 10^3/uL (130-400); Red Cell Dist. Width 14.7 % (11.5-14.5)
[2025-06-26 08:52] LABS: Blood Urea Nitrogen 32 mg/dl (9-20); Calcium 8.3 mg/dl (8.4-10.2); Carbon Dioxide 32 mmol/L (22-30); Chloride 103 mmol/L (98-107); Estimated Creatinine Clearance 47 ml/min; Glucose 77 mg/dl (70-99); Potassium 3.5 mmol/L (3.5-5.1); Sodium 141 mmol/L (135-145); eGFR 51.77
--- NOTE | 2025-06-26 09:08 | CON.CAR ---
Addendum entered and electronically signed by Cam العراقي MD 06/26/25 16:40:
Patient seen and examined in collaboration with PGY-2 Resident; agree with below.
Patient known to me in the outpatient setting; has coronary artery disease/bicuspid aortic valve with moderate to severe AAS status-post bioprosthetic AVR/CABG/ascending aorta wrap (11/26/2024), permanent pacemaker implantation post-surgery
(11/29/2024), paroxysmal atrial fibrillation (on Eliquis), hypertension, hyperlipidemia, COPD, kidney cancer status-post left radical nephrectomy with residual CKD (baseline creatinine approximately 1.5), and obesity admitted with a left hip fracture
after tripping on a crack in his sidewalk while taking out his trash.
- The patient has no active cardiac symptoms; denies chest pain or shortness of breath.
- Patient has good functional status (greater than 4 METS).
- Exam: Heart regular rate and rhythm, normal S1/S2, soft 1/6 systolic murmur; lungs CTA bilaterally; abdomen soft; no edema.
- EKG: Atrial fibrillation with ventricular pacing at 66 bpm.
- A/P:
- Preoperative cardiac assessment: Revised cardiac index of 1 (low risk with 0.9% risk of complications); can proceed with hip surgery as scheduled.
- CABG/bioprosthetic AVR: Clinically stable.
- PAF: Eliquis is being held for surgery; resume postsurgery as instructed by Orthopedic Surgery.
- Hypertension: Controlled; continue current medications.
- Cardiology will remain available on an as-needed basis; patient can follow-up with Cardiology as an outpatient as scheduled.
- PPM: stable.
Original Note:
Consultation
Consultation Request
Date/Time Consultation Requested: 06/25/25
Date/Time Consultation Performed: 06/26/25
Reason for Consultation: Cardiac consultation for hip fracture repair
Medical History
-
Chief Complaint: Left hip fracture
History of Present Illness:
Patient is a 79-year-old male, with coronary artery disease/bicuspid aortic valve with moderate to severe aortic stenosis/ascending aorta dilation s/p bioprosthetic AVR/CABG/ascending aorta Rab (11/26/2024), s/p Medtronic dual-chamber MRI compatible
pacemaker (11/29/2024) for tachybradycardia syndrome., Paroxysmal atrial fibrillation (Eliquis on hold, received last dose 06/25/2020 5 AM), hypertension, hyperlipidemia, COPD, obesity, kidney cancer s/p left radical nephrectomy with residual CKD
presenting with a mechanical fall after tripping while taking out trash cans, resulting in left hip fracture.
He reports that postsurgery he has been feeling well in terms of shortness of breath. He is able to walk up stairs without any chest pain but is slow due to his bad knees. He goes to the gym twice a week.
He does not require oxygen at home and is able to breathe on room air.
Reports intermittent shortness of breath but denies any chest pain, palpitations, syncope, leg edema.
He denies any issues with anesthesia in the past.
He lives with his nephew but is independent in activities of daily living.
Past Medical History
Past Medical History: Arrhythmias (Paroxysmal atrial fibrillation), CAD (CABG 11/26/2024), Cancer (S/p left radical nephrectomy for kidney cancer with residual CKD), COPD, HTN, Hypercholesterolemia and Valvular Disease (S/p AVR 11/26/2024)
Past Surgical History: Cardiac (S/p bioprosthetic AVR/CABG/ascending aorta wrap 11/26/2024, Medtronic dual-chamber MRI compatible pacemaker for tachybradycardia syndrome 11/29/2024,) and Other (Left total knee replacement 08/30/2019, left nephrectomy
10/04)
Social History
Tobacco: Former Smoker (Quit 2018)
Alcohol: Daily (3-4 drinks daily)
Drug: None
Personal:
Living: With Family (Nephew lives upstairs)
Family History
Family History: Reviewed & Not Pertinent
Allergies / Home Medications
Allergy/AdvReac Type Severity Reaction Status Date / Time
No Known Allergies Allergy Verified 06/25/25 16:54
�Medication �Instructions �Recorded �Confirmed �Type
allopurinol 300 mg tablet 300 mg PO DAILY Gout 06/27/18 06/25/25 History
amlodipine 10 mg tablet 10 mg PO HS Heart disease/condition 06/27/18 06/25/25 History
fluoxetine 20 mg capsule 20 mg PO HS Mental Health/Anxiety 06/27/18 06/25/25 History
aspirin 81 mg tablet,delayed 81 mg PO DAILY Blood Clot 11/19/24 06/25/25 History
release Prevention/Tx
apixaban 5 mg tablet (Eliquis) 5 mg PO BID Blood clot 12/03/24 06/25/25 Rx
prevention/tx #60 tabs
atorvastatin 40 mg tablet 40 mg PO HS High cholesterol #30 12/03/24 06/25/25 Rx
tabs
gabapentin 100 mg capsule 100 mg PO TID nerve pain #30 caps 12/03/24 06/25/25 Rx
metoprolol succinate 25 mg 25 mg PO DAILY Blood pressure #30 12/03/24 06/25/25 Rx
tablet,extended release 24 hr tabs
pantoprazole 40 mg tablet,delayed 40 mg PO DAILY Gi prophylaxis 12/03/24 06/25/25 Rx
release while on plavix #30 tabs
furosemide 40 mg tablet (Lasix) 80 mg (2 x 40 mg) PO BID Fluid 12/11/24 06/25/25 Rx
retention/Swelling #120 tabs
amiodarone 200 mg tablet 200 mg PO DAILY Arrhythmia 06/25/25 06/25/25 History
diphenhydramine HCl 25 mg capsule 25 mg PO HS PRN insomnia 06/25/25 06/25/25 History
(Benadryl)
Review of Systems
-
All other systems: Negative unless noted
Physical Exam
Vital Signs
Temp Pulse Resp BP Pulse Ox
97.5 F 61 20 117/64 97
06/26/25 07:50 06/26/25 07:50 06/26/25 07:50 06/26/25 07:50 06/26/25 07:50
Lab Results
06/26/25 07:49
06/26/25 07:49
Physical Exam
General: Well Developed, No Apparent Distress and Other (Breathing on 3 L of oxygen via nasal cannula, lying comfortably in bed, unable to sit up or turn around due to pain in the left hip)
Respiratory: Clear; Negative Wheezes, Crackles or Rhonchi
Cardiac: S1/S2 and Regular Rhythm; Negative Murmur, Rub, Calf Tenderness or JVD
GI: Soft, Non Tender and Normal Bowel Sounds
Musculoskeletal: No Clubbing, No Cyanosis and No Edema
Skin: Warm and Dry
Neuro: Awake and AO x 3
Psych: Calm
Impression / Plan
-
Impression
Patient is a 79-year-old male, with coronary artery disease/bicuspid aortic valve with moderate to severe aortic stenosis/ascending aorta dilation (4.5 cm), s/p AVR/CABG/ascending aorta Rab (11/26/2024, postop tachybradycardia syndrome s/p Medtronic
dual-chamber MRI compatible pacemaker implantation (11/29/2024), paroxysmal atrial fibrillation (on Eliquis, last dose 08/12 AM), chronically occluded mid RCA, hypertension, hyperlipidemia, COPD, s/p left nephrectomy for kidney cancer in 2020 with
residual CKD.
Presents to [facility] after mechanical fall after tripping over an driveway, resulting in left hip femoral neck fracture.
Assessment/plan
Tentative repair on June 27/June 28, 2025
Denies any issues to anesthesia in the past
EKG shows ventricular paced rhythm with premature PVCs, rate well-controlled
Last echo 12/2024
Normal left ventricular size and systolic function. LVEF 55-60%.
Normal RV size and function.
Well-seated bioprosthetic valve with normal gradients (peak/mean 16/8 mmHg) and
no AR.
No pericardial effusion.
Compared to prior echocardiogram on 12/10/2024, pericardial effusion has
resolved. Echocardiogram otherwise unchanged.
Eliquis on hold-last dose received on 06/25 in the morning
Meets at least 4 METS
Denies any chest pain, palpitations, fluttering, dyspnea or syncopal episodes at baseline
No hospitalization for heart failure symptoms or chest pain in past 6 months
Does not require oxygen at home
Serum creatinine 1.5
Based on my assessment,patient has no cardiac symotoms,is functionally doing well,meeting at least 4 mets,recent echocardiogram in dec 2024 with EF 55-60%,Revised cardiac index score is 2 points, 5% risk of cardiovascular events, putting patient
at an acceptable risk of cardiovascular events that is not prohibitive to the desired procedure
[2025-06-26] MEDS: PROTONIX 40 MG PO (09:09)
[2025-06-26] MEDS: ZYLOPRIM 300 MG PO (09:10)
[2025-06-26] MEDS: ASPIR LOW (ENTERIC COATED) 81 MG PO (09:10)
[2025-06-26] MEDS: LASIX 80 MG PO (09:10)
[2025-06-26] MEDS: NEURONTIN 100 MG PO ×3 (09:10→21:22)
[2025-06-26] MEDS: TYLENOL 1000 MG PO ×3 (09:10→21:22)
[2025-06-26] MEDS: THIAMINE INJECTION 200 MG IV ×2 (09:11→16:58)
[2025-06-26] MEDS: TOPROL XL 25 MG PO (09:11)
[2025-06-26] MEDS: FOLVITE 1 MG PO (09:11)
[2025-06-26] MEDS: PACERONE 200 MG PO (09:11)
[2025-06-26 11:26] VITALS: BP 102/62
--- NOTE | 2025-06-26 14:48 | CM ---
CM reviewed chart, patient seen bedside, initial assessment completed. Patient resides independently in a multiple story home with first floor set up, 4-5 steps to enter. Patient denies use of DME, reports being independent with ADLS/IADLS. Patient
reports VN in the past, unsure name of agency, denies SNF. Patient confirms PCP Nazario Lacey, [facility], confirms prescription coverage. Patient denies insecurities at home. Consult received for substance use counseling, offered
resources/[facility] support to patient, patient declined. Patient for OR potentially tomorrow. CM will continue to follow for all discharge planning needs.
Plan; OR tomorrow
[2025-06-26 15:37] VITALS: BP 118/63
[2025-06-26 16:50] LABS: Urine Character Clear (Clear)
[2025-06-26 16:57] LABS: Urine Red Blood Cell 0-2 /HPF (0-2); Urine Squamous Cell 0-2 /LPF (Few)
[2025-06-26 20:04] VITALS: BP 121/57
[2025-06-26] MEDS: LIPITOR 40 MG PO (21:21)
[2025-06-26] MEDS: NORVASC 10 MG PO (21:22)
[2025-06-26] MEDS: PROZAC 20 MG PO (21:22)
[2025-06-26] MEDS: SENOKOT PO (21:23)
[2025-06-26 23:09] VITALS: BP 107/66
[2025-06-27] VITALS (14 sets, daily range): BP systolic 95–133; BP diastolic 55–106; BMI 28.7
[2025-06-27] MEDS: THIAMINE INJECTION 200 MG IV ×2 (01:16→09:36)
--- NOTE | 2025-06-27 05:21 | W.PN.UPDATE ---
Addendum entered and electronically signed by Avila Benitez MD 06/27/25 18:08:
I evaluated the patient at bedside preoperatively and discussed treatment options. Shared decision was left total hip arthroplasty based on his mother's experience needing conversion yoli total later in life. We discussed the risks and benefits of
each, including the increased risk of dislocation with total hip arthroplasty.
Original Note:
Update Note
Progress Note Update
79-year-old male community ambulator sustained mechanical fall with a left hip displaced femoral neck fracture without prodromal pain DOI 06/25/2025
- recommended for operative intervention of left hip hemiarthroplasty vs. total hip arthroplasty. After discussion, he would prefer to proceed with KRISTIN
- Consent updated with left total hip arthroplasty under direction of Dr. Benitez
- Tentative for OR 27 June. Medical and Cardiac optimization obtained. Proceed wit OR without further testing.
- N.p.o. at midnight
- Bedrest/NWB until surgery
- Antibiotics and irrigation products for OR on order
- Continue hold of Eliquis at this time
[2025-06-27] MEDS: DILAUDID 0.5 MG IV (05:49)
[2025-06-27 08:37] LABS: Hematocrit 38.4 % (39.0-52.0); Hemoglobin 12.0 g/dL (13.0-18.0); Mean Corp Hgb Conc. 31.3 g/dL (33.0-37.0); Mean Corpuscular Volume 97.7 fL (80.0-94.0); Platelet Count 125 10^3/uL (130-400); Red Cell Dist. Width 15.0 % (11.5-14.5)
[2025-06-27 08:59] LABS: Blood Urea Nitrogen 33 mg/dl (9-20); Calcium 8.7 mg/dl (8.4-10.2); Carbon Dioxide 34 mmol/L (22-30); Chloride 103 mmol/L (98-107); Estimated Creatinine Clearance 39 ml/min; Glucose 90 mg/dl (70-99); Potassium 3.9 mmol/L (3.5-5.1); Sodium 141 mmol/L (135-145); eGFR 41.01
[2025-06-27] MEDS: PROTONIX 40 MG PO (09:25)
[2025-06-27] MEDS: FOLVITE 1 MG PO (09:26)
[2025-06-27] MEDS: PACERONE 200 MG PO (09:27)
[2025-06-27] MEDS: TYLENOL 1000 MG PO ×2 (09:29→21:36)
[2025-06-27] MEDS: ASPIR LOW (ENTERIC COATED) 81 MG PO (09:29)
[2025-06-27] MEDS: ZYLOPRIM 300 MG PO (09:34)
[2025-06-27] MEDS: NEURONTIN 100 MG PO ×2 (09:36→21:36)
[2025-06-27] MEDS: TOPROL XL PO (09:39)
[2025-06-27] MEDS: LASIX PO (09:40)
--- NOTE | 2025-06-27 11:19 | W.PN.HOSP.TC ---
Today's Communication/Plan
-
Possible OR today.
Assessment / Plan
Assessment / Plan
Impression:
Patient is a 79y M with PMH significant for ASCVD, hypertension and valvular heart disease who presents to ED complaining of L hip pain s/p fall today. Patient states that he has felt well lately. No recent illness. No chest pain, dyspnea,
palpitations, etc. Patient reports that he was taking out he trash when he caught his foot in a crack / divot in his driveway, lost his balance and fell. He denies striking his head or any LOC. He had pain in the L hip immediately upon falling.
He states that he remained on the ground for about one hour before he was noted / helped by passers-by.
Patient was brought to the ED for further evaluation. He has some superficial scrapes / abrasions on the arms / legs.
Right hip x-ray showed Acute fracture of the left femoral neck. Internal rotation and mild displacement of the distal fracture fragment.
Orthopedic consulted, cardiology consulted for preoperative clearance-Eliquis on hold.
Assessment/plan:
Left Hip Fracture
Mechanical Fall
- Admit for further evaluation and treatment.
- Pain control / supportive care / limit mobility.
- Patient is on Eliquis for A-Fib - last dose was this AM. Hold / wash out period.
- Ortho consulted for eventual operative repair.
- Will ask Cardiology to evaluate for pre-op assessment.
- Post-op PT, DVT prophylaxis, pain control, etc.
-Seen by cardiology for preoperative clearance.
- N.p.o. for OR today.
ASCVD
- Stable. s/p CABG x 1 and PTCA with stent.
- Continue ASA uninterrupted. Hold Eliquis as noted above.
- Continue statin, metoprolol, etc.
- Check EKG now.
- Cardiology eval appreciated.
Paroxysmal Atrial Fibrillation
- Stable. Holding Eliquis as noted.
- Continue metoprolol with holding parameters.
Chronic HFpEF
- Last Echo (12/2024) with LVEF = 55-60% and well-seated AVR.
- Continue Lasix at once daily for now and follow I/Os, daily weights, etc.
- Adjust diuretic regimen as needed.
Benign Hypertension
- Stable. Continue outpatient regimen with holding parameters.
CKD III
Solitary Kidney s/p Left Nephrectomy (RCC)
- Stable. Renal function is at / near known baseline.
- Follow for changes. Avoid nephrotoxic agents, hypotension, etc.
Anemia of Chronic Disease
- Stable. Current Hgb appears somewhat improved from prior baseline.
- Follow cindi-operatively.
Gout
- Stable. Continue allopurinol.
Anxiety / Depression
- Stable. Continue fluoxetine.
Alcohol Use Disorder
- Patient reports 3-4 drinks daily every day.
- MSAS protocol and BZDs as needed for symptoms of withdrawal.
- Thiamine, folate, MVI replacement, etc.
DVT Prophylaxis: SCDs for now. Post-op per Ortho.
Code Status: Full
CODE STATUS: Full code
DVT prophylaxis: SCDs
Diet: cardiac diet
Disposition: Possible OR today.
Total time spent on today's encounter was 65 minutes which included time spent in counseling the patient/family regarding diagnosis and treatment plan as listed above, goals of care, and symptom management. Case was discussed with nursing staff,
specialists, and care coordinators/case management. All labs and imaging personally reviewed by me. Remainder the time spent in detailed review of previous records, lab data, imaging, and other medical provider documentation.
Anticipated Discharge: 24 - 48 hours
Subjective/Interval History
-
Date of Service: June 27, 2025
4 OR today, no chest pain or shortness of breath.
Objective Data
-
Labs:
Laboratory Results
06/27/25
08:05
WBC 8.5
Hgb 12.0 L
Hct 38.4 L
Plt Count 125 L
Sodium 141
Potassium 3.9
Chloride 103
Carbon Dioxide 34 H
BUN 33 H
Creatinine 1.7 H
Glucose 90
Calcium 8.7
Vital Signs:
Vital Signs
Temp Pulse Resp BP Pulse Ox
97.5 F 69 14 95/55 95
06/27/25 07:49 06/27/25 07:49 06/27/25 07:49 06/27/25 07:49 06/27/25 10:53
I&O
06/26/25 06/27/25 06/28/25
06:59 06:59 06:59
Intake Total 720 / 720
Output Total 475 / 475 975 / 975
Balance -475 / -475 -255 / -255
Physical Exam
-
General: Well Developed, Well Nourished, No Apparent Distress and Comfortable
HEENT: Normocephalic, Atraumatic, Moist Mucous Membranes, No Ptosis, PERRLA and Nose Appears Normal
Respiratory: Clear to Auscultation and Non Labored Respirations
Cardiac: Regular Rhythm and S1/S2
Breast: Deferred by me
GI: Soft, Nontender, Nondistended and Normal Bowel Sounds
Genito-urinary: No Costovertebral Tender
Musculoskeletal: No Clubbing, No Cyanosis, No Edema and Other (Left hip tender.)
Skin: Warm
Neuro: Awake, Alert, Oriented, AO x 3 and No Motor Deficits
Psych: Calm
[2025-06-27] MEDS: TYLENOL PO (16:00)
--- NOTE | 2025-06-27 17:03 | W.PN.UPDATE ---
Update Note
Progress Note Update
Left displaced femoral neck fracture s/p left KRISTIN under the direction of Dr. Benitez 06/27/25
--Weight bearing as tolerated to LLE
--Ambulate with walker
--Posterior hip precautions
--PT/OT
--Ok to resume Eliquis in AM
--Leave surgical dressing in place until follow up in office
--Follow up outpatient in 2 weeks
--- NOTE | 2025-06-27 18:01 | OR.RPT ---
Addendum entered and electronically signed by Avila Benitez MD 06/27/25 18:06:
Addendum: The femoral head was sent for pathology.
Original Note:
Operative Report
Operative Report
Orthopaedic Surgery Operative Note
DATE OF OPERATION: 06/27/2025
PREOPERATIVE DIAGNOSES: Left femoral neck fracture, displaced
POSTOPERATIVE DIAGNOSES: Same
OPERATION PERFORMED: Left total hip arthroplasty.
SURGEON: Avila Benitez MD
TELEVISION PRODUCTION TECHNICIAN: Tonja España PA-C who helped with patient and limb positioning and retraction
ANESTHESIA: General
COMPLICATIONS: None.
ESTIMATED BLOOD LOSS: 200 mL.
DRAINS: None
SPECIMEN: None
FINDINGS: Displaced fracture of femoral neck
IMPLANTS:
Biomet G7 Acetabular Shell, cluster hole, size 56
Biomet G7 dual mobility liner
Graciela Heritage stem, size 14 with extended offset with distal centralizer
DJO bone cement; medium cement restrictor
Biolox Ceramic Head, size 28mm +0 with dual mobility head for 56mm liner
INDICATIONS: The patient presented to the emergency department after a fall sustained one day prior with new onset hip pain. Xrays showed a displaced femoral neck fracture. I discussed treatment options with the patient. We discussed that based on
the degree of displacement that fixation of the fracture may have a high risk of complication and failure. We discussed surgical treatment with arthroplasty. We discussed the option of hemiarthroplasty and total hip arthroplasty. The patient reports
family had required conversion of hemiarthroplasty to total hip due to secondary arthritis, so his preference was for total hip arthroplasty. We discussed the risk of instability and increased blood loss. Based on the patient's preference and
activity level, shared decision was to proceed with total hip arthroplasty. I reviewed the risks, benefits, and alternatives of various treatment options. The patient understood the risks which included, but were not limited to, bleeding, infection,
failure to relieve pain, more pain than preop, damage to blood vessels and nerves, need for reoperation, mechanical failure of the implants, wound healing problems, stiffness, instability, blood clot, pulmonary embolism, myocardial infarction,
pneumonia, arrhythmia, CVA, and . The patient accepted these risks and wished to proceed. All questions were answered, and informed consent was obtained.
PROCEDURE IN DETAIL: The patient was identified in the preoperative holding area. The left hip was identified as the operative site. The patient was taken in the operating room and transferred to the operative table. General anesthesia was
performed. IV antibiotics and tranexamic acid were administered. The patient was placed in the lateral position with Stulberg hip positioners. Axillary roll was placed. The down leg was well padded. All bony prominences were well padded. The
operative limb was prepped and draped in the usual sterile fashion.
Time out was performed. A posterolateral approach to the hip was used. The skin incision was centered over the greater trochanter. This was taken down sharply through subcutaneous tissues. Meticulous hemostasis was achieved throughout the case with
electrocautery. We split the fascia althea in line with skin incision. I split the gluteus karin bluntly. We cauterized all crossing vessels as we split it. I palpated the sciatic nerve and made sure it was well posterior in the operative field. It
was protected throughout the case.
I performed a partial bursectomy to identify the short external rotators. The gluteus medius and minimus were identified and retracted anteriorly. I incised the piriformis tendon and conjoint tendon at their insertions. These were tagged for later
repair. I then performed a trapezoidal capsulotomy. The edges were tagged for later repair. I referenced the cut edge of the capsular flap to 2 fixed points on the greater trochanter for assistance with recreation of limb length and offset.
The femoral neck fracture was identified. The leg was flexed and internally rotated, and a fresh femoral neck cut was performed. The femur was translated anteriorly. The femoral head was carefully removed with a morris and a tenaculum. The head
measured to be 53mm. I placed a curve hohmann retractor over the anterior lip of the acetabulum between the labrum and the anterior hip capsule. A second retractor was placed inferiorly just distal to the transverse acetabular ligament.
Circumferential view of the acetabulum was achieved. I incised the labrum and pulvinar with electrocautery. I started with a 53 mm reamer and reamed down to the medial wall. This was done with extra care given the indication of fracture. I then
sequentially reamed up to a 55mm reamer. This gave a nice bed of bleeding bone with excellent column support anteriorly and posteriorly. I impacted the acetabular shell in approximately 40 degrees of abduction and 20 degrees of anteversion. I
matched the anteversion of the transverse acetabular ligament. I also made sure that the anterior rim of the socket was not proud of the anterior wall to minimize the chance of iliopsoas tendinitis. I confirmed the cup was well-seated. I then
impacted the dual mobility liner and confirmed it was well seated with the locking mechanism.
Attention was turned to the femur. Box osteotome and Charnley awe were used to open the canal. The femur was sequentially broached to size 14 which had appropriate fit and fill. A trial head was placed with extended offset neck and the hip was
reduced. Leg length and offset were checked and found to be appropriate. The hip was taken through complete range of motion and found to be stable in extension, the position of sleep, and at 90 degrees of flexion and internal rotation.
Trials were removed and the femoral canal was prepared with irrigation and ribbon gauze packing sequentially. A cement restrictor was placed into the femoral canal 1cm distal to the tip of the femoral stem. This was measured off the trial femoral
stem. Once the femoral canal was prepared, the cement was mixed. Once doughy in consistency, the cement was pressurized into the canal with a cement gun. The stem was then carefully inserted into the canal with care to minimize rotation or
micromotion. Excess cement was removed. Once the cement was polymerized, the joint was irrigated copiously. The acetabular component was inspected to be free of cement particles and other debris. The final head was impacted onto clean and dry
trunion. Leg length and stability were checked again and found to be acceptable. The sciatic nerve was inspected and noted to be free of tension and uninjured.
A dilute betadine soak was performed for approximately 3 minutes, and then the hip was copiously irrigated. I repaired the capsule, piriformis, and conjoint tendon with #2 Ethibond to drill holes in the greater trochanter. Local anesthetic was
injected. The fascia althea was closed with #1 PDS in running fashion. The subcutaneous tissues were closed with 2-0 PDS in running fashion. The skin was reapproximated with 3-0 Monocryl subcuticular suture. I placed a Prineo dressing followed by a
Mepilex Ag dressing. The patient awoke from anesthesia without difficulty. Sponge and instrument counts were correct x2 at the end of the case. Leg lengths were checked on the hospital bed and noted to be equal.
I was present and participated in the entire procedure. The patient was sent to the recovery room in stable condition.
Carson Benitez MD
--- NOTE | 2025-06-27 19:18 | PTCARENOTE ---
Pt arrived 1845 from PACU. VSS. Oriented to room and call avery. Mepilex L hip C/D/I.
[2025-06-27] MEDS: THIAMINE INJECTION IV (19:31)
[2025-06-27] MEDS: NEURONTIN PO (19:31)
[2025-06-27] MEDS: ANCEF 5 IV (21:35)
[2025-06-27] MEDS: LIPITOR 40 MG PO (21:35)
[2025-06-27] MEDS: PROZAC 20 MG PO (21:35)
[2025-06-27] MEDS: NORVASC PO (21:36)
[2025-06-27] MEDS: SENOKOT 17.2 MG PO (21:36)
[2025-06-28] VITALS (9 sets, daily range): BP systolic 80–120; BP diastolic 50–78; PULSE 70–89; O2SAT 97; BMI 29.0
[2025-06-28] MEDS: THIAMINE INJECTION 200 MG IV ×3 (00:23→15:42)
[2025-06-28] MEDS: ANCEF 5 IV (05:00)
[2025-06-28] MEDS: ROXICODONE 5 MG PO (05:04)
--- NOTE | 2025-06-28 07:30 | W.PN.ORTHO ---
Today's Communication / Plan
-
79-year-old male postoperative day 1 right total hip arthroplasty for displaced right femoral neck fracture with Dr. Best
- Weightbearing as tolerated with posterior hip or cautions x 6 weeks.
-Postoperative antibiotics as ordered
- PT with assist devices as indicated/OT
- Discharge planning
- Diet per primary
- PPx per primary, may resume preoperative Eliquis postop day 1
- Pain controlled on current regimen
Orthopedic surgery will continue to follow
Assessment
.
Distal Motor Intact: Yes
Dressing:
Clean, dry and intact.
Plan
.
Surgery / Date: 06/27/2025 R KRISTIN
Activity:
Out of bed.
PT/OT
Subjective
.
.:
Patient resting comfortably.
Vital Signs and Labs
.
Vital Signs and Labs:
Temp Pulse Resp BP Pulse Ox
97.9 F 66 17 116/64 96
06/28/25 03:05 06/28/25 03:05 06/28/25 03:05 06/28/25 03:05 06/28/25 03:05
PT 16.5 Sec (11.4-14.6) H 06/25/25 22:11
INR 1.30 06/25/25 22:11
[2025-06-28 07:58] LABS: Hematocrit 33.3 % (39.0-52.0); Hemoglobin 10.7 g/dL (13.0-18.0); Mean Corp Hgb Conc. 32.1 g/dL (33.0-37.0); Mean Corpuscular Volume 97.1 fL (80.0-94.0); Platelet Count 113 10^3/uL (130-400); Red Cell Dist. Width 14.5 % (11.5-14.5)
[2025-06-28 08:19] LABS: Blood Urea Nitrogen 32 mg/dl (9-20); Calcium 8.0 mg/dl (8.4-10.2); Carbon Dioxide 30 mmol/L (22-30); Chloride 99 mmol/L (98-107); Estimated Creatinine Clearance 44 ml/min; Glucose 130 mg/dl (70-99); Potassium 3.6 mmol/L (3.5-5.1); Sodium 137 mmol/L (135-145); eGFR 47.65
[2025-06-28] MEDS: PACERONE 200 MG PO (09:15)
[2025-06-28] MEDS: NEURONTIN 100 MG PO ×3 (09:16→22:30)
[2025-06-28] MEDS: LASIX 80 MG PO (09:16)
[2025-06-28] MEDS: ASPIR LOW (ENTERIC COATED) 81 MG PO (09:16)
[2025-06-28] MEDS: PROTONIX 40 MG PO (09:17)
[2025-06-28] MEDS: TOPROL XL 25 MG PO (09:17)
[2025-06-28] MEDS: ZYLOPRIM 300 MG PO (09:18)
[2025-06-28] MEDS: TYLENOL 1000 MG PO ×3 (09:18→22:30)
[2025-06-28] MEDS: FOLVITE 1 MG PO (09:18)
--- NOTE | 2025-06-28 13:00 | W.PN.HOSP.TC ---
Today's Communication/Plan
-
Medically cleared for discharge to SNF once medically
Assessment / Plan
Assessment / Plan
Impression:
Patient is a 79y M with PMH significant for ASCVD, hypertension and valvular heart disease who presents to ED complaining of L hip pain s/p fall today. Patient states that he has felt well lately. No recent illness. No chest pain, dyspnea,
palpitations, etc. Patient reports that he was taking out he trash when he caught his foot in a crack / divot in his driveway, lost his balance and fell. He denies striking his head or any LOC. He had pain in the L hip immediately upon falling.
He states that he remained on the ground for about one hour before he was noted / helped by passers-by.
Patient was brought to the ED for further evaluation. He has some superficial scrapes / abrasions on the arms / legs.
Right hip x-ray showed Acute fracture of the left femoral neck. Internal rotation and mild displacement of the distal fracture fragment.
Orthopedic consulted, cardiology consulted for preoperative clearance-Eliquis on hold.
Patient's status post right total hip replacement, Eliquis resumed, physical therapy recommending rehab
Assessment/plan:
Left Hip Fracture status post right total hip replacement 06/27
Mechanical Fall
- Admit for further evaluation and treatment.
- Pain control / supportive care / limit mobility.
- Patient is on Eliquis for A-Fib - last dose was this AM. Hold / wash out period.
- Ortho consulted for eventual operative repair.
- Will ask Cardiology to evaluate for pre-op assessment.
- Post-op PT, DVT prophylaxis, pain control, etc.
-Seen by cardiology for preoperative clearance.
06/28
Resume Eliquis.
PT/OT recommending rehab.
Social service consulted.
ASCVD
- Stable. s/p CABG x 1 and PTCA with stent.
- Continue ASA uninterrupted. Hold Eliquis as noted above.
- Continue statin, metoprolol, etc.
- Check EKG now.
- Cardiology eval appreciated.
Paroxysmal Atrial Fibrillation
- Stable. Holding Eliquis as noted.
- Continue metoprolol with holding parameters.
06/28
Eliquis resumed
Chronic HFpEF
- Last Echo (12/2024) with LVEF = 55-60% and well-seated AVR.
- Continue Lasix at once daily for now and follow I/Os, daily weights, etc.
- Adjust diuretic regimen as needed.
Benign Hypertension
- Stable. Continue outpatient regimen with holding parameters.
CKD III
Solitary Kidney s/p Left Nephrectomy (RCC)
- Stable. Renal function is at / near known baseline.
- Follow for changes. Avoid nephrotoxic agents, hypotension, etc.
Anemia of Chronic Disease
- Stable. Current Hgb appears somewhat improved from prior baseline.
- Follow cindi-operatively.
Leukocytosis.
Possible reactive.
Continue to monitor
Gout
- Stable. Continue allopurinol.
Anxiety / Depression
- Stable. Continue fluoxetine.
Alcohol Use Disorder
- Patient reports 3-4 drinks daily every day.
- MSAS protocol and BZDs as needed for symptoms of withdrawal.
- Thiamine, folate, MVI replacement, etc.
DVT Prophylaxis: SCDs for now. Post-op per Ortho.
Code Status: Full
CODE STATUS: Full code
DVT prophylaxis: SCDs
Diet: cardiac diet
Disposition: Stable for discharge.
Total time spent on today's encounter was 65 minutes which included time spent in counseling the patient/family regarding diagnosis and treatment plan as listed above, goals of care, and symptom management. Case was discussed with nursing staff,
specialists, and care coordinators/case management. All labs and imaging personally reviewed by me. Remainder the time spent in detailed review of previous records, lab data, imaging, and other medical provider documentation.
Anticipated Discharge: Within 24 hours
Subjective/Interval History
-
Date of Service: June 28, 2025
Patient seen and examined at bedside, denies any chest pain or shortness of breath, no abdominal pain, no nausea, no vomiting, no diarrhea or constipation.
Objective Data
-
Labs:
Laboratory Results
06/28/25
06:28
WBC 15.0 H
Hgb 10.7 L
Hct 33.3 L
Plt Count 113 L
Sodium 137
Potassium 3.6
Chloride 99
Carbon Dioxide 30
BUN 32 H
Creatinine 1.5 H
Glucose 130 H
Calcium 8.0 L
Vital Signs:
Vital Signs
Temp Pulse Resp BP Pulse Ox
98.6 F 76 18 120/78 95
06/28/25 11:25 06/28/25 11:25 06/28/25 11:25 06/28/25 11:25 06/28/25 11:25
I&O
06/27/25 06/28/25 06/29/25
06:59 06:59 06:59
Intake Total 720 / 720 1160 / 1160
Output Total 975 / 975 700 / 700
Balance -255 / -255 460 / 460
Physical Exam
-
General: Well Developed, Well Nourished, No Apparent Distress and Comfortable
HEENT: Normocephalic, Atraumatic, Moist Mucous Membranes, No Ptosis, PERRLA and Nose Appears Normal
Respiratory: Clear to Auscultation and Non Labored Respirations
Cardiac: Regular Rhythm and S1/S2
Breast: Deferred by me
GI: Soft, Nontender, Nondistended and Normal Bowel Sounds
Genito-urinary: No Costovertebral Tender
Musculoskeletal: No Clubbing, No Cyanosis, No Edema and Other (Left hip tender.)
Skin: Warm
Neuro: Awake, Alert, Oriented, AO x 3 and No Motor Deficits
Psych: Calm
--- NOTE | 2025-06-28 14:16 | CM ---
Addendum entered by Cynthia Viera RN 06/28/25 15:55:
Informed patient [facility] denied patient. Permission received to send referral to area facilities.
Original Note:
Reviewed the chart notes and spoke with the patient at the bedside. PT/OT recommends SNF. Reviewed list with the patient. Patient agreeable to a referral being sent to [facility], sent. Barrier might be insurance, not all accept [employer].
Patient notified of this. CM continues to be available to patient/family and is monitoring medical plan for needs at discharge.
Plan: Discharge to SNF once bed secured and auth obtained.
[2025-06-28] MEDS: ATIVAN 1 MG PO ×2 (19:34→23:38)
[2025-06-28] MEDS: ELIQUIS 5 MG PO (19:34)
[2025-06-28] MEDS: LIPITOR 40 MG PO (22:30)
[2025-06-28] MEDS: NORVASC PO (22:30)
[2025-06-28] MEDS: PROZAC 20 MG PO (22:30)
[2025-06-28] MEDS: SENOKOT 17.2 MG PO (22:30)
[2025-06-29] VITALS (8 sets, daily range): BP systolic 87–110; BP diastolic 50–69; PULSE 74–83; O2SAT 89; BMI 29.3
--- NOTE | 2025-06-29 00:36 | W.PN.UPDATE ---
Update Note
Progress Note Update
Patient is restless and irritable in bed, Alert and oriented x3. Vital signs bp 109/57, temp 98.5, hr 63, Spo2 in 90s on 2 L of O2.
CBC, Bmp, lactic acid, vbg.
[2025-06-29 01:13] LABS: Venous Blood Gas B.E. 3.3 mmol/L (-4 to +4); Venous Blood Gas O2 Sat % 99.5 %
[2025-06-29 01:15] LABS: Venous Blood Gas O2 Therapy ROOM AIR
[2025-06-29 01:26] LABS: Hematocrit 27.8 % (39.0-52.0); Hemoglobin 9.0 g/dL (13.0-18.0); Mean Corp Hgb Conc. 32.4 g/dL (33.0-37.0); Mean Corpuscular Volume 94.9 fL (80.0-94.0); Platelet Count 120 10^3/uL (130-400); Red Cell Dist. Width 14.3 % (11.5-14.5)
[2025-06-29 01:34] LABS: Blood Urea Nitrogen 43 mg/dl (9-20); Calcium 8.2 mg/dl (8.4-10.2); Carbon Dioxide 27 mmol/L (22-30); Chloride 101 mmol/L (98-107); Estimated Creatinine Clearance 39 ml/min; Glucose 133 mg/dl (70-99); Magnesium 2.1 mg/dl (1.6-2.3); Potassium 3.7 mmol/L (3.5-5.1); Sodium 136 mmol/L (135-145); eGFR 41.01
--- NOTE | 2025-06-29 01:40 | PTCARENOTE ---
Patient's MSAS 8-9, Notified [facility]AL[facility] Spring. See MAR for new orders.
[2025-06-29] MEDS: VALIUM INJECTION 5 MG IV (01:58)
--- NOTE | 2025-06-29 05:46 | PTCARENOTE ---
Patient had to waken up to urinate as patient didn't void this shift. [place] -419. unable to urinate at this time. bladderscan- 419. Patient is adamantly refusing straight Cath. updated KAL[facility] Spring
[2025-06-29] MEDS: ATIVAN 1 MG PO (06:05)
--- NOTE | 2025-06-29 07:38 | W.PN.ORTHO ---
Today's Communication / Plan
-
POD#2 left KRISTIN for displaced femoral neck fracture under the direction of Dr. Benitez
--WBAT LLE. Ambulate with walker
--Hip precautions
--PT/OT
--Pain management as needed
--Has resumed Eliquis
--Hgb 9.0. Repeat labs pending this AM. Continue to monitor
--Maintain dressing until outpatient follow up
--Case management consult for discharge planning
--Follow up in outpatient office in 2 weeks
--Patient is orthopedically stable postoperatively. Will sign off. Please reach out with any additional questions or concerns.
Assessment
.
Distal Motor Intact: Yes
Dressing:
Clean, dry and intact.
Plan
.
Surgery / Date: 06/27/[address] Benitez
DVT Prophylaxis: Other (Eliquis)
Activity:
Out of bed.
PT/OT
Subjective
.
.:
Patient resting comfortably on bed, sleeping. Arousable to verbal stimuli. Reports discomfort to the hip
Vital Signs and Labs
.
Vital Signs and Labs:
Temp Pulse Resp BP Pulse Ox
97.9 F 61 14 105/61 96
06/29/25 03:01 06/29/25 03:01 06/29/25 03:01 06/29/25 03:01 06/29/25 03:01
PT 16.5 Sec (11.4-14.6) H 06/25/25 22:11
INR 1.30 06/25/25 22:11
Physical Exam
-
Directed exam of left hip. Mepilex dressing in place. This is clean, dry, and intact. Mild tenderness to lateral hip. Thigh is soft and compressible. Able to plantarflex/dorsiflex the ankle. Wiggles all toes. Calf soft and nontender. NVI distally
[2025-06-29] MEDS: NEURONTIN 100 MG PO ×3 (08:19→21:35)
[2025-06-29] MEDS: VITAMIN B1 100 MG PO ×2 (08:19→21:35)
[2025-06-29] MEDS: TOPROL XL 25 MG PO (08:19)
[2025-06-29] MEDS: ASPIR LOW (ENTERIC COATED) 81 MG PO (08:19)
[2025-06-29] MEDS: LASIX 80 MG PO (08:19)
[2025-06-29] MEDS: ZYLOPRIM 300 MG PO (08:19)
[2025-06-29] MEDS: ELIQUIS 5 MG PO ×2 (08:19→21:35)
[2025-06-29] MEDS: PROTONIX 40 MG PO (08:19)
[2025-06-29] MEDS: PACERONE 200 MG PO (08:19)
[2025-06-29] MEDS: TYLENOL 1000 MG PO ×3 (08:20→21:35)
[2025-06-29] MEDS: FOLVITE 1 MG PO (08:20)
[2025-06-29 08:34] LABS: Hematocrit 26.5 % (39.0-52.0); Hemoglobin 8.7 g/dL (13.0-18.0); Mean Corp Hgb Conc. 32.8 g/dL (33.0-37.0); Mean Corpuscular Volume 94.3 fL (80.0-94.0); Red Cell Dist. Width 14.4 % (11.5-14.5)
[2025-06-29 09:16] LABS: Blood Urea Nitrogen 45 mg/dl (9-20); Calcium 8.6 mg/dl (8.4-10.2); Carbon Dioxide 28 mmol/L (22-30); Chloride 101 mmol/L (98-107); Estimated Creatinine Clearance 39 ml/min; Glucose 98 mg/dl (70-99); Sodium 136 mmol/L (135-145); eGFR 41.01
[2025-06-29 09:23] LABS: Potassium 3.6 mmol/L (3.5-5.1)
--- NOTE | 2025-06-29 10:01 | W.PN.HOSP.TC ---
Today's Communication/Plan
-
Watch for alcohol withdrawal, pending discharge
Assessment / Plan
Assessment / Plan
Impression:
Patient is a 79y M with PMH significant for ASCVD, hypertension and valvular heart disease who presents to ED complaining of L hip pain s/p fall today. Patient states that he has felt well lately. No recent illness. No chest pain, dyspnea,
palpitations, etc. Patient reports that he was taking out he trash when he caught his foot in a crack / divot in his driveway, lost his balance and fell. He denies striking his head or any LOC. He had pain in the L hip immediately upon falling.
He states that he remained on the ground for about one hour before he was noted / helped by passers-by.
Patient was brought to the ED for further evaluation. He has some superficial scrapes / abrasions on the arms / legs.
Right hip x-ray showed Acute fracture of the left femoral neck. Internal rotation and mild displacement of the distal fracture fragment.
Orthopedic consulted, cardiology consulted for preoperative clearance-Eliquis on hold.
Patient's status post right total hip replacement, Eliquis resumed, physical therapy recommending rehab
Follow-up alcohol withdrawal symptoms and was treated with Valium.
Assessment/plan:
Left Hip Fracture status post right total hip replacement 06/27
Mechanical Fall
- Admit for further evaluation and treatment.
- Pain control / supportive care / limit mobility.
- Patient is on Eliquis for A-Fib - last dose was this AM. Hold / wash out period.
- Ortho consulted for eventual operative repair.
- Will ask Cardiology to evaluate for pre-op assessment.
- Post-op PT, DVT prophylaxis, pain control, etc.
-Seen by cardiology for preoperative clearance.
06/28
Resume Eliquis.
PT/OT recommending rehab.
Social service consulted.
Alcohol Use Disorder
- Patient reports 3-4 drinks daily every day.
- MSAS protocol and BZDs as needed for symptoms of withdrawal.
- Thiamine, folate, MVI replacement, etc.
06/29
Developed alcohol withdrawal symptoms overnight and received Ativan/Valium
ASCVD
- Stable. s/p CABG x 1 and PTCA with stent.
- Continue ASA uninterrupted. Hold Eliquis as noted above.
- Continue statin, metoprolol, etc.
- Check EKG now.
- Cardiology eval appreciated.
Paroxysmal Atrial Fibrillation
- Stable. Holding Eliquis as noted.
- Continue metoprolol with holding parameters.
06/28
Eliquis resumed
Chronic HFpEF
- Last Echo (12/2024) with LVEF = 55-60% and well-seated AVR.
- Continue Lasix at once daily for now and follow I/Os, daily weights, etc.
- Adjust diuretic regimen as needed.
Benign Hypertension
- Stable. Continue outpatient regimen with holding parameters.
CKD III
Solitary Kidney s/p Left Nephrectomy (RCC)
- Stable. Renal function is at / near known baseline.
- Follow for changes. Avoid nephrotoxic agents, hypotension, etc.
Anemia of Chronic Disease
- Stable. Current Hgb appears somewhat improved from prior baseline.
- Follow cindi-operatively.
Leukocytosis.
Possible reactive.
Continue to monitor
Gout
- Stable. Continue allopurinol.
Anxiety / Depression
- Stable. Continue fluoxetine.
DVT Prophylaxis: SCDs for now. Post-op per Ortho.
Code Status: Full
CODE STATUS: Full code
DVT prophylaxis: SCDs
Diet: cardiac diet
Disposition: Watch for alcohol withdrawal, pending discharge.
Total time spent on today's encounter was 65 minutes which included time spent in counseling the patient/family regarding diagnosis and treatment plan as listed above, goals of care, and symptom management. Case was discussed with nursing staff,
specialists, and care coordinators/case management. All labs and imaging personally reviewed by me. Remainder the time spent in detailed review of previous records, lab data, imaging, and other medical provider documentation.
Anticipated Discharge: 24 - 48 hours
Subjective/Interval History
-
Date of Service: June 29, 2025
Patient developed alcohol withdrawal symptoms overnight, currently denies any symptoms and there was no tremors
Objective Data
-
Labs:
Laboratory Results
06/29/25 06/29/25
00:55 08:16
WBC 14.6 H 11.1 H
Hgb 9.0 L 8.7 L
Hct 27.8 L 26.5 L
Plt Count 120 L Pending
Sodium 136 136
Potassium 3.7 3.6
Chloride 101 101
Carbon Dioxide 27 28
BUN 43 H 45 H
Creatinine 1.7 H 1.7 H
Glucose 133 H 98
Calcium 8.2 L 8.6
Vital Signs:
Vital Signs
Temp Pulse Resp BP Pulse Ox
97.6 F 60 16 96/56 97
06/29/25 07:20 06/29/25 07:20 06/29/25 07:20 06/29/25 07:20 06/29/25 07:20
I&O
06/28/25 06/29/25 06/30/25
06:59 06:59 06:59
Intake Total 1160 / 1160 960 / 960
Output Total 700 / 700 800 / 800
Balance 460 / 460 160 / 160
Physical Exam
-
General: Well Developed, Well Nourished, No Apparent Distress and Comfortable
HEENT: Normocephalic, Atraumatic, Moist Mucous Membranes, No Ptosis, PERRLA and Nose Appears Normal
Respiratory: Clear to Auscultation and Non Labored Respirations
Cardiac: Regular Rhythm and S1/S2
Breast: Deferred by me
GI: Soft, Nontender, Nondistended and Normal Bowel Sounds
Genito-urinary: No Costovertebral Tender
Musculoskeletal: No Clubbing, No Cyanosis, No Edema and Other (Left hip tender.)
Skin: Warm
Neuro: Awake, Alert, Oriented, AO x 3 and No Motor Deficits
Psych: Calm
Data Reviewed
-
Diagnostic Radiology: Image personally visualized and interpreted and Report Reviewed by me
CT Scan: Image personally visualized and interpreted and Report Reviewed by me
Ultrasound: Image personally visualized and interpreted and Report Reviewed by me
MRI: Image personally visualized and interpreted and Report Reviewed by me
Medical Tests (Nuc Med, Echo etc): Image personally visualized and interpreted and Report Reviewed by me
Labs: Labs Reviewed by me
Old Records: Reviewed
[2025-06-29 10:06] LABS: Platelet Count 95 10^3/uL (130-400)
[2025-06-29] MEDS: PROZAC 20 MG PO (21:35)
[2025-06-29] MEDS: LIPITOR 40 MG PO (21:35)
[2025-06-29] MEDS: NORVASC 10 MG PO (21:35)
[2025-06-29] MEDS: ROXICODONE 5 MG PO (21:41)
[2025-06-29] MEDS: SENOKOT PO (21:49)
[2025-06-30] VITALS (9 sets, daily range): BP systolic 102–110; BP diastolic 53–66; PULSE 64–66; O2SAT 95; BMI 29.5
[2025-06-30] MEDS: ROXICODONE 5 MG PO ×3 (02:10→21:25)
[2025-06-30] MEDS: TYLENOL 1000 MG PO ×3 (08:36→21:22)
[2025-06-30] MEDS: LASIX 80 MG PO (08:37)
[2025-06-30] MEDS: NEURONTIN 100 MG PO ×3 (08:37→21:21)
[2025-06-30] MEDS: VITAMIN B1 100 MG PO ×2 (08:37→21:21)
[2025-06-30] MEDS: PACERONE 200 MG PO (08:37)
[2025-06-30] MEDS: ASPIR LOW (ENTERIC COATED) 81 MG PO (08:37)
[2025-06-30] MEDS: ELIQUIS 5 MG PO ×2 (08:37→21:20)
[2025-06-30] MEDS: ZYLOPRIM 300 MG PO (08:37)
[2025-06-30] MEDS: PROTONIX 40 MG PO (08:37)
[2025-06-30] MEDS: TOPROL XL 25 MG PO (08:37)
[2025-06-30] MEDS: FOLVITE 1 MG PO (08:38)
--- NOTE | 2025-06-30 11:48 | W.PN.HOSP.TC ---
Today's Communication/Plan
-
Discharge to rehab once bed available
Assessment / Plan
Assessment / Plan
Impression:
Patient is a 79y M with PMH significant for ASCVD, hypertension and valvular heart disease who presents to ED complaining of L hip pain s/p fall today. Patient states that he has felt well lately. No recent illness. No chest pain, dyspnea,
palpitations, etc. Patient reports that he was taking out he trash when he caught his foot in a crack / divot in his driveway, lost his balance and fell. He denies striking his head or any LOC. He had pain in the L hip immediately upon falling.
He states that he remained on the ground for about one hour before he was noted / helped by passers-by.
Patient was brought to the ED for further evaluation. He has some superficial scrapes / abrasions on the arms / legs.
Right hip x-ray showed Acute fracture of the left femoral neck. Internal rotation and mild displacement of the distal fracture fragment.
Orthopedic consulted, cardiology consulted for preoperative clearance-Eliquis on hold.
Patient's status post right total hip replacement, Eliquis resumed, physical therapy recommending rehab
Follow-up alcohol withdrawal symptoms and was treated with Valium.
Social service consult for discharge plan.
Assessment/plan:
Left Hip Fracture status post right total hip replacement 06/27
Mechanical Fall
- Admit for further evaluation and treatment.
- Pain control / supportive care / limit mobility.
- Patient is on Eliquis for A-Fib - last dose was this AM. Hold / wash out period.
- Ortho consulted for eventual operative repair.
- Will ask Cardiology to evaluate for pre-op assessment.
- Post-op PT, DVT prophylaxis, pain control, etc.
-Seen by cardiology for preoperative clearance.
06/28
Resume Eliquis.
PT/OT recommending rehab.
Social service consulted.
Alcohol Use Disorder
- Patient reports 3-4 drinks daily every day.
- MSAS protocol and BZDs as needed for symptoms of withdrawal.
- Thiamine, folate, MVI replacement, etc.
06/29
Developed alcohol withdrawal symptoms overnight and received Ativan/Valium
ASCVD
- Stable. s/p CABG x 1 and PTCA with stent.
- Continue ASA uninterrupted. Hold Eliquis as noted above.
- Continue statin, metoprolol, etc.
- Check EKG now.
- Cardiology eval appreciated.
Paroxysmal Atrial Fibrillation
- Stable. Holding Eliquis as noted.
- Continue metoprolol with holding parameters.
06/28
Eliquis resumed
Chronic HFpEF
- Last Echo (12/2024) with LVEF = 55-60% and well-seated AVR.
- Continue Lasix at once daily for now and follow I/Os, daily weights, etc.
- Adjust diuretic regimen as needed.
Benign Hypertension
- Stable. Continue outpatient regimen with holding parameters.
CKD III
Solitary Kidney s/p Left Nephrectomy (RCC)
- Stable. Renal function is at / near known baseline.
- Follow for changes. Avoid nephrotoxic agents, hypotension, etc.
Anemia of Chronic Disease
- Stable. Current Hgb appears somewhat improved from prior baseline.
- Follow cindi-operatively.
Leukocytosis.
Possible reactive.
Continue to monitor
Gout
- Stable. Continue allopurinol.
Anxiety / Depression
- Stable. Continue fluoxetine.
DVT Prophylaxis: SCDs for now. Post-op per Ortho.
Code Status: Full
CODE STATUS: Full code
DVT prophylaxis: SCDs
Diet: cardiac diet
Disposition: Social service for discharge .
Total time spent on today's encounter was 65 minutes which included time spent in counseling the patient/family regarding diagnosis and treatment plan as listed above, goals of care, and symptom management. Case was discussed with nursing staff,
specialists, and care coordinators/case management. All labs and imaging personally reviewed by me. Remainder the time spent in detailed review of previous records, lab data, imaging, and other medical provider documentation.
Anticipated Discharge: Within 24 hours
Subjective/Interval History
-
Date of Service: June 30, 2025
Patient seen and examined at bedside, denies any chest pain or shortness of breath, no abdominal pain, no nausea, no vomiting, no diarrhea or constipation.
Objective Data
-
Vital Signs:
Vital Signs
Temp Pulse Resp BP Pulse Ox
98.2 F 88 16 108/58 96
06/30/25 07:55 06/30/25 07:55 06/30/25 07:55 06/30/25 07:55 06/30/25 07:55
I&O
06/29/25 06/30/25 07/01/25
06:59 06:59 06:59
Intake Total 960 / 960 480 / 480
Output Total 800 / 800 100 / 100
Balance 160 / 160 480 / 480 -100 / -100
Physical Exam
-
General: Well Developed, Well Nourished, No Apparent Distress and Comfortable
HEENT: Normocephalic, Atraumatic, Moist Mucous Membranes, No Ptosis, PERRLA and Nose Appears Normal
Respiratory: Clear to Auscultation and Non Labored Respirations
Cardiac: Regular Rhythm and S1/S2
Breast: Deferred by me
GI: Soft, Nontender, Nondistended and Normal Bowel Sounds
Genito-urinary: No Costovertebral Tender
Musculoskeletal: No Clubbing, No Cyanosis, No Edema and Other (Left hip tender.)
Skin: Warm
Neuro: Awake, Alert, Oriented, AO x 3 and No Motor Deficits
Psych: Calm
--- NOTE | 2025-06-30 14:13 | CM ---
Per Attending, patient is stable for discharge; [facility] referral; no bed available
[facility] accepted referral; [facility] is a maybe
CM will follow up on bed availability tomorrow and address site options with patient; and submit AUTH once bed is secured
Plan: Discharge to SNF pending bed availability and auth approval
[2025-06-30] MEDS: MIRALAX 17 GRAMS PO (15:52)
[2025-06-30] MEDS: NORVASC PO (21:21)
[2025-06-30] MEDS: SENOKOT 17.2 MG PO (21:22)
[2025-06-30] MEDS: PROZAC 20 MG PO (21:25)
[2025-06-30] MEDS: LIPITOR 40 MG PO (21:25)
[2025-07-01] VITALS (7 sets, daily range): BP systolic 96–119; BP diastolic 55–64; PULSE 81; O2SAT 88–92; BMI 29.3
[2025-07-01 07:28] LABS: Blood Urea Nitrogen 47 mg/dl (9-20); Calcium 8.4 mg/dl (8.4-10.2); Carbon Dioxide 33 mmol/L (22-30); Chloride 103 mmol/L (98-107); Estimated Creatinine Clearance 44 ml/min; Glucose 95 mg/dl (70-99); Potassium 3.6 mmol/L (3.5-5.1); Sodium 140 mmol/L (135-145); eGFR 47.65
[2025-07-01 07:47] LABS: Hematocrit 26.7 % (39.0-52.0); Hemoglobin 8.4 g/dL (13.0-18.0); Mean Corp Hgb Conc. 31.5 g/dL (33.0-37.0); Mean Corpuscular Volume 96.7 fL (80.0-94.0); Platelet Count 129 10^3/uL (130-400); Red Cell Dist. Width 14.8 % (11.5-14.5)
[2025-07-01] MEDS: VITAMIN B1 100 MG PO (09:04)
[2025-07-01] MEDS: ZYLOPRIM 300 MG PO (09:04)
[2025-07-01] MEDS: NEURONTIN 100 MG PO ×2 (09:04→17:12)
[2025-07-01] MEDS: PROTONIX 40 MG PO (09:04)
[2025-07-01] MEDS: FOLVITE 1 MG PO (09:05)
[2025-07-01] MEDS: ELIQUIS 5 MG PO ×2 (09:05→19:56)
[2025-07-01] MEDS: ASPIR LOW (ENTERIC COATED) 81 MG PO (09:05)
[2025-07-01] MEDS: PACERONE 200 MG PO (09:05)
[2025-07-01] MEDS: TOPROL XL 25 MG PO (09:06)
[2025-07-01] MEDS: LASIX PO (09:08)
[2025-07-01] MEDS: TYLENOL 1000 MG PO ×2 (09:08→17:12)
--- NOTE | 2025-07-01 09:34 | W.PN.HOSP.TC ---
Today's Communication/Plan
-
Medically cleared for discharge
Assessment / Plan
Assessment / Plan
Impression:
Patient is a 79y M with PMH significant for ASCVD, hypertension and valvular heart disease who presents to ED complaining of L hip pain s/p fall today. Patient states that he has felt well lately. No recent illness. No chest pain, dyspnea,
palpitations, etc. Patient reports that he was taking out he trash when he caught his foot in a crack / divot in his driveway, lost his balance and fell. He denies striking his head or any LOC. He had pain in the L hip immediately upon falling.
He states that he remained on the ground for about one hour before he was noted / helped by passers-by.
Patient was brought to the ED for further evaluation. He has some superficial scrapes / abrasions on the arms / legs.
Right hip x-ray showed Acute fracture of the left femoral neck. Internal rotation and mild displacement of the distal fracture fragment.
Orthopedic consulted, cardiology consulted for preoperative clearance-Eliquis on hold.
Patient's status post right total hip replacement, Eliquis resumed, physical therapy recommending rehab
Follow-up alcohol withdrawal symptoms and was treated with Valium.
Social service consult for discharge plan.
Patient to be discharged to rehab.
Assessment/plan:
Left Hip Fracture status post right total hip replacement 06/27
Mechanical Fall
- Admit for further evaluation and treatment.
- Pain control / supportive care / limit mobility.
- Patient is on Eliquis for A-Fib - last dose was this AM. Hold / wash out period.
- Ortho consulted for eventual operative repair.
- Will ask Cardiology to evaluate for pre-op assessment.
- Post-op PT, DVT prophylaxis, pain control, etc.
-Seen by cardiology for preoperative clearance.
06/28
Resume Eliquis.
PT/OT recommending rehab.
Social service consulted.
Alcohol Use Disorder
- Patient reports 3-4 drinks daily every day.
- MSAS protocol and BZDs as needed for symptoms of withdrawal.
- Thiamine, folate, MVI replacement, etc.
06/29
Developed alcohol withdrawal symptoms overnight and received Ativan/Valium
ASCVD
- Stable. s/p CABG x 1 and PTCA with stent.
- Continue ASA uninterrupted. Hold Eliquis as noted above.
- Continue statin, metoprolol, etc.
- Check EKG now.
- Cardiology eval appreciated.
Paroxysmal Atrial Fibrillation
- Stable. Holding Eliquis as noted.
- Continue metoprolol with holding parameters.
06/28
Eliquis resumed
Chronic HFpEF
- Last Echo (12/2024) with LVEF = 55-60% and well-seated AVR.
- Continue Lasix at once daily for now and follow I/Os, daily weights, etc.
- Adjust diuretic regimen as needed.
Benign Hypertension
- Stable. Continue outpatient regimen with holding parameters.
Blood pressure remained soft during hospitalization, will hold my dose of amlodipine.
Change metoprolol to 12.5 mg
CKD III
Solitary Kidney s/p Left Nephrectomy (RCC)
- Stable. Renal function is at / near known baseline.
- Follow for changes. Avoid nephrotoxic agents, hypotension, etc.
Anemia of Chronic Disease
- Stable. Current Hgb appears somewhat improved from prior baseline.
- Follow cindi-operatively.
Leukocytosis.
Possible reactive.
Continue to monitor
Gout
- Stable. Continue allopurinol.
Anxiety / Depression
- Stable. Continue fluoxetine.
DVT Prophylaxis: SCDs for now. Post-op per Ortho.
Code Status: Full
CODE STATUS: Full code
DVT prophylaxis: SCDs
Diet: cardiac diet
Disposition: Medically clear for discharge.
Total time spent on today's encounter was 65 minutes which included time spent in counseling the patient/family regarding diagnosis and treatment plan as listed above, goals of care, and symptom management. Case was discussed with nursing staff,
specialists, and care coordinators/case management. All labs and imaging personally reviewed by me. Remainder the time spent in detailed review of previous records, lab data, imaging, and other medical provider documentation.
Anticipated Discharge: Today
Subjective/Interval History
-
Date of Service: July 01, 2025
Patient seen and examined at bedside, denies any chest pain or shortness of breath, no abdominal pain, no nausea, no vomiting, no diarrhea or constipation.
Objective Data
-
Labs:
Laboratory Results
07/01/25
06:03
WBC 5.9
Hgb 8.4 L
Hct 26.7 L
Plt Count 129 L D
Sodium 140
Potassium 3.6
Chloride 103
Carbon Dioxide 33 H
BUN 47 H
Creatinine 1.5 H
Glucose 95
Calcium 8.4
Vital Signs:
Vital Signs
Temp Pulse Resp BP Pulse Ox
97.2 F 64 16 105/60 93
07/01/25 08:12 07/01/25 09:08 07/01/25 08:12 07/01/25 09:08 07/01/25 03:01
I&O
06/30/25 07/01/25 07/02/25
06:59 06:59 06:59
Intake Total 480 / 480 1320 / 1320 240 / 240
Output Total 1100 / 1100 300 / 300
Balance 480 / 480 220 / 220 -60 / -60
Physical Exam
-
General: Well Developed, Well Nourished, No Apparent Distress and Comfortable
HEENT: Normocephalic, Atraumatic, Moist Mucous Membranes, No Ptosis, PERRLA and Nose Appears Normal
Respiratory: Clear to Auscultation and Non Labored Respirations
Cardiac: Regular Rhythm and S1/S2
Breast: Deferred by me
GI: Soft, Nontender, Nondistended and Normal Bowel Sounds
Genito-urinary: No Costovertebral Tender
Musculoskeletal: No Clubbing, No Cyanosis, No Edema and Other (Left hip tender.)
Skin: Warm
Neuro: Awake, Alert, Oriented, AO x 3 and No Motor Deficits
Psych: Calm
--- NOTE | 2025-07-01 12:56 | CM ---
Addendum entered by yCnthia Viera RN 07/01/25 16:05:
IMM reviewed. Auth obtaiined; 07/01-07/03; NRD 07/03 with Lisa Saldana ([phone]/ fax clinicals [phone]); Auth# [id number]; Ref# [id number]
Call report to: [phone]
Fax report to: [phone]
Medical necessity and transport forms on chart.
Original Note:
Reviewed the chart notes and spoke with the patient at the bedside. [facility] has offered a bed for the patient. Patient agreeable with [facility]. Auth started in [employer]. Pended # [id number]. CM continues to be available to patient/family and is
monitoring medical plan for needs at discharge.
Plan: Discharge to [facility] when auth received.
[facility] NPI# [id number]
Dr. Reese NPI# [id number]
--- NOTE | 2025-07-01 16:22 | W.DCSUMMARY ---
Discharge Summary
Discharge Data
Date of Admission: 06/25/25
Date of Discharge: 07/01/25
Total time spent discharging patient (in min): 40
-
Pending Results: No
Hospital Course
Hospital course
Patient is a 79y M with PMH significant for ASCVD, hypertension and valvular heart disease who presents to ED complaining of L hip pain s/p fall today. Patient states that he has felt well lately. No recent illness. No chest pain, dyspnea,
palpitations, etc. Patient reports that he was taking out he trash when he caught his foot in a crack / divot in his driveway, lost his balance and fell. He denies striking his head or any LOC. He had pain in the L hip immediately upon falling.
He states that he remained on the ground for about one hour before he was noted / helped by passers-by.
Patient was brought to the ED for further evaluation. He has some superficial scrapes / abrasions on the arms / legs.
Right hip x-ray showed Acute fracture of the left femoral neck. Internal rotation and mild displacement of the distal fracture fragment.
Orthopedic consulted, cardiology consulted for preoperative clearance-Eliquis on hold.
Patient's status post right total hip replacement, Eliquis resumed, physical therapy recommending rehab
Follow-up alcohol withdrawal symptoms and was treated with Valium.
Social service consult for discharge plan.
Patient to be discharged to rehab
During hospitalization patient was treated from the following
Left Hip Fracture status post right total hip replacement 06/27
Mechanical Fall
- Admit for further evaluation and treatment.
- Pain control / supportive care / limit mobility.
- Patient is on Eliquis for A-Fib - last dose was this AM. Hold / wash out period.
- Ortho consulted for eventual operative repair.
- Will ask Cardiology to evaluate for pre-op assessment.
- Post-op PT, DVT prophylaxis, pain control, etc.
-Seen by cardiology for preoperative clearance.
06/28
Resume Eliquis.
PT/OT recommending rehab.
Social service consulted.
Alcohol Use Disorder
- Patient reports 3-4 drinks daily every day.
- MSAS protocol and BZDs as needed for symptoms of withdrawal.
- Thiamine, folate, MVI replacement, etc.
06/29
Developed alcohol withdrawal symptoms overnight and received Ativan/Valium
ASCVD
- Stable. s/p CABG x 1 and PTCA with stent.
- Continue ASA uninterrupted. Hold Eliquis as noted above.
- Continue statin, metoprolol, etc.
- Check EKG now.
- Cardiology eval appreciated.
Paroxysmal Atrial Fibrillation
- Stable. Holding Eliquis as noted.
- Continue metoprolol with holding parameters.
06/28
Eliquis resumed
Chronic HFpEF
- Last Echo (12/2024) with LVEF = 55-60% and well-seated AVR.
- Continue Lasix at once daily for now and follow I/Os, daily weights, etc.
- Adjust diuretic regimen as needed.
Benign Hypertension
- Stable. Continue outpatient regimen with holding parameters.
Blood pressure remained soft during hospitalization, will hold my dose of amlodipine.
Change metoprolol to 12.5 mg
CKD III
Solitary Kidney s/p Left Nephrectomy (RCC)
- Stable. Renal function is at / near known baseline.
- Follow for changes. Avoid nephrotoxic agents, hypotension, etc.
Anemia of Chronic Disease
- Stable. Current Hgb appears somewhat improved from prior baseline.
- Follow cindi-operatively.
Leukocytosis.
Possible reactive.
Continue to monitor
Gout
- Stable. Continue allopurinol.
Anxiety / Depression
- Stable. Continue fluoxetine.
DVT Prophylaxis: SCDs for now. Post-op per Ortho.
Code Status: Full
CODE STATUS: Full code
DVT prophylaxis: SCDs
Diet: cardiac diet
Disposition: Medically clear for discharge.
Total time spent on today's encounter was 40 minutes which included time spent in counseling the patient/family regarding diagnosis and treatment plan as listed above, goals of care, and symptom management. Case was discussed with nursing staff,
specialists, and care coordinators/case management. All labs and imaging personally reviewed by me. Remainder the time spent in detailed review of previous records, lab data, imaging, and other medical provider documentation.
Anticipated Discharge: Today
Discharge Plan
-
Patient Disposition: [facility]/SNF
Discharge Diagnosis/Procedures: Left Hip Fracture status post right total hip replacement.
Paroxysmal Atrial Fibrillation
Chronic HFpEF
Diet: As tolerated and Low Sodium
Activity: With assistance and As tolerated
Wound Care: Leave dressing in place until outpatient follow up appointment
Referrals:
Preston Padilla MD [Active, Orthopedics] - in two weeks
Nazario Lacye MD [Family Provider, Internal Medicine]
Prescriptions:
New
polyethylene glycol 3350 17 gram Powder In Packet
17 g PO DAILYPRN PRN (Reason: Constipation) Qty: 0 0RF
amiodarone [Pacerone] 200 mg Tablet
200 mg PO DAILY Qty: 0 0RF
folic acid 1 mg Tablet
1 mg PO DAILY Qty: 0 0RF
thiamine mononitrate (vit B1) 100 mg Tablet
100 mg PO DAILY Qty: 0 0RF
Continued
allopurinol 300 MG tablet
300 mg PO DAILY
fluoxetine 20 MG capsule
20 mg PO HS
aspirin 81 mg Tablet,Delayed Release (Dr/Ec)
81 mg PO DAILY
atorvastatin 40 mg Tablet
40 mg PO HS Qty: 30 1RF
pantoprazole 40 mg Tablet,Delayed Release (Dr/Ec)
40 mg PO DAILY Qty: 30 0RF
gabapentin 100 mg Capsule
100 mg PO TID Qty: 30 0RF
Eliquis 5 mg tablet
5 mg PO BID Qty: 60 1RF
furosemide [Lasix] 40 mg tablet
80 mg PO BID Qty: 120 1RF
amiodarone 200 mg tablet
200 mg PO DAILY
diphenhydramine HCl [Benadryl] 25 mg Capsule
25 mg PO HS PRN (Reason: insomnia)
Changed
metoprolol succinate 25 mg Tablet Extended Release 24 Hr
12.5 mg PO DAILY Qty: 30 1RF
Held
amlodipine 10 MG tablet
10 mg PO HS
Hold Instructions: hold for now till follow up with PCP, BP was low in the hospital
Discharge Orders:
Discharge Patient (As Directed); Ordered 07/01/25
Ordered By: Gia Mota
Discharge Date and Time
Print Language: IRANIAN
--- NOTE | 2025-07-01 19:25 | PTCARENOTE ---
Patient for discharge at 1999. Report called to [facility] [phone]. Report given to BERNABE Kidd at 1915. Patient awaiting PU.
[2025-07-01] MEDS: VITAMIN B1 PO (22:08)
--- NOTE | 2025-07-02 00:14 | PTCARENOTE ---
late entry 07/01 2015 pt d/c via ambulance transport. moved onto stretcher by transport staff. all belongings with pt.
== END 2025-07-01 20:15 | DRG 522 ==
LOC: 2 SOUTH 20:39
PROVIDERS: Nurse Practitioner; Nurse Practitioner Family; Orthopaedic Surgery; ADMITTING PHYSICIAN Hospitalist; ATTENDING PHYSICIAN General Practice; CONSULT PHYSICIAN Specialist; EMERGENCY PHYSICIAN Emergency Medicine; FAMILY PHYSICIAN Internal Medicine; OTHER PHYSICIAN Internal Medicine
PROC: 0SRB039 Replacement of Left Hip Joint with Ceramic Synthetic Substitute, Cemented, Open Approach (ICD-10-PCS; 2025-06-27)
DX: S72.002A Fracture of unspecified part of neck of left femur, initial encounter for closed fracture (principal); I13.0 Hypertensive heart and chronic kidney disease with heart failure and stage 1 through stage 4 chronic kidney disease, or unspecified chronic kidney disease; I50.32 Chronic diastolic (congestive) heart failure; I71.21 Aneurysm of the ascending aorta, without rupture; J44.9 Chronic obstructive pulmonary disease, unspecified; I25.10 Atherosclerotic heart disease of native coronary artery without angina pectoris; I48.0 Paroxysmal atrial fibrillation; N18.30 Chronic kidney disease, stage 3 unspecified; D63.1 Anemia in chronic kidney disease; D72.829 Elevated white blood cell count, unspecified; E66.9 Obesity, unspecified; E78.00 Pure hypercholesterolemia, unspecified; F32.A Depression, unspecified; F10.90 Alcohol use, unspecified, uncomplicated; M10.9 Gout, unspecified; F41.9 Anxiety disorder, unspecified; Z96.652 Presence of left artificial knee joint; Z95.5 Presence of coronary angioplasty implant and graft; Z95.1 Presence of aortocoronary bypass graft; Z95.3 Presence of xenogenic heart valve; Z90.5 Acquired absence of kidney; Z87.891 Personal history of nicotine dependence; Z85.528 Personal history of other malignant neoplasm of kidney; Z79.899 Other long term (current) drug therapy; Z95.0 Presence of cardiac pacemaker; Z79.01 Long term (current) use of anticoagulants; Z79.82 Long term (current) use of aspirin; W01.0XXA Fall on same level from slipping, tripping and stumbling without subsequent striking against object, initial encounter; Z68.29 Body mass index [BMI] 29.0-29.9, adult
CPT/HCPCS: 73502; 80048; 80053; 81003; 81015; 82805; 83605; 83735; 84100; 85025; 85027; 85610; 85730; 86850; 86900; 86901; 88305; 88311; 93005; 96374; 96375; 96376; 97116; 97163; 97167; 97530; 97535; 99285; C1713; C1776

== ENCOUNTER → 2025-09-06 14:26 | Outpatient (REF) | payer OTHER, SELFPAY ==
[2025-09-06 15:00] LABS: Hematocrit 36.7 % (39.0-52.0); Hemoglobin 11.6 g/dL (13.0-18.0); Mean Corp Hgb Conc. 31.6 g/dL (33.0-37.0); Mean Corpuscular Volume 99.2 fL (80.0-94.0); Nucleated Red Blood Cells % 0 % (-); Platelet Count 253 10^3/uL (130-400); Red Cell Dist. Width 14.3 % (11.5-14.5)
[2025-09-06 15:36] LABS: Blood Urea Nitrogen 40 mg/dl (9-20); Calcium 9.7 mg/dl (8.4-10.2); Carbon Dioxide 29 mmol/L (22-30); Chloride 99 mmol/L (98-107); Glucose 109 mg/dl (70-99); Potassium 5.2 mmol/L (3.5-5.1); Sodium 137 mmol/L (135-145); eGFR 25.65
[2025-09-06 16:13] LABS: TSH 15.90 uIU/ml (0.47-4.68)
== END ==
LOC: REG 14:26
PROVIDERS: ATTENDING PHYSICIAN Internal Medicine; FAMILY PHYSICIAN Internal Medicine
DX: I10 Essential (primary) hypertension (principal); R42 Dizziness and giddiness
CPT/HCPCS: 36415; 80048; 84443; 85025